=== PATIENT | female | born 1950 | race Caucasian/White ===

== ENCOUNTER → 2017-08-26 10:47 | Outpatient (CLI) | payer MEDICARE, OTHER, SELFPAY ==
[2017-08-26 13:18] LABS: Add Manual Diff / Slide Review NO; Basophils Percent Auto 0.7 % (0-2); Eosinophils Percent Auto 2.3 % (2-4); Hematocrit 39.2 % (36-46); Hemoglobin 13.5 g/dL (12.0-16.0); Lymphocytes Percent Auto 34.8 % (25-40); Mean Corpuscular HGB Conc 34.3 % (30-36); Mean Corpuscular Hemoglobin 33.1 PG (26-34); Mean Corpuscular Volume 96.3 fL (80-100); Monocytes Percent Auto 4.9 % (3-14); Neutrophils Absolute Auto 4400 /uL (3000-5900); Neutrophils Percent Auto 57.3 % (50-75); Platelet Count 221 X10^3/uL (150-400); Red Blood Cell Count 4.07 X10^6/uL (4.0-5.2); Red Cell Distribution Width 12.8 % (11.6-14.8); White Blood Cell Count 7.7 X10^3/uL (4.5-11.0)
[2017-08-26 13:27] LABS: Hemoglobin A1C% w Est Avg Glu 5.3 % (4.0-6.0)
[2017-08-26 13:36] LABS: Alanine Aminotransferase 29 IU/L (9-52); Albumin 4.7 g/dL (3.5-5.0); Albumin Globulin Ratio 1.3 (1.0-2.8); Alkaline Phosphatase 115 U/L (38-126); Aspartate Aminotransferase 31 IU/L (14-36); Bilirubin Total 0.7 mg/dL (0.2-1.3); Blood Urea Nitrogen 21 mg/dL (7-17); Calcium 9.8 mg/dL (8.4-10.2); Carbon Dioxide 28 mmol/L (22-32); Chloride 98 mmol/L (98-107); Cholesterol 214 mg/dL (140-199); Estimated Glomerular Filt Rate > 60.0 mL/min (>60); Globulin 3.5 g/dL (1.7-4.1); Glucose 93 mg/dL (80-110); HDL Cholesterol 54 mg/dL (40-60); HEMOLYSIS < 15 (0-50); LDL Cholesterol Calculated 137 mg/dL (<100); Magnesium 1.9 mg/dL (1.6-2.3); Potassium 3.7 mmol/L (3.4-5.1); Sodium 138 mmol/L (137-145); Total Protein 8.2 g/dL (6.3-8.2); Triglycerides 115 mg/dL (35-150)
[2017-08-26 13:46] LABS: HEMOLYSIS < 15 (0-50); Iron 131 ug/dL (37-170)
[2017-08-26 14:01] LABS: Percent Iron Saturation 33 % (15-50); Total Iron Binding Capacity 395 ug/mL (265-497); Transferrin 317 mg/dL (206-381)
[2017-08-26 14:10] LABS: Thyroid Stimulating Hormone 0.52 uIU/mL (0.47-4.68)
[2017-08-26 14:12] LABS: Ferritin 46.8 ng/mL (11.1-264)
[2017-08-26 14:26] LABS: Vitamin B12 980 pg/mL (239-931)
[2017-08-26 15:21] LABS: Vitamin D 25 Hydroxy (D3) 40.1 ng/mL (30.0-100.0)
[2017-08-28 14:18] LABS: Parathyroid Hormone Int 37 pg/mL (14-64)
[2017-08-30 05:46] LABS: Vitamin B1 123 nmol/L (78-185)
== END ==
PROVIDERS: Family Provider Physical Medicine & Rehabilitation Pain Medicine; PCP Internal Medicine
DX: Z98.84 Bariatric surgery status (principal); R73.01 Impaired fasting glucose; K91.2 Postsurgical malabsorption, not elsewhere classified; Z68.30 Body mass index [BMI] 30.0-30.9, adult
CPT/HCPCS: 36415; 80053; 80061; 82306; 82330; 82607; 82728; 83036; 83540; 83550; 83735; 83970; 84425; 84443; 85025

== ENCOUNTER → 2017-12-29 07:21 | Outpatient (CLI) | payer MEDICARE, OTHER, SELFPAY ==
[2017-12-29 09:18] LABS: Alanine Aminotransferase 23 IU/L (9-52); Albumin 4.7 g/dL (3.5-5.0); Albumin Globulin Ratio 1.6 (1.0-2.8); Alkaline Phosphatase 95 U/L (38-126); Aspartate Aminotransferase 33 IU/L (14-36); BUN Creatinine Ratio 28.6 (6-22); Bilirubin Total 0.4 mg/dL (0.2-1.3); Blood Urea Nitrogen 20 mg/dL (7-17); Calcium 9.6 mg/dL (8.4-10.2); Carbon Dioxide 26 mmol/L (22-32); Chloride 102 mmol/L (98-107); Estimated Glomerular Filt Rate > 60.0 mL/min (>60); Glucose 81 mg/dL (80-110); HEMOLYSIS < 15 (0-50); Sodium 143 mmol/L (137-145); Total Protein 7.7 g/dL (6.3-8.2)
[2017-12-29 09:53] LABS: Free T3, Triiodothyronine Free 2.85 pg/mL (2.77-5.27)
[2017-12-29 09:55] LABS: Vitamin D 25 Hydroxy (D3) 49.9 ng/mL (30.0-100.0)
[2017-12-29 10:07] LABS: Vitamin B12 960 pg/mL (239-931)
[2017-12-29 10:44] LABS: Thyroid Stimulating Hormone 1.22 uIU/mL (0.47-4.68)
[2017-12-31 14:23] LABS: Anti Thyroglobulin Antibody < 1 IU/mL (< 2); Thyroid Peroxidase Antibodies 4 IU/mL (< 9)
[2018-01-06 16:14] LABS: Triiodothyronine T3 Reverse 16 ng/dL (8-25)
== END ==
PROVIDERS: Family Provider Physical Medicine & Rehabilitation Pain Medicine; PCP Internal Medicine; Visit Provider Physical Medicine & Rehabilitation Pain Medicine
DX: K21.0 Gastro-esophageal reflux disease with esophagitis (principal); E03.9 Hypothyroidism, unspecified; E55.9 Vitamin D deficiency, unspecified; R53.83 Other fatigue
CPT/HCPCS: 36415; 80053; 82306; 82607; 84439; 84443; 84481; 84482; 86376; 86800

== ENCOUNTER → 2018-01-04 07:35 | Outpatient (CLI) | payer MEDICARE, OTHER, SELFPAY ==
[2018-01-04 08:23] LABS: Add Manual Diff / Slide Review NO; Basophils Percent Auto 1.2 % (0-2); Eosinophils Percent Auto 3.3 % (2-4); Hematocrit 38.7 % (36-46); Hemoglobin 13.3 g/dL (12.0-16.0); Lymphocytes Percent Auto 32.3 % (25-40); Mean Corpuscular HGB Conc 34.3 % (30-36); Mean Corpuscular Hemoglobin 32.9 PG (26-34); Mean Corpuscular Volume 95.7 fL (80-100); Monocytes Percent Auto 5.7 % (3-14); Neutrophils Absolute Auto 3800 /uL (3000-5900); Neutrophils Percent Auto 57.5 % (50-75); Platelet Count 194 X10^3/uL (150-400); Red Blood Cell Count 4.05 X10^6/uL (4.0-5.2); White Blood Cell Count 6.6 X10^3/uL (4.5-11.0)
[2018-01-04 08:45] LABS: Alanine Aminotransferase 28 IU/L (9-52); Albumin 4.8 g/dL (3.5-5.0); Albumin Globulin Ratio 1.5 (1.0-2.8); Alkaline Phosphatase 96 U/L (38-126); Aspartate Aminotransferase 33 IU/L (14-36); BUN Creatinine Ratio 38.6 (6-22); Bilirubin Total 0.6 mg/dL (0.2-1.3); Blood Urea Nitrogen 27 mg/dL (7-17); Calcium 9.7 mg/dL (8.4-10.2); Carbon Dioxide 29 mmol/L (22-32); Chloride 101 mmol/L (98-107); Cholesterol 210 mg/dL (140-199); Estimated Glomerular Filt Rate > 60.0 mL/min (>60); Globulin 3.2 g/dL (1.7-4.1); Glucose 103 mg/dL (80-110); HDL Cholesterol 61 mg/dL (40-60); HEMOLYSIS < 15 (0-50); LDL Cholesterol Calculated 125 mg/dL (<100); Magnesium 1.9 mg/dL (1.6-2.3); Potassium 3.9 mmol/L (3.4-5.1); Sodium 141 mmol/L (137-145); Triglycerides 119 mg/dL (35-150)
[2018-01-04 09:06] LABS: Hemoglobin A1C% w Est Avg Glu 5.3 % (4.0-6.0)
[2018-01-04 09:32] LABS: Vitamin B12 971 pg/mL (239-931)
[2018-01-04 09:42] LABS: HEMOLYSIS < 15 (0-50); Iron 134 ug/dL (37-170)
[2018-01-04 09:55] LABS: Percent Iron Saturation 36 % (15-50); Total Iron Binding Capacity 376 ug/dL (265-497); Transferrin 339 mg/dL (206-381)
[2018-01-04 10:08] LABS: Vitamin D 25 Hydroxy (D3) 48.7 ng/mL (30.0-100.0)
[2018-01-04 10:12] LABS: Thyroid Stimulating Hormone 1.19 uIU/mL (0.47-4.68)
[2018-01-06 14:59] LABS: Ionized Calcium 5.1 mg/dL (4.8-5.6)
[2018-01-06 15:27] LABS: Folate, RBC >1000 ng/mL RBC (> 280)
[2018-01-07 14:36] LABS: Parathyroid Hormone Int 40 pg/mL (14-64)
== END ==
PROVIDERS: Family Provider Physical Medicine & Rehabilitation Pain Medicine; PCP Internal Medicine; Referring Provider Orthopaedic Surgery Orthopaedic Surgery of the Spine; Visit Provider Nurse Practitioner Family
DX: Z09 Encounter for follow-up examination after completed treatment for conditions other than malignant neoplasm (principal); Z98.84 Bariatric surgery status; E03.9 Hypothyroidism, unspecified; K91.2 Postsurgical malabsorption, not elsewhere classified; Z68.30 Body mass index [BMI] 30.0-30.9, adult; R73.01 Impaired fasting glucose; E78.2 Mixed hyperlipidemia; E55.9 Vitamin D deficiency, unspecified; D50.8 Other iron deficiency anemias
CPT/HCPCS: 36415; 80053; 80061; 82306; 82330; 82607; 82728; 82747; 83036; 83540; 83550; 83735; 83970; 84425; 84443; 85025

== ENCOUNTER 2018-06-14 06:31 | Day surgery (SDC) | payer MEDICARE, OTHER, SELFPAY ==
[2018-06-06 07:25] VITALS: BMI 25.4
--- NOTE | 2018-06-14 | PATH_ITS ---
[facility] [place] Accession Number: [id number] . 01 Material submitted: . LEFT FLANK MASS . 01 Diagnosis: Left Flank, Excision: Nodular area present deep in the subcutis showing fibrosis and calcification, most likely reactive, secondary to prior local trauma. . Note: Focal metaplastic bone formation is also noted. Clinical pathological correlation is advised. MRV/06/22/2018 . 01 Electronically signed: . Jamee Cross MD, Dermatopathologist NPI- [id number] . 01 Gross description: . Received in formalin, labeled left flank mass, is an unoriented ellipse of eastman-white smooth shiny skin with underlying tissue (7.5 x 3.3 x 1.3 cm). The skin surface is unremarkable. The underlying tissue is fatty and contains a eastman-yellow hard mass (3.0 x 1.4 x 0.7 cm) located 2.0 cm from the skin surface. The mass cannot be sliced with a scalpel. The mass has a pale yellow cut surface. The resection margin is inked black. Package Maker serial sections are submitted in cassettes A1 and A2. Note: The sections have been decalcified. ([id number]) All remaining tissue submitted in cassettes A3 to A10. /MRV . 01 Pathologist provided ICD-10: L98.9 . 01 CPT . 430005 Performed at: [address] [facility] [address], [place], [place] [id number] MD Haseeb Goncalves MD Phone: [phone]
[2018-06-14 07:18] VITALS: BMI 25.4
[2018-06-14 07:20] VITALS: BP 134/72; PULSE 74; RESP 18; TEMP 36.6; O2SAT 98
--- NOTE | 2018-06-14 07:40 | PM.HP.1 ---
History of Present Illness Date Patient Seen: 06/14/18 Time Patient Seen: 07:40 Chief complaint: EXCISION LEFT GLUTEAL MASS Narrative: 68-year-old female who presented with painful enlarging subcutaneous masses in the left gluteal region just posterior to the anterior superior iliac spine. She finds it difficult to lay on this area due to pain and discomfort. No skin changes. No rashes. No lesions elsewhere. Patient History Medical History Bilateral lower extremity edema (Acute) Colon polyps (Acute) Degenerative disc disease, cervical (Acute) Difficult intravenous access (Acute) GERD (gastroesophageal reflux disease) (Acute) Glaucoma (Acute) H/O: hysterectomy (Acute ~08/1978) Hyperlipidemia (Acute) Lesion of lung (Acute) Meningioma (Acute ~10/2015) Superficial thrombophlebitis of left leg (Acute ~1985) Vitamin D deficiency (Acute) Hypothyroidism (Acute) Asthma (Chronic) Eczema (Chronic) HTN (hypertension) (Chronic) SLE (systemic lupus erythematosus related syndrome) (Chronic) Seasonal allergies (Chronic) Surgical History H/O foot surgery (Acute) History of lumbar spinal fusion (Acute ~2002) History of lumbar spinal fusion (Acute) Hx of abdominal surgery (Acute) Hx of cholecystectomy (Acute) Hx of eye surgery (Acute ~12/2015) S/P foot surgery, right (Acute 01/08/17) History of appendectomy (Acute) History of section (Acute) History of cosmetic surgery (Acute) History of gastric bypass (Acute ~01/2017) Family History Father Hypertension Heart disease Diabetes mellitus Mother Heart disease Gallstones Stroke Cancer Adenocarcinoma in situ Sister Breast cancer Family/Other Breast cancer Grandfather No problems noted. Social History household members: spouse Smoking Status: Never smoker Family & Social History Social History: household members spouse Tobacco & Substance use: Smoking Status Never smoker Meds Home Medications Medication Instructions Recorded Confirmed Type Restasis 2 drp OPHTH BID #0 11/21/12 06/14/18 History albuterol sulfate [Ventolin HFA] 2 puff INH Q4HP PRN #0 puff 11/21/12 06/06/18 History spironolactone 25 mg PO QDAY #0 tab 11/21/12 06/14/18 History clobetasol 1 karel TOPICAL BIDP PRN #0 08/27/16 06/06/18 History [PROBIOTIC] PO QDAY #0 02/22/17 History fluticasone propionate [Flonase 1 spray INTRANASAL QDAY #0 02/22/17 06/14/18 History Allergy Relief] losartan-hydrochlorothiazide 1 tab PO QDAY #0 02/22/17 06/14/18 History multivitamin [Multiple Vitamins] 1 tab PO QDAY #0 02/22/17 06/06/18 History omeprazole 40 mg PO QDAY #0 02/22/17 06/14/18 History cetirizine 10 mg tablet 10 mg PO DAILY PRN tab 05/12/18 06/14/18 History levothyroxine 112 mcg PO DAILY 05/12/18 06/14/18 History liothyronine 5 mcg PO QAM 05/12/18 06/14/18 History Allergies Allergy/AdvReac Type Severity Reaction Status Date / Time adhesive [ADHESIVE] Allergy Severe HIVES Verified 06/14/18 07:27 amlodipine [AMLODIPINE] Allergy Severe ANGIOEDEMA Verified 06/14/18 07:27 amoxicillin [AMOXICILLIN] Allergy Severe ANAPHYLAXIS Verified 06/14/18 07:27 cephalexin [CEPHALEXIN] Allergy Severe ANAPHYLAXIS Verified 06/14/18 07:27 Cephalosporins Allergy Severe ANAPHYLAXIS Verified 06/14/18 07:27 [CEPHALOSPORINS] erythromycin base Allergy Severe Vomiting Verified 06/14/18 07:27 [ERYTHROMYCIN BASE] gabapentin [GABAPENTIN] Allergy Severe nausea, Verified 06/14/18 07:27 headache hydrocodone [HYDROCODONE] Allergy Severe HIVES/ITCHI Verified 06/14/18 07:27 NG iodine [IODINE] Allergy Severe ANAPHYLAXIS Verified 06/14/18 07:27 lisinopril [LISINOPRIL] Allergy Severe ANGIOEDEMA Verified 06/14/18 07:27 Penicillins [PENICILLINS] Allergy Severe ANAPHYLAXIS Verified 06/14/18 07:27 sumatriptan [SUMATRIPTAN] Allergy Unknown nightmares Verified 06/14/18 07:27 codeine Allergy nausea,itch Verified 06/14/18 07:27 ing oxycodone [From Percocet] Allergy nausea, Verified 06/14/18 07:27 itching Iodinated Contrast- Oral and AdvReac Anaphylaxis Verified 06/14/18 07:27 IV Dye Review of Systems Review of Systems All systems reviewed & are unremarkable except as noted in HPI and below Exam Vital Signs (past 8 hours): - 06/14/18 07:20 Temperature 97.8 F Pulse Rate 74 Respiratory Rate 18 Blood Pressure 134/72 Pulse Oximetry 98 Oxygen Delivery Method Room Air Narrative Exam Narrative: Well-nourished well-developed female in no acute distress. Alert oriented x3 Neck supple Sclera nonicteric Chest clear to auscultation Abdomen soft, nondistended, nontender, no masses. Well-healed abdominoplasty scars Extremities show no clubbing, cyanosis, or edema She has redundant soft tissue and skin from recent weight loss Three small subcutaneous for mobile mildly tender nodules are noted just posterior to the anterior superior iliac spine along the lateral left flank. Objective Labs Labs: No recent laboratory or radiographic studies for review Assessment & Plan Assessment & Plan narrative: 60-year-old female with enlarging painful subcutaneous nodules of the left flank region. Given her symptoms I recommended excision. Technical details were discussed. Risks, benefits, alternatives reviewed. Please see my previous note from April 2018 for details. Her history physical examination is otherwise not changed. This serves as an update to the previous note. All questions were answered to her satisfaction when I saw her in the preoperative area today. Consent is on the chart. Proceed as above.
--- NOTE | 2018-06-14 07:43 | PM.PREOP ---
Pre-operative Note Interval Note History & Physical reviewed/Exam performed by Physician: Yes Changes to H&P: No
[2018-06-14] MEDS: LACTATED RINGERS 1,000 ML 42 ML IV (07:46)
[2018-06-14] MEDS: CLINDAMYCIN 900 MG/50 ML PIGGYBACK 50 MG IV (07:55)
--- NOTE | 2018-06-14 08:15 | SUR.OPER ---
Lateral on padded red bag on OR bed, head on pillow, gel axillary roll in place, bottom leg bent with gel pad under knee to foot, upper leg straight and supported with pillows. Upper arm supported by pillows and secured over bottom arm to padded arm board. Safety belt at hip, tape over blanket lower legs.
[2018-06-14] MEDS: BUPIVACAINE 0.5% (PF) VIAL 30 ML INJ (08:20)
[2018-06-14] MEDS: LIDOCAINE 1% W/EPI INJ 20 ML INJ (08:20)
[2018-06-14 08:44] VITALS: BP 117/38; PULSE 83; RESP 16; TEMP 36.3; O2SAT 99
--- NOTE | 2018-06-14 08:44 | PM.OP.1 ---
Operative Date/Time/Diagnoses Date of procedure: 06/14/18 Time of procedure: 08:44 Pre-op diagnosis: Painful subcutaneous nodules left flank region near gluteus Post-op diagnosis: same Procedure & Clinicians Procedure: Wide local excision of skin, subcutaneous tissue, and multinodular mass in left flank measuring 6 x 2 by 3 cm in greatest dimensions Same procedure as scheduled: Yes Indications: 68-year-old female who presented with painful nodules of the left flank region extending toward the left gluteal area. Given her symptoms excision was recommended. Surgeon: Dannie Colby Click Yes if Unassisted: Yes Anesthesia Type: General Operative Notes Findings: Multinodular firm irregular mass in the subcutaneous tissue of the left flank region possibly consistent with suture material or other foreign body Closure Type: primary Specimen(s): other (Left flank mass) Prosthetic devices, grafts, tissues, transplants, or devices: None Estimated Blood Loss (mL): 5 Blood products transfused: none Procedure in detail: After obtaining informed consent the patient was brought to the operating room placed supine on the table. After satisfactory induction anesthesia she was placed in right lateral decubitus position and all pressure points were padded appropriately. SCOAP time out was performed per standard protocol. Previously marked area was again identified and an elliptical skin incision was designed with the above dimensions. Area was infiltrated with a 1 :1 mixture 1% lidocaine with 1 :100,000 epinephrine and 0.5% plain Marcaine for postoperative analgesia. Skin incision was created with 10 scalpel blade. Bovie was used to achieve hemostasis and carried the dissection down through the subcutaneous tissue completely encompassing the palpable lesion. Lesion was excised with the Bovie and sent for permanent section. Wound was irrigated with copious amounts of sterile saline solution and noted to be hemostatic. Further palpation of the cavity revealed no other masses or abnormalities. Subcutaneous tissue was reapproximated with interrupted 3 0 Vicryl suture. Skin was closed in running subcuticular fashion with 4 0 Monocryl suture. Dermal adhesive was applied to the skin. Anesthesia was reversed and patient extubated in the operating room. She was taken recovery stable condition. Complications: none Condition: stable Disposition: PACU Plan for aftercare: 1. Discharge home 2. Follow up in surgery Clinic in 2 weeks 3. Await pathology
[2018-06-14 08:49] VITALS: BP 111/46; PULSE 81; RESP 15; O2SAT 99
[2018-06-14 08:53] VITALS: BP 127/57; PULSE 76; RESP 13; O2SAT 100
[2018-06-14] MEDS: fentaNYL 100 MCG/2 ML INJ 50 MCG IV ×2 (08:53→09:04)
[2018-06-14 08:59] VITALS: BP 127/54; PULSE 70; RESP 11; O2SAT 99
[2018-06-14 09:11] VITALS: BP 150/63; PULSE 71; RESP 15; TEMP 36.3; O2SAT 100
[2018-06-14] MEDS: HYDROMORPHONE 2 MG TABLET PO (09:36)
== END 2018-06-14 09:45 | disposition home or self-care (01) ==
LOC: OR 06:33
PROVIDERS: Family Provider Physical Medicine & Rehabilitation Pain Medicine; PCP Internal Medicine; Visit Provider Surgery
PROC: (CPT 21931; principal; 2018-06-14 07:45)
DX: L98.9 Disorder of the skin and subcutaneous tissue, unspecified (principal); E03.9 Hypothyroidism, unspecified; J45.909 Unspecified asthma, uncomplicated; I10 Essential (primary) hypertension; L93.0 Discoid lupus erythematosus; Z98.890 Other specified postprocedural states
CPT/HCPCS: 21931; 88305; J1100; J1885; J2250; J2405; J2704; J3010

== ENCOUNTER → 2018-06-20 08:48 | Outpatient (CLI) | payer MEDICARE, OTHER, SELFPAY ==
[2018-06-20 11:47] LABS: Thyroid Stimulating Hormone 1.03 uIU/mL (0.47-4.68)
[2018-06-20 12:12] LABS: Vitamin D 25 Hydroxy (D3) 33.7 ng/mL (30.0-100.0)
[2018-06-22 14:05] LABS: Anti Thyroglobulin Antibody < 1 IU/mL (< 2); Thyroid Peroxidase Antibodies 4 IU/mL (< 9)
[2018-06-22 15:22] LABS: Magnesium, RBC 4.7 mg/dL (4.0-6.4)
[2018-06-23 16:12] LABS: T4,Free, Direct Dialysis 1.7 ng/dL (0.9-2.2)
[2018-06-24 12:31] LABS: Triiodothyronine T3 Reverse 15 ng/dL (8-25)
== END ==
PROVIDERS: Family Provider Physical Medicine & Rehabilitation Pain Medicine; PCP Internal Medicine; Visit Provider Physical Medicine & Rehabilitation Pain Medicine
DX: E03.9 Hypothyroidism, unspecified (principal); R53.83 Other fatigue; E55.9 Vitamin D deficiency, unspecified
CPT/HCPCS: 36415; 82306; 83735; 84439; 84443; 84482; 86376; 86800

== ENCOUNTER → 2018-07-05 06:15 | Outpatient (CLI) | payer MEDICARE, OTHER, SELFPAY ==
--- NOTE | 2018-07-05 | DI.MRI.S_ITS ---
PROCEDURE: MR LUMBAR SPINE WO/W CON INDICATIONS: RIGHT LE PAIN/NUMBNESS TECHNIQUE: Noncontrast sagittal T1 spin echo and T2 fast spin echo, sagittal STIR, axial T1 and T2 fast spin echo through the lumbar spine. In cases with scoliosis, additional coronal T2 fast spin echo may be performed. After the administration of contrast, sagittal and axial T1 spin echo with fat saturation through the lumbar spine. COMPARISON: [facility], , L-SPINE 2-3 VIEWS, 01/01/2012, 5:11. FINDINGS: Image quality: Excellent. Alignment and curvature: There is right hemifusion at L1 and L2. There is trace retrolithesis of L1 on L2, L2 on L3, trace anterolithesis of L4 on L5, L5 on S1. Marrow: Marrow is of normal overall signal. No acute vertebral body compression fractures. No suspicious marrow enhancement. Spinal cord: Conus medullaris terminates at the L2 level. Visualized spinal cord demonstrates normal signal, without suspicious enhancement. Paraspinous soft tissues: No paravertebral masses or abnormal enhancement. Discs: Moderate to severe desiccation is present throughout the lumbar spine. L1-L2: Mild disc bulge without spinal stenosis. Mild right foraminal narrowing with facet and ligamentum flavum hypertrophy. L2-L3: Postsurgical changes are present without spinal stenosis. Moderate bilateral foraminal narrowing with facet and ligamentum flavum hypertrophy. L3-L4: No disc bulge or spinal stenosis. Moderate to severe left foraminal narrowing is present with facet and ligamentum flavum hypertrophy. L4-L5: Mild disc bulge without spinal stenosis. Mild bilateral foraminal narrowing, left greater than right. Facet and ligamentum flavum hypertrophy. L5-S1: Mild disc bulge including right foraminal component. Moderate to severe right foraminal narrowing with facet hypertrophy.. IMPRESSION: 1. Multilevel posterior fusion. 2. Multilevel degenerative changes without spinal stenosis. 3. Foraminal narrowing most prominent at L2-3, L3-4, secondary to facet arthropathy. Dictated by: Melinda Palacios M.D. on 07/05/2018 at 13:36 Approved by: Melinda Palacios M.D. on 07/05/2018 at 14:16
--- NOTE | 2018-07-05 | DI.MRI.S_ITS ---
PROCEDURE: MR THORACIC SPINE WO/W CON INDICATIONS: RIGHT LE PAIN/NUMBNESS TECHNIQUE: Noncontrast sagittal T1 spin echo and T2 fast spin echo, sagittal STIR, axial T1 and T2 fast spin echo through the thoracic spine. After the administration of contrast, axial and sagittal T1 spin echo with fat saturation through the thoracic spine. COMPARISON: [facility], MR, MR LUMBAR SPINE WO/W CON, 07/05/2018, 7:25. FINDINGS: Image quality: Excellent. Alignment and curvature: There is trace retrolisthesis of T11 on T12, T12 on L1, L1 on L2. Partially visualized posterior fusion is present at L1 and L2. There is incidental note of trace retrolisthesis of C6 on C7, trace anterolisthesis of T2 on T3, T3 on T4. Marrow: Marrow is of normal overall signal. No acute vertebral body compression fractures. Spinal cord: Visualized spinal cord is of normal signal and size, without abnormal enhancement. Paraspinous soft tissues: No paravertebral masses or abnormal enhancement. Miscellaneous: Central canal and foramina appear widely patent at all scanned levels. Multilevel disc desiccation is present throughout the thoracic spine. Mild disc bulges are present at T2-3, T4-5, T7-8, T8-9, T9-10 and, T12-L1. There is a disc bulge with posterior central protrusion with mild spinal stenosis at T11-12. Annular fissures also noted. IMPRESSION: 1. Multiple disc bulges including a posterior central protrusion at T11-12 with spinal stenosis as above. Dictated by: Melinda Palacios M.D. on 07/05/2018 at 12:45 Approved by: Melinda Palacios M.D. on 07/05/2018 at 13:36
[2018-07-05 09:59] LABS: Add Manual Diff / Slide Review NO; Basophils Absolute Auto 0 /uL (0-100); Basophils Percent Auto 0.6 % (0-2); Eosinophils Absolute Auto 100 /uL (0-450); Eosinophils Percent Auto 2.2 % (2-4); Hematocrit 40.1 % (36-46); Hemoglobin 13.7 g/dL (12.0-16.0); Lymphocytes Absolute Auto 1800 /uL (1100-4500); Lymphocytes Percent Auto 31.3 % (25-40); Mean Corpuscular HGB Conc 34.1 % (30-36); Mean Corpuscular Hemoglobin 33.6 PG (26-34); Mean Corpuscular Volume 98.5 fL (80-100); Monocytes Absolute Auto 400 /uL (0-900); Monocytes Percent Auto 6.2 % (3-14); Neutrophils Absolute Auto 3500 /uL (1500-7000); Neutrophils Percent Auto 59.7 % (50-75); Platelet Count 191 X10^3/uL (150-400); Red Blood Cell Count 4.07 X10^6/uL (4.0-5.2); Red Cell Distribution Width 13.1 % (11.6-14.8); White Blood Cell Count 5.8 X10^3/uL (4.5-11.0)
[2018-07-05 10:50] LABS: Alanine Aminotransferase 33 IU/L (9-52); Albumin 4.8 g/dL (3.5-5.0); Albumin Globulin Ratio 1.7 (1.0-2.8); Alkaline Phosphatase 100 U/L (38-126); Aspartate Aminotransferase 35 IU/L (14-36); BUN Creatinine Ratio 27.1 (6-22); Bilirubin Total 0.5 mg/dL (0.2-1.3); Blood Urea Nitrogen 19 mg/dL (7-17); Calcium 9.9 mg/dL (8.4-10.2); Carbon Dioxide 28 mmol/L (22-32); Chloride 99 mmol/L (98-107); Estimated Glomerular Filt Rate > 60.0 mL/min (>60); Globulin 2.8 g/dL (1.7-4.1); Glucose 90 mg/dL (80-110); HEMOLYSIS < 15 (0-50); Potassium 4.9 mmol/L (3.4-5.1); Sodium 137 mmol/L (137-145); Total Protein 7.6 g/dL (6.3-8.2)
== END ==
PROVIDERS: Family Provider Physical Medicine & Rehabilitation Pain Medicine; PCP Internal Medicine; Visit Provider Physical Medicine & Rehabilitation Pain Medicine
DX: G83.4 Cauda equina syndrome (principal); M46.46 Discitis, unspecified, lumbar region; R53.83 Other fatigue; R20.2 Paresthesia of skin; M48.00 Spinal stenosis, site unspecified
CPT/HCPCS: 36415; 72157; 72158; 80053; 85025

== ENCOUNTER 2018-08-28 17:17 | Emergency (ER) | payer MEDICARE, OTHER, SELFPAY ==
[2018-08-28 17:29] VITALS: BP 166/82; PULSE 77; RESP 18; TEMP 36.7; O2SAT 100
[2018-08-28 17:30] VITALS: PULSE 77; RESP 18; TEMP 36.7; O2SAT 100; BMI 26.5
[2018-08-28] MEDS: PROPARACAINE 0.5% OPHTH SOL 1 DROPS EYE-LEFT (17:40)
--- NOTE | 2018-08-28 18:01 | ED_ITS ---
HPI - Eye Problem General Chief complaint: Eye Problems Stated complaint: something in left eye Time Seen by Provider: 08/28/18 17:29 Source: patient Mode of arrival: ambulatory Limitations: no limitations History of Present Illness HPI Narrative: 68-year-old female sent over from the walk-in clinic for evaluation of a red left eye. Patient states that she does wear glasses. She has had a lens replaced in her left eye not secondary to glaucoma but secondary to a ?closed angle ?this is done many years ago. States that she woke up this morning with irritation in her left eye. She thought that there was potentially an infection. She has been using ice without any improvement. She has also been using refresh tears without any improvement. No headache. No ringing in her ears. No facial tenderness. Has had some blurry vision in that eye but she thinks it is because of watering and rubbing her eye. Related Data Home Medications Medication Instructions Recorded Confirmed Restasis 2 drp OPHTH BID #0 11/21/12 08/18/18 albuterol sulfate [Ventolin HFA] 2 puff INH Q4HP PRN #0 puff 11/21/12 08/18/18 spironolactone 25 mg PO QDAY #0 tab 11/21/12 08/18/18 clobetasol 1 karel TOPICAL BIDP PRN #0 08/27/16 08/18/18 [PROBIOTIC] PO QDAY #0 02/22/17 08/18/18 fluticasone propionate [Flonase 1 spray INTRANASAL QDAY #0 02/22/17 08/18/18 Allergy Relief] losartan-hydrochlorothiazide 1 tab PO QDAY #0 02/22/17 08/18/18 multivitamin [Multiple Vitamins] 1 tab PO QDAY #0 02/22/17 08/18/18 omeprazole 40 mg PO QDAY #0 02/22/17 08/18/18 cetirizine 10 mg tablet 10 mg PO DAILY PRN tab 05/12/18 08/18/18 levothyroxine 112 mcg PO DAILY 05/12/18 08/18/18 liothyronine 5 mcg PO QAM 05/12/18 08/18/18 estradiol 1 mg tablet 1 mg PO DAILY 07/25/18 08/18/18 estradiol 1 mg tablet 1 mg PO DAILY 08/28/18 08/28/18 Previous Rx's Medication Instructions Recorded docusate sodium [Colace] 100 mg PO BID #14 cap 06/14/18 hydromorphone [Dilaudid] 2 mg PO Q6H PRN #10 tab 06/14/18 sennosides [Senokot] 8.6 mg PO BEDTIME #10 tab 06/14/18 erythromycin 0.5 inch EYE-LEFT TID #1 gram 08/28/18 Allergies Allergy/AdvReac Type Severity Reaction Status Date / Time adhesive [ADHESIVE] Allergy Severe HIVES Verified 08/28/18 17:30 amlodipine [AMLODIPINE] Allergy Severe ANGIOEDEMA Verified 08/28/18 17:30 amoxicillin [AMOXICILLIN] Allergy Severe ANAPHYLAXIS Verified 08/28/18 17:30 cephalexin [CEPHALEXIN] Allergy Severe ANAPHYLAXIS Verified 08/28/18 17:30 Cephalosporins Allergy Severe ANAPHYLAXIS Verified 08/28/18 17:30 [CEPHALOSPORINS] erythromycin base Allergy Severe Vomiting Verified 08/28/18 17:30 [ERYTHROMYCIN BASE] gabapentin [GABAPENTIN] Allergy Severe nausea, Verified 08/28/18 17:30 headache hydrocodone [HYDROCODONE] Allergy Severe HIVES/ITCHI Verified 08/28/18 17:30 NG iodine [IODINE] Allergy Severe ANAPHYLAXIS Verified 08/28/18 17:30 lisinopril [LISINOPRIL] Allergy Severe ANGIOEDEMA Verified 08/28/18 17:30 Penicillins [PENICILLINS] Allergy Severe ANAPHYLAXIS Verified 08/28/18 17:30 sumatriptan [SUMATRIPTAN] Allergy Unknown nightmares Verified 08/28/18 17:30 codeine Allergy nausea,itch Verified 08/28/18 17:30 ing oxycodone [From Percocet] Allergy nausea, Verified 08/28/18 17:30 itching Iodinated Contrast- Oral and AdvReac Anaphylaxis Verified 08/28/18 17:30 IV Dye Review of Systems Constitutional Denies fever(s) and Denies headache(s) Eyes Reports change in vision, Denies floaters, Reports irritation, Reports itchy eyes, Denies loss of peripheral vision, Denies loss of vision, Reports eye pain, Denies seeing flashes and Denies photophobia Comments: Here today did left eye ENT Ears, Nose, Mouth, and Throat: Denies vertigo, Denies dizziness, Denies ear discharge, Denies otalgia, Denies headache(s), Denies hearing loss, Reports nasal discharge (Left nose), Denies neck pain, Denies tinnitus and Denies sore throat Cardiovascular Denies chest pain and Denies dyspnea Respiratory Denies cough and Denies dyspnea Gastrointestinal Gastrointestinal: Denies abdominal pain, Denies nausea and Denies vomiting Genitourinary Denies dysuria Musculoskeletal Denies myalgias, Denies arthralgias and Denies neck pain Integumentary/Breasts Denies lesions and Denies rash Neurologic Denies behavioral changes, Denies vertigo, Denies dizziness, Denies headache(s) and Denies loss of vision Psychiatric Denies behavioral changes Hematologic/Lymphatic Denies easy bleeding and Denies easy bruising Allergic/Immunologic Denies urticaria and Reports itchy eyes [facility] Medical History Bilateral lower extremity edema (Acute) Colon polyps (Acute) Degenerative disc disease, cervical (Acute) Difficult intravenous access (Acute) GERD (gastroesophageal reflux disease) (Acute) Glaucoma (Acute) H/O: hysterectomy (Acute ~08/1978) Hyperlipidemia (Acute) Hypothyroidism (Acute) Lesion of lung (Acute) Meningioma (Acute ~10/2015) Superficial thrombophlebitis of left leg (Acute ~1985) Vitamin D deficiency (Acute) Asthma (Chronic) Eczema (Chronic) HTN (hypertension) (Chronic) SLE (systemic lupus erythematosus related syndrome) (Chronic) Seasonal allergies (Chronic) Social History household members: spouse Smoking Status: Never smoker Exam Initial Vital Signs Initial Vital Signs: Vital Signs Temperature 98.1 F 08/28/18 17:29 Pulse Rate 77 08/28/18 17:29 Respiratory Rate 18 08/28/18 17:29 Blood Pressure 166/82 H 08/28/18 17:29 Pulse Oximetry 100 08/28/18 17:29 Const General: cooperative, healthy appearing, comfortable, well developed, well groomed and No acute distress Orientation: alert, awake and oriented x3 HENMT Head: normal to inspection and normocephalic Ears: TM's normal bilaterally Nose: external nose normal Face and sinus: normal facial exam Mouth: oral mucosae normal Throat: posterior oropharynx normal Eyes General: appearance normal, both eyes and all related structures Alignment and Position: alignment normal Periorbital: periorbital findings normal Eyelids: eyelids normal Conjunctivae: other (Left-sided injection of the conjunctiva) Sclera: sclerae normal Cornea: corneas normal and fluorescein used Pupils: PERRL and pupil size bilaterally 5 EOM: EOM intact bilaterally Direct ophthalmoscopy: normal light reflex and photophobia present Resp Effort & Inspection: normal respiratory effort Auscultation: clear to auscultation bilaterally Cardio Rate: regular rate Rhythm: regular rhythm Skin Lesions: no lesions Rashes: no rashes Neuro General: alert and awake Cognition: normal cognition Speech: speech normal Extrem General: normal to inspection and capillary refill normal Psych Appearance: grossly normal and well kempt Course Orders Ordered: Discontinued Medications Erythromycin (Erythromycin Ophth Oint) 1 applic EYE-LEFT NOW ONE Stop: 08/28/18 18:50 Last Admin: 08/28/18 18:56 Dose: 1 applic Proparacaine HCl (Parcaine 0.5% Ophth Marilia) 1 drops EYE-LEFT NOW ONE Stop: 08/28/18 17:32 Last Admin: 08/28/18 17:40 Dose: 2 drop Vital Signs - 8 hr 08/28/18 17:29 08/28/18 17:30 08/28/18 18:56 Temperature 98.1 F 98.1 F 97.3 F L Pulse Rate 77 77 72 Respiratory Rate 18 18 18 Blood Pressure 144/82 H Blood Pressure [Right Arm] 166/82 H Pulse Oximetry 100 100 100 MDM - Eye Problem MDM Narrative Medical decision making narrative: Patient with some conjunctival injection of the left eye however no surrounding erythema concerning for cellulitis. Visual acuity unremarkable. No uptake with fluorescein staining. No foreign body seen with inversion of upper and lower eyelids. Patient did report improvement after the proparacaine drops. Pressure 0S 15 and OD 15. I did use the slit lamp did not see any cells or flare. No consensual photophobia. No trauma. Will place the patient on erythromycin ointment to cover any potential conjunctivitis. Will have her contact her eye provider tomorrow for follow-up. She was given return precautions and follow-up instructions. She expressed understanding and agreement with plan. Discharge Plan Departure Patient Disposition: Home Clinical Impression: Red eye Discharge Date/Time: 08/28/18 19:03 Interventions: ED Discharge Assessment Last Done: 08/28/18 18:56 Instructions: DI for Red Eye Activity Restrictions/Additional Instructions: Take the antibiotics as directed. Call your eye provider tomorrow for a follow up. Return to the ER for any new or worsening symptoms. Prescriptions: New erythromycin 5 mg/gram (0.5 %) ointment 0.5 inch EYE-LEFT TID Qty: 1 RF: 0 No Action estradiol 1 mg tablet 1 mg PO DAILY RF: 0 spironolactone 25 MG tablet 25 mg PO QDAY Qty: 0 RF: 0 albuterol sulfate [Ventolin HFA] 90 MCG/PUFF HFA aerosol inhaler 2 puff INH Q4HP PRN (Reason: Asthma) Qty: 0 RF: 0 Restasis 1 EACH dropperette 2 drp OPHTH BID Qty: 0 RF: 0 clobetasol 0.05 % ointment 1 karel Topical BIDP PRN (Reason: As directed) Qty: 0 RF: 0 fluticasone propionate [Flonase Allergy Relief] 9.9 ML spray,suspension 1 spray Intranasal QDAY Qty: 0 RF: 0 losartan-hydrochlorothiazide 50 MG/12.5 MG tablet 1 tab PO QDAY Qty: 0 RF: 0 omeprazole 20 MG tablet,delayed release (DR/EC) 40 mg PO QDAY Qty: 0 RF: 0 multivitamin [Multiple Vitamins] 1 EACH tablet 1 tab PO QDAY Qty: 0 RF: 0 [PROBIOTIC] PO QDAY Qty: 0 RF: 0 cetirizine [Zyrtec] 10 mg tablet 10 mg PO DAILY PRN (Reason: Seasonal allergies) RF: 0 levothyroxine 112 mcg PO DAILY RF: 0 liothyronine 5 mcg PO QAM RF: 0 estradiol 1 mg tablet 1 mg PO DAILY RF: 0 sennosides [Senokot] 8.6 mg tablet 8.6 mg PO BEDTIME Qty: 10 RF: 1 docusate sodium [Colace] 100 mg capsule 100 mg PO BID Qty: 14 RF: 1 hydromorphone [Dilaudid] 2 mg tablet 2 mg PO Q6H PRN (Reason: pain) Qty: 10 RF: 0 Referrals: Eugenio Coello MD [Primary Care Provider] -
[2018-08-28 18:56] VITALS: BP 144/82; PULSE 72; RESP 18; TEMP 36.3; O2SAT 100
[2018-08-28] MEDS: ERYTHROMYCIN OPHTH 1 GM OINT 1 APPLIC EYE-LEFT (18:56)
== END 2018-08-28 19:03 | disposition home or self-care (01) ==
PROVIDERS: Emergency Provider Emergency Medicine; Family Provider Physical Medicine & Rehabilitation Pain Medicine; PCP Internal Medicine
DX: H57.89 Other specified disorders of eye and adnexa (principal)
CPT/HCPCS: 99283

== ENCOUNTER 2019-02-10 18:30 | Emergency (ER) | payer MEDICARE, OTHER, SELFPAY ==
[2019-02-10 18:53] VITALS: BP 158/88; PULSE 82; RESP 18; TEMP 36.8; O2SAT 100
--- NOTE | 2019-02-10 20:10 | ED.GENADULT ---
HPI - General Adult General Chief complaint: Abdominal Pain Stated complaint: thinks abdominal infection, abdominal pain Time Seen by Provider: 02/10/19 19:58 Source: patient Mode of arrival: Family Vehicle Limitations: no limitations History of Present Illness HPI narrative: 68-year-old female with multiple medical problems to include chronic pain and multiple back surgeries here for evaluation of abdominal pain, diarrhea, nausea vomiting, worsening pain, was sent to the emergency department by her primary provider. She states that she has not taken any of her thyroid medicines for the past several days/weeks. She reports that the pain that she is having is not necessarily new for her but has been worsening over the past several days. The nausea and diarrhea just started over the past couple days as well. She did tell me that 2 or 3 days ago she stopped all of her pain medication. This was after she decreased her pain 2 weeks ago. She states that she wanted to come off of the medication. She states she has talk with her painting worker and her primary provider about her pain medication regiment in she states that they ?disagree ?about what she should be on. She is describing pelvic pain which is not new. Pain in her legs which is not new. Her abdominal pain is new. Related Data Home Medications Medication Instructions Recorded Confirmed Restasis 2 drp OPHTH BID #0 11/21/12 08/18/18 albuterol sulfate [Ventolin HFA] 2 puff INH Q4HP PRN #0 puff 11/21/12 08/18/18 spironolactone 25 mg PO QDAY #0 tab 11/21/12 08/18/18 clobetasol 1 karel TOPICAL BIDP PRN #0 08/27/16 08/18/18 [PROBIOTIC] PO QDAY #0 02/22/17 08/18/18 fluticasone propionate [Flonase 1 spray INTRANASAL QDAY #0 02/22/17 08/18/18 Allergy Relief] losartan-hydrochlorothiazide 1 tab PO QDAY #0 02/22/17 08/18/18 multivitamin [Multiple Vitamins] 1 tab PO QDAY #0 02/22/17 08/18/18 omeprazole 40 mg PO QDAY #0 02/22/17 08/18/18 cetirizine 10 mg tablet 10 mg PO DAILY PRN tab 05/12/18 08/18/18 levothyroxine 112 mcg PO DAILY 05/12/18 08/18/18 liothyronine 5 mcg PO QAM 05/12/18 08/18/18 estradiol 1 mg tablet 1 mg PO DAILY 07/25/18 08/18/18 estradiol 1 mg tablet 1 mg PO DAILY 08/28/18 08/28/18 Previous Rx's Medication Instructions Recorded docusate sodium [Colace] 100 mg PO BID #14 cap 06/14/18 hydromorphone [Dilaudid] 2 mg PO Q6H PRN #10 tab 06/14/18 sennosides [Senokot] 8.6 mg PO BEDTIME #10 tab 06/14/18 erythromycin 0.5 inch EYE-LEFT TID #1 gram 08/28/18 Allergies Allergy/AdvReac Type Severity Reaction Status Date / Time adhesive [ADHESIVE] Allergy Severe HIVES Verified 02/10/19 19:00 amlodipine [AMLODIPINE] Allergy Severe ANGIOEDEMA Verified 02/10/19 19:00 amoxicillin [AMOXICILLIN] Allergy Severe ANAPHYLAXIS Verified 02/10/19 19:00 cephalexin [CEPHALEXIN] Allergy Severe ANAPHYLAXIS Verified 02/10/19 19:00 Cephalosporins Allergy Severe ANAPHYLAXIS Verified 02/10/19 19:00 [CEPHALOSPORINS] erythromycin base Allergy Severe Vomiting Verified 02/10/19 19:00 [ERYTHROMYCIN BASE] gabapentin [GABAPENTIN] Allergy Severe nausea, Verified 02/10/19 19:00 headache hydrocodone [HYDROCODONE] Allergy Severe HIVES/ITCHI Verified 02/10/19 19:00 NG iodine [IODINE] Allergy Severe ANAPHYLAXIS Verified 02/10/19 19:00 lisinopril [LISINOPRIL] Allergy Severe ANGIOEDEMA Verified 02/10/19 19:00 Penicillins [PENICILLINS] Allergy Severe ANAPHYLAXIS Verified 02/10/19 19:00 sumatriptan [SUMATRIPTAN] Allergy Unknown nightmares Verified 02/10/19 19:00 codeine Allergy nausea,itch Verified 02/10/19 19:00 ing oxycodone [From Percocet] Allergy nausea, Verified 02/10/19 19:00 itching Iodinated Contrast Media AdvReac Anaphylaxis Verified 02/10/19 19:00 [Iodinated Contrast- Oral and IV Dye] Review of Systems Constitutional Constitutional: Reports fatigue and Denies fever(s) Cardiovascular Cardiovascular: Denies chest pain and Denies dyspnea Respiratory Respiratory: Denies dyspnea Gastrointestinal Gastrointestinal: Reports abdominal pain, Reports diarrhea, Reports nausea and Reports vomiting Comments: Pelvic pain Musculoskeletal Comments: Bilateral leg pain with left being greater than right Integumentary/Breasts Skin/Breast: Denies lesions and Denies rash Neurologic Neurologic: Denies behavioral changes Psychiatric Psychiatric: Denies behavioral changes Endocrine Endocrine: Reports fatigue Hematologic/Lymphatic Hematologic/Lymphatic: Denies easy bleeding and Denies easy bruising Patient History Medical History Asthma (Chronic) Bilateral lower extremity edema (Acute) Colon polyps (Acute) Degenerative disc disease, cervical (Acute) Difficult intravenous access (Acute) Eczema (Chronic) GERD (gastroesophageal reflux disease) (Acute) Glaucoma (Acute) HTN (hypertension) (Chronic) Hyperlipidemia (Acute) Hypothyroidism (Acute) Lesion of lung (Acute) Meningioma (Acute ~10/2015) Seasonal allergies (Chronic) SLE (systemic lupus erythematosus related syndrome) (Chronic) Superficial thrombophlebitis of left leg (Acute ~1985) Vitamin D deficiency (Acute) Surgical History H/O foot surgery (Acute) H/O: hysterectomy (Acute ~08/1978) History of appendectomy (Acute) History of section (Acute) History of cosmetic surgery (Acute) History of gastric bypass (Acute ~01/2017) History of lumbar spinal fusion (Acute ~2002) History of lumbar spinal fusion (Acute) Hx of abdominal surgery (Acute) Hx of cholecystectomy (Acute) Hx of eye surgery (Acute ~12/2015) S/P foot surgery, right (Acute 01/08/17) Family History Father Hypertension Heart disease Diabetes mellitus Mother Heart disease Gallstones Stroke Cancer Adenocarcinoma in situ Sister Breast cancer Family/Other Breast cancer Grandfather No problems noted. Social History household members: spouse Smoking Status: Never smoker alcohol intake frequency: 0-2 drinks per day Alcohol type: wine Substance Use Type: does not use Exam Initial Vital Signs Initial Vital Signs: Vital Signs Temperature 98.2 F 02/10/19 18:53 Pulse Rate 82 02/10/19 18:53 Respiratory Rate 18 11/22/19 18:53 Blood Pressure 158/88 H 02/10/19 18:53 Pulse Oximetry 100 02/10/19 18:53 Const General: cooperative, well developed and well groomed Orientation: alert, awake and oriented x3 HENMT Head: normal to inspection and normocephalic Resp Effort & Inspection: normal respiratory effort Auscultation: clear to auscultation bilaterally Cardio Rate: regular rate Rhythm: regular rhythm GI Inspection: non-distended Palpation: soft and tender (Diffusely tender) Skin Lesions: no lesions Rashes: no rashes Neuro General: alert, awake and oriented x3 Speech: speech normal Extrem General: normal to inspection and capillary refill normal Psych Appearance: well kempt Speech and Movement: restless Mood: anxious mood Attitude: cooperative Thought Content: normal Course Orders Ordered: ED Orders 02/10/19 19:31 Blood Culture Stat 02/10/19 20:25 CT abdomen pelvis wo con Stat 02/10/19 21:25 C-Reactive Protein Quant Stat Complete Blood Count AUTO DIFF Stat Comprehensive Metabolic Panel Stat Creatine Kinase Stat Erythrocyte Sedimentation Rate Stat Folate Stat Free T3, Triiodothyronine Free Stat Free T4, Direct Thyroxine Stat Lactate (Lactic Acid) Stat Lipase Stat Magnesium Stat Procalcitonin Stat Thyroid Antibody Panel Stat Thyroid Stimulating Hormone Stat Triiodothyronine T3 Reverse Stat Vitamin B12 Stat Vitamin D 25 Hydroxy (D3) Stat Discontinued Medications Diazepam (Valium) 5 mg PO NOW ONE Stop: 02/10/19 20:07 Last Admin: 02/10/19 20:15 Dose: 5 mg Documented by: SIA Hydromorphone HCl (Dilaudid) 1 mg IV NOW ONE Stop: 02/10/19 20:07 Last Admin: 02/10/19 20:14 Dose: 1 mg Documented by: SIA Hydromorphone HCl (Dilaudid) 1 mg IV NOW ONE Stop: 02/10/19 21:22 Last Admin: 02/10/19 21:30 Dose: 1 mg Documented by: SIA Sodium Chloride (Normal Saline 0.9%) 1,000 mls @ 1,000 mls/hr IV BOLUS ONE Stop: 02/10/19 21:05 Last Infusion: 02/10/19 23:05 Dose: 0 mls/hr Documented by: Admin: 02/10/19 20:14 Dose: 1,000 mls/hr Documented by: LREED Lidocaine/Sodium Bicarbonate (Buffered Lidocaine 5ml Syringe) 5 ml INJ NOW ONE Stop: 02/10/19 20:06 Last Admin: 02/10/19 21:24 Dose: Not Given Documented by: LREED Lidocaine/Sodium Bicarbonate (Buffered Lidocaine 10 Ml Syr) 10 ml INJ NOW ONE Stop: 02/10/19 20:10 Last Admin: 02/10/19 20:14 Dose: 10 ml Documented by: LREED Lidocaine/Sodium Bicarbonate (Buffered Lidocaine 10 Ml Syr) 10 ml INJ NOW ONE Stop: 02/10/19 21:40 Last Admin: 02/10/19 23:05 Dose: 10 ml Documented by: LREED Vital Signs Vital signs: Vital Signs - 8 hr 02/10/19 18:53 02/10/19 21:30 02/10/19 22:30 Temperature 98.2 F Pulse Rate 82 78 79 Respiratory Rate 18 16 18 Blood Pressure 158/88 H Blood Pressure [Left Arm] 135/78 140/82 Pulse Oximetry 100 99 99 02/10/19 23:30 02/11/19 00:17 Temperature 98.4 F 98.4 F Pulse Rate 80 74 Respiratory Rate 16 18 Blood Pressure 139/69 Blood Pressure [Left Arm] 145/76 H Pulse Oximetry 100 99 Medical Decision Making Medical Records Medical records reviewed: Yes I reviewed the patient's medical records. Lab Data Lab results reviewed: Yes I reviewed the patient's lab results. Result diagrams: 02/10/19 21:25 02/10/19 21:25 Labs: Lab Results 02/10/19 02/10/19 02/10/19 Range/Units 21:25 21:25 21:25 WBC 5.4 (4.5-11.0) X10^3/uL RBC 3.94 L (4.0-5.2) X10^6/uL Hgb 12.4 (12.0-16.0) g/dL Hct 36.8 (36-46) % MCV 93.4 (80-100) fL MCH 31.6 (26-34) PG MCHC 33.8 (30-36) % RDW 16.9 H (11.6-14.8) % Plt Count 211 (150-400) X10^3/uL Neut % (Auto) 62.2 (50-75) % Lymph % (Auto) 28.2 (25-40) % Churchill % (Auto) 8.3 (3-14) % Eos % (Auto) 0.7 L (2-4) % Baso % (Auto) 0.6 (0-2) % Neut # (Auto) 3400 (7886-8563) /uL Lymph # (Auto) 1500 (8353-1119) /uL Churchill # (Auto) 500 (0-900) /uL Eos # (Auto) 0 (0-450) /uL Baso # (Auto) 0 (0-100) /uL ESR 29 H (0-20) MM/HR Sodium 137 (137-145) mmol/L Potassium 3.9 (3.4-5.1) mmol/L Chloride 103 (98-107) mmol/L Carbon Dioxide 26 (22-32) mmol/L BUN 16 (7-17) mg/dL Creatinine 0.50 L (0.52-1.04) mg/dL Estimated GFR > 60.0 (>60) mL/min BUN/Creatinine Ratio 32.0 H (6-22) Glucose 102 (80-110) mg/dL Lactate 0.7 (0.7-2.1) mmol/L Calcium 9.0 (8.4-10.2) mg/dL Magnesium (1.6-2.3) mg/dL Total Bilirubin 0.5 (0.2-1.3) mg/dL AST 30 (14-36) IU/L ALT 12 (<35) IU/L Alkaline Phosphatase 217 H (38-126) U/L Total Creatine Kinase (30-135) U/L C-Reactive Protein 0.7 (<1.0) mg/dL Total Protein 6.7 (6.3-8.2) g/dL Albumin 3.6 (3.5-5.0) g/dL Globulin 3.1 (1.7-4.1) g/dL Albumin/Globulin Ratio 1.2 (1.0-2.8) Lipase 26 (23-300) U/L Vitamin B12 (239-931) pg/mL 25-OH Vitamin D Total (30.0-100.0) ng/mL Folate (2.76-20.0) ng/mL Procalcitonin (<0.5) ng/mL TSH (0.47-4.68) uIU/mL Free T4 (0.78-2.19) ng/dL Free T3 (2.77-5.27) pg/mL 02/10/19 02/10/19 02/10/19 Range/Units 21:25 21:25 21:25 WBC (4.5-11.0) X10^3/uL RBC (4.0-5.2) X10^6/uL Hgb (12.0-16.0) g/dL Hct (36-46) % MCV (80-100) fL MCH (26-34) PG MCHC (30-36) % RDW (11.6-14.8) % Plt Count (150-400) X10^3/uL Neut % (Auto) (50-75) % Lymph % (Auto) (25-40) % Churchill % (Auto) (3-14) % Eos % (Auto) (2-4) % Baso % (Auto) (0-2) % Neut # (Auto) (4059-6585) /uL Lymph # (Auto) (6685-8666) /uL Churchill # (Auto) (0-900) /uL Eos # (Auto) (0-450) /uL Baso # (Auto) (0-100) /uL ESR (0-20) MM/HR Sodium (137-145) mmol/L Potassium (3.4-5.1) mmol/L Chloride (98-107) mmol/L Carbon Dioxide (22-32) mmol/L BUN (7-17) mg/dL Creatinine (0.52-1.04) mg/dL Estimated GFR (>60) mL/min BUN/Creatinine Ratio (6-22) Glucose (80-110) mg/dL Lactate (0.7-2.1) mmol/L Calcium (8.4-10.2) mg/dL Magnesium (1.6-2.3) mg/dL Total Bilirubin (0.2-1.3) mg/dL AST (14-36) IU/L ALT (<35) IU/L Alkaline Phosphatase (38-126) U/L Total Creatine Kinase 36 (30-135) U/L C-Reactive Protein (<1.0) mg/dL Total Protein (6.3-8.2) g/dL Albumin (3.5-5.0) g/dL Globulin (1.7-4.1) g/dL Albumin/Globulin Ratio (1.0-2.8) Lipase (23-300) U/L Vitamin B12 689 (239-931) pg/mL 25-OH Vitamin D Total (30.0-100.0) ng/mL Folate 6.8 (2.76-20.0) ng/mL Procalcitonin 1.98 H (<0.5) ng/mL TSH 5.36 H (0.47-4.68) uIU/mL Free T4 1.07 (0.78-2.19) ng/dL Free T3 (2.77-5.27) pg/mL 02/10/19 02/10/19 02/10/19 Range/Units 21:25 21:25 21:25 WBC (4.5-11.0) X10^3/uL RBC (4.0-5.2) X10^6/uL Hgb (12.0-16.0) g/dL Hct (36-46) % MCV (80-100) fL MCH (26-34) PG MCHC (30-36) % RDW (11.6-14.8) % Plt Count (150-400) X10^3/uL Neut % (Auto) (50-75) % Lymph % (Auto) (25-40) % Churchill % (Auto) (3-14) % Eos % (Auto) (2-4) % Baso % (Auto) (0-2) % Neut # (Auto) (6837-3222) /uL Lymph # (Auto) (1590-7697) /uL Churchill # (Auto) (0-900) /uL Eos # (Auto) (0-450) /uL Baso # (Auto) (0-100) /uL ESR (0-20) MM/HR Sodium (137-145) mmol/L Potassium (3.4-5.1) mmol/L Chloride (98-107) mmol/L Carbon Dioxide (22-32) mmol/L BUN (7-17) mg/dL Creatinine (0.52-1.04) mg/dL Estimated GFR (>60) mL/min BUN/Creatinine Ratio (6-22) Glucose (80-110) mg/dL Lactate (0.7-2.1) mmol/L Calcium (8.4-10.2) mg/dL Magnesium 2.0 (1.6-2.3) mg/dL Total Bilirubin (0.2-1.3) mg/dL AST (14-36) IU/L ALT (<35) IU/L Alkaline Phosphatase (38-126) U/L Total Creatine Kinase (30-135) U/L C-Reactive Protein (<1.0) mg/dL Total Protein (6.3-8.2) g/dL Albumin (3.5-5.0) g/dL Globulin (1.7-4.1) g/dL Albumin/Globulin Ratio (1.0-2.8) Lipase (23-300) U/L Vitamin B12 (239-931) pg/mL 25-OH Vitamin D Total 30.8 (30.0-100.0) ng/mL Folate (2.76-20.0) ng/mL Procalcitonin (<0.5) ng/mL TSH (0.47-4.68) uIU/mL Free T4 (0.78-2.19) ng/dL Free T3 2.85 (2.77-5.27) pg/mL Imaging Data CT scan - abdomen: Radiologist's impression: [place] [address] CT Scan Report Signed Patient: Kristin Frias [facility]#: [id number] : 1950Acct:[id number] Age/Sex: 68 / FDate of Service: 02/10/19 Loc: ED Accession Number: [id number] Procedure: CT abdomen pelvis wo con Ordering Provider: Cornell Sorto D.O. PROCEDURE: CT ABDOMEN PELVIS WO CON INDICATIONS: Abdominal pain history gastric bypass TECHNIQUE: Noncontrast 5 mm thick sections acquired from the diaphragms to the symphysis. 5 mm coronal and sagittal reformats were then performed. For radiation dose reduction, the following was used: automated exposure control, adjustment of mA and/or kV according to patient size. COMPARISON: [facility], CT, ABDOMEN/PELVIS WITHOUT CONTRAS, 08/06/2014, 15:05. FINDINGS: Image quality: Limited, absence of oral and intravenous contrast significantly degrades quality of visualization. Metal artifact related to extensive prior spine fusion surgeries also degrades quality of visualization. ABDOMEN: Lung bases: Lung bases are clear. Heart size is normal. Solid organs: Liver is normal in size. Gallbladder appears to have been previously resected. Pancreas is normal in contours. Spleen is normal in size. No adrenal nodules. Kidneys are normal in size, without hydronephrosis or nephrolithiasis. Peritoneum and bowel: Unenhanced bowel loops demonstrate normal wall thickness and caliber. No free fluid or air. Nodes and vessels: No retroperitoneal or mesenteric adenopathy by size criteria. Aorta and inferior vena cava are normal in caliber. Miscellaneous: No ventral hernias. PELVIS: Genitourinary: Bladder wall thickness is normal. Miscellaneous: No inguinal hernias or adenopathy. Bones: No suspicious bony lesions. No vertebral body compression fractures. IMPRESSION: Very limited quality of visualization due to absence of both oral and intravenous contrast and extensive metal artifact from prior spine fusion surgeries from the low thoracic through the upper pelvis regions. No free air found, no definite acute disease. Dictated by: Murphy Isbell M.D. on 02/10/2019 at 21:34 Approved by: Murphy Isbell M.D. on 02/10/2019 at 21:36 MDM Narrative Medical decision making narrative: Patient is a very hard individual to obtain blood from and obtaining IVs. Most to the labs that were drawn during this ED visit were requested by 1 of her outside providers. They were drawn during this visit so that the patient did not have to return to have another blood draw given the difficulty in obtaining blood. Her TSH is elevated. She states she has not been taking her Synthroid because how she is feeling. The rest of her labs do not point towards a specific infection. CT scan of her abdomen is unremarkable. I do have a strong suspicion that much of the symptoms that she has today are either worsening of her chronic symptoms most likely because she stopped her pain medication 2 days ago and also opioid withdrawal. She has been on high doses of opioids for a very long time. Two weeks ago she stopped the 4 mg of Dilaudid and decreased her morphine to 10 mg several times a day. She stopped all that 2 days ago. When she was given pain medication here in the emergency department all of her symptoms except for occasional sharp pains in her left foot which are not new or much improved. Her back issues are not new. I have no indication to start her on antibiotics. She was given a copy of her labs. She was instructed that she needed to talk with her primary doctor and also her painting worker about tapering off of her opioids rather than stopping them. She has an appointment on Wednesday with her primary doctor. She has pain medication at home which she can take. She was given return precautions and follow-up instructions. She expressed understanding and agreement with plan. Discharge Plan Departure Patient Disposition: Home Clinical Impression: Opioid withdrawal Chronic pain Qualifiers: Chronic pain type: other chronic pain Qualified Code(s): G89.29 - Other chronic pain Hypothyroid Qualifiers: Hypothyroidism type: unspecified Qualified Code(s): E03.9 - Hypothyroidism, unspecified Discharge Date/Time: 02/11/19 00:18 Instructions: DI for Chronic Pain -- Adult Activity Restrictions/Additional Instructions: I recommend that on Wednesday you keep your follow-up appointment with your primary provider. You need to discuss with them a proper tapering regiment of your pain medication. Return to the emergency department for any new or worsening symptoms Prescriptions: No Action estradiol 1 mg tablet 1 mg PO DAILY RF: 0 spironolactone 25 MG tablet 25 mg PO QDAY Qty: 0 RF: 0 albuterol sulfate [Ventolin HFA] 90 MCG/PUFF HFA aerosol inhaler 2 puff INH Q4HP PRN (Reason: Asthma) Qty: 0 RF: 0 Restasis 1 EACH dropperette 2 drp OPHTH BID Qty: 0 RF: 0 clobetasol 0.05 % ointment 1 karel Topical BIDP PRN (Reason: As directed) Qty: 0 RF: 0 fluticasone propionate [Flonase Allergy Relief] 9.9 ML spray,suspension 1 spray Intranasal QDAY Qty: 0 RF: 0 losartan-hydrochlorothiazide 50 MG/12.5 MG tablet 1 tab PO QDAY Qty: 0 RF: 0 omeprazole 20 MG tablet,delayed release (DR/EC) 40 mg PO QDAY Qty: 0 RF: 0 multivitamin [Multiple Vitamins] 1 EACH tablet 1 tab PO QDAY Qty: 0 RF: 0 [PROBIOTIC] PO QDAY Qty: 0 RF: 0 cetirizine [Zyrtec] 10 mg tablet 10 mg PO DAILY PRN (Reason: Seasonal allergies) RF: 0 levothyroxine 112 mcg PO DAILY RF: 0 liothyronine 5 mcg PO QAM RF: 0 estradiol 1 mg tablet 1 mg PO DAILY RF: 0 sennosides [Senokot] 8.6 mg tablet 8.6 mg PO BEDTIME Qty: 10 RF: 1 docusate sodium [Colace] 100 mg capsule 100 mg PO BID Qty: 14 RF: 1 hydromorphone [Dilaudid] 2 mg tablet 2 mg PO Q6H PRN (Reason: pain) Qty: 10 RF: 0 erythromycin 5 mg/gram (0.5 %) ointment 0.5 inch EYE-LEFT TID Qty: 1 RF: 0 Referrals: Eugenio Coello MD [Primary Care Provider] -
[2019-02-10] MEDS: LIDO 1%/SOD BICARB 8.4% (10ML) 10 ML SYRINGE INJ ×2 (20:14→23:05)
[2019-02-10] MEDS: HYDROMORPHONE 1 MG INJ IV ×2 (20:14→21:30)
[2019-02-10] MEDS: SODIUM CHLORIDE 0.9% 1,000 ML 1000 ML IV (20:14)
[2019-02-10] MEDS: diazePAM 5 MG TABLET PO (20:15)
--- NOTE | 2019-02-10 20:25 | DI.CT.S_ITS ---
PROCEDURE: CT ABDOMEN PELVIS WO CON INDICATIONS: Abdominal pain history gastric bypass TECHNIQUE: Noncontrast 5 mm thick sections acquired from the diaphragms to the symphysis. 5 mm coronal and sagittal reformats were then performed. For radiation dose reduction, the following was used: automated exposure control, adjustment of mA and/or kV according to patient size. COMPARISON: [facility], CT, ABDOMEN/PELVIS WITHOUT CONTRAS, 08/06/2014, 15:05. FINDINGS: Image quality: Limited, absence of oral and intravenous contrast significantly degrades quality of visualization. Metal artifact related to extensive prior spine fusion surgeries also degrades quality of visualization. ABDOMEN: Lung bases: Lung bases are clear. Heart size is normal. Solid organs: Liver is normal in size. Gallbladder appears to have been previously resected. Pancreas is normal in contours. Spleen is normal in size. No adrenal nodules. Kidneys are normal in size, without hydronephrosis or nephrolithiasis. Peritoneum and bowel: Unenhanced bowel loops demonstrate normal wall thickness and caliber. No free fluid or air. Nodes and vessels: No retroperitoneal or mesenteric adenopathy by size criteria. Aorta and inferior vena cava are normal in caliber. Miscellaneous: No ventral hernias. PELVIS: Genitourinary: Bladder wall thickness is normal. Miscellaneous: No inguinal hernias or adenopathy. Bones: No suspicious bony lesions. No vertebral body compression fractures. IMPRESSION: Very limited quality of visualization due to absence of both oral and intravenous contrast and extensive metal artifact from prior spine fusion surgeries from the low thoracic through the upper pelvis regions. No free air found, no definite acute disease. Dictated by: Murphy Isbell M.D. on 02/10/2019 at 21:34 Approved by: Murphy Isbell M.D. on 02/10/2019 at 21:36
[2019-02-10 21:30] VITALS: BP 135/78; PULSE 78; RESP 16; O2SAT 99
[2019-02-10 21:45] LABS: Add Manual Diff / Slide Review NO; Basophils Absolute Auto 0 /uL (0-100); Basophils Percent Auto 0.6 % (0-2); Eosinophils Absolute Auto 0 /uL (0-450); Eosinophils Percent Auto 0.7 % (2-4); Hematocrit 36.8 % (36-46); Hemoglobin 12.4 g/dL (12.0-16.0); Lymphocytes Absolute Auto 1500 /uL (1100-4500); Lymphocytes Percent Auto 28.2 % (25-40); Mean Corpuscular HGB Conc 33.8 % (30-36); Mean Corpuscular Hemoglobin 31.6 PG (26-34); Mean Corpuscular Volume 93.4 fL (80-100); Monocytes Absolute Auto 500 /uL (0-900); Monocytes Percent Auto 8.3 % (3-14); Neutrophils Absolute Auto 3400 /uL (1500-7000); Neutrophils Percent Auto 62.2 % (50-75); Platelet Count 211 X10^3/uL (150-400); Red Blood Cell Count 3.94 X10^6/uL (4.0-5.2); Red Cell Distribution Width 16.9 % (11.6-14.8); White Blood Cell Count 5.4 X10^3/uL (4.5-11.0)
[2019-02-10 21:53] LABS: Lactate (Lactic Acid) 0.7 mmol/L (0.7-2.1)
[2019-02-10 21:56] LABS: Alanine Aminotransferase 12 IU/L (<35); Albumin 3.6 g/dL (3.5-5.0); Albumin Globulin Ratio 1.2 (1.0-2.8); Alkaline Phosphatase 217 U/L (38-126); Aspartate Aminotransferase 30 IU/L (14-36); Bilirubin Total 0.5 mg/dL (0.2-1.3); Blood Urea Nitrogen 16 mg/dL (7-17); C-Reactive Protein Quant 0.7 mg/dL (<1.0); Carbon Dioxide 26 mmol/L (22-32); Chloride 103 mmol/L (98-107); Estimated Glomerular Filt Rate > 60.0 mL/min (>60); Globulin 3.1 g/dL (1.7-4.1); Glucose 102 mg/dL (80-110); HEMOLYSIS < 15 (0-50); Lipase 26 U/L (23-300); Potassium 3.9 mmol/L (3.4-5.1); Sodium 137 mmol/L (137-145); Total Protein 6.7 g/dL (6.3-8.2)
[2019-02-10 21:58] LABS: Creatine Kinase 36 U/L (30-135); Erythrocyte Sedimentation Rate 29 MM/HR (0-20)
[2019-02-10 22:12] LABS: Free T3, Triiodothyronine Free 2.85 pg/mL (2.77-5.27)
[2019-02-10 22:13] LABS: Procalcitonin 1.98 ng/mL (<0.5)
[2019-02-10 22:23] LABS: Free T4, Direct Thyroxine 1.07 ng/dL (0.78-2.19)
[2019-02-10 22:24] LABS: Vitamin D 25 Hydroxy (D3) 30.8 ng/mL (30.0-100.0)
[2019-02-10 22:30] VITALS: BP 140/82; PULSE 79; RESP 18; O2SAT 99
[2019-02-10 22:37] LABS: Thyroid Stimulating Hormone 5.36 uIU/mL (0.47-4.68)
[2019-02-10 23:05] LABS: Folate 6.8 ng/mL (2.76-20.0); Vitamin B12 689 pg/mL (239-931)
[2019-02-10 23:30] VITALS: BP 145/76; PULSE 80; RESP 16; TEMP 36.9; O2SAT 100
[2019-02-11 00:17] VITALS: BP 139/69; PULSE 74; RESP 18; TEMP 36.9; O2SAT 99
[2019-02-14 15:15] LABS: Anti Thyroglobulin Antibody < 1 IU/mL (< 2); Thyroid Peroxidase Antibodies 4 IU/mL (< 9)
[2019-02-15 12:09] LABS: Triiodothyronine T3 Reverse 16 ng/dL (8-25)
== END 2019-02-11 00:18 | disposition home or self-care (01) ==
PROVIDERS: Emergency Provider Emergency Medicine; Family Provider Physical Medicine & Rehabilitation Pain Medicine; PCP Internal Medicine
DX: F11.23 Opioid dependence with withdrawal (principal); G89.29 Other chronic pain; E03.9 Hypothyroidism, unspecified
CPT/HCPCS: 36415; 74176; 80053; 82306; 82550; 82607; 82746; 83605; 83690; 83735; 84145; 84439; 84443; 84481; 84482; 85025; 85651; 86140; 86376; 86800; 87040; 96361; 96374; 96376; 99283; 99284; J1170

== ENCOUNTER → 2019-03-02 09:05 | Outpatient (CLI) | payer MEDICARE, OTHER, SELFPAY ==
--- NOTE | 2019-03-02 | DI.RAD.S_ITS ---
PROCEDURE: FL GUIDED PICC PLACEMENT INDICATIONS: Other iron deficiency anemias COMPARISON: [facility], CT, CT ABDOMEN PELVIS WO CON, 02/10/2019, 21:03. FINDINGS: PICC was placed by the intravenous therapy team from the left side. Fluoroscopic spot film demonstrates the tip of PICC projecting to the area of superior vena cava. IMPRESSION: Tip of PICC projects to the area of superior vena cava. Dictated by: Marcella Rivers M.D. on 03/02/2019 at 11:15 Approved by: Marcella Rivers M.D. on 03/02/2019 at 11:16
[2019-03-02 16:50] LABS: Add Manual Diff / Slide Review NO; Basophils Absolute Auto 0 /uL (0-100); Basophils Percent Auto 0.7 % (0-2); Eosinophils Absolute Auto 100 /uL (0-450); Eosinophils Percent Auto 1.9 % (2-4); Hematocrit 37.6 % (36-46); Hemoglobin 12.8 g/dL (12.0-16.0); Lymphocytes Absolute Auto 1700 /uL (1100-4500); Lymphocytes Percent Auto 30.3 % (25-40); Mean Corpuscular HGB Conc 34.1 % (30-36); Mean Corpuscular Hemoglobin 32.8 PG (26-34); Mean Corpuscular Volume 96.2 fL (80-100); Monocytes Absolute Auto 500 /uL (0-900); Monocytes Percent Auto 8.5 % (3-14); Neutrophils Absolute Auto 3300 /uL (1500-7000); Neutrophils Percent Auto 58.6 % (50-75); Platelet Count 194 X10^3/uL (150-400); Red Blood Cell Count 3.91 X10^6/uL (4.0-5.2); Red Cell Distribution Width 16.9 % (11.6-14.8); White Blood Cell Count 5.6 X10^3/uL (4.5-11.0)
[2019-03-02 17:01] LABS: Alanine Aminotransferase 31 IU/L (<35); Albumin 4.1 g/dL (3.5-5.0); Albumin Globulin Ratio 1.3 (1.0-2.8); Alkaline Phosphatase 343 U/L (38-126); Aspartate Aminotransferase 62 IU/L (14-36); Bilirubin Total 0.7 mg/dL (0.2-1.3); Blood Urea Nitrogen 15 mg/dL (7-17); C-Reactive Protein Quant 1.9 mg/dL (<1.0); Calcium 9.8 mg/dL (8.4-10.2); Carbon Dioxide 28 mmol/L (22-32); Chloride 93 mmol/L (98-107); Estimated Glomerular Filt Rate > 60.0 mL/min (>60); Globulin 3.1 g/dL (1.7-4.1); Glucose 77 mg/dL (80-110); HEMOLYSIS < 15 (0-50); Magnesium 1.8 mg/dL (1.6-2.3); Phosphorous 3.5 mg/dL (2.8-4.1); Potassium 3.8 mmol/L (3.4-5.1); Sodium 133 mmol/L (137-145); Total Protein 7.2 g/dL (6.3-8.2); Triglycerides 126 mg/dL (35-150)
[2019-03-02 17:07] LABS: Prealbumin 12.2 mg/dL (17.6-36.0)
== END ==
PROVIDERS: Family Provider Physical Medicine & Rehabilitation Pain Medicine; PCP Internal Medicine
DX: D50.8 Other iron deficiency anemias (principal); K44.9 Diaphragmatic hernia without obstruction or gangrene; Z98.84 Bariatric surgery status
CPT/HCPCS: 36573; 80053; 83735; 84100; 84134; 84478; 85025; 86140

== ENCOUNTER 2019-04-03 05:21 | Emergency (ER) | payer MEDICARE, OTHER, SELFPAY ==
[2019-04-03 05:34] VITALS: BP 83/68; PULSE 81; RESP 14; TEMP 36.8; O2SAT 99; BMI 20.6
--- NOTE | 2019-04-03 05:36 | ED_ITS ---
HPI - General Adult <Cornell Sorto DO - Last Filed: 04/03/19 07:06> General Chief complaint: Skin/Abscess/Foreign Body Stated complaint: FEEDING LINE IS UNDONE Time Seen by Provider: 04/03/19 05:22 Source: patient Mode of arrival: Ambulatory Limitations: no limitations History of Present Illness HPI narrative: Patient is a 69-year-old female receiving tPA for failure to thrive here because her PICC line fell out. She states she does noticed it this morning when she went to go woke herself up to the TPN. Has no other complaints. Related Data Home Medications Medication Instructions Recorded Confirmed Restasis 2 drp OPHTH BID #0 11/21/12 08/18/18 albuterol sulfate [Ventolin HFA] 2 puff INH Q4HP PRN #0 puff 11/21/12 08/18/18 spironolactone 25 mg PO QDAY #0 tab 11/21/12 08/18/18 clobetasol 1 karel TOPICAL BIDP PRN #0 08/27/16 08/18/18 [PROBIOTIC] PO QDAY #0 02/22/17 08/18/18 fluticasone propionate [Flonase 1 spray INTRANASAL QDAY #0 02/22/17 08/18/18 Allergy Relief] losartan-hydrochlorothiazide 1 tab PO QDAY #0 02/22/17 08/18/18 multivitamin [Multiple Vitamins] 1 tab PO QDAY #0 02/22/17 08/18/18 omeprazole 40 mg PO QDAY #0 02/22/17 08/18/18 cetirizine 10 mg tablet 10 mg PO DAILY PRN tab 05/12/18 08/18/18 levothyroxine 112 mcg PO DAILY 05/12/18 08/18/18 liothyronine 5 mcg PO QAM 05/12/18 08/18/18 estradiol 1 mg tablet 1 mg PO DAILY 07/25/18 08/18/18 estradiol 1 mg tablet 1 mg PO DAILY 08/28/18 08/28/18 Previous Rx's Medication Instructions Recorded docusate sodium [Colace] 100 mg PO BID #14 cap 06/14/18 hydromorphone [Dilaudid] 2 mg PO Q6H PRN #10 tab 06/14/18 sennosides [Senokot] 8.6 mg PO BEDTIME #10 tab 06/14/18 erythromycin 0.5 inch EYE-LEFT TID #1 gram 08/28/18 Allergies Allergy/AdvReac Type Severity Reaction Status Date / Time adhesive [ADHESIVE] Allergy Severe HIVES Verified 04/03/19 06:21 amlodipine [AMLODIPINE] Allergy Severe ANGIOEDEMA Verified 04/03/19 06:21 amoxicillin [AMOXICILLIN] Allergy Severe ANAPHYLAXIS Verified 04/03/19 06:21 cephalexin [CEPHALEXIN] Allergy Severe ANAPHYLAXIS Verified 04/03/19 06:21 Cephalosporins Allergy Severe ANAPHYLAXIS Verified 04/03/19 06:21 [CEPHALOSPORINS] erythromycin base Allergy Severe Vomiting Verified 04/03/19 06:21 [ERYTHROMYCIN BASE] gabapentin [GABAPENTIN] Allergy Severe nausea, Verified 04/03/19 06:21 headache hydrocodone [HYDROCODONE] Allergy Severe HIVES/ITCHI Verified 04/03/19 06:21 NG iodine [IODINE] Allergy Severe ANAPHYLAXIS Verified 04/03/19 06:21 lisinopril [LISINOPRIL] Allergy Severe ANGIOEDEMA Verified 04/03/19 06:21 Penicillins [PENICILLINS] Allergy Severe ANAPHYLAXIS Verified 04/03/19 06:21 sumatriptan [SUMATRIPTAN] Allergy Unknown nightmares Verified 04/03/19 06:21 codeine Allergy nausea,itch Verified 04/03/19 06:21 ing oxycodone [From Percocet] Allergy nausea, Verified 04/03/19 06:21 itching Iodinated Contrast Media AdvReac Anaphylaxis Verified 04/03/19 06:21 [Iodinated Contrast- Oral and IV Dye] Review of Systems <Cornell Sorto DO - Last Filed: 04/03/19 07:06> Constitutional Constitutional: Denies fever(s) Integumentary/Breasts Comments: Some irritation left arm with a PICC line was in place Hematologic/Lymphatic Hematologic/Lymphatic: Denies easy bleeding and Denies easy bruising Patient History <Cornell Sorto DO - Last Filed: 04/03/19 07:06> Medical History Asthma (Chronic) Bilateral lower extremity edema (Acute) Colon polyps (Acute) Degenerative disc disease, cervical (Acute) Difficult intravenous access (Acute) Eczema (Chronic) GERD (gastroesophageal reflux disease) (Acute) Glaucoma (Acute) HTN (hypertension) (Chronic) Hyperlipidemia (Acute) Hypothyroidism (Acute) Lesion of lung (Acute) Meningioma (Acute ~10/2015) Seasonal allergies (Chronic) SLE (systemic lupus erythematosus related syndrome) (Chronic) Superficial thrombophlebitis of left leg (Acute ~1985) Vitamin D deficiency (Acute) Surgical History H/O foot surgery (Acute) H/O: hysterectomy (Acute ~08/1978) History of appendectomy (Acute) History of section (Acute) History of cosmetic surgery (Acute) History of gastric bypass (Acute ~01/2017) History of lumbar spinal fusion (Acute ~2002) History of lumbar spinal fusion (Acute) Hx of abdominal surgery (Acute) Hx of cholecystectomy (Acute) Hx of eye surgery (Acute ~12/2015) S/P foot surgery, right (Acute 01/08/17) Family History Father Hypertension Heart disease Diabetes mellitus Mother Heart disease Gallstones Stroke Cancer Adenocarcinoma in situ Sister Breast cancer Family/Other Breast cancer Grandfather No problems noted. Social History household members: spouse Smoking Status: Never smoker Smoking Status: Never smoker alcohol intake frequency: 0-2 drinks per day Alcohol type: wine Substance Use Type: does not use Exam <Cornell Sorto DO - Last Filed: 04/03/19 07:06> Initial Vital Signs Initial Vital Signs: Vital Signs Temperature 98.2 F 04/03/19 05:34 Pulse Rate 81 04/03/19 05:34 Respiratory Rate 14 04/03/19 05:34 Blood Pressure 83/68 L 04/03/19 05:34 Pulse Oximetry 99 04/03/19 05:34 Const General: cooperative and healthy appearing HENTN Head: normal to inspection and normocephalic Resp Effort & Inspection: normal respiratory effort Cardio Rate: regular rate Skin Other: Insertion site to the left upper arm appears well. Some redness around the arm but no signs of infection Extrem Other: Left shoulder left elbow unremarkable Psych Appearance: grossly normal and well kempt <Cyndie Brannon DO - Last Filed: 04/03/19 13:05> Initial Vital Signs Initial Vital Signs: Vital Signs Temperature 98.2 F 04/03/19 05:34 Pulse Rate 81 04/03/19 05:34 Respiratory Rate 14 04/03/19 05:34 Blood Pressure 83/68 L 04/03/19 05:34 Pulse Oximetry 99 04/03/19 05:34 Course <Cornell Sorto DO - Last Filed: 04/03/19 07:06> Orders Ordered: ED Orders 04/03/19 05:36 Consult After Hours PICC Line RN Stat 04/03/19 08:52 XR chest 1V Stat Discontinued Medications Diphenhydramine HCl (Benadryl) 25 mg PO NOW ONE Stop: 04/03/19 09:25 Last Admin: 04/03/19 09:27 Dose: 25 mg Documented by: JACOB Vital Signs Vital signs: Vital Signs - 8 hr 04/03/19 05:34 04/03/19 09:24 Temperature 98.2 F Pulse Rate 81 70 Respiratory Rate 14 15 Blood Pressure 83/68 L Blood Pressure [Right Arm] 142/62 H Pulse Oximetry 99 <DO Christie Stephenson Last Filed: 04/03/19 13:05> Orders Ordered: ED Orders 04/03/19 05:36 Consult After Hours PICC Line RN Stat 04/03/19 08:52 XR chest 1V Stat Discontinued Medications Diphenhydramine HCl (Benadryl) 25 mg PO NOW ONE Stop: 04/03/19 09:25 Last Admin: 04/03/19 09:27 Dose: 25 mg Documented by: JACOB Vital Signs Vital signs: Vital Signs - 8 hr 04/03/19 05:34 04/03/19 09:24 Temperature 98.2 F Pulse Rate 81 70 Respiratory Rate 14 15 Blood Pressure 83/68 L Blood Pressure [Right Arm] 142/62 H Pulse Oximetry 99 Medical Decision Making <DO Christie Lr Last Filed: 04/03/19 07:06> MDM Narrative Medical decision making narrative: Patient did bring the old PICC line in with her in appears to be intact. The insertion site of the left upper arm appears well. The after hours PICC nurse consult it. Care turned over to day provider change of shift for disposition. <DO Christie Stephenson Last Filed: 04/03/19 13:05> Imaging Data Chest x-ray: Radiologist's Impression: PROCEDURE: XR CHEST 1V INDICATIONS: PICC line placement TECHNIQUE: One view of the chest was acquired. COMPARISON: [facility], CT, CT ABDOMEN PELVIS WO CON, 02/10/2019, 21:03. [facility], CR, CHEST 2 VIEW, 02/22/2017, 12:13. [facility], CR, CHEST 1 VIEW, 08/26/2016, 19:09. FINDINGS: Surgical changes and devices: Left-sided PICC with the catheter tip at the lower third of the SVC. Suture material the upper abdomen in the region of the stomach. Lungs and pleura: Lungs are clear. No pleural effusions or pneumothorax. Mediastinum: Mediastinal contours appear normal. Heart size is normal. Bones and chest wall: No suspicious bony lesions. The thoracolumbar spine that has fixation hardware and [place] rods. Overlying soft tissues appear unremarkable. IMPRESSION: Left-sided PICC with the catheter tip at the inferior third of the SVC in the expected position. No pneumothorax. Dictated by: David Howard M.D. on 04/03/2019 at 9:14 MDM Narrative Medical decision making narrative: The patient signed out to me by Dr. Sorto. PICC line placed without difficulty. She did have reaction to the adhesive tape which is not abnormal for her. She is awake alert sitting no symptoms after Benadryl. No difficulty breathing. She overall is feeling ready and able to go home. She will have blood work done as outpatient today and can start tpn later Discharge Plan Departure Patient Disposition: Home Clinical Impression: Displacement of peripherally inserted central catheter (PICC) Discharge Date/Time: 04/03/19 09:45 Instructions: Peripherally Inserted Central Catheter Activity Restrictions/Additional Instructions: Continue with all of your medications and also with the instructions that you have been provided for the TPN. Contact your primary provider for follow-up. Prescriptions: No Action estradiol 1 mg tablet 1 mg PO DAILY RF: 0 spironolactone 25 MG tablet 25 mg PO QDAY Qty: 0 RF: 0 albuterol sulfate [Ventolin HFA] 90 MCG/PUFF HFA aerosol inhaler 2 puff INH Q4HP PRN (Reason: Asthma) Qty: 0 RF: 0 Restasis 1 EACH dropperette 2 drp OPHTH BID Qty: 0 RF: 0 clobetasol 0.05 % ointment 1 karel Topical BIDP PRN (Reason: As directed) Qty: 0 RF: 0 fluticasone propionate [Flonase Allergy Relief] 9.9 ML spray,suspension 1 spray Intranasal QDAY Qty: 0 RF: 0 losartan-hydrochlorothiazide 50 MG/12.5 MG tablet 1 tab PO QDAY Qty: 0 RF: 0 omeprazole 20 MG tablet,delayed release (DR/EC) 40 mg PO QDAY Qty: 0 RF: 0 multivitamin [Multiple Vitamins] 1 EACH tablet 1 tab PO QDAY Qty: 0 RF: 0 [PROBIOTIC] PO QDAY Qty: 0 RF: 0 cetirizine [Zyrtec] 10 mg tablet 10 mg PO DAILY PRN (Reason: Seasonal allergies) RF: 0 levothyroxine 112 mcg PO DAILY RF: 0 liothyronine 5 mcg PO QAM RF: 0 estradiol 1 mg tablet 1 mg PO DAILY RF: 0 sennosides [Senokot] 8.6 mg tablet 8.6 mg PO BEDTIME Qty: 10 RF: 1 docusate sodium [Colace] 100 mg capsule 100 mg PO BID Qty: 14 RF: 1 hydromorphone [Dilaudid] 2 mg tablet 2 mg PO Q6H PRN (Reason: pain) Qty: 10 RF: 0 erythromycin 5 mg/gram (0.5 %) ointment 0.5 inch EYE-LEFT TID Qty: 1 RF: 0 Referrals: Eugenio Coello MD [Primary Care Provider] -
--- NOTE | 2019-04-03 05:40 | PC.NURSE ---
PICC line fell out while sleeping overnight. patient reports no blood found on clothing or bedding. No bleeding at insertion site noted in ED. clean and open to air.
--- NOTE | 2019-04-03 05:42 | PC.NURSE ---
[facility] PICC paged.
--- NOTE | 2019-04-03 05:47 | PC.NURSE ---
recieved call from PICC, 2 hour arrival time. approximatley [phone]
--- NOTE | 2019-04-03 08:52 | DI.RAD.S_ITS ---
PROCEDURE: XR CHEST 1V INDICATIONS: PICC line placement TECHNIQUE: One view of the chest was acquired. COMPARISON: [facility], CT, CT ABDOMEN PELVIS WO CON, 02/10/2019, 21:03. [facility], CR, CHEST 2 VIEW, 02/22/2017, 12:13. [facility], CR, CHEST 1 VIEW, 08/26/2016, 19:09. FINDINGS: Surgical changes and devices: Left-sided PICC with the catheter tip at the lower third of the SVC. Suture material the upper abdomen in the region of the stomach. Lungs and pleura: Lungs are clear. No pleural effusions or pneumothorax. Mediastinum: Mediastinal contours appear normal. Heart size is normal. Bones and chest wall: No suspicious bony lesions. The thoracolumbar spine that has fixation hardware and [place] rods. Overlying soft tissues appear unremarkable. IMPRESSION: Left-sided PICC with the catheter tip at the inferior third of the SVC in the expected position. No pneumothorax. Dictated by: David Howard M.D. on 04/03/2019 at 9:14 Approved by: David Howard M.D. on 04/03/2019 at 9:17
[2019-04-03 09:24] VITALS: BP 142/62; PULSE 70; RESP 15
[2019-04-03] MEDS: diphenhydrAMINE 25 MG TABLET PO (09:27)
--- NOTE | 2019-04-03 09:40 | PC.NURSE ---
See paper charging from [facility]. STEVE PICC placed w/ confirmation by chest x ray.
== END 2019-04-03 09:45 | disposition home or self-care (01) ==
PROVIDERS: Emergency Provider Emergency Medicine; Family Provider Physical Medicine & Rehabilitation Pain Medicine; PCP Internal Medicine
DX: T82.528A Displacement of other cardiac and vascular devices and implants, initial encounter (principal)
CPT/HCPCS: 71045; 99283

== ENCOUNTER → 2019-04-07 16:33 | Outpatient (CLI) | payer MEDICARE, OTHER, SELFPAY ==
--- NOTE | 2019-04-07 16:40 | DI.RAD.S_ITS ---
PROCEDURE: XR CHEST 2V INDICATIONS: PICC line confirmation of placement. TECHNIQUE: 2 views of the chest were acquired. COMPARISON: [facility], YANDEL, XR CHEST 1V, 04/03/2019, 8:58. [facility], YANDEL, CHEST 2 VIEW, 02/22/2017, 12:13. FINDINGS: Surgical changes and devices: Extensive prior spine fusion surgery has been performed, stable from comparison study 04/03/19, partially visualized. A PICC line from a left-sided approach extends to the area just above the aortic arch, and does not cross the midline. The PICC line appears somewhat coiled overlying the soft tissues of the proximal arm, approximately at the junction of the middle and upper thirds of the diaphysis, medially. Lungs and pleura: Lungs are clear. No pleural effusions or pneumothorax. Mediastinum: Mediastinal contours are normal. Heart size is normal. Bones and chest wall: No suspicious bony abnormalities. Soft tissues appear unremarkable. IMPRESSION: PICC line placed without crossing the midline from left to right, with tip terminating almost exactly above the aortic arch to the left of midline. It is unclear whether the PICC line coils beneath the skin surface at the proximal left arm, or that the area of apparent coiling is above the skin surface. Please correlate clinically. Dictated by: Murphy Isbell M.D. on 04/07/2019 at 17:18 Approved by: Murphy Isbell M.D. on 04/07/2019 at 17:20
== END ==
PROVIDERS: Family Provider Physical Medicine & Rehabilitation Pain Medicine; PCP Internal Medicine; Visit Provider Surgery
DX: Z45.2 Encounter for adjustment and management of vascular access device (principal); Z78.9 Other specified health status
CPT/HCPCS: 71046

== ENCOUNTER 2019-04-07 17:14 | Emergency (ER) | payer MEDICARE, OTHER, SELFPAY ==
[2019-04-07 17:28] VITALS: BP 159/69; PULSE 74; RESP 18; TEMP 36.6; O2SAT 100; BMI 21.3
[2019-04-07] MEDS: diphenhydrAMINE 25 MG TABLET PO (18:48)
[2019-04-07 18:51] VITALS: BP 157/72; PULSE 80; RESP 18; O2SAT 98
--- NOTE | 2019-04-07 18:52 | PC.NURSE ---
c/o itching, reports benadryl helps. pt is scratching her abdomen and arm with the picc line
--- NOTE | 2019-04-07 20:24 | DI.RAD.S_ITS ---
PROCEDURE: XR CHEST FOR PICC 1V INDICATIONS: picc placement. TECHNIQUE: One view of the chest was acquired. COMPARISON: [facility], , XR CHEST 2V, 04/07/2019, 16:44. FINDINGS: Surgical changes and devices: There is a left upper extremity PICC line with the tip at the cavoatrial junction. Postsurgical changes are partially visualized within the thoracolumbar spine. Lungs and pleura: Lungs are clear. No pleural effusions or pneumothorax. Mediastinum: Mediastinal contours appear normal. Heart size is normal. Bones and chest wall: No suspicious bony lesions. Overlying soft tissues appear unremarkable. IMPRESSION: 1. New PICC line extends to the cavoatrial junction. Dictated by: Haseeb Calderon M.D. on 04/07/2019 at 20:49 Approved by: Haseeb Calderon M.D. on 04/07/2019 at 20:50
[2019-04-07 21:23] VITALS: BP 159/62; PULSE 73; O2SAT 96
--- NOTE | 2019-04-07 23:50 | ED.RECABL ---
HPI - Recheck/Abnormal Lab/Rx <CARO Burrows - Last Filed: 04/08/19 00:53> General Chief Complaint: Recheck/Abnormal Lab/Rx Stated Complaint: Sent by doctor due to PICC Line placement issues Time Seen by Provider: 04/07/19 17:29 Source: patient Mode of arrival: Ambulatory Limitations: no limitations History of Present Illness HPI narrative: This is a 69 year female, nonsmoker, who presents to ED with chief complain of PICC line migration and requesting for replacement. Patient reports due to failure to thrive and severe esophageal herniation, had in placed PICC line on02/25/2019 and [facility] per Dr. Yogi Fernandez GI specialist. After that, patient developed severe itching, swelling, redness, warmth to L upper arm with the adhesive dressing use. Patient had the 1st PICC line fell out inadvertently and had a second PICC line inplaced on the same L arm on 04/03/2018 and has been using just a gazue over the PICC line insertion site w/o adhesive dressing every other day managed by home health care. This morning patient noticed a PICC line stitch had popped and removed with another migration of 1 cm. Xray test was done this morning and was told that PICC line has migrated 9 cm and to be removed per Dr. Fernandez. Patient has allergies to multiple medications and contrasts. Patient has difficult and very small vein in right arm. Patient thinks she had developed also to heparin flush since she noticed itching skin in her abdomen since PICC line management with Heparine flush. She he denies unusual rashes or easy bleeding. Patient reports now she is able to take few sips of yogurt and soups. Patient also reports left nasal bleeding, some yellowish nasal discharge and intermittent chills and feeling hot. Related Data Home Medications Medication Instructions Recorded Confirmed Restasis 2 drp OPHTH BID #0 11/21/12 08/18/18 albuterol sulfate [Ventolin HFA] 2 puff INH Q4HP PRN #0 puff 11/21/12 08/18/18 spironolactone 25 mg PO QDAY #0 tab 11/21/12 08/18/18 clobetasol 1 karel TOPICAL BIDP PRN #0 06/08/17 05/30/19 [PROBIOTIC] PO QDAY #0 02/22/17 08/18/18 fluticasone propionate [Flonase 1 spray INTRANASAL QDAY #0 02/22/17 08/18/18 Allergy Relief] losartan-hydrochlorothiazide 1 tab PO QDAY #0 02/22/17 08/18/18 multivitamin [Multiple Vitamins] 1 tab PO QDAY #0 02/22/17 08/18/18 omeprazole 40 mg PO QDAY #0 02/22/17 08/18/18 cetirizine 10 mg tablet 10 mg PO DAILY PRN tab 05/12/18 08/18/18 levothyroxine 112 mcg PO DAILY 05/12/18 08/18/18 liothyronine 5 mcg PO QAM 05/12/18 08/18/18 estradiol 1 mg tablet 1 mg PO DAILY 07/25/18 08/18/18 estradiol 1 mg tablet 1 mg PO DAILY 08/28/18 08/28/18 Previous Rx's Medication Instructions Recorded docusate sodium [Colace] 100 mg PO BID #14 cap 06/14/18 hydromorphone [Dilaudid] 2 mg PO Q6H PRN #10 tab 06/14/18 sennosides [Senokot] 8.6 mg PO BEDTIME #10 tab 06/14/18 erythromycin 0.5 inch EYE-LEFT TID #1 gram 08/28/18 Allergies Allergy/AdvReac Type Severity Reaction Status Date / Time adhesive [ADHESIVE] Allergy Severe HIVES Verified 04/07/19 17:28 amlodipine [AMLODIPINE] Allergy Severe ANGIOEDEMA Verified 04/07/19 17:28 amoxicillin [AMOXICILLIN] Allergy Severe ANAPHYLAXIS Verified 04/07/19 17:28 cephalexin [CEPHALEXIN] Allergy Severe ANAPHYLAXIS Verified 04/07/19 17:28 Cephalosporins Allergy Severe ANAPHYLAXIS Verified 04/07/19 17:28 [CEPHALOSPORINS] erythromycin base Allergy Severe Vomiting Verified 04/07/19 17:28 [ERYTHROMYCIN BASE] gabapentin [GABAPENTIN] Allergy Severe nausea, Verified 04/07/19 17:28 headache hydrocodone [HYDROCODONE] Allergy Severe HIVES/ITCHI Verified 04/07/19 17:28 NG iodine [IODINE] Allergy Severe ANAPHYLAXIS Verified 04/07/19 17:28 lisinopril [LISINOPRIL] Allergy Severe ANGIOEDEMA Verified 04/07/19 17:28 Penicillins [PENICILLINS] Allergy Severe ANAPHYLAXIS Verified 04/07/19 17:28 sumatriptan [SUMATRIPTAN] Allergy Unknown nightmares Verified 04/07/19 17:28 codeine Allergy nausea,itch Verified 04/07/19 17:28 ing oxycodone [From Percocet] Allergy nausea, Verified 04/07/19 17:28 itching Iodinated Contrast Media AdvReac Anaphylaxis Verified 04/07/19 17:28 [Iodinated Contrast- Oral and IV Dye] Review of Systems <CARO Burrows - Last Filed: 04/08/19 00:53> Review of Systems Narrative: General: Denies fever, intermittent (+) chills and feeling hot, fatigue, malaise, sweats. HEENT: Reports left-sided nasal purulent discharge in the morning and bleeding. Denies sinus pain, ear pain, sore throat, difficulty swallowing, dizziness. Respiratory: Denies dyspnea, cough, wheezing, hemoptysis, sputum. Cardiovascular: Denies chest pain, palpitations, orthopnea, edema. Gastrointestinal: Denies nausea, vomiting, abdominal pain, diarrhea, constipation, melena. : Denies dysuria, frequency, incontinence, hematuria, urinary retention. Musculoskeletal: Denies weakness, joint pain or bony pain. Skin: See HPI Neurologic: Denies weakness, headache, numbness, change in speech, confusion, seizures, incoordination. Psychiatric: No concerning psychosocial issues. 12-point review of systems is negative except for those stated above. Patient History <CARO Burrows - Last Filed: 04/08/19 00:53> Medical History Asthma (Chronic) Bilateral lower extremity edema (Acute) Colon polyps (Acute) Degenerative disc disease, cervical (Acute) Difficult intravenous access (Acute) Eczema (Chronic) GERD (gastroesophageal reflux disease) (Acute) Glaucoma (Acute) HTN (hypertension) (Chronic) Hyperlipidemia (Acute) Hypothyroidism (Acute) Lesion of lung (Acute) Meningioma (Acute ~10/2015) Seasonal allergies (Chronic) SLE (systemic lupus erythematosus related syndrome) (Chronic) Superficial thrombophlebitis of left leg (Acute ~1985) Vitamin D deficiency (Acute) Surgical History H/O foot surgery (Acute) H/O: hysterectomy (Acute ~08/1978) History of appendectomy (Acute) History of section (Acute) History of cosmetic surgery (Acute) History of gastric bypass (Acute ~01/2017) History of lumbar spinal fusion (Acute ~2002) History of lumbar spinal fusion (Acute) Hx of abdominal surgery (Acute) Hx of cholecystectomy (Acute) Hx of eye surgery (Acute ~12/2015) S/P foot surgery, right (Acute 01/08/17) Family History Father Hypertension Heart disease Diabetes mellitus Mother Heart disease Gallstones Stroke Cancer Adenocarcinoma in situ Sister Breast cancer Family/Other Breast cancer Grandfather No problems noted. Social History household members: spouse Smoking Status: Never smoker Smoking Status: Never smoker alcohol intake frequency: 0-2 drinks per day Alcohol type: wine Substance Use Type: does not use Exam <CARO Burrows - Last Filed: 04/08/19 00:53> Narrative Exam Narrative: General appearance: well developed, mildly under nourished, in no acute distress. Head: normocephalic, atraumatic, no scalp lesions, non-tender. ENT: Bilateral auditory canals and tympanic membranes clear. Hearing grossly intact. Nose without bleeding, septal hematoma or deviation. Scant amount of yellow discharge in L nose with mild Turbinate erythema and swelling. Facial sinuses nontender to palpate. Mucous membrane moist, no mucosal lesion. Throat without erythema, tonsillar hypertrophy or exudate. Uvula in midline, airway patent. Neck/Thyroid: neck supple, full range of motion, no visible masses or meningeal signs. No JVD, non-tender without lymphadenopathy. Skin: L upper arm with mild redness and swelling w/o obvious signs of infection. No significant warmth noticed. No suspicious rashes, lesions over other visible areas. Warm and dry and appropriate color for ethnicity. Heart: no clubbing, no cyanosis, no edema. S1 and S2 normal. RRR w/o murmurs, clicks, or bruits. Lungs: Breathing even and unlabored. No stridor. No accessory muscles used. Able to speak in full sentences. Chest: normal shape and expansion. Abdomen: non-obese, non-distended. Neurologic: alert and oriented. Cognitive exam, [employer] and PNS grossly intact on informal exam. Psych: good eye contact, normal affect. Initial Vital Signs Initial Vital Signs: Vital Signs Temperature 97.9 F 04/07/19 17:28 Pulse Rate 74 04/07/19 17:28 Respiratory Rate 18 04/07/19 17:28 Blood Pressure 159/69 H 04/07/19 17:28 Pulse Oximetry 100 04/07/19 17:28 <Yannick Rodriguez DO - Last Filed: 04/08/19 01:15> Initial Vital Signs Initial Vital Signs: Vital Signs Temperature 97.9 F 04/07/19 17:28 Pulse Rate 74 04/07/19 17:28 Respiratory Rate 18 04/07/19 17:28 Blood Pressure 159/69 H 04/07/19 17:28 Pulse Oximetry 100 04/07/19 17:28 Scores <CARO Burrows - Last Filed: 04/08/19 00:53> GCS Alvaro coma scale eye opening: Spontaneous Alvaro coma scale verbal response: Orientated Alvaro coma scale motor response: Obey commands Beverly coma scale total score: 15 Course <CARO Burrows - Last Filed: 04/08/19 00:53> Orders Ordered: ED Orders 04/07/19 20:24 XR chest for PICC 1V Stat Discontinued Medications Diphenhydramine HCl (Benadryl) 25 mg PO NOW ONE Stop: 04/07/19 18:27 Last Admin: 04/07/19 18:48 Dose: 25 mg Documented by: SWAPNA Vital Signs Vital signs: Vital Signs - 8 hr 04/07/19 17:28 04/07/19 18:51 04/07/19 21:23 Temperature 97.9 F Pulse Rate 74 80 73 Respiratory Rate 18 18 Blood Pressure 159/69 H Blood Pressure [Right Arm] 157/72 H 159/62 H Pulse Oximetry 100 98 96 <Yannick Rodriguez DO - Last Filed: 04/08/19 01:15> Orders Ordered: ED Orders 04/07/19 20:24 XR chest for PICC 1V Stat Discontinued Medications Diphenhydramine HCl (Benadryl) 25 mg PO NOW ONE Stop: 04/07/19 18:27 Last Admin: 04/07/19 18:48 Dose: 25 mg Documented by: SWAPNA Vital Signs Vital signs: Vital Signs - 8 hr 04/07/19 17:28 04/07/19 18:51 04/07/19 21:23 Temperature 97.9 F Pulse Rate 74 80 73 Respiratory Rate 18 18 Blood Pressure 159/69 H Blood Pressure [Right Arm] 157/72 H 159/62 H Pulse Oximetry 100 98 96 MDM - Recheck/Abnormal Lab/Rx <CARO Burrows - Last Filed: 04/08/19 00:53> Differential Diagnosis Differential diagnosis: Likely other (PICC line removal and re-insertion) Medical Records Attestation: I reviewed the patient's medical records. Imaging Data Chest x-ray: Radiologist's Impression: [address] [address] XRay Report Signed Patient: Kristin Frias [facility]#: [id number] : 1950Acct:[id number] Age/Sex: 69 / FDate of Service: 04/07/19 Loc: ED Accession Number: [id number] Procedure: XR chest for PICC 1V Ordering Provider: Eloy Vick PROCEDURE: XR CHEST FOR PICC 1V INDICATIONS: picc placement. TECHNIQUE: One view of the chest was acquired. COMPARISON: [facility], , XR CHEST 2V, 04/07/2019, 16:44. FINDINGS: Surgical changes and devices: There is a left upper extremity PICC line with the tip at the cavoatrial junction. Postsurgical changes are partially visualized within the thoracolumbar spine. Lungs and pleura: Lungs are clear. No pleural effusions or pneumothorax. Mediastinum: Mediastinal contours appear normal. Heart size is normal. Bones and chest wall: No suspicious bony lesions. Overlying soft tissues appear unremarkable. IMPRESSION: 1. New PICC line extends to the cavoatrial junction. Dictated by: Haseeb Calderon M.D. on 04/07/2019 at 20:49 Approved by: Haseeb Calderon M.D. on 04/07/2019 at 20:50 [facility] Narrative Medical decision making narrative: The patient arrived to ED with migrated out PICC line in L upper arm which she noticed this morning when she woke up and removed sutures. The patient has been using just a gauze to cover the PICC line since she has been having sensitivity to adhesive dressing with itching last several days. Patient reports she receives TPN for failure to thrive and severe esophageal hernia which has been ordered by Dr. Yogi walters GI specialist. [facility] line care was contacted. The old PICC line was removed and new one was in placed and dressed by the after hour PICC line nurse at the ER bedside. PICC line correct placement has been verified with chest x-ray. Patient was medicated with Benadryl for itching in left arm and upper body. Patient's physical exam is not consistent with acute sinusitis at this time. Patient is afebrile without facial sinus tenderness to palpate. Patient advised to follow-up with PCP if symptoms worsen. Patient advised to monitor for possible infection on left arm since PICC line is not dressed with occlusive dressing to prevent infection and migration. Also, the patient advised to discuss PICC line management difficulty with Dr. Fernandez for other alternative options be sized TPN. Return precautions including but not limited to DVT, phlebitis were discussed with the patient and advised to take Benadryl as needed for itching and patient verbalized understanding and agrees with the treatment plan. Discharge Plan Departure Patient Disposition: Home Clinical Impression: Displacement of peripherally inserted central catheter (PICC), Peripherally inserted central catheter (PICC) in place Discharge Date/Time: 04/07/19 22:01 Instructions: Peripherally Inserted Central Catheter Activity Restrictions/Additional Instructions: You have been diagnosed with [removed previous partially displaced PICC line and inserted new PICC line and verification done]. What to do: *Take your medications as directed. You can take Benadryl as needed for itching. Please follow-up with home health care for PICC line care daily. *Follow up with your primary care provider in 2-3 days, call for an appointment. Please follow-up with the GI specialist as scheduled next week of your current condition and problem with PICC line status. Let them know you were seen in the ED and that we asked you to be seen in follow up. *Return to ED if you have any new, worsening, or concerning symptoms, such as [chest pain, breathing difficulty, swelling to her throat/tongue/lips, worsening sinus pain, fever, increasing purulent discharge from her sinus, unable to tolerate fluids or any acute concerns]. Prescriptions: No Action estradiol 1 mg tablet 1 mg PO DAILY RF: 0 spironolactone 25 MG tablet 25 mg PO QDAY Qty: 0 RF: 0 albuterol sulfate [Ventolin HFA] 90 MCG/PUFF HFA aerosol inhaler 2 puff INH Q4HP PRN (Reason: Asthma) Qty: 0 RF: 0 Restasis 1 EACH dropperette 2 drp OPHTH BID Qty: 0 RF: 0 clobetasol 0.05 % ointment 1 karel Topical BIDP PRN (Reason: As directed) Qty: 0 RF: 0 fluticasone propionate [Flonase Allergy Relief] 9.9 ML spray,suspension 1 spray Intranasal QDAY Qty: 0 RF: 0 losartan-hydrochlorothiazide 50 MG/12.5 MG tablet 1 tab PO QDAY Qty: 0 RF: 0 omeprazole 20 MG tablet,delayed release (DR/EC) 40 mg PO QDAY Qty: 0 RF: 0 multivitamin [Multiple Vitamins] 1 EACH tablet 1 tab PO QDAY Qty: 0 RF: 0 [PROBIOTIC] PO QDAY Qty: 0 RF: 0 cetirizine [Zyrtec] 10 mg tablet 10 mg PO DAILY PRN (Reason: Seasonal allergies) RF: 0 levothyroxine 112 mcg PO DAILY RF: 0 liothyronine 5 mcg PO QAM RF: 0 estradiol 1 mg tablet 1 mg PO DAILY RF: 0 sennosides [Senokot] 8.6 mg tablet 8.6 mg PO BEDTIME Qty: 10 RF: 1 docusate sodium [Colace] 100 mg capsule 100 mg PO BID Qty: 14 RF: 1 hydromorphone [Dilaudid] 2 mg tablet 2 mg PO Q6H PRN (Reason: pain) Qty: 10 RF: 0 erythromycin 5 mg/gram (0.5 %) ointment 0.5 inch EYE-LEFT TID Qty: 1 RF: 0 Referrals: Yogi Fernandez [Other] Eugenio Coello MD [Primary Care Provider] -
== END 2019-04-07 22:01 | disposition home or self-care (01) ==
PROVIDERS: Emergency Provider Nurse Practitioner Family; Family Provider Physical Medicine & Rehabilitation Pain Medicine; PCP Internal Medicine
DX: T82.528A Displacement of other cardiac and vascular devices and implants, initial encounter (principal); Z45.2 Encounter for adjustment and management of vascular access device; Z78.9 Other specified health status
CPT/HCPCS: 71046; 99283

== ENCOUNTER → 2019-10-28 10:54 | Outpatient (CLI) | payer MEDICARE, OTHER, SELFPAY ==
--- NOTE | 2019-10-28 | DI.RAD.S_ITS ---
PROCEDURE: XR ABDOMEN MIN 2V INDICATIONS: IRREGULAR BOWEL MOVEMENTS TECHNIQUE: 2 views of the abdomen were acquired. COMPARISON: [facility], , ABDOMEN 2 VIEW, 08/06/2014, 1:51. FINDINGS: Surgical changes and devices: This extensive spinal fusion and large sacroiliac joint screws bilaterally. Surgical clips in the gallbladder fossa. Surgical staple line at the GE junction. Bowel: No pneumoperitoneum on the supine views. The bowel gas pattern demonstrates diffusely increased quantity of stool in the colon. Normal gas over the rectum. No visible dilated small bowel loops. Soft tissues: No masses; visualized solid organ contours appear normal in size. No suspicious abdominal calcifications. Injection granulomas overlying the superior gluteal regions. Bones: No suspicious bony abnormalities. IMPRESSION: Colonic obstipation. No definite bowel obstruction. Dictated by: Gillian Carrasquillo M.D. on 10/28/2019 at 13:43 Approved by: Gillian Carrasquillo M.D. on 10/28/2019 at 13:45
== END ==
PROVIDERS: Family Provider Physical Medicine & Rehabilitation Pain Medicine; PCP Internal Medicine
DX: R10.9 Unspecified abdominal pain (principal); K59.00 Constipation, unspecified; R19.8 Other specified symptoms and signs involving the digestive system and abdomen
CPT/HCPCS: 74019

== ENCOUNTER → 2019-12-15 07:05 | Outpatient (CLI) | payer MEDICARE, OTHER, SELFPAY ==
--- NOTE | 2019-12-15 | DI.US.S_ITS ---
PROCEDURE: US ABDOMEN LIMITED INDICATIONS: PALPABLE LUMP LLQ TECHNIQUE: Real-time focused scanning was performed of the abdomen, with image documentation. COMPARISON: [facility], CT, CT ABDOMEN PELVIS WO CON, 02/10/2019, 21:03. FINDINGS: Scanning is performed at the area of clinical concern involving the palpable focus involving the abdominal wall within the left abdomen. At this site, there is an ovoid largely hyperechoic lump within the subcutaneous fat that measures 6 x 1 x 4 mm. This is seen within a larger hypoechoic lesion that measures 1.6 x 0.3 x 5 cm. This larger hypoechoic focus is horizontally oriented. No abnormal vascularity can be seen. This No other similar findings can be seen within the abdominal wall. IMPRESSION: Nonspecific focus seen at the area of clinical concern, which may be related to scar tissue. If clinically appropriate, please consider a follow-up CT with IV contrast with the area of clinical concern marked for further evaluation. Dictated by: Duane Dominguez M.D. on 12/15/2019 at 8:43 Approved by: Duane Dominguez M.D. on 12/15/2019 at 8:48
== END ==
PROVIDERS: Family Provider Physical Medicine & Rehabilitation Pain Medicine; PCP Internal Medicine; Referring Provider Internal Medicine Gastroenterology; Visit Provider Internal Medicine Gastroenterology
DX: R19.04 Left lower quadrant abdominal swelling, mass and lump (principal); R10.9 Unspecified abdominal pain
CPT/HCPCS: 76705

== ENCOUNTER 2020-01-02 12:05 | Emergency (ER) | payer MEDICARE, OTHER, SELFPAY ==
[2020-01-02] VITALS (10 sets, daily range): BP systolic 129–171; BP diastolic 59–95; PULSE 72–101; RESP 16; TEMP 37.2; O2SAT 96–100; BMI 19.3
[2020-01-02] MEDS: ONDANSETRON 4 MG ODT SL (15:13)
[2020-01-02] MEDS: HYDROMORPHONE 0.5 MG INJ IV (15:47)
[2020-01-02] MEDS: ONDANSETRON 4 MG/2 ML INJ IV (15:48)
[2020-01-02] MEDS: SODIUM CHLORIDE 0.9% 1,000 ML 1000 ML IV (15:48)
[2020-01-02] MEDS: ACETAMINOPHEN 325 MG TABLET 650 MG PO (15:48)
[2020-01-02 16:01] LABS: Add Manual Diff / Slide Review NO; Basophils Absolute Auto 0 /uL (0-100); Basophils Percent Auto 0.8 % (0-2); Eosinophils Absolute Auto 0 /uL (0-450); Eosinophils Percent Auto 0.9 % (2-4); Hematocrit 35.3 % (36-46); Hemoglobin 12.1 g/dL (12.0-16.0); Lymphocytes Absolute Auto 1500 /uL (1100-4500); Lymphocytes Percent Auto 31.1 % (25-40); Mean Corpuscular HGB Conc 34.2 % (30-36); Mean Corpuscular Hemoglobin 35.5 PG (26-34); Mean Corpuscular Volume 103.7 fL (80-100); Monocytes Absolute Auto 500 /uL (0-900); Monocytes Percent Auto 9.5 % (3-14); Neutrophils Absolute Auto 2800 /uL (1500-7000); Neutrophils Percent Auto 57.7 % (50-75); Platelet Count 121 X10^3/uL (150-400); Red Cell Distribution Width 12.7 % (11.6-14.8); White Blood Cell Count 4.9 X10^3/uL (4.5-11.0)
[2020-01-02 16:08] LABS: Prothrombin Time 11.1 SECONDS (10.1-12.7)
[2020-01-02 16:10] LABS: PTT Partial Thromboplastin Tim 31 SECONDS (26.4-36.2)
[2020-01-02 16:12] LABS: Magnesium 1.9 mg/dL (1.6-2.3)
[2020-01-02 16:13] LABS: Alanine Aminotransferase 53 IU/L (<35); Albumin 3.7 g/dL (3.5-5.0); Albumin Globulin Ratio 1.3 (1.0-2.8); Alkaline Phosphatase 156 U/L (38-126); Aspartate Aminotransferase 81 IU/L (14-36); BUN Creatinine Ratio 22.4 (6-22); Bilirubin Total 0.6 mg/dL (0.2-1.3); Blood Urea Nitrogen 15 mg/dL (7-17); Carbon Dioxide 32 mmol/L (22-32); Chloride 98 mmol/L (98-107); Estimated Glomerular Filt Rate > 60.0 mL/min (>60); Globulin 2.8 g/dL (1.7-4.1); Glucose 94 mg/dL (80-110); HEMOLYSIS < 15 (0-50); Lipase 17 U/L (23-300); Potassium 3.8 mmol/L (3.4-5.1); Sodium 132 mmol/L (137-145); Total Protein 6.5 g/dL (6.3-8.2)
--- NOTE | 2020-01-02 16:24 | DI.US.S_ITS ---
PROCEDURE: US ABDOMEN LIMITED INDICATIONS: upper abdomen L>R pain, n/v, hx of cholecystectomy, LFT elev TECHNIQUE: Real-time focused scanning was performed of the abdomen, with image documentation. COMPARISON: [facility], CT, CT ABDOMEN PELVIS WO CON, 02/10/2019, 21:03. [facility], US, US ABDOMEN LIMITED, 12/15/2019, 7:22. FINDINGS: The liver demonstrates normal size. The liver demonstrates generalized increased echogenicity. This decreases ultrasound sensitivity for detection of hepatic masses. Removed. There is no biliary dilatation, the common bile duct measures 6 mm. The visualized pancreas is unremarkable. IMPRESSION: Status post cholecystectomy. No biliary dilatation is seen. The liver demonstrates increased echogenicity. This finding is nonspecific, yet it is most commonly attributed to fatty infiltration. Dictated by: Duane Dominguez M.D. on 01/02/2020 at 16:02 Approved by: Duane Dominguez M.D. on 01/02/2020 at 16:04
[2020-01-02 16:54] LABS: Procalcitonin < 0.05 ng/mL (<0.5)
--- NOTE | 2020-01-02 17:56 | ED_ITS ---
HPI - Abdominal Pain <CARO Burrows - Last Filed: 01/03/20 01:13> General Chief Complaint: Abdominal Pain Stated Complaint: VOMITING DIARRHEA GETS HEADACHE Time Seen by Provider: 01/02/20 13:55 Source: patient Mode of arrival: Wheelchair Limitations: no limitations History of Present Illness HPI narrative: This is a 69-year-old female, nonsmoker, who has complicated medical history presents to ED this severe nausea and decreased p.o. intake and hydration which started yesterday morning. 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 Patient reports difficulty keeping weight and she had to be on TNP treatment last year and at that time her weight had decreased to 92Lbs. She reports currently weighs 97 Lbs. Patient reports she had 5 episodes of severe nausea and small amount of foamy clear liquid emesis with feeling sweaty and cold, shaky and has headache. Patient reports recently she has been having left upper quadrant pain and bloatedness. Has been passing foul smelling gas. Patient reports takes MiraLax daily and her stool has been softer side than normal. Denies diarrhea. Denies blood in her emesis or stools. She takes daily Zofran 4 mg as needed and Dilaudid 2 mg at a time and total 8 mg a day for chronic pain. Patient sees bariatric surgeon and GI specialist for ongoing stomach issues. She med with bariatric surgeon yesterday and had CT of abdomen pelvis test done at [facility] but denies recent lab tests. Bariatric surgeon suggested increasing Zofran dosed from 4 mg to 8 mg at a time and consider starting promethazine if Zofran is not effective and to talk to her primary care physician. She denies chest pain, dyspnea, or dizziness. She denies known exposure to Covid. She reports had two negative Covid tests and has been keeping social distancing. She has multiple allergies to medications and medical devices. Related Data Home Medications Medication Instructions Recorded Confirmed Restasis 2 drp OPHTH BID #0 11/21/12 08/18/18 albuterol sulfate [Ventolin HFA] 2 puff INH Q4HP PRN #0 puff 11/21/12 08/18/18 spironolactone 25 mg PO QDAY #0 tab 11/21/12 08/18/18 clobetasol 1 karel TOPICAL BIDP PRN #0 08/27/16 08/18/18 [PROBIOTIC] PO QDAY #0 02/22/17 08/18/18 fluticasone propionate [Flonase 1 spray INTRANASAL QDAY #0 02/22/17 08/18/18 Allergy Relief] losartan-hydrochlorothiazide 1 tab PO QDAY #0 02/22/17 08/18/18 multivitamin [Multiple Vitamins] 1 tab PO QDAY #0 02/22/17 08/18/18 omeprazole 40 mg PO QDAY #0 02/22/17 08/18/18 cetirizine 10 mg tablet 10 mg PO DAILY PRN tab 05/12/18 08/18/18 levothyroxine 112 mcg PO DAILY 05/12/18 08/18/18 liothyronine 5 mcg PO QAM 05/12/18 08/18/18 estradiol 1 mg tablet 1 mg PO DAILY 07/25/18 08/18/18 estradiol 1 mg tablet 1 mg PO DAILY 08/28/18 08/28/18 Previous Rx's Medication Instructions Recorded docusate sodium [Colace] 100 mg PO BID #14 cap 06/14/18 hydromorphone [Dilaudid] 2 mg PO Q6H PRN #10 tab 06/14/18 sennosides [Senokot] 8.6 mg PO BEDTIME #10 tab 06/14/18 erythromycin 0.5 inch EYE-LEFT TID #1 gram 08/28/18 promethazine 12.5 mg PO TID PRN #10 tab 01/02/20 promethazine 12.5 mg [place] TID PRN #1 each 01/02/20 Allergies Allergy/AdvReac Type Severity Reaction Status Date / Time adhesive [ADHESIVE] Allergy Severe HIVES Verified 01/02/20 12:24 amlodipine [AMLODIPINE] Allergy Severe ANGIOEDEMA Verified 01/02/20 12:24 amoxicillin [AMOXICILLIN] Allergy Severe ANAPHYLAXIS Verified 01/02/20 12:24 cephalexin [CEPHALEXIN] Allergy Severe ANAPHYLAXIS Verified 01/02/20 12:24 Cephalosporins Allergy Severe ANAPHYLAXIS Verified 01/02/20 12:24 [CEPHALOSPORINS] erythromycin base Allergy Severe Vomiting Verified 01/02/20 12:24 [ERYTHROMYCIN BASE] gabapentin [GABAPENTIN] Allergy Severe nausea, Verified 01/02/20 12:24 headache hydrocodone [HYDROCODONE] Allergy Severe HIVES/ITCHI Verified 01/02/20 12:24 NG iodine [IODINE] Allergy Severe ANAPHYLAXIS Verified 01/02/20 12:24 lisinopril [LISINOPRIL] Allergy Severe ANGIOEDEMA Verified 01/02/20 12:24 Penicillins [PENICILLINS] Allergy Severe ANAPHYLAXIS Verified 01/02/20 12:24 sumatriptan [SUMATRIPTAN] Allergy Unknown nightmares Verified 01/02/20 12:24 codeine Allergy nausea,itch Verified 01/02/20 12:24 ing oxycodone [From Percocet] Allergy nausea, Verified 01/02/20 12:24 itching Iodinated Contrast Media AdvReac Anaphylaxis Verified 01/02/20 12:24 [Iodinated Contrast- Oral and IV Dye] Review of Systems <CARO Burrows - Last Filed: 01/03/20 01:13> Review of Systems Narrative: General: Reports subjective fever, chills, fatigue, malaise, sweats. HEENT: Denies sinus pain, ear pain, sore throat, difficulty swallowing, dizziness. Respiratory: Denies dyspnea, cough, wheezing, hemoptysis, sputum. Cardiovascular: Denies chest pain, palpitations, orthopnea, edema. Gastrointestinal: See HPI : Denies dysuria, frequency, incontinence, hematuria, urinary retention. Musculoskeletal: Denies weakness, joint pain or bony pain. Skin: Denies rash, skin lesions, or other. Neurologic: Denies weakness, headache, numbness, change in speech, confusion, seizures, incoordination. Psychiatric: No concerning psychosocial issues. 12-point review of systems is negative except for those stated above. Patient History <CARO Burrows - Last Filed: 01/03/20 01:13> Medical History Asthma (Chronic) Bilateral lower extremity edema (Acute) Colon polyps (Acute) Degenerative disc disease, cervical (Acute) Difficult intravenous access (Acute) Eczema (Chronic) GERD (gastroesophageal reflux disease) (Acute) Glaucoma (Acute) HTN (hypertension) (Chronic) Hyperlipidemia (Acute) Hypothyroidism (Acute) Lesion of lung (Acute) Meningioma (Acute ~10/2015) Seasonal allergies (Chronic) SLE (systemic lupus erythematosus related syndrome) (Chronic) Superficial thrombophlebitis of left leg (Acute ~1985) Vitamin D deficiency (Acute) Surgical History H/O foot surgery (Acute) H/O: hysterectomy (Acute ~08/1978) History of appendectomy (Acute) History of section (Acute) History of cosmetic surgery (Acute) History of gastric bypass (Acute ~01/2017) History of lumbar spinal fusion (Acute ~2002) History of lumbar spinal fusion (Acute) Hx of abdominal surgery (Acute) Hx of cholecystectomy (Acute) Hx of eye surgery (Acute ~12/2015) S/P foot surgery, right (Acute 01/08/17) Family History Father Hypertension Heart disease Diabetes mellitus Mother Heart disease Gallstones Stroke Cancer Adenocarcinoma in situ Sister Breast cancer Family/Other Breast cancer Grandfather No problems noted. Social History household members: spouse Smoking Status: Never smoker Smoking Status: Never smoker alcohol intake frequency: 0-2 drinks per day Alcohol type: wine Substance Use Type: does not use Exam <CARO Burrows - Last Filed: 01/03/20 01:13> Narrative Exam Narrative: GEN: Alert, oriented x 3, thin appearing and in no acute distress. Head: Normal cephalic, atraumatic. No scalp or temporal tenderness, palpable ma ss or rash. EYES: Pupils are equal, round, and reactive to light and accommodation. Extraocular muscles are intact bilaterally. There is no subconjunctival hemorrhage, exudate and sclera non-icteric. ENT: Hearing grossly intact. Nose without bleeding, purulent discharge or deviation. Mucous membrane dry, no mucosal lesion. Throat without erythema, tonsillar hypertrophy or exudate. Uvula in midline, airway patent. Neck: Trachea in midline. No JVD, non-tender without lymphadenopathy. No masses or thyroid megaly. Supple, non-tender and no meningeal signs. CARDIAC: Normal regular rate and rhythm without murmurs, gallops, or rubs. No chest wall tenderness. No peripheral edema, cyanosis or pallor. Capillary refill is less than 2 seconds. RESPIRATORY: Lungs are clear to auscultate bilaterally. No cough, wheezes, rales, or rhonchi. No stridor, respiratory distress, increase work of breathing, or accessary muscle used. ABD: Abdomen flat, right upper quadrant mildly tender to palpate. No guarding or rebound tenderness to palpate. Bowel sounds are normal in all 4 quadrants. There were couple of small palpable masses in left mid to lower abdomen. No organomegaly. EXT: Full painless ROM of all extremities with no loss of sensation, strength, effusion or edema. SKIN: Warm, dry, normal color for patient. No erythema, lesions or rash over visible areas. BACK: Nontender without deformity or crepitance. No flank tenderness. NEUROLOGICAL: Alert and oriented to place, time and person. Sensation and motor function intact bilaterally. No facial droops, dysphasia. PSYCHIATRIC: Good judgement and reason, without hallucinations, abnormal affect or abnormal behaviors during the examination. Patient is not suicidal. Initial Vital Signs Initial Vital Signs: Vital Signs Temperature 98.9 F 01/02/20 12:20 Pulse Rate 101 H 01/02/20 12:20 Respiratory Rate 16 01/02/20 12:20 Blood Pressure 153/88 H 01/02/20 12:20 Pulse Oximetry 96 01/02/20 12:20 <Naif Meadows MD - Last Filed: 01/05/20 13:01> Initial Vital Signs Initial Vital Signs: Vital Signs Temperature 98.9 F 01/02/20 12:20 Pulse Rate 101 H 01/02/20 12:20 Respiratory Rate 16 01/02/20 12:20 Blood Pressure 153/88 H 01/02/20 12:20 Pulse Oximetry 96 01/02/20 12:20 Scores <[facility] CARO Vick - Last Filed: 01/03/20 01:13> GCS Stanton coma scale eye opening: Spontaneous Alvaro coma scale verbal response: Orientated Alvaro coma scale motor response: Obey commands Alvaro coma scale total score: 15 qSOFA Altered Mental Status (GCS <15): No Respiratory rate greater than/equal to 22: No Systolic blood pressure less than or equal to 100: No qSOFA Total: 0 0-1 Not High Risk 1-3 High risk Course <[facility] Last Filed: 01/03/20 01:13> Orders Ordered: Discontinued Medications Acetaminophen (Tylenol) 650 mg PO NOW ONE Stop: 01/02/20 14:19 Last Admin: 01/02/20 15:48 Dose: 650 mg Documented by: HAKAN Hydromorphone HCl (Dilaudid) 0.5 mg IV NOW ONE Stop: 01/02/20 14:19 Last Admin: 01/02/20 15:47 Dose: 0.5 mg Documented by: HAKAN Sodium Chloride (Normal Saline 0.9%) 1,000 mls @ 1,000 mls/hr IV BOLUS ONE Stop: 01/02/20 15:17 Last Infusion: 01/02/20 17:45 Dose: 0 mls/hr Documented by: MARIA ELENA Admin: 01/02/20 15:48 Dose: 1,000 mls/hr Documented by: HAKAN Lidocaine/Sodium Bicarbonate (Buffered Lidocaine 10 Ml Syr) 10 ml INJ NOW ONE Stop: 01/02/20 14:19 Ondansetron HCl (Zofran) 4 mg IV NOW ONE Stop: 01/02/20 14:19 Last Admin: 01/02/20 15:48 Dose: 4 mg Documented by: HAKAN Ondansetron HCl (Zofran Odt) 4 mg SL NOW ONE Stop: 01/02/20 15:10 Last Admin: 01/02/20 15:13 Dose: 4 mg Documented by: HAKAN Reevaluation(s) Reevaluation #1: Patient reports feeling so much better at this time with nausea, abdominal pain, chills. We discussed lab, imaging findings with patient and advised to follow up with GI specialist as planned. Time: 17:57 Consultations Consultation #1: Given patient has difficult IV start and lab draws, KIRILL Law, IV therapist at IR contacted for midline insertion and lab draw. Patient provided with oral Zofran while waiting for IV procedure. Time: 15:00 Vital Signs Vital signs: Vital Signs - 8 hr 01/02/20 17:00 01/02/20 17:30 01/02/20 18:00 Pulse Rate 85 76 76 Respiratory Rate 16 Blood Pressure 138/95 H 129/59 L 136/63 Pulse Oximetry 100 100 100 <Naif Meadows MD - Last Filed: 01/05/20 13:01> Orders Ordered: Discontinued Medications Acetaminophen (Tylenol) 650 mg PO NOW ONE Stop: 01/02/20 14:19 Last Admin: 01/02/20 15:48 Dose: 650 mg Documented by: HAKAN Hydromorphone HCl (Dilaudid) 0.5 mg IV NOW ONE Stop: 01/02/20 14:19 Last Admin: 01/02/20 15:47 Dose: 0.5 mg Documented by: HAKAN Sodium Chloride (Normal Saline 0.9%) 1,000 mls @ 1,000 mls/hr IV BOLUS ONE Stop: 01/02/20 15:17 Last Infusion: 01/02/20 17:45 Dose: 0 mls/hr Documented by: MARIA ELENA Admin: 01/02/20 15:48 Dose: 1,000 mls/hr Documented by: HAKAN Lidocaine/Sodium Bicarbonate (Buffered Lidocaine 10 Ml Syr) 10 ml INJ NOW ONE Stop: 01/02/20 14:19 Ondansetron HCl (Zofran) 4 mg IV NOW ONE Stop: 01/02/20 14:19 Last Admin: 01/02/20 15:48 Dose: 4 mg Documented by: HAKAN Ondansetron HCl (Zofran Odt) 4 mg SL NOW ONE Stop: 01/02/20 15:10 Last Admin: 01/02/20 15:13 Dose: 4 mg Documented by: HAKAN Vital Signs Vital signs: Vital Signs - 8 hr 01/02/20 17:00 01/02/20 17:30 01/02/20 18:00 Pulse Rate 85 76 76 Respiratory Rate 16 Blood Pressure 138/95 H 129/59 L 136/63 Pulse Oximetry 100 100 100 MDM - Abdominal Pain <Eloy CARO Vick - Last Filed: 01/03/20 01:13> Differential Diagnosis Differential diagnosis: Likely calculus of kidney, diverticulitis, gastroenteritis, pancreatitis, small bowel obstruction and other (biliary duct disease, abnormal electrolytes, dehydration, UTI) Medical Records Attestation: I reviewed the patient's medical records. Lab Data Attestation: I reviewed the patient's lab results. Result diagrams: 01/02/20 15:55 01/02/20 15:55 Labs: Lab Results 10/01/02/20 01/02/20 Range/Units 15:55 15:55 15:55 WBC 4.9 (4.5-11.0) X10^3/uL RBC 3.40 L (4.0-5.2) X10^6/uL Hgb 12.1 (12.0-16.0) g/dL Hct 35.3 L (36-46) % MCV 103.7 H (80-100) fL MCH 35.5 H (26-34) PG MCHC 34.2 (30-36) % RDW 12.7 (11.6-14.8) % Plt Count 121 L (150-400) X10^3/uL Neut % (Auto) 57.7 (50-75) % Lymph % (Auto) 31.1 (25-40) % [place] % (Auto) 9.5 (3-14) % Eos % (Auto) 0.9 L (2-4) % Baso % (Auto) 0.8 (0-2) % Neut # (Auto) 2800 (7809-4345) /uL Lymph # (Auto) 1500 (3611-8252) /uL [place] # (Auto) 500 (0-900) /uL Eos # (Auto) 0 (0-450) /uL Baso # (Auto) 0 (0-100) /uL PT 11.1 (10.1-12.7) SECONDS INR 1.0 (0.9-1.3) APTT 31 (26.4-36.2) SECONDS Sodium 132 L (137-145) mmol/L Potassium 3.8 (3.4-5.1) mmol/L Chloride 98 (98-107) mmol/L Carbon Dioxide 32 (22-32) mmol/L BUN 15 (7-17) mg/dL Creatinine 0.67 (0.52-1.04) mg/dL Estimated GFR > 60.0 (>60) mL/min BUN/Creatinine Ratio 22.4 H (6-22) Glucose 94 (80-110) mg/dL Lactate (0.7-2.1) mmol/L Calcium 9.0 (8.4-10.2) mg/dL Magnesium (1.6-2.3) mg/dL Total Bilirubin 0.6 (0.2-1.3) mg/dL AST 81 H (14-36) IU/L ALT 53 H (<35) IU/L Alkaline Phosphatase 156 H (38-126) U/L Total Protein 6.5 (6.3-8.2) g/dL Albumin 3.7 (3.5-5.0) g/dL Globulin 2.8 (1.7-4.1) g/dL Albumin/Globulin Ratio 1.3 (1.0-2.8) Lipase 17 L (23-300) U/L Procalcitonin (<0.5) ng/mL 01/02/20 01/02/20 01/02/20 Range/Units 15:55 15:55 15:55 WBC (4.5-11.0) X10^3/uL RBC (4.0-5.2) X10^6/uL Hgb (12.0-16.0) g/dL Hct (36-46) % MCV (80-100) fL MCH (26-34) PG MCHC (30-36) % RDW (11.6-14.8) % Plt Count (150-400) X10^3/uL Neut % (Auto) (50-75) % Lymph % (Auto) (25-40) % [place] % (Auto) (3-14) % Eos % (Auto) (2-4) % Baso % (Auto) (0-2) % Neut # (Auto) (6269-5319) /uL Lymph # (Auto) (6560-1297) /uL [place] # (Auto) (0-900) /uL Eos # (Auto) (0-450) /uL Baso # (Auto) (0-100) /uL PT (10.1-12.7) SECONDS INR (0.9-1.3) APTT (26.4-36.2) SECONDS Sodium (137-145) mmol/L Potassium (3.4-5.1) mmol/L Chloride (98-107) mmol/L Carbon Dioxide (22-32) mmol/L BUN (7-17) mg/dL Creatinine (0.52-1.04) mg/dL Estimated GFR (>60) mL/min BUN/Creatinine Ratio (6-22) Glucose (80-110) mg/dL Lactate 1.0 (0.7-2.1) mmol/L Calcium (8.4-10.2) mg/dL Magnesium 1.9 (1.6-2.3) mg/dL Total Bilirubin (0.2-1.3) mg/dL AST (14-36) IU/L ALT (<35) IU/L Alkaline Phosphatase (38-126) U/L Total Protein (6.3-8.2) g/dL Albumin (3.5-5.0) g/dL Globulin (1.7-4.1) g/dL Albumin/Globulin Ratio (1.0-2.8) Lipase (23-300) U/L Procalcitonin < 0.05 (<0.5) ng/mL Point of care testing: Urine Dip Bedside Urine Glucose Negative Bedside Urine Bilirubin - Negative Bedside Urine Ketone - Negative Urine Specific [place] 1.015 Bedside Urine Occult Blood - Negative Bedside Urine pH 7.0 Bedside Urine Protein - Negative Bedside Urine Urobilinogen - Negative Bedside Urine Nitrite - Negative Bedside Urine Leukocytes - Negative Esterase Imaging Data US - abdomen: Radiologist's Impression: [place] [address] Ultrasound Report Signed Patient: Kristin Frias [facility]#: [id number] : 1950Acct:[id number] Age/Sex: 69 / FDate of Service: 01/02/20 Loc: ED Accession Number: [id number] Procedure: US abdomen limited Ordering Provider: Eloy Vick PROCEDURE: US ABDOMEN LIMITED INDICATIONS: upper abdomen L>R pain, n/v, hx of cholecystectomy, LFT elev TECHNIQUE: Real-time focused scanning was performed of the abdomen, with image documentation. COMPARISON: [facility], CT, CT ABDOMEN PELVIS WO CON, 02/10/2019, 21:03. [facility], US, US ABDOMEN LIMITED, 12/15/2019, 7:22. FINDINGS: The liver demonstrates normal size. The liver demonstrates generalized increased echogenicity. This decreases ultrasound sensitivity for detection of hepatic masses. Removed. There is no biliary dilatation, the common bile duct measures 6 mm. The visualized pancreas is unremarkable. IMPRESSION: Status post cholecystectomy. No biliary dilatation is seen. The liver demonstrates increased echogenicity. This finding is nonspecific, yet it is most commonly attributed to fatty infiltration. Dictated by: Prakash MeeksD. on 01/02/2020 at 16:02 Approved by: Duane Dominguez M.D. on 01/02/2020 at 16:04 ECG Data Attestation: I personally reviewed and interpreted this ECG as follows: Prior ECG tracings: available for review Interpretation: Sinus rhythm rate at 72. Normal [place]. [place] interval 132, QRS duration 80, QT/QTC 392/429. No acute ST changes. MDM Narrative Medical decision making narrative: [facility] 01/01/20 ABD/Pelvis CT Result requested and shows as following: Liver: severe fatty infiltration without focal lesions. Gallbladder and biliary tree: No biliary ductal dilation present. Pancreas: diffuse parenchymal atrophy. Kidneys: Nonobstructing 3 mm intrarenal stone, possible tiny lower sports stone without hydronephrosis. This is a 69-year-old female who presents to ED with severe nausea and small amount of clear, foamy emesis and loose stools since yesterday morning. Patient has multiple abdominal surgeries including gastric bypass, hysterectomy, cholecystectomy and significant weight loss. She sees bariatric surgeon Dr. Yogi Fernandez at [facility], GI specialist Dr. Geovanny Lisa at [facility]. Patient is afebrile and hemodynamically stable. Abdominal exam appreciated flat abdomen and some tenderness to palpate in left upper quadrant pain. Given patient's abdominal CT was done yesterday with similar symptoms, additional CT test was held. CBC test shows no leukocytosis. Unremarkable H&H. Slightly decreased platelet counts of 121. Unremarkable coags test. Mild hyponatremia of 132 with normal potassium and kidney function test and unremarkable BUN or BUN/creatinine ratio. Glucose 94. Normal lactate and negative procalcitonin. Total protein, albumin and globulin within normal limits. Slightly elevated liver function test of AST 81, ALT 53, alk phosphatase of 156. Abdominal ultrasound was obtained given patient's presentation of left upper quadrant pain and normal liver function test. Ultrasound test result shows no biliary dilation with liver shows increased echogenicity which is nonspecific and likely attributed to fatty infiltration. Findings were shared with patient and spouse. Patient feels much better after IV hydration and small dose of Dilaudid 0.5 mg and additional IV Zofran 4 mg administration. Patient was able to void and provide urine sample. No signs of UTI at this time. Patient advise up to her Zofran dose to 8 mg as needed if this is ineffective a then use promethazine p.o. or p.r. 1 or the other. Initially, hesitant to provide Promethazine given patient has multiple medication allergies and sensitivities including Reglan. However, patient reports she had used Phenergan without side effects in the past. Medication side-effects were discussed. Return precautions were discussed with patient and patient advised to follow-up with Dr. Coello on elevated LFT and Dr. Lisa and Dr. Fernandez. Return precautions were discussed and she verbalized understanding and agreement with the treatment plan. <Naif Meadows MD - Last Filed: 01/05/20 13:01> Lab Data Labs: Lab Results 01/02/20 01/02/20 01/02/20 Range/Units 15:55 15:55 15:55 WBC 4.9 (4.5-11.0) X10^3/uL RBC 3.40 L (4.0-5.2) X10^6/uL Hgb 12.1 (12.0-16.0) g/dL Hct 35.3 L (36-46) % MCV 103.7 H (80-100) fL MCH 35.5 H (26-34) PG MCHC 34.2 (30-36) % RDW 12.7 (11.6-14.8) % Plt Count 121 L (150-400) X10^3/uL Neut % (Auto) 57.7 (50-75) % Lymph % (Auto) 31.1 (25-40) % [place] % (Auto) 9.5 (3-14) % Eos % (Auto) 0.9 L (2-4) % Baso % (Auto) 0.8 (0-2) % Neut # (Auto) 2800 (2239-7725) /uL Lymph # (Auto) 1500 (7171-1360) /uL [place] # (Auto) 500 (0-900) /uL Eos # (Auto) 0 (0-450) /uL Baso # (Auto) 0 (0-100) /uL PT 11.1 (10.1-12.7) SECONDS INR 1.0 (0.9-1.3) APTT 31 (26.4-36.2) SECONDS Sodium 132 L (137-145) mmol/L Potassium 3.8 (3.4-5.1) mmol/L Chloride 98 (98-107) mmol/L Carbon Dioxide 32 (22-32) mmol/L BUN 15 (7-17) mg/dL Creatinine 0.67 (0.52-1.04) mg/dL Estimated GFR > 60.0 (>60) mL/min BUN/Creatinine Ratio 22.4 H (6-22) Glucose 94 (80-110) mg/dL Lactate (0.7-2.1) mmol/L Calcium 9.0 (8.4-10.2) mg/dL Magnesium (1.6-2.3) mg/dL Total Bilirubin 0.6 (0.2-1.3) mg/dL AST 81 H (14-36) IU/L ALT 53 H (<35) IU/L Alkaline Phosphatase 156 H (38-126) U/L Total Protein 6.5 (6.3-8.2) g/dL Albumin 3.7 (3.5-5.0) g/dL Globulin 2.8 (1.7-4.1) g/dL Albumin/Globulin Ratio 1.3 (1.0-2.8) Lipase 17 L (23-300) U/L Procalcitonin (<0.5) ng/mL 01/02/20 01/02/20 01/02/20 Range/Units 15:55 15:55 15:55 WBC (4.5-11.0) X10^3/uL RBC (4.0-5.2) X10^6/uL Hgb (12.0-16.0) g/dL Hct (36-46) % MCV (80-100) fL MCH (26-34) PG MCHC (30-36) % RDW (11.6-14.8) % Plt Count (150-400) X10^3/uL Neut % (Auto) (50-75) % Lymph % (Auto) (25-40) % [place] % (Auto) (3-14) % Eos % (Auto) (2-4) % Baso % (Auto) (0-2) % Neut # (Auto) (7849-4865) /uL Lymph # (Auto) (3240-3337) /uL [place] # (Auto) (0-900) /uL Eos # (Auto) (0-450) /uL Baso # (Auto) (0-100) /uL PT (10.1-12.7) SECONDS INR (0.9-1.3) APTT (26.4-36.2) SECONDS Sodium (137-145) mmol/L Potassium (3.4-5.1) mmol/L Chloride (98-107) mmol/L Carbon Dioxide (22-32) mmol/L BUN (7-17) mg/dL Creatinine (0.52-1.04) mg/dL Estimated GFR (>60) mL/min BUN/Creatinine Ratio (6-22) Glucose (80-110) mg/dL Lactate 1.0 (0.7-2.1) mmol/L Calcium (8.4-10.2) mg/dL Magnesium 1.9 (1.6-2.3) mg/dL Total Bilirubin (0.2-1.3) mg/dL AST (14-36) IU/L ALT (<35) IU/L Alkaline Phosphatase (38-126) U/L Total Protein (6.3-8.2) g/dL Albumin (3.5-5.0) g/dL Globulin (1.7-4.1) g/dL Albumin/Globulin Ratio (1.0-2.8) Lipase (23-300) U/L Procalcitonin < 0.05 (<0.5) ng/mL Point of care testing: Urine Dip Bedside Urine Glucose Negative Bedside Urine Bilirubin - Negative Bedside Urine Ketone - Negative Urine Specific [place] 1.015 Bedside Urine Occult Blood - Negative Bedside Urine pH 7.0 Bedside Urine Protein - Negative Bedside Urine Urobilinogen - Negative Bedside Urine Nitrite - Negative Bedside Urine Leukocytes - Negative Esterase Discharge Plan Departure Patient Disposition: Home Clinical Impression: Nausea & vomiting Qualifiers: Vomiting type: unspecified Vomiting Intractability: non-intractable Qualified Code(s): R11.2 - Nausea with vomiting, unspecified Abdominal pain Qualifiers: Abdominal location: left upper quadrant Qualified Code(s): R10.12 - Left upper quadrant pain Discharge Date/Time: 01/02/20 18:36 Instructions: DI for Abdominal Pain-Adult, Nausea and Vomiting-Adult Activity Restrictions/Additional Instructions: You have been diagnosed with [nausea, vomiting and left upper quadrant pain. Ultrasound on upper abdomen does not show acute findings but fatty liver. Blood count is unremarkable. Slightly decreased platelet count of 121. Sodium was mildly decreased to 132 and signs of mild dehydration which has been corrected with IV fluid normal saline. Mildly elevated liver function test today. Albumin and protein levels are within normal limits. Normal lipase. No indications for elevated procalcitonin or lactate.]. What to do: *Take your medications as directed. Phenergan correct and oral tab have been transmitted to [facility]. Please take it as needed for nausea and vomiting 1 or the other. *Follow up with your primary care provider/GI specialist/gastric surgeon in 2-3 days, call for an appointment. Let them know you were seen in the ED and that we asked you to be seen in follow up. *Return to ED if you have any new, worsening, or concerning symptoms, such as [chest pain, breathing difficulty, fever, unable to tolerate fluids, increasing abdominal pain, feeling like faint or any acute concerns]. Prescriptions: New promethazine 12.5 mg tablet 12.5 mg PO TID PRN (Reason: nausea and vomiting) Qty: 10 RF: 0 promethazine 12.5 mg suppository 12.5 mg WA TID PRN (Reason: nausea and vomiting) Qty: 1 RF: 0 No Action estradiol 1 mg tablet 1 mg PO DAILY RF: 0 spironolactone 25 MG tablet 25 mg PO QDAY Qty: 0 RF: 0 albuterol sulfate [Ventolin HFA] 90 MCG/PUFF HFA aerosol inhaler 2 puff INH Q4HP PRN (Reason: Asthma) Qty: 0 RF: 0 Restasis 1 EACH dropperette 2 drp OPHTH BID Qty: 0 RF: 0 clobetasol 0.05 % ointment 1 karel Topical BIDP PRN (Reason: As directed) Qty: 0 RF: 0 fluticasone propionate [Flonase Allergy Relief] 9.9 ML spray,suspension 1 spray Intranasal QDAY Qty: 0 RF: 0 losartan-hydrochlorothiazide 50 MG/12.5 MG tablet 1 tab PO QDAY Qty: 0 RF: 0 omeprazole 20 MG tablet,delayed release (DR/EC) 40 mg PO QDAY Qty: 0 RF: 0 multivitamin [Multiple Vitamins] 1 EACH tablet 1 tab PO QDAY Qty: 0 RF: 0 [PROBIOTIC] PO QDAY Qty: 0 RF: 0 cetirizine [Zyrtec] 10 mg tablet 10 mg PO DAILY PRN (Reason: Seasonal allergies) RF: 0 levothyroxine 112 mcg PO DAILY RF: 0 liothyronine 5 mcg PO QAM RF: 0 estradiol 1 mg tablet 1 mg PO DAILY RF: 0 sennosides [Senokot] 8.6 mg tablet 8.6 mg PO BEDTIME Qty: 10 RF: 1 docusate sodium [Colace] 100 mg capsule 100 mg PO BID Qty: 14 RF: 1 hydromorphone [Dilaudid] 2 mg tablet 2 mg PO Q6H PRN (Reason: pain) Qty: 10 RF: 0 erythromycin 5 mg/gram (0.5 %) ointment 0.5 inch EYE-LEFT TID Qty: 1 RF: 0 Referrals: Eugenio Coello MD [Primary Care Provider] - <Naif Meadows MD - Last Filed: 01/05/20 13:01> Cosign ED Attending Cosignature Attestation: I was immediately available in the department for consultation. This documentation has been reviewed and I agree with assessment and plan. Supervised by Naif Meadows MD
== END 2020-01-02 18:36 | disposition home or self-care (01) ==
PROVIDERS: Emergency Medicine; Emergency Provider Nurse Practitioner Family; Family Provider Physical Medicine & Rehabilitation Pain Medicine; PCP Internal Medicine
DX: R10.12 Left upper quadrant pain (principal); E87.1 Hypo-osmolality and hyponatremia; R11.2 Nausea with vomiting, unspecified; R19.7 Diarrhea, unspecified; R79.89 Other specified abnormal findings of blood chemistry
CPT/HCPCS: 36415; 76705; 80053; 81003; 83605; 83690; 83735; 84145; 85025; 85610; 85730; 93005; 96361; 96374; 96375; 99284; J1170; J2405

== ENCOUNTER → 2020-01-08 10:32 | Outpatient (CLI) | payer MEDICARE, OTHER, SELFPAY ==
--- NOTE | 2020-01-08 | DI.RAD.S_ITS ---
PROCEDURE: XR FOOT LT MIN 3V INDICATIONS: LEFT FOOT PAIN TECHNIQUE: 3 views of the foot were acquired. COMPARISON: None. FINDINGS: Bones: No fractures or dislocations. No suspicious bony lesions. Soft tissues: No tibiotalar joint effusion. Achilles tendon appears normal. IMPRESSION: Mild degenerative osteoarthritic change, no trauma found. No osteomyelitis identified. Dictated by: Murphy Isbell M.D. on 01/08/2020 at 11:42 Approved by: Murphy Isbell M.D. on 01/08/2020 at 11:44
== END ==
PROVIDERS: Family Provider Physical Medicine & Rehabilitation Pain Medicine; PCP Internal Medicine; Referring Provider Internal Medicine; Visit Provider Internal Medicine
DX: M79.672 Pain in left foot (principal)
CPT/HCPCS: 73630

== ENCOUNTER → 2020-01-17 17:39 | Outpatient (CLI) | payer MEDICARE, OTHER, SELFPAY ==
--- NOTE | 2020-01-17 17:43 | DI.RAD.S_ITS ---
PROCEDURE: XR FOOT LT MIN 3V INDICATIONS: LEFT FOOT PAIN TECHNIQUE: Four views of the foot were acquired. COMPARISON: [facility], , XR FOOT LT MIN 3V, 01/08/2020, 10:34. FINDINGS: Bones: No fractures or dislocations. No suspicious bony lesions. There is patchy demineralization. The interphalangeal joints have mild degenerative changes. Soft tissues: No tibiotalar joint effusion. Achilles tendon appears normal. IMPRESSION: 1. No acute abnormality of the left foot. 2. Mild degenerative changes of the interphalangeal joints. 3. Patchy demineralization of the left foot. Dictated by: Mann Canela M.D. on 01/18/2020 at 11:33 Approved by: Mann Canela M.D. on 01/18/2020 at 11:37
[2020-01-17 18:14] LABS: Add Manual Diff / Slide Review NO; Basophils Absolute Auto 0 /uL (0-100); Basophils Percent Auto 0.7 % (0-2); Eosinophils Absolute Auto 100 /uL (0-450); Eosinophils Percent Auto 1.4 % (2-4); Hematocrit 35.8 % (36-46); Hemoglobin 12.2 g/dL (12.0-16.0); Lymphocytes Absolute Auto 1500 /uL (1100-4500); Lymphocytes Percent Auto 34.7 % (25-40); Mean Corpuscular HGB Conc 34.1 % (30-36); Mean Corpuscular Hemoglobin 35.9 PG (26-34); Monocytes Absolute Auto 400 /uL (0-900); Monocytes Percent Auto 10.1 % (3-14); Neutrophils Absolute Auto 2300 /uL (1500-7000); Neutrophils Percent Auto 53.1 % (50-75); Platelet Count 142 X10^3/uL (150-400); Red Blood Cell Count 3.41 X10^6/uL (4.0-5.2); Red Cell Distribution Width 12.5 % (11.6-14.8); White Blood Cell Count 4.3 X10^3/uL (4.5-11.0)
[2020-01-17 18:28] LABS: Alanine Aminotransferase 56 IU/L (<35); Albumin 3.9 g/dL (3.5-5.0); Albumin Globulin Ratio 1.3 (1.0-2.8); Alkaline Phosphatase 153 U/L (38-126); Aspartate Aminotransferase 69 IU/L (14-36); BUN Creatinine Ratio 31.7 (6-22); Bilirubin Total 0.6 mg/dL (0.2-1.3); Blood Urea Nitrogen 19 mg/dL (7-17); Calcium 9.3 mg/dL (8.4-10.2); Carbon Dioxide 31 mmol/L (22-32); Chloride 100 mmol/L (98-107); Estimated Glomerular Filt Rate > 60.0 mL/min (>60); Globulin 2.9 g/dL (1.7-4.1); Glucose 97 mg/dL (80-110); HEMOLYSIS < 15 (0-50); Potassium 4.4 mmol/L (3.4-5.1); Sodium 135 mmol/L (137-145); Total Protein 6.8 g/dL (6.3-8.2)
== END ==
PROVIDERS: Family Provider Physical Medicine & Rehabilitation Pain Medicine; PCP Internal Medicine; Referring Provider Internal Medicine; Visit Provider Internal Medicine
DX: M79.672 Pain in left foot (principal); R11.2 Nausea with vomiting, unspecified
CPT/HCPCS: 36415; 73630; 80053; 85025

== ENCOUNTER 2020-04-18 16:00 | Outpatient (RCR) | payer MEDICARE, OTHER, SELFPAY ==
--- NOTE | 2019-11-14 18:50 | PT.OIE ---
Current Diagnoses Disease of spinal cord, unspecified (11/14/19) Pain in unspecified shoulder (11/14/19) Pain in thoracic spine (11/14/19) Difficulty in walking, not elsewhere classified (11/14/19) Abnormal posture (11/14/19) Weakness (11/14/19) Arthrodesis status (11/14/19) Past Medical History (Last Reviewed 04/08/19 @ 00:35 by CARO Burrows) Asthma (Chronic) Bilateral lower extremity edema (Acute) Colon polyps (Acute) Degenerative disc disease, cervical (Acute) Difficult intravenous access (Acute) Eczema (Chronic) GERD (gastroesophageal reflux disease) (Acute) Glaucoma (Acute) HTN (hypertension) (Chronic) Hyperlipidemia (Acute) Hypothyroidism (Acute) Lesion of lung (Acute) Meningioma (Acute ~10/2015) Seasonal allergies (Chronic) SLE (systemic lupus erythematosus related syndrome) (Chronic) Superficial thrombophlebitis of left leg (Acute ~1985) Vitamin D deficiency (Acute) Past Surgical History (Last Reviewed 04/08/19 @ 00:35 by CARO Burrows) H/O foot surgery (Acute) H/O: hysterectomy (Acute ~08/1978) History of appendectomy (Acute) History of section (Acute) History of cosmetic surgery (Acute) History of gastric bypass (Acute ~01/2017) History of lumbar spinal fusion (Acute ~2002) History of lumbar spinal fusion (Acute) Hx of abdominal surgery (Acute) Hx of cholecystectomy (Acute) Hx of eye surgery (Acute ~12/2015) S/P foot surgery, right (Acute 01/08/17) Visit Care Team Role Provider Type Naif Ramirez MD Family Provider Non-Staff Specialty: Medical Address: [address] [place] [address], [id number] Email: Eugenio Coello MD Attending Provider Physician Primary Care Provider Referring Provider Specialty: Internal Medicine Address: [address] [place] [address], [facility] Email: [email or web address] Physical Therapy Initial Evaluation PT-OP-A Visit Information Start: 11/09/19 18:14 Freq: Status: Active Protocol: Document 11/14/19 16:51 [facility] (Rec: 11/14/19 18:36 [facility] [id number]) Out-Patient Physical Therapy Visit Information Visit Information Visit Type Initial Evaluation Visit Start Time 16:53 Visit Stop Time 17:55 Total Visit Minutes 62 Visit Number 1 Number of PEOPLES[employer] FUNCTIONAL ANALYST Visits 0 PT-OP-B Current Condition Start: 11/09/19 18:14 Freq: Status: Active Protocol: Document 11/14/19 16:51 [facility] (Rec: 11/14/19 18:36 [facility] [id number]) Current Condition History of Current Condition Onset Date October 06, 2018 Current Complaints lumbar to LE pain, fall risk History of Current Condition October 06, 2018 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 Pt had 4-5 back surgeries. first one was in 2002 and pt reports surgeon did a terrible job. She had another 10 years. Pt had failure of mult ones and last one causes inc issues. SCI is from last surgery. This has destroyed her life where she can no longer complete her doctoral program. Prior to surgery, katie would get shooting pains down leg and had severe back pain. She had mult surgeries in a row. 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 She has neurogenic bowel and bladder. She tries to do exercises at home but is getting worse and fell 7 x since Dec. Sometimes R leg won 't move when tries to walk. Pt reports she has also had a gastric bypass. During spinal surgery, they damanged nerves to gut and has a lot of abdomenal pain. It has been a constant struggle to keep wt up. Pt reports she can do her upper body dressing at home. helps with lower body. Pt has handle bars on sides of toilet, but cannot always make it there in time. Pt does not have help besides her . She typically loves to cook but cannot stand long. If she stands too long, she has too much pain. Pt reprots so much intense pain in ligament into groin. She gets burning pain by scar for anterior compartment syndrome relief. She also has shooting pains on feet. She cannot feel her feet when she wants and also gets pins and neeldes feelings in foot. It feels like she has a TENS unit on her legs. Pt had HH when she first came home in Dec. She feels like seh got the most benefit out of the machines. Pt gets awful shooting pains in leg that are very intense that come on for no reason.S ome days are harder than others. sometimes pain prevents her from doing even knitting sometimes. Hurts to get up from chair after sititing a long itme. Every time goes to the bathroom or when eat or drink, her nose runs. Pt reprots about every other week she feels too weak to get up from toilet or back from shower. She goes back and forth w/temperature w/hot/ cold feeling. Pt reports 5 lumbar surgeries. She believes the first one was L2-5 fusion then L1-2 discectomy, and last 2 were for fusion of T9- L5. Pt reports mult abdomenal sx including: gastric bypass, cesarian, hysterectomy, appy, cholecystecomymult adhesion removals. Mult podiatry surgeries. Prior Treatments and Tests hospital PT & HH PT, mult spinal surgeries, spinal stimulator-did not help Treatment Goals Patient/Caregiver Goals be safer at home, not fall, be able to walk better, look into braces possibly for legs PT-OP-C Subjective Start: 11/09/19 18:14 Freq: Status: Active Protocol: Document 11/14/19 16:51 [facility] (Rec: 11/14/19 18:36 [facility] [id number]) Patient Questionnaires Oswestry Low Back Index Oswestry Score 86% Oswestry Impairment 80 to 99% Impaired (Score 80- 99) OP-PT Pain Assessment Location back pain Pain Location Details LB to L>R pain & to feet Intensity 6 Scale Used Numeric (0 - 10) Description- Other worst to a 9/10; varies( burning, stabbing, thunderbolt , sharp) Frequency Constant Variations/Patterns lat knee throbs sometimes & feels clunk & grind Pain Aggravating Factors Standing,Walking,Bending Other Pain Aggravating Factors using arms (cutting, using FWW ), random pain, hard chair, wrinkle in shirt Pain Alleviating Factors Cold Other Pain Alleviating Factors hydromorphone, cold only helps knee PT-OP-F Manual Assessment Start: 11/09/19 18:14 Freq: Status: Active Protocol: Document 11/14/19 16:51 [facility] (Rec: 11/14/19 18:36 [facility] [id number]) Manual Assessments Soft Tissue Assessment Soft Tissue Mobility Assessment severe restriction of ant abdomenal scars and post lumbar fusion scars, QL & ES tight & B iliacus PT-OP-G Mobility & Gait Start: 11/09/19 18:14 Freq: Status: Active Protocol: Document 11/14/19 16:51 [facility] (Rec: 11/14/19 18:36 [facility] [id number]) OP Mobility Evaluation Bed Mobility Supine to and from Sit supine to sit required mod A; sit to supine indep Transfers Sit to Stand use of UE to FWW Bed to Chair Transfers use of FWW and UE to push off SBA OP Gait Assessment Gait Gait Assistance Required: Standby Assistance Distance (Feet) 440 Assistive Devices Assistive Device Gait Belt,Front Wheeled Walker Gait Deviations General Gait Pattern Antalgic,Decreased Stride Length,Decreased Feet Clearance,Flexed Trunk,Lateral Trunk Lean Factors Limiting Gait Function Factors Limiting Gait Function Decreased Activity Tolerance, Decreased Sensation,Decreased Strength,Incoordination, Limited Range of Motion,Pain, Poor Balance Comments Gait Comments Pt had IR of RLE with gait and had dec knee ext control. Pt reaches with steps and has no push off. PT-OP-J Posture/Palpation/Skin Start: 11/09/19 18:14 Freq: Status: Active Protocol: Document 11/14/19 16:51 [facility] (Rec: 11/14/19 18:36 [facility] [id number]) Posture Evaluation Comments Posture Comments inc kyphosis & fwd head. Fwd flexed trunk in standing at FWW PT-OP-K Range of Motion Start: 11/09/19 18:14 Freq: Status: Active Protocol: Document 11/14/19 16:51 [facility] (Rec: 11/14/19 18:36 [facility] [id number]) Hip Goniometric Range of Motion Hip ROM Limitations Comments B hip flex limited to around 85 deg passively, abd about 10 deg B, ER about 15 deg and IR about 5-10 deg-no specific measurements taken but pain with all movements passively and actively PT-OP-L Special Tests Start: 11/09/19 18:14 Freq: Status: Active Protocol: Document 11/14/19 16:51 [facility] (Rec: 11/14/19 18:36 [facility] [id number]) Special Tests Lumbar Spine Special Tests Straight Leg Raise Test Results passive to about 45 deg B HS tightness PT-OP-M Strength Start: 11/09/19 18:14 Freq: Status: Active Protocol: Document 11/14/19 16:51 [facility] (Rec: 11/14/19 18:36 [facility] [id number]) Hip Strength Hip Manual Muscle Testing Right Flexion (L2) 3+ Fair+ Abduction 2- Poor- External Rotation 3 Fair Internal Rotation 3 Fair Left Flexion (L2) 3+ Fair+ Abduction 2- Poor- External Rotation 3 Fair Internal Rotation 3 Fair Knee Strength Knee Manual Muscle Testing Right Flexion (S2) 3+ Fair+ Extension (L3) 3 Fair Left Flexion (S2) 3+ Fair+ Extension (L3) 3- Fair- Ankle/Foot Strength Ankle and Foot Manual Muscle Testing Right Dorsiflexion (L4) 3 Fair Plantarflexion (S1) 3+ Fair+ Left Dorsiflexion (L4) 3 Fair Plantarflexion (S1) 3+ Fair+ Comments PF tested in seated B PT-OP-Q Treatments Start: 11/09/19 18:14 Freq: Status: Active Protocol: Document 11/14/19 16:51 [facility] (Rec: 11/14/19 18:36 [facility] [id number]) Self-Care/Home Management Treatment Education Other Education Discussed other helpful considerations: counseling, pain science study, nutrition, and discussed prognosis PT-OP-T Assessment and Plan Start: 11/09/19 18:14 Freq: Status: Active Protocol: Document 11/14/19 16:51 [facility] (Rec: 11/14/19 18:36 [facility] [id number]) Physical Therapy Assessment Rehab Potential Rehabilitation Potential Good Evaluation Complexity Number of Personal Factors/Comorbidities 3 or More Number of Body Systems Impaired 4 or More Clinical Presentation at Evaluation Unstable Impairments Impairments Activity Tolerance,Balance, Functional Activities, Functional Mobility,Gait,Pain, Posture,ROM,Sensation,Soft Tissue Mobility,Strength, Transfers Goals activity tolerance Speeder Hand Goal (LTG) Pt will be able to tolerate a combo of sitting and standing required to make 1 meal without inc pain past 710 LTG Duration 02/14/20 balance Speeder Hand Goal (LTG) Pt will be able to score at least 35 points on SYKES balance scale to show improved balacne and safety with amb with AD. LTG Duration 02/14/20 strength Short Term Goal (STG) Pt will be indep with HEP STG Duration 12/20/19 Longterm Goal (LTG) Pt will inc strength to at least 4/5 in all LE motions in order to allow for her to inc ease to participate in ADLs. LTG Duration 02/14/20 gait Longterm Goal (LTG) Pt will be able to ambulate 700ft with FWW safely. LTG Duration 02/14/20 Assessment Summary Assessment Pt presents with LBP and SCI after mult surgeries to thoracic and lumbar spine. Most recent surgery in 2018, causing SCI with RLE significant dec strength/ function and inc LLE pain, neurogenic bladder and bowel, and some other autonomic nervous system issues. Pt feels like she has declined since leaving hospital in Dec d/t dec PT. She did PT, which helped but d/t JOSE LUIS has not has any recent PT. She has had 7 falls since Dec and feels unsteady on her feet. She feels limited in her activity ability d/t her pain which can get so bad that she gets nauseas. She can no longer do her doctoral program , cook, travel, or do her typical active sporting activities since the surgery last year. She is very motivated to improve her mobility and would benefit from skilled PT to work on her activity tolerance, balance, LE and core strength, posture and gait, assess need for braces and improve her ability to do ADLs with dec pain. Physical Therapy Plan Frequency and Duration Frequency of Treatment 2x/Week Duration of Treatment 3 months Plan of Care Start Date 11/14/19 Plan of Care End Date 02/14/20 Therapeutic Interventions Therapeutic Interventions Aquatic Therapy,Balance Training,Gait Training,Home Exercise Program,Joint Mobilizations,Manual Therapy, Neuromuscular Re-education, Orthotic/Prosthetic Management ,Patient/Caregiver Education, Soft Tissue Mobilization, Taping,Therapeutic Activities, Therapeutic Exercises, Wheelchair Management Modalities Cold Pack/Ice Massage,Electric Stimulation,Hot Packs, Ultrasound Next Visit Focus/Plan Next Note Type Treatment Note Next Visit Plan Try recumbent bike and stepper , leg press, supine and seated LE stretches, test sensation, sykes balance
--- NOTE | 2019-11-14 18:50 | PT.OPPOC ---
Physical, Occupational & Speech Therapy At [facility] Current Diagnoses Disease of spinal cord, unspecified (11/14/19) Pain in unspecified shoulder (11/14/19) Pain in thoracic spine (11/14/19) Difficulty in walking, not elsewhere classified (11/14/19) Abnormal posture (11/14/19) Weakness (11/14/19) Arthrodesis status (11/14/19) Visit Care Team Role Provider Type Naif Ramirez MD Family Provider Non-Staff Specialty: Medical Address: [address] [place] [address], [id number] Email: Eugenio Coello MD Attending Provider Physician Primary Care Provider Referring Provider Specialty: Internal Medicine Address: [address] [place] [address], [facility] Email: [email or web address] Plan Of Care PT-OP-T Assessment and Plan Start: 11/09/19 18:14 Freq: Status: Active Protocol: Document 11/14/19 16:51 [facility] (Rec: 11/14/19 18:36 [facility] [id number]) Physical Therapy Assessment Rehab Potential Rehabilitation Potential Good Evaluation Complexity Number of Personal Factors/Comorbidities 3 or More Number of Body Systems Impaired 4 or More Clinical Presentation at Evaluation Unstable Impairments Impairments Activity Tolerance,Balance, Functional Activities, Functional Mobility,Gait,Pain, Posture,ROM,Sensation,Soft Tissue Mobility,Strength, Transfers Goals activity tolerance Career Development Associate Goal (LTG) Pt will be able to tolerate a combo of sitting and standing required to make 1 meal without inc pain past 7/10 LTG Duration 02/14/20 balance Career Development Associate Goal (LTG) Pt will be able to score at least 35 points on SYKES balance scale to show improved balacne and safety with amb with AD. LTG Duration 02/14/20 strength Short Term Goal (STG) Pt will be indep with HEP STG Duration 12/20/19 Residential Goal (LTG) Pt will inc strength to at least 4/5 in all LE motions in order to allow for her to inc ease to participate in ADLs. LTG Duration 02/14/20 gait Career Development Associate Goal (LTG) Pt will be able to ambulate 700ft with FWW safely. LTG Duration 02/14/20 Assessment Summary Assessment Pt presents with LBP and SCI after mult surgeries to thoracic and lumbar spine. Most recent surgery in 2019, causing SCI with RLE significant dec strength/ function and inc LLE pain, neurogenic bladder and bowel, and some other autonomic nervous system issues. Pt feels like she has declined since leaving hospital in Dec d/t dec PT. She did PT, which helped but d/t JOSE LUIS has not has any recent PT. She has had 7 falls since Dec and feels unsteady on her feet. She feels limited in her activity ability d/t her pain which can get so bad that she gets nauseas. She can no longer do her doctoral program , cook, travel, or do her typical active sporting activities since the surgery last year. She is very motivated to improve her mobility and would benefit from skilled PT to work on her activity tolerance, balance, LE and core strength, posture and gait, assess need for braces and improve her ability to do ADLs with dec pain. Physical Therapy Plan Frequency and Duration Frequency of Treatment 2x/Week Duration of Treatment 3 months Plan of Care Start Date 11/14/19 Plan of Care End Date 02/14/20 Therapeutic Interventions Therapeutic Interventions Aquatic Therapy,Balance Training,Gait Training,Home Exercise Program,Joint Mobilizations,Manual Therapy, Neuromuscular Re-education, Orthotic/Prosthetic Management ,Patient/Caregiver Education, Soft Tissue Mobilization, Taping,Therapeutic Activities, Therapeutic Exercises, Wheelchair Management Modalities Cold Pack/Ice Massage,Electric Stimulation,Hot Packs, Ultrasound Next Visit Focus/Plan Next Note Type Treatment Note Next Visit Plan Try recumbent bike and stepper , leg press, supine and seated LE stretches, test sensation Plan of Care Dates Plan of Care Start Date 11/14/19 Plan of Care End Date 02/14/20 Electronically Signed by: Lindsey Van, PT 11/14/19 [id number] Please Sign and Return: I have reviewed this Plan of Care and certify that the skilled therapy services above are required to meet the patient?s needs. Physician Signature Date Printed Name and Credentials Clinical Instructor Signature Printed Name and Credentials
--- NOTE | 2019-11-16 17:51 | PT.OTN ---
Current Diagnoses Disease of spinal cord, unspecified (11/16/19) Pain in unspecified shoulder (11/16/19) Pain in thoracic spine (11/16/19) Difficulty in walking, not elsewhere classified (11/16/19) Abnormal posture (11/16/19) Weakness (11/16/19) Arthrodesis status (11/16/19) Physical Therapy Treatment Note PT-OP-A Visit Information Start: 11/09/19 18:14 Freq: Status: Active Protocol: Document 11/16/19 16:43 [facility] (Rec: 11/16/19 17:51 [facility] [id number]) Out-Patient Physical Therapy Visit Information Visit Information Visit Type Treatment Note Visit Start Time 16:45 Visit Stop Time 17:40 Total Visit Minutes 55 Visit Number 2 Number of DYE JIG OPERATOR Visits 0 PT-OP-B Current Condition Start: 11/09/19 18:14 Freq: Status: Active Protocol: Document 11/14/19 16:51 [facility] (Rec: 11/14/19 18:36 [facility] [id number]) Current Condition History of Current Condition Onset Date October 06, 2018 Current Complaints lumbar to LE pain, fall risk History of Current Condition October 06, 2018 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 Pt had 4-5 back surgeries. first one was in 2002 and pt reports surgeon did a terrible job. She had another 10 years. Pt had failure of mult ones and last one causes inc issues. SCI is from last surgery. This has destroyed her life where she can no longer complete her doctoral program. Prior to surgery, katie would get shooting pains down leg and had severe back pain. She had mult surgeries in a row. 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 She has neurogenic bowel and bladder. She tries to do exercises at home but is getting worse and fell 7 x since Dec. Sometimes R leg won 't move when tries to walk. Pt reports she has also had a gastric bypass. During spinal surgery, they damanged nerves to gut and has a lot of abdomenal pain. It has been a constant struggle to keep wt up. Pt reports she can do her upper body dressing at home. helps with lower body. Pt has handle bars on sides of toilet, but cannot always make it there in time. Pt does not have help besides her . She typically loves to cook but cannot stand long. If she stands too long, she has too much pain. Pt reprots so much intense pain in ligament into groin. She gets burning pain by scar for anterior compartment syndrome relief. She also has shooting pains on feet. She cannot feel her feet when she wants and also gets pins and neeldes feelings in foot. It feels like she has a TENS unit on her legs. Pt had HH when she first came home in Dec. She feels like seh got the most benefit out of the machines. Pt gets awful shooting pains in leg that are very intense that come on for no reason.S ome days are harder than others. sometimes pain prevents her from doing even knitting sometimes. Hurts to get up from chair after sititing a long itme. Every time goes to the bathroom or when eat or drink, her nose runs. Pt reprots about every other week she feels too weak to get up from toilet or back from shower. She goes back and forth w/temperature w/hot/ cold feeling. Pt reports 5 lumbar surgeries. She believes the first one was L2-5 fusion then L1-2 discectomy, and last 2 were for fusion of T9- L5. Pt reports mult abdomenal sx including: gastric bypass, cesarian, hysterectomy, appy, cholecystecomymult adhesion removals. Mult podiatry surgeries. Prior Treatments and Tests hospital PT & HH PT, mult spinal surgeries, spinal stimulator-did not help Treatment Goals Patient/Caregiver Goals be safer at home, not fall, be able to walk better, look into braces possibly for legs PT-OP-C Subjective Start: 11/09/19 18:14 Freq: Status: Active Protocol: Document 11/16/19 16:43 [facility] (Rec: 11/16/19 17:51 [facility] [id number]) OP-PT Subjective Patient Comments Patient Comments Pt reports feeling only a little sore after last session . She feels like the walking helped to loosen up her groin. 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 PT-OP-F Manual Assessment Start: 11/09/19 18:14 Freq: Status: Active Protocol: Document 11/14/19 16:51 [facility] (Rec: 11/14/19 18:36 [facility] [id number]) Manual Assessments Soft Tissue Assessment Soft Tissue Mobility Assessment severe restriction of ant abdomenal scars and post lumbar fusion scars, QL & ES tight & B iliacus PT-OP-G Mobility & Gait Start: 11/09/19 18:14 Freq: Status: Active Protocol: Document 11/14/19 16:51 [facility] (Rec: 11/14/19 18:36 [facility] [id number]) OP Mobility Evaluation Bed Mobility Supine to and from Sit supine to sit required mod A; sit to supine indep Transfers Sit to Stand use of UE to FWW Bed to Chair Transfers use of FWW and UE to push off SBA OP Gait Assessment Gait Gait Assistance Required: Standby Assistance Distance (Feet) 440 Assistive Devices Assistive Device Gait Belt,Front Wheeled Walker Gait Deviations General Gait Pattern Antalgic,Decreased Stride Length,Decreased Feet Clearance,Flexed Trunk,Lateral Trunk Lean Factors Limiting Gait Function Factors Limiting Gait Function Decreased Activity Tolerance, Decreased Sensation,Decreased Strength,Incoordination, Limited Range of Motion,Pain, Poor Balance Comments Gait Comments Pt had IR of RLE with gait and had dec knee ext control. Pt reaches with steps and has no push off. PT-OP-J Posture/Palpation/Skin Start: 11/09/19 18:14 Freq: Status: Active Protocol: Document 11/14/19 16:51 [facility] (Rec: 11/14/19 18:36 [facility] [id number]) Posture Evaluation Comments Posture Comments inc kyphosis & fwd head. Fwd flexed trunk in standing at FWW PT-OP-K Range of Motion Start: 11/09/19 18:14 Freq: Status: Active Protocol: Document 11/14/19 16:51 [facility] (Rec: 11/14/19 18:36 [facility] [id number]) Hip Goniometric Range of Motion Hip ROM Limitations Comments B hip flex limited to around 85 deg passively, abd about 10 deg B, ER about 15 deg and IR about 5-10 deg-no specific measurements taken but pain with all movements passively and actively PT-OP-L Special Tests Start: 11/09/19 18:14 Freq: Status: Active Protocol: Document 11/14/19 16:51 [facility] (Rec: 11/14/19 18:36 [facility] [id number]) Special Tests Lumbar Spine Special Tests Straight Leg Raise Test Results passive to about 45 deg B HS tightness PT-OP-M Strength Start: 11/09/19 18:14 Freq: Status: Active Protocol: Document 11/14/19 16:51 [facility] (Rec: 11/14/19 18:36 [facility] [id number]) Hip Strength Hip Manual Muscle Testing Right Flexion (L2) 3+ Fair+ Abduction 2- Poor- External Rotation 3 Fair Internal Rotation 3 Fair Left Flexion (L2) 3+ Fair+ Abduction 2- Poor- External Rotation 3 Fair Internal Rotation 3 Fair Knee Strength Knee Manual Muscle Testing Right Flexion (S2) 3+ Fair+ Extension (L3) 3 Fair Left Flexion (S2) 3+ Fair+ Extension (L3) 3- Fair- Ankle/Foot Strength Ankle and Foot Manual Muscle Testing Right Dorsiflexion (L4) 3 Fair Plantarflexion (S1) 3+ Fair+ Left Dorsiflexion (L4) 3 Fair Plantarflexion (S1) 3+ Fair+ Comments PF tested in seated B PT-OP-Q Treatments Start: 11/09/19 18:14 Freq: Status: Active Protocol: Document 11/16/19 16:43 [facility] (Rec: 11/16/19 17:51 [facility] [id number]) Cardio Equipment Recumbent Elliptical (Biodex) Duration (Minutes) 7 Resistance 4 Other w/back rest Gym Equipment Shuttle Recovery Bilateral Squats Details focus on knee positioning & conrol of R knee ext-manual facilaition of quad Resistance 50# Shuttle Recovery Platform Stable Reps/Time 2 sets to fatigue Therapeutic Exercises Supine Exercises bridge Side bilateral Reps/Minutes 15 Comments traction facitilaiton & focus on core and glutes diaphramatic breathing Reps/Minutes 10 Comments focus on dec scalene use figure 4 Supine Exercise Name stretch w/alt knee straight Side bilateral Reps/Minutes 1 min Comments pillows for props HS Supine Exercise Name stretch Side bilateral Reps/Minutes 1 min ea Standing Exercises hip flexor stretch Standing Exercise Name at walker w/CGA Side bilateral Reps/Minutes 30 sec ea Gait Training Gait Activity gait Description focus on heel strike Self-Care/Home Management Treatment Education Other Education discussed importance of deep breathing, edu to deep breath & relax shoulders when in pain . Edu to pay attention to sleeping, if she feels like seh is not rested consider sleep study PT-OP-T Assessment and Plan Start: 11/09/19 18:14 Freq: Status: Active Protocol: Document 11/16/19 16:43 [facility] (Rec: 11/16/19 17:51 [facility] [id number]) Physical Therapy Assessment Goals activity tolerance Intermediate Goal (LTG) Pt will be able to tolerate a combo of sitting and standing required to make 1 meal without inc pain past 7/10 LTG Duration 02/14/20 balance Patient Access Goal (LTG) Pt will be able to score at least 35 points on SYKES balance scale to show improved balacne and safety with amb with AD. LTG Duration 02/14/20 strength Short Term Goal (STG) Pt will be indep with HEP STG Duration 12/20/19 Intermediate Goal (LTG) Pt will inc strength to at least 4/5 in all LE motions in order to allow for her to inc ease to participate in ADLs. LTG Duration 02/14/20 gait Intermediate Goal (LTG) Pt will be able to ambulate 700ft with FWW safely. LTG Duration 02/14/20 Assessment Summary Assessment Signfiicant ceuing throughout exercises was neccesary for form d/t pt dec proprioception of LEs. Education time spent to work on pt breathing during painful bouts and not overdoing activity. ENcouraged pt to walk with at home. Physical Therapy Plan Frequency and Duration Frequency of Treatment 2x/Week Duration of Treatment 3 months Plan of Care Start Date 11/14/19 Plan of Care End Date 02/14/20 Next Visit Focus/Plan Next Note Type Treatment Note Next Visit Plan assess tolerance to last treatment, review HEP
--- NOTE | 2019-11-23 18:12 | PT.OTN ---
Current Diagnoses Disease of spinal cord, unspecified (11/23/19) Pain in unspecified shoulder (11/23/19) Pain in thoracic spine (11/23/19) Difficulty in walking, not elsewhere classified (11/23/19) Abnormal posture (11/23/19) Weakness (11/23/19) Arthrodesis status (11/23/19) Physical Therapy Treatment Note PT-OP-A Visit Information Start: 11/09/19 18:14 Freq: Status: Active Protocol: Document 11/23/19 18:07 [facility] (Rec: 11/23/19 18:12 [facility] [id number]) Out-Patient Physical Therapy Visit Information Visit Information Visit Type Treatment Note Visit Start Time 16:45 Visit Stop Time 17:35 Total Visit Minutes 50 Visit Number 3 Number of TRIMMER AND BORER MACHINE OPERATOR Visits 0 PT-OP-B Current Condition Start: 11/09/19 18:14 Freq: Status: Active Protocol: Document 11/14/19 16:51 [facility] (Rec: 11/14/19 18:36 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 Pt had 4-5 back surgeries. first one was in 2002 and pt reports surgeon did a terrible job. She had another 10 years. Pt had failure of mult ones and last one causes inc issues. SCI is from last surgery. This has destroyed her life where she can no longer complete her doctoral program. Prior to surgery, katie would get shooting pains down leg and had severe back pain. She had mult surgeries in a row. 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 She has neurogenic bowel and bladder. She tries to do exercises at home but is getting worse and fell 7 x since Dec. Sometimes R leg won 't move when tries to walk. Pt reports she has also had a gastric bypass. During spinal surgery, they damanged nerves to gut and has a lot of abdomenal pain. It has been a constant struggle to keep wt up. Pt reports she can do her upper body dressing at home. helps with lower body. Pt has handle bars on sides of toilet, but cannot always make it there in time. Pt does not have help besides her . She typically loves to cook but cannot stand long. If she stands too long, she has too much pain. Pt reprots so much intense pain in ligament into groin. She gets burning pain by scar for anterior compartment syndrome relief. She also has shooting pains on feet. She cannot feel her feet when she wants and also gets pins and neeldes feelings in foot. It feels like she has a TENS unit on her legs. Pt had HH when she first came home in Dec. She feels like seh got the most benefit out of the machines. Pt gets awful shooting pains in leg that are very intense that come on for no reason.S ome days are harder than others. sometimes pain prevents her from doing even knitting sometimes. Hurts to get up from chair after sititing a long itme. Every time goes to the bathroom or when eat or drink, her nose runs. Pt reprots about every other week she feels too weak to get up from toilet or back from shower. She goes back and forth w/temperature w/hot/ cold feeling. Pt reports 5 lumbar surgeries. She believes the first one was L2-5 fusion then L1-2 discectomy, and last 2 were for fusion of T9- L5. Pt reports mult abdomenal sx including: gastric bypass, cesarian, hysterectomy, appy, cholecystecomymult adhesion removals. Mult podiatry surgeries. Prior Treatments and Tests hospital PT & HH PT, mult spinal surgeries, spinal stimulator-did not help Treatment Goals Patient/Caregiver Goals be safer at home, not fall, be able to walk better, look into braces possibly for legs PT-OP-C Subjective Start: 11/09/19 18:14 Freq: Status: Active Protocol: Document 11/23/19 18:07 [facility] (Rec: 11/23/19 18:12 [facility] [id number]) OP-PT Subjective Patient Comments Patient Comments Pt reprots having a little of transient nasea this PM. reports this happens from time to time. Has been stretching PT-OP-F Manual Assessment Start: 11/09/19 18:14 Freq: Status: Active Protocol: Document 11/14/19 16:51 [facility] (Rec: 11/14/19 18:36 [facility] [id number]) Manual Assessments Soft Tissue Assessment Soft Tissue Mobility Assessment severe restriction of ant abdomenal scars and post lumbar fusion scars, QL & ES tight & B iliacus PT-OP-G Mobility & Gait Start: 11/09/19 18:14 Freq: Status: Active Protocol: Document 11/14/19 16:51 [facility] (Rec: 11/14/19 18:36 [facility] [id number]) OP Mobility Evaluation Bed Mobility Supine to and from Sit supine to sit required mod A; sit to supine indep Transfers Sit to Stand use of UE to FWW Bed to Chair Transfers use of FWW and UE to push off SBA OP Gait Assessment Gait Gait Assistance Required: Standby Assistance Distance (Feet) 440 Assistive Devices Assistive Device Gait Belt,Front Wheeled Walker Gait Deviations General Gait Pattern Antalgic,Decreased Stride Length,Decreased Feet Clearance,Flexed Trunk,Lateral Trunk Lean Factors Limiting Gait Function Factors Limiting Gait Function Decreased Activity Tolerance, Decreased Sensation,Decreased Strength,Incoordination, Limited Range of Motion,Pain, Poor Balance Comments Gait Comments Pt had IR of RLE with gait and had dec knee ext control. Pt reaches with steps and has no push off. PT-OP-J Posture/Palpation/Skin Start: 11/09/19 18:14 Freq: Status: Active Protocol: Document 11/14/19 16:51 [facility] (Rec: 11/14/19 18:36 [facility] [id number]) Posture Evaluation Comments Posture Comments inc kyphosis & fwd head. Fwd flexed trunk in standing at FWW PT-OP-K Range of Motion Start: 11/09/19 18:14 Freq: Status: Active Protocol: Document 11/14/19 16:51 [facility] (Rec: 11/14/19 18:36 [facility] [id number]) Hip Goniometric Range of Motion Hip ROM Limitations Comments B hip flex limited to around 85 deg passively, abd about 10 deg B, ER about 15 deg and IR about 5-10 deg-no specific measurements taken but pain with all movements passively and actively PT-OP-L Special Tests Start: 11/09/19 18:14 Freq: Status: Active Protocol: Document 11/14/19 16:51 [facility] (Rec: 11/14/19 18:36 [facility] [id number]) Special Tests Lumbar Spine Special Tests Straight Leg Raise Test Results passive to about 45 deg B HS tightness PT-OP-M Strength Start: 11/09/19 18:14 Freq: Status: Active Protocol: Document 11/14/19 16:51 [facility] (Rec: 11/14/19 18:36 [facility] [id number]) Hip Strength Hip Manual Muscle Testing Right Flexion (L2) 3+ Fair+ Abduction 2- Poor- External Rotation 3 Fair Internal Rotation 3 Fair Left Flexion (L2) 3+ Fair+ Abduction 2- Poor- External Rotation 3 Fair Internal Rotation 3 Fair Knee Strength Knee Manual Muscle Testing Right Flexion (S2) 3+ Fair+ Extension (L3) 3 Fair Left Flexion (S2) 3+ Fair+ Extension (L3) 3- Fair- Ankle/Foot Strength Ankle and Foot Manual Muscle Testing Right Dorsiflexion (L4) 3 Fair Plantarflexion (S1) 3+ Fair+ Left Dorsiflexion (L4) 3 Fair Plantarflexion (S1) 3+ Fair+ Comments PF tested in seated B PT-OP-Q Treatments Start: 11/09/19 18:14 Freq: Status: Active Protocol: Document 11/23/19 18:07 [facility] (Rec: 11/23/19 18:12 [facility] [id number]) Cardio Equipment Recumbent Elliptical (Biodex) Duration (Minutes) 4 Resistance 4 Other w/back rest Therapeutic Exercises Standing Exercises ER Side bilateral Equipment Used L1 Reps/Minutes 2x10 Comments CGA row Side bilateral Equipment Used L1 Reps/Minutes 2x10 Comments CGA habd Side bilateral Equipment Used L1 Reps/Minutes 2x15 Comments transitioned to sitting d/t pt requiring rest Gait Training Gait Activity gait Description focus on heel strike & relaxed shoulders Comments used clinic smaller walker for amb which fit pt better-pt shown sizing and what to look for when buying Manual Therapy Treatment Soft Tissue Mobilization iliacus Body Location L Mobilization Type Strumming,Sustained Pressure Intensity/Depth Superficial Body Position Hooklying Joint Mobilizations hip Joint b Direction inf glide Grade II PT-OP-T Assessment and Plan Start: 11/09/19 18:14 Freq: Status: Active Protocol: Document 11/23/19 18:07 [facility] (Rec: 11/23/19 18:12 [facility] [id number]) Physical Therapy Assessment Goals activity tolerance Chcf Goal (LTG) Pt will be able to tolerate a combo of sitting and standing required to make 1 meal without inc pain past 7/10 LTG Duration 02/14/20 balance Chcf Goal (LTG) Pt will be able to score at least 35 points on SYKES balance scale to show improved balacne and safety with amb with AD. LTG Duration 02/14/20 strength Short Term Goal (STG) Pt will be indep with HEP STG Duration 12/20/19 Ict Trainer Goal (LTG) Pt will inc strength to at least 4/5 in all LE motions in order to allow for her to inc ease to participate in ADLs. LTG Duration 02/14/20 gait Chcf Goal (LTG) Pt will be able to ambulate 700ft with FWW safely. LTG Duration 02/14/20 Assessment Summary Assessment Pt required ceuing throughout gait and during exercises for shoulder blades down. She had improved gait with smaller walker size that was sized appropriately for her height. DID not tolerate stepper for long period today d/t nausea. Physical Therapy Plan Frequency and Duration Frequency of Treatment 2x/Week Duration of Treatment 3 months Plan of Care Start Date 11/14/19 Plan of Care End Date 02/14/20 Next Visit Focus/Plan Next Note Type Treatment Note Next Visit Plan assess tolerance to last treatment, review HEP
--- NOTE | 2019-12-18 17:39 | PT.OTN ---
Current Diagnoses Disease of spinal cord, unspecified (12/18/19) Pain in unspecified shoulder (12/18/19) Pain in thoracic spine (12/18/19) Difficulty in walking, not elsewhere classified (12/18/19) Abnormal posture (12/18/19) Weakness (12/18/19) Arthrodesis status (12/18/19) Physical Therapy Treatment Note PT-OP-A Visit Information Start: 11/09/19 18:14 Freq: Status: Active Protocol: Document 12/18/19 16:30 DCW (Rec: 12/18/19 17:39 DCW [id number]) Out-Patient Physical Therapy Visit Information Visit Information Visit Type Treatment Note Visit Start Time 16:30 Visit Stop Time 16:20 Total Visit Minutes 50 Visit Number 4 Number of CHEMISTRY PROFESSOR Visits 0 PT-OP-B Current Condition Start: 11/09/19 18:14 Freq: Status: Active Protocol: Document 11/14/19 16:51 [facility] (Rec: 11/14/19 18:36 [facility] [id number]) Current Condition History of Current Condition Onset Date October 06, 2018 Current Complaints lumbar to LE pain, fall risk History of Current Condition October 06, 2018 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 Pt had 4-5 back surgeries. first one was in 2002 and pt reports surgeon did a terrible job. She had another 10 years. Pt had failure of mult ones and last one causes inc issues. SCI is from last surgery. This has destroyed her life where she can no longer complete her doctoral program. Prior to surgery, katie would get shooting pains down leg and had severe back pain. She had mult surgeries in a row. 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 She has neurogenic bowel and bladder. She tries to do exercises at home but is getting worse and fell 7 x since Dec. Sometimes R leg won 't move when tries to walk. Pt reports she has also had a gastric bypass. During spinal surgery, they damanged nerves to gut and has a lot of abdomenal pain. It has been a constant struggle to keep wt up. Pt reports she can do her upper body dressing at home. helps with lower body. Pt has handle bars on sides of toilet, but cannot always make it there in time. Pt does not have help besides her . She typically loves to cook but cannot stand long. If she stands too long, she has too much pain. Pt reprots so much intense pain in ligament into groin. She gets burning pain by scar for anterior compartment syndrome relief. She also has shooting pains on feet. She cannot feel her feet when she wants and also gets pins and neeldes feelings in foot. It feels like she has a TENS unit on her legs. Pt had HH when she first came home in Dec. She feels like seh got the most benefit out of the machines. Pt gets awful shooting pains in leg that are very intense that come on for no reason.S ome days are harder than others. sometimes pain prevents her from doing even knitting sometimes. Hurts to get up from chair after sititing a long itme. Every time goes to the bathroom or when eat or drink, her nose runs. Pt reprots about every other week she feels too weak to get up from toilet or back from shower. She goes back and forth w/temperature w/hot/ cold feeling. Pt reports 5 lumbar surgeries. She believes the first one was L2-5 fusion then L1-2 discectomy, and last 2 were for fusion of T9- L5. Pt reports mult abdomenal sx including: gastric bypass, cesarian, hysterectomy, appy, cholecystecomymult adhesion removals. Mult podiatry surgeries. Prior Treatments and Tests hospital PT & HH PT, mult spinal surgeries, spinal stimulator-did not help Treatment Goals Patient/Caregiver Goals be safer at home, not fall, be able to walk better, look into braces possibly for legs PT-OP-C Subjective Start: 11/09/19 18:14 Freq: Status: Active Protocol: Document 12/18/19 16:30 [facility] (Rec: 12/18/19 17:39 DC[facility] [id number]) OP-PT Subjective Patient Comments Patient Comments Pt notes she is nauseated again, but less so than her last visit. Pt also notes that she had a fall a few weeks ago when her legs got tangled up. PT-OP-F Manual Assessment Start: 11/09/19 18:14 Freq: Status: Active Protocol: Document 11/14/19 16:51 [facility] (Rec: 11/14/19 18:36 [facility] [id number]) Manual Assessments Soft Tissue Assessment Soft Tissue Mobility Assessment severe restriction of ant abdomenal scars and post lumbar fusion scars, QL & ES tight & B iliacus PT-OP-G Mobility & Gait Start: 11/09/19 18:14 Freq: Status: Active Protocol: Document 11/14/19 16:51 [facility] (Rec: 11/14/19 18:36 [facility] [id number]) OP Mobility Evaluation Bed Mobility Supine to and from Sit supine to sit required mod A; sit to supine indep Transfers Sit to Stand use of UE to FWW Bed to Chair Transfers use of FWW and UE to push off SBA OP Gait Assessment Gait Gait Assistance Required: Standby Assistance Distance (Feet) 440 Assistive Devices Assistive Device Gait Belt,Front Wheeled Walker Gait Deviations General Gait Pattern Antalgic,Decreased Stride Length,Decreased Feet Clearance,Flexed Trunk,Lateral Trunk Lean Factors Limiting Gait Function Factors Limiting Gait Function Decreased Activity Tolerance, Decreased Sensation,Decreased Strength,Incoordination, Limited Range of Motion,Pain, Poor Balance Comments Gait Comments Pt had IR of RLE with gait and had dec knee ext control. Pt reaches with steps and has no push off. PT-OP-J Posture/Palpation/Skin Start: 11/09/19 18:14 Freq: Status: Active Protocol: Document 11/14/19 16:51 [facility] (Rec: 11/14/19 18:36 [facility] [id number]) Posture Evaluation Comments Posture Comments inc kyphosis & fwd head. Fwd flexed trunk in standing at FWW PT-OP-K Range of Motion Start: 11/09/19 18:14 Freq: Status: Active Protocol: Document 11/14/19 16:51 [facility] (Rec: 11/14/19 18:36 [facility] [id number]) Hip Goniometric Range of Motion Hip ROM Limitations Comments B hip flex limited to around 85 deg passively, abd about 10 deg B, ER about 15 deg and IR about 5-10 deg-no specific measurements taken but pain with all movements passively and actively PT-OP-L Special Tests Start: 11/09/19 18:14 Freq: Status: Active Protocol: Document 11/14/19 16:51 [facility] (Rec: 11/14/19 18:36 [facility] [id number]) Special Tests Lumbar Spine Special Tests Straight Leg Raise Test Results passive to about 45 deg B HS tightness PT-OP-M Strength Start: 11/09/19 18:14 Freq: Status: Active Protocol: Document 11/14/19 16:51 [facility] (Rec: 11/14/19 18:36 [facility] [id number]) Hip Strength Hip Manual Muscle Testing Right Flexion (L2) 3+ Fair+ Abduction 2- Poor- External Rotation 3 Fair Internal Rotation 3 Fair Left Flexion (L2) 3+ Fair+ Abduction 2- Poor- External Rotation 3 Fair Internal Rotation 3 Fair Knee Strength Knee Manual Muscle Testing Right Flexion (S2) 3+ Fair+ Extension (L3) 3 Fair Left Flexion (S2) 3+ Fair+ Extension (L3) 3- Fair- Ankle/Foot Strength Ankle and Foot Manual Muscle Testing Right Dorsiflexion (L4) 3 Fair Plantarflexion (S1) 3+ Fair+ Left Dorsiflexion (L4) 3 Fair Plantarflexion (S1) 3+ Fair+ Comments PF tested in seated B PT-OP-Q Treatments Start: 11/09/19 18:14 Freq: Status: Active Protocol: Document 12/18/19 16:30 [facility] (Rec: 12/18/19 17:39 [facility] [id number]) Cardio Equipment Recumbent Stepper (Sci-Fit) Duration (Minutes) 5 Resistance 1 Seat Position w/c /c blue foam to increase height Gym Equipment Cable Column (Body Solid) Leg Curl Resistance 20# Leg Extension Resistance 10# Hip Adduction Resistance 20# Hip Abduction Resistance 10# Shuttle Recovery Bilateral Squats Resistance 50# Shuttle Recovery Platform Stable Reps/Time 2 sets to fatigue Therapeutic Exercises Supine Exercises SLR Supine Exercise Name SLR Side bilateral Reps/Minutes x12 bridge Side bilateral Reps/Minutes 15 Comments traction facitilaiton & focus on core and glutes figure 4 Supine Exercise Name stretch w/alt knee straight Side bilateral Reps/Minutes 1 min Comments pillows for props Sitting Exercises extension Sitting Exercise Name shoulder extension Resistance Lv 2 Equipment Used T-band Standing Exercises row Side bilateral Equipment Used Lv 2 Reps/Minutes 2x10 Comments sitting habd Side bilateral Equipment Used Lv 2 Reps/Minutes 2x15 Comments sitting PT-OP-T Assessment and Plan Start: 11/09/19 18:14 Freq: Status: Active Protocol: Document 12/18/19 16:30 [facility] (Rec: 12/18/19 17:39 [facility] [id number]) Physical Therapy Assessment Goals activity tolerance [facility] Goal (LTG) Pt will be able to tolerate a combo of sitting and standing required to make 1 meal without inc pain past 7/10 LTG Duration 02/14/20 balance Family And Consumer Education Teacher Goal (LTG) Pt will be able to score at least 35 points on SYKES balance scale to show improved balance and safety with amb with AD. LTG Duration 02/14/20 strength Short Term Goal (STG) Pt will be indep with HEP STG Duration 12/20/19 [facility] Goal (LTG) Pt will inc strength to at least 4/5 in all LE motions in order to allow for her to inc ease to participate in ADLs. LTG Duration 02/14/20 gait Family And Consumer Education Teacher Goal (LTG) Pt will be able to ambulate 700ft with FWW safely. LTG Duration 02/14/20 Assessment Summary Assessment Pt required frequent rest breaks secondary to fatigue and nausea, however was willing to work as hard as she could on all activities. Pt required Min Ax1/TAPING FOREMAN for transfers from w/c to exercise equipment. Physical Therapy Plan Frequency and Duration Frequency of Treatment 2x/Week Duration of Treatment 3 months Plan of Care Start Date 11/14/19 Plan of Care End Date 02/14/20 Next Visit Focus/Plan Next Note Type Treatment Note Next Visit Plan assess tolerance to last treatment, review HEP
--- NOTE | 2019-12-22 16:42 | PT.OTN ---
Current Diagnoses Disease of spinal cord, unspecified (12/22/19) Pain in unspecified shoulder (12/22/19) Pain in thoracic spine (12/22/19) Difficulty in walking, not elsewhere classified (12/22/19) Abnormal posture (12/22/19) Weakness (12/22/19) Arthrodesis status (12/22/19) Physical Therapy Treatment Note PT-OP-A Visit Information Start: 11/09/19 18:14 Freq: Status: Active Protocol: Document 12/22/19 16:00 [facility] (Rec: 12/22/19 16:42 [facility] [id number]) Out-Patient Physical Therapy Visit Information Visit Information Visit Type Treatment Note Visit Start Time 16:00 Visit Stop Time 16:30 Total Visit Minutes 30 Visit Number 5 Number of INDUSTRIAL SAFETY ENGINEER Visits 0 PT-OP-B Current Condition Start: 11/09/19 18:14 Freq: Status: Active Protocol: Document 11/14/19 16:51 [facility] (Rec: 11/14/19 18:36 [facility] [id number]) Current Condition History of Current Condition Onset Date October 06, 2018 Current Complaints lumbar to LE pain, fall risk History of Current Condition October 06, 2018 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 Pt had 4-5 back surgeries. first one was in 2002 and pt reports surgeon did a terrible job. She had another 10 years. Pt had failure of mult ones and last one causes inc issues. SCI is from last surgery. This has destroyed her life where she can no longer complete her doctoral program. Prior to surgery, katie would get shooting pains down leg and had severe back pain. She had mult surgeries in a row. 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 She has neurogenic bowel and bladder. She tries to do exercises at home but is getting worse and fell 7 x since Dec. Sometimes R leg won 't move when tries to walk. Pt reports she has also had a gastric bypass. During spinal surgery, they damanged nerves to gut and has a lot of abdomenal pain. It has been a constant struggle to keep wt up. Pt reports she can do her upper body dressing at home. helps with lower body. Pt has handle bars on sides of toilet, but cannot always make it there in time. Pt does not have help besides her . She typically loves to cook but cannot stand long. If she stands too long, she has too much pain. Pt reprots so much intense pain in ligament into groin. She gets burning pain by scar for anterior compartment syndrome relief. She also has shooting pains on feet. She cannot feel her feet when she wants and also gets pins and neeldes feelings in foot. It feels like she has a TENS unit on her legs. Pt had HH when she first came home in Dec. She feels like seh got the most benefit out of the machines. Pt gets awful shooting pains in leg that are very intense that come on for no reason.S ome days are harder than others. sometimes pain prevents her from doing even knitting sometimes. Hurts to get up from chair after sititing a long itme. Every time goes to the bathroom or when eat or drink, her nose runs. Pt reprots about every other week she feels too weak to get up from toilet or back from shower. She goes back and forth w/temperature w/hot/ cold feeling. Pt reports 5 lumbar surgeries. She believes the first one was L2-5 fusion then L1-2 discectomy, and last 2 were for fusion of T9- L5. Pt reports mult abdomenal sx including: gastric bypass, cesarian, hysterectomy, appy, cholecystecomymult adhesion removals. Mult podiatry surgeries. Prior Treatments and Tests hospital PT & HH PT, mult spinal surgeries, spinal stimulator-did not help Treatment Goals Patient/Caregiver Goals be safer at home, not fall, be able to walk better, look into braces possibly for legs PT-OP-C Subjective Start: 11/09/19 18:14 Freq: Status: Active Protocol: Document 12/22/19 16:00 [facility] (Rec: 12/22/19 16:42 [facility] [id number]) OP-PT Subjective Patient Comments Patient Comments I was actually kind of sore3 after I was here last time, but in a good way. Pt also notes that she is less nauseated today. PT-OP-F Manual Assessment Start: 11/09/19 18:14 Freq: Status: Active Protocol: Document 11/14/19 16:51 [facility] (Rec: 11/14/19 18:36 [facility] [id number]) Manual Assessments Soft Tissue Assessment Soft Tissue Mobility Assessment severe restriction of ant abdomenal scars and post lumbar fusion scars, QL & ES tight & B iliacus PT-OP-G Mobility & Gait Start: 11/09/19 18:14 Freq: Status: Active Protocol: Document 11/14/19 16:51 [facility] (Rec: 11/14/19 18:36 [facility] [id number]) OP Mobility Evaluation Bed Mobility Supine to and from Sit supine to sit required mod A; sit to supine indep Transfers Sit to Stand use of UE to FWW Bed to Chair Transfers use of FWW and UE to push off SBA OP Gait Assessment Gait Gait Assistance Required: Standby Assistance Distance (Feet) 440 Assistive Devices Assistive Device Gait Belt,Front Wheeled Walker Gait Deviations General Gait Pattern Antalgic,Decreased Stride Length,Decreased Feet Clearance,Flexed Trunk,Lateral Trunk Lean Factors Limiting Gait Function Factors Limiting Gait Function Decreased Activity Tolerance, Decreased Sensation,Decreased Strength,Incoordination, Limited Range of Motion,Pain, Poor Balance Comments Gait Comments Pt had IR of RLE with gait and had dec knee ext control. Pt reaches with steps and has no push off. PT-OP-J Posture/Palpation/Skin Start: 11/09/19 18:14 Freq: Status: Active Protocol: Document 11/14/19 16:51 [facility] (Rec: 11/14/19 18:36 [facility] [id number]) Posture Evaluation Comments Posture Comments inc kyphosis & fwd head. Fwd flexed trunk in standing at FWW PT-OP-K Range of Motion Start: 11/09/19 18:14 Freq: Status: Active Protocol: Document 11/14/19 16:51 [facility] (Rec: 11/14/19 18:36 [facility] [id number]) Hip Goniometric Range of Motion Hip ROM Limitations Comments B hip flex limited to around 85 deg passively, abd about 10 deg B, ER about 15 deg and IR about 5-10 deg-no specific measurements taken but pain with all movements passively and actively PT-OP-L Special Tests Start: 11/09/19 18:14 Freq: Status: Active Protocol: Document 11/14/19 16:51 [facility] (Rec: 11/14/19 18:36 [facility] [id number]) Special Tests Lumbar Spine Special Tests Straight Leg Raise Test Results passive to about 45 deg B HS tightness PT-OP-M Strength Start: 11/09/19 18:14 Freq: Status: Active Protocol: Document 11/14/19 16:51 [facility] (Rec: 11/14/19 18:36 [facility] [id number]) Hip Strength Hip Manual Muscle Testing Right Flexion (L2) 3+ Fair+ Abduction 2- Poor- External Rotation 3 Fair Internal Rotation 3 Fair Left Flexion (L2) 3+ Fair+ Abduction 2- Poor- External Rotation 3 Fair Internal Rotation 3 Fair Knee Strength Knee Manual Muscle Testing Right Flexion (S2) 3+ Fair+ Extension (L3) 3 Fair Left Flexion (S2) 3+ Fair+ Extension (L3) 3- Fair- Ankle/Foot Strength Ankle and Foot Manual Muscle Testing Right Dorsiflexion (L4) 3 Fair Plantarflexion (S1) 3+ Fair+ Left Dorsiflexion (L4) 3 Fair Plantarflexion (S1) 3+ Fair+ Comments PF tested in seated B PT-OP-Q Treatments Start: 11/09/19 18:14 Freq: Status: Active Protocol: Document 12/22/19 16:00 [facility] (Rec: 12/22/19 16:42 [facility] [id number]) Cardio Equipment Recumbent Elliptical (Biodex) Duration (Minutes) 6 Resistance 3 Seat Position 5 Other /c back rest Gym Equipment Cable Column (Body Solid) Leg Curl Resistance 30# Leg Extension Resistance 10# Hip Adduction Resistance 20# Hip Abduction Resistance 10# Gait Training Gait Activity gait Description focus on heel strike & relaxed shoulders Device Used FWW Level of Assistance SBA Distance/Duration 190' Comments used clinic smaller walker for amb which fit pt better-pt shown sizing and what to look for when buying PT-OP-T Assessment and Plan Start: 11/09/19 18:14 Freq: Status: Active Protocol: Document 12/22/19 16:00 [facility] (Rec: 12/22/19 16:42 [facility] [id number]) Physical Therapy Assessment Goals activity tolerance Marketing Research Analyst Goal (LTG) Pt will be able to tolerate a combo of sitting and standing required to make 1 meal without inc pain past 710 LTG Duration 02/14/20 balance [facility] Goal (LTG) Pt will be able to score at least 35 points on SYKES balance scale to show improved balacne and safety with amb with AD. LTG Duration 02/14/20 strength Short Term Goal (STG) Pt will be indep with HEP STG Duration 12/20/19 [facility] Goal (LTG) Pt will inc strength to at least 4/5 in all LE motions in order to allow for her to inc ease to participate in ADLs. LTG Duration 02/14/20 gait [facility] Goal (LTG) Pt will be able to ambulate 700ft with FWW safely. LTG Duration 02/14/20 Assessment Summary Assessment Pt actually was doing very well today, requested increased resistance on a few exercises, and was ambulating with a much improved gait pattern using the FWW after VCs for heel-toe gait pattern. Unfortunately, after 30 minutes of work, pt suddenly became badly nauseated, and requested an end to treatment. Physical Therapy Plan Frequency and Duration Frequency of Treatment 2x/Week Duration of Treatment 3 months Plan of Care Start Date 11/14/19 Plan of Care End Date 02/14/20 Next Visit Focus/Plan Next Note Type Treatment Note Next Visit Plan assess tolerance to last treatment, review HEP
--- NOTE | 2020-01-25 17:57 | PT.OTN ---
Current Diagnoses Disease of spinal cord, unspecified (01/25/20) Pain in unspecified shoulder (01/25/20) Pain in thoracic spine (01/25/20) Difficulty in walking, not elsewhere classified (01/25/20) Abnormal posture (01/25/20) Weakness (01/25/20) Arthrodesis status (01/25/20) Physical Therapy Treatment Note PT-OP-A Visit Information Start: 11/09/19 18:14 Freq: Status: Active Protocol: Document 01/25/20 16:48 [facility] (Rec: 01/25/20 17:54 [facility] [id number]) Out-Patient Physical Therapy Visit Information Visit Information Visit Type Treatment Note Visit Start Time 16:48 Visit Stop Time 17:30 Total Visit Minutes 42 Visit Number 6 Number of RESEARCH METHODS INSTRUCTOR Visits 0 PT-OP-B Current Condition Start: 11/09/19 18:14 Freq: Status: Active Protocol: Document 11/14/19 16:51 [facility] (Rec: 11/14/19 18:36 [facility] [id number]) Current Condition History of Current Condition Onset Date October 06, 2018 Current Complaints lumbar to LE pain, fall risk History of Current Condition October 06, 2018 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 Pt had 4-5 back surgeries. first one was in 2002 and pt reports surgeon did a terrible job. She had another 10 years. Pt had failure of mult ones and last one causes inc issues. SCI is from last surgery. This has destroyed her life where she can no longer complete her doctoral program. Prior to surgery, katie would get shooting pains down leg and had severe back pain. She had mult surgeries in a row. 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 She has neurogenic bowel and bladder. She tries to do exercises at home but is getting worse and fell 7 x since Dec. Sometimes R leg won 't move when tries to walk. Pt reports she has also had a gastric bypass. During spinal surgery, they damanged nerves to gut and has a lot of abdomenal pain. It has been a constant struggle to keep wt up. Pt reports she can do her upper body dressing at home. helps with lower body. Pt has handle bars on sides of toilet, but cannot always make it there in time. Pt does not have help besides her . She typically loves to cook but cannot stand long. If she stands too long, she has too much pain. Pt reprots so much intense pain in ligament into groin. She gets burning pain by scar for anterior compartment syndrome relief. She also has shooting pains on feet. She cannot feel her feet when she wants and also gets pins and neeldes feelings in foot. It feels like she has a TENS unit on her legs. Pt had HH when she first came home in Dec. She feels like seh got the most benefit out of the machines. Pt gets awful shooting pains in leg that are very intense that come on for no reason.S ome days are harder than others. sometimes pain prevents her from doing even knitting sometimes. Hurts to get up from chair after sititing a long itme. Every time goes to the bathroom or when eat or drink, her nose runs. Pt reprots about every other week she feels too weak to get up from toilet or back from shower. She goes back and forth w/temperature w/hot/ cold feeling. Pt reports 5 lumbar surgeries. She believes the first one was L2-5 fusion then L1-2 discectomy, and last 2 were for fusion of T9- L5. Pt reports mult abdomenal sx including: gastric bypass, cesarian, hysterectomy, appy, cholecystecomymult adhesion removals. Mult podiatry surgeries. Prior Treatments and Tests hospital PT & HH PT, mult spinal surgeries, spinal stimulator-did not help Treatment Goals Patient/Caregiver Goals be safer at home, not fall, be able to walk better, look into braces possibly for legs PT-OP-C Subjective Start: 11/09/19 18:14 Freq: Status: Active Protocol: Document 01/25/20 16:48 [facility] (Rec: 01/25/20 17:54 [facility] [id number]) OP-PT Subjective Patient Comments Patient Comments Pt reports she is no longer on reglan d/t nausea which has helped. She did have a fall where seh forgot to lock her w /c brakes and fell to the grouond and hurt her L foot but mult xrays show no breaks. At first couldn't put weight on it though. PT-OP-F Manual Assessment Start: 11/09/19 18:14 Freq: Status: Active Protocol: Document 11/14/19 16:51 [facility] (Rec: 11/14/19 18:36 [facility] [id number]) Manual Assessments Soft Tissue Assessment Soft Tissue Mobility Assessment severe restriction of ant abdomenal scars and post lumbar fusion scars, QL & ES tight & B iliacus PT-OP-G Mobility & Gait Start: 11/09/19 18:14 Freq: Status: Active Protocol: Document 11/14/19 16:51 [facility] (Rec: 11/14/19 18:36 [facility] [id number]) OP Mobility Evaluation Bed Mobility Supine to and from Sit supine to sit required mod A; sit to supine indep Transfers Sit to Stand use of UE to FWW Bed to Chair Transfers use of FWW and UE to push off SBA OP Gait Assessment Gait Gait Assistance Required: Standby Assistance Distance (Feet) 440 Assistive Devices Assistive Device Gait Belt,Front Wheeled Walker Gait Deviations General Gait Pattern Antalgic,Decreased Stride Length,Decreased Feet Clearance,Flexed Trunk,Lateral Trunk Lean Factors Limiting Gait Function Factors Limiting Gait Function Decreased Activity Tolerance, Decreased Sensation,Decreased Strength,Incoordination, Limited Range of Motion,Pain, Poor Balance Comments Gait Comments Pt had IR of RLE with gait and had dec knee ext control. Pt reaches with steps and has no push off. PT-OP-J Posture/Palpation/Skin Start: 11/09/19 18:14 Freq: Status: Active Protocol: Document 11/14/19 16:51 [facility] (Rec: 11/14/19 18:36 [facility] [id number]) Posture Evaluation Comments Posture Comments inc kyphosis & fwd head. Fwd flexed trunk in standing at FWW PT-OP-K Range of Motion Start: 11/09/19 18:14 Freq: Status: Active Protocol: Document 11/14/19 16:51 [facility] (Rec: 11/14/19 18:36 [facility] [id number]) Hip Goniometric Range of Motion Hip ROM Limitations Comments B hip flex limited to around 85 deg passively, abd about 10 deg B, ER about 15 deg and IR about 5-10 deg-no specific measurements taken but pain with all movements passively and actively PT-OP-L Special Tests Start: 08/20/20 18:14 Freq: Status: Active Protocol: Document 11/14/19 16:51 [facility] (Rec: 11/14/19 18:36 [facility] [id number]) Special Tests Lumbar Spine Special Tests Straight Leg Raise Test Results passive to about 45 deg B HS tightness PT-OP-M Strength Start: 11/09/19 18:14 Freq: Status: Active Protocol: Document 11/14/19 16:51 [facility] (Rec: 11/14/19 18:36 [facility] [id number]) Hip Strength Hip Manual Muscle Testing Right Flexion (L2) 3+ Fair+ Abduction 2- Poor- External Rotation 3 Fair Internal Rotation 3 Fair Left Flexion (L2) 3+ Fair+ Abduction 2- Poor- External Rotation 3 Fair Internal Rotation 3 Fair Knee Strength Knee Manual Muscle Testing Right Flexion (S2) 3+ Fair+ Extension (L3) 3 Fair Left Flexion (S2) 3+ Fair+ Extension (L3) 3- Fair- Ankle/Foot Strength Ankle and Foot Manual Muscle Testing Right Dorsiflexion (L4) 3 Fair Plantarflexion (S1) 3+ Fair+ Left Dorsiflexion (L4) 3 Fair Plantarflexion (S1) 3+ Fair+ Comments PF tested in seated B PT-OP-Q Treatments Start: 11/09/19 18:14 Freq: Status: Active Protocol: Document 01/25/20 16:48 [facility] (Rec: 01/25/20 17:54 [facility] [id number]) Cardio Equipment Recumbent Elliptical (Biodex) Duration (Minutes) 7 Resistance 2 Seat Position 4 Other /c back rest & dycem at feet and under buttocks Therapeutic Exercises Standing Exercises TKE Side bilateral Equipment Used L2 Reps/Minutes 20 Comments towel btwn leg and band heel raises Side bilateral Reps/Minutes 8 Comments stopped d/t L ankle pain march Standing Exercise Name at walker Side bilateral Gait Training Gait Activity gait Description focus on heel strike & relaxed shoulders Device Used FWW Level of Assistance SBA Distance/Duration 190', 100', 50' Comments used clinic smaller walker for amb which fit pt better- working on less exaggerated heel strike on R & working on control Neuro Re-Education Treatment Balance Activities toe taps Details toe taps to 5 in step Reps/Duration w/1 hand hold x10 B tiltboard Details fwd/back tilts, side/side tilts foam Comments 1. WBOS- head turns, EC, 2. NBOS-head turns PT-OP-T Assessment and Plan Start: 11/09/19 18:14 Freq: Status: Active Protocol: Document 01/25/20 16:48 [facility] (Rec: 01/25/20 17:54 [facility] [id number]) Physical Therapy Assessment Goals activity tolerance Crystalizer Operator Goal (LTG) Pt will be able to tolerate a combo of sitting and standing required to make 1 meal without inc pain past 7/10 LTG Duration 02/14/20 balance Crystalizer Operator Goal (LTG) Pt will be able to score at least 35 points on SYKES balance scale to show improved balacne and safety with amb with AD. LTG Duration 02/14/20 strength Short Term Goal (STG) Pt will be indep with HEP STG Duration 12/20/19 Crystalizer Operator Goal (LTG) Pt will inc strength to at least 4/5 in all LE motions in order to allow for her to inc ease to participate in ADLs. LTG Duration 02/14/20 gait Crystalizer Operator Goal (LTG) Pt will be able to ambulate 700ft with FWW safely. LTG Duration 02/14/20 Assessment Summary Assessment Pt did better today with no c/ o of pain or nausea just LE fatigue. She was challenged by uneven surfaces significantly . Physical Therapy Plan Frequency and Duration Frequency of Treatment 2x/Week Duration of Treatment 3 months Plan of Care Start Date 11/14/19 Plan of Care End Date 02/14/20 Next Visit Focus/Plan Next Note Type Treatment Note Next Visit Plan advance exercise as tolerated
--- NOTE | 2020-01-30 17:47 | PT.OTN ---
Current Diagnoses Disease of spinal cord, unspecified (01/30/20) Pain in unspecified shoulder (01/30/20) Pain in thoracic spine (01/30/20) Difficulty in walking, not elsewhere classified (01/30/20) Abnormal posture (01/30/20) Weakness (01/30/20) Arthrodesis status (01/30/20) Physical Therapy Treatment Note PT-OP-A Visit Information Start: 11/09/19 18:14 Freq: Status: Active Protocol: Document 01/30/20 16:54 [facility] (Rec: 01/30/20 17:47 [facility] [id number]) Out-Patient Physical Therapy Visit Information Visit Information Visit Type Treatment Note Visit Start Time 16:47 Visit Stop Time 17:30 Total Visit Minutes 43 Visit Number 7 Number of DIGITAL IMAGER Visits 0 PT-OP-B Current Condition Start: 11/09/19 18:14 Freq: Status: Active Protocol: Document 11/14/19 16:51 [facility] (Rec: 11/14/19 18:36 [facility] [id number]) Current Condition History of Current Condition Onset Date October 06, 2018 Current Complaints lumbar to LE pain, fall risk History of Current Condition October 06, 2018 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 Pt had 4-5 back surgeries. first one was in 2002 and pt reports surgeon did a terrible job. She had another 10 years. Pt had failure of mult ones and last one causes inc issues. SCI is from last surgery. This has destroyed her life where she can no longer complete her doctoral program. Prior to surgery, katie would get shooting pains down leg and had severe back pain. She had mult surgeries in a row. 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 She has neurogenic bowel and bladder. She tries to do exercises at home but is getting worse and fell 7 x since Dec. Sometimes R leg won 't move when tries to walk. Pt reports she has also had a gastric bypass. During spinal surgery, they damanged nerves to gut and has a lot of abdomenal pain. It has been a constant struggle to keep wt up. Pt reports she can do her upper body dressing at home. helps with lower body. Pt has handle bars on sides of toilet, but cannot always make it there in time. Pt does not have help besides her . She typically loves to cook but cannot stand long. If she stands too long, she has too much pain. Pt reprots so much intense pain in ligament into groin. She gets burning pain by scar for anterior compartment syndrome relief. She also has shooting pains on feet. She cannot feel her feet when she wants and also gets pins and neeldes feelings in foot. It feels like she has a TENS unit on her legs. Pt had HH when she first came home in Dec. She feels like seh got the most benefit out of the machines. Pt gets awful shooting pains in leg that are very intense that come on for no reason.S ome days are harder than others. sometimes pain prevents her from doing even knitting sometimes. Hurts to get up from chair after sititing a long itme. Every time goes to the bathroom or when eat or drink, her nose runs. Pt reprots about every other week she feels too weak to get up from toilet or back from shower. She goes back and forth w/temperature w/hot/ cold feeling. Pt reports 5 lumbar surgeries. She believes the first one was L2-5 fusion then L1-2 discectomy, and last 2 were for fusion of T9- L5. Pt reports mult abdomenal sx including: gastric bypass, cesarian, hysterectomy, appy, cholecystecomymult adhesion removals. Mult podiatry surgeries. Prior Treatments and Tests hospital PT & HH PT, mult spinal surgeries, spinal stimulator-did not help Treatment Goals Patient/Caregiver Goals be safer at home, not fall, be able to walk better, look into braces possibly for legs PT-OP-C Subjective Start: 11/09/19 18:14 Freq: Status: Active Protocol: Document 01/30/20 16:54 [facility] (Rec: 01/30/20 17:47 [facility] [id number]) OP-PT Subjective Patient Comments Patient Comments Pt reprots [facility] saw pain MD and he had some good idea. told pt she may have to travel outside of [facility] for some care PT-OP-F Manual Assessment Start: 11/09/19 18:14 Freq: Status: Active Protocol: Document 11/14/19 16:51 [facility] (Rec: 11/14/19 18:36 [facility] [id number]) Manual Assessments Soft Tissue Assessment Soft Tissue Mobility Assessment severe restriction of ant abdomenal scars and post lumbar fusion scars, QL & ES tight & B iliacus PT-OP-G Mobility & Gait Start: 11/09/19 18:14 Freq: Status: Active Protocol: Document 11/14/19 16:51 [facility] (Rec: 11/14/19 18:36 [facility] [id number]) OP Mobility Evaluation Bed Mobility Supine to and from Sit supine to sit required mod A; sit to supine indep Transfers Sit to Stand use of UE to FWW Bed to Chair Transfers use of FWW and UE to push off SBA OP Gait Assessment Gait Gait Assistance Required: Standby Assistance Distance (Feet) 440 Assistive Devices Assistive Device Gait Belt,Front Wheeled Walker Gait Deviations General Gait Pattern Antalgic,Decreased Stride Length,Decreased Feet Clearance,Flexed Trunk,Lateral Trunk Lean Factors Limiting Gait Function Factors Limiting Gait Function Decreased Activity Tolerance, Decreased Sensation,Decreased Strength,Incoordination, Limited Range of Motion,Pain, Poor Balance Comments Gait Comments Pt had IR of RLE with gait and had dec knee ext control. Pt reaches with steps and has no push off. PT-OP-J Posture/Palpation/Skin Start: 11/09/19 18:14 Freq: Status: Active Protocol: Document 11/14/19 16:51 [facility] (Rec: 11/14/19 18:36 [facility] [id number]) Posture Evaluation Comments Posture Comments inc kyphosis & fwd head. Fwd flexed trunk in standing at FWW PT-OP-K Range of Motion Start: 11/09/19 18:14 Freq: Status: Active Protocol: Document 11/14/19 16:51 [facility] (Rec: 11/14/19 18:36 [facility] [id number]) Hip Goniometric Range of Motion Hip ROM Limitations Comments B hip flex limited to around 85 deg passively, abd about 10 deg B, ER about 15 deg and IR about 5-10 deg-no specific measurements taken but pain with all movements passively and actively PT-OP-L Special Tests Start: 11/09/19 18:14 Freq: Status: Active Protocol: Document 11/14/19 16:51 [facility] (Rec: 11/14/19 18:36 [facility] [id number]) Special Tests Lumbar Spine Special Tests Straight Leg Raise Test Results passive to about 45 deg B HS tightness PT-OP-M Strength Start: 11/09/19 18:14 Freq: Status: Active Protocol: Document 11/14/19 16:51 [facility] (Rec: 11/14/19 18:36 [facility] [id number]) Hip Strength Hip Manual Muscle Testing Right Flexion (L2) 3+ Fair+ Abduction 2- Poor- External Rotation 3 Fair Internal Rotation 3 Fair Left Flexion (L2) 3+ Fair+ Abduction 2- Poor- External Rotation 3 Fair Internal Rotation 3 Fair Knee Strength Knee Manual Muscle Testing Right Flexion (S2) 3+ Fair+ Extension (L3) 3 Fair Left Flexion (S2) 3+ Fair+ Extension (L3) 3- Fair- Ankle/Foot Strength Ankle and Foot Manual Muscle Testing Right Dorsiflexion (L4) 3 Fair Plantarflexion (S1) 3+ Fair+ Left Dorsiflexion (L4) 3 Fair Plantarflexion (S1) 3+ Fair+ Comments PF tested in seated B PT-OP-Q Treatments Start: 11/09/19 18:14 Freq: Status: Active Protocol: Document 01/30/20 16:54 [facility] (Rec: 01/30/20 17:47 [facility] [id number]) Cardio Equipment Recumbent Elliptical (Biodex) Duration (Minutes) 7 Resistance 3 Seat Position 4 Other /c back rest & dycem at feet and under buttocks Gym Equipment Shuttle Recovery Bilateral Squats Resistance 50# Shuttle Recovery Platform Stable Reps/Time 2 sets to fatigue Therapeutic Exercises Standing Exercises heel raises Side bilateral Reps/Minutes 2x10 may Standing Exercise Name w/1 bar Side bilateral Reps/Minutes 12 Gait Training Gait Activity stairs Description up/down six in steps step to Comments 2x up 4 steps w/1 rail- sideways down gait Description focus on heel strike & relaxed shoulders Device Used FWW Level of Assistance SBA Distance/Duration 100ft, mult bouts around gym btwn exercsies Neuro Re-Education Treatment Balance Activities tiltboard Details fwd back & side/side Comments 1. balance 2. wt shifts foam Comments 1. WBOS- head turns, EC, 2. NBOS-head turns, EC PT-OP-T Assessment and Plan Start: 11/09/19 18:14 Freq: Status: Active Protocol: Document 01/30/20 16:54 [facility] (Rec: 01/30/20 17:47 [facility] [id number]) Physical Therapy Assessment Goals activity tolerance Molding Cutter Goal (LTG) Pt will be able to tolerate a combo of sitting and standing required to make 1 meal without inc pain past 09/28 LTG Duration 02/14/20 balance Molding Cutter Goal (LTG) Pt will be able to score at least 35 points on SYKES balance scale to show improved balacne and safety with amb with AD. LTG Duration 02/14/20 strength Short Term Goal (STG) Pt will be indep with HEP STG Duration 12/20/19 Molding Cutter Goal (LTG) Pt will inc strength to at least 4/5 in all LE motions in order to allow for her to inc ease to participate in ADLs. LTG Duration 02/14/20 gait Mcfp Goal (LTG) Pt will be able to ambulate 700ft with FWW safely. LTG Duration 02/14/20 Assessment Summary Assessment Pt did wellw ith gait with more controlled R heel strike today. Improved ability to perform standing balance and strengthening today with inc reps and inc difficulty w/EC on NBOS trials on faom. Physical Therapy Plan Frequency and Duration Frequency of Treatment 2x/Week Duration of Treatment 3 months Plan of Care Start Date 11/14/19 Plan of Care End Date 02/14/20 Next Visit Focus/Plan Next Note Type Treatment Note Next Visit Plan advance exercise as tolerated
--- NOTE | 2020-02-01 17:54 | PT.OTN ---
Current Diagnoses Disease of spinal cord, unspecified (02/01/20) Pain in unspecified shoulder (02/01/20) Pain in thoracic spine (02/01/20) Difficulty in walking, not elsewhere classified (02/01/20) Abnormal posture (02/01/20) Weakness (02/01/20) Arthrodesis status (02/01/20) Physical Therapy Treatment Note PT-OP-A Visit Information Start: 11/09/19 18:14 Freq: Status: Active Protocol: Document 02/01/20 16:55 [facility] (Rec: 02/01/20 17:54 [facility] [id number]) Out-Patient Physical Therapy Visit Information Visit Information Visit Type Treatment Note Visit Start Time 16:50 Visit Stop Time 17:31 Total Visit Minutes 41 Visit Number 8 Number of LOW VOLTAGE ELECTRICIAN Visits 0 PT-OP-B Current Condition Start: 11/09/19 18:14 Freq: Status: Active Protocol: Document 11/14/19 16:51 [facility] (Rec: 11/14/19 18:36 [facility] [id number]) Current Condition History of Current Condition Onset Date October 06, 2018 Current Complaints lumbar to LE pain, fall risk History of Current Condition October 06, 2018 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 Pt had 4-5 back surgeries. first one was in 2002 and pt reports surgeon did a terrible job. She had another 10 years. Pt had failure of mult ones and last one causes inc issues. SCI is from last surgery. This has destroyed her life where she can no longer complete her doctoral program. Prior to surgery, katie would get shooting pains down leg and had severe back pain. She had mult surgeries in a row. 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 She has neurogenic bowel and bladder. She tries to do exercises at home but is getting worse and fell 7 x since Dec. Sometimes R leg won 't move when tries to walk. Pt reports she has also had a gastric bypass. During spinal surgery, they damanged nerves to gut and has a lot of abdomenal pain. It has been a constant struggle to keep wt up. Pt reports she can do her upper body dressing at home. helps with lower body. Pt has handle bars on sides of toilet, but cannot always make it there in time. Pt does not have help besides her . She typically loves to cook but cannot stand long. If she stands too long, she has too much pain. Pt reprots so much intense pain in ligament into groin. She gets burning pain by scar for anterior compartment syndrome relief. She also has shooting pains on feet. She cannot feel her feet when she wants and also gets pins and neeldes feelings in foot. It feels like she has a TENS unit on her legs. Pt had HH when she first came home in Dec. She feels like seh got the most benefit out of the machines. Pt gets awful shooting pains in leg that are very intense that come on for no reason.S ome days are harder than others. sometimes pain prevents her from doing even knitting sometimes. Hurts to get up from chair after sititing a long itme. Every time goes to the bathroom or when eat or drink, her nose runs. Pt reprots about every other week she feels too weak to get up from toilet or back from shower. She goes back and forth w/temperature w/hot/ cold feeling. Pt reports 5 lumbar surgeries. She believes the first one was L2-5 fusion then L1-2 discectomy, and last 2 were for fusion of T9- L5. Pt reports mult abdomenal sx including: gastric bypass, cesarian, hysterectomy, appy, cholecystecomymult adhesion removals. Mult podiatry surgeries. Prior Treatments and Tests hospital PT & HH PT, mult spinal surgeries, spinal stimulator-did not help Treatment Goals Patient/Caregiver Goals be safer at home, not fall, be able to walk better, look into braces possibly for legs PT-OP-C Subjective Start: 11/09/19 18:14 Freq: Status: Active Protocol: Document 02/01/20 16:55 [facility] (Rec: 02/01/20 17:54 [facility] [id number]) OP-PT Subjective Patient Comments Patient Comments Pt reports woke up with really bad L knee pain Wednesday night . Pt reports she has been sore and fatigued since last session and felt like did too much PT-OP-F Manual Assessment Start: 11/09/19 18:14 Freq: Status: Active Protocol: Document 11/14/19 16:51 [facility] (Rec: 11/14/19 18:36 [facility] [id number]) Manual Assessments Soft Tissue Assessment Soft Tissue Mobility Assessment severe restriction of ant abdomenal scars and post lumbar fusion scars, QL & ES tight & B iliacus PT-OP-G Mobility & Gait Start: 11/09/19 18:14 Freq: Status: Active Protocol: Document 11/14/19 16:51 [facility] (Rec: 11/14/19 18:36 [facility] [id number]) OP Mobility Evaluation Bed Mobility Supine to and from Sit supine to sit required mod A; sit to supine indep Transfers Sit to Stand use of UE to FWW Bed to Chair Transfers use of FWW and UE to push off SBA OP Gait Assessment Gait Gait Assistance Required: Standby Assistance Distance (Feet) 440 Assistive Devices Assistive Device Gait Belt,Front Wheeled Walker Gait Deviations General Gait Pattern Antalgic,Decreased Stride Length,Decreased Feet Clearance,Flexed Trunk,Lateral Trunk Lean Factors Limiting Gait Function Factors Limiting Gait Function Decreased Activity Tolerance, Decreased Sensation,Decreased Strength,Incoordination, Limited Range of Motion,Pain, Poor Balance Comments Gait Comments Pt had IR of RLE with gait and had dec knee ext control. Pt reaches with steps and has no push off. PT-OP-J Posture/Palpation/Skin Start: 11/09/19 18:14 Freq: Status: Active Protocol: Document 11/14/19 16:51 [facility] (Rec: 11/14/19 18:36 [facility] [id number]) Posture Evaluation Comments Posture Comments inc kyphosis & fwd head. Fwd flexed trunk in standing at FWW PT-OP-K Range of Motion Start: 11/09/19 18:14 Freq: Status: Active Protocol: Document 11/14/19 16:51 [facility] (Rec: 11/14/19 18:36 [facility] [id number]) Hip Goniometric Range of Motion Hip ROM Limitations Comments B hip flex limited to around 85 deg passively, abd about 10 deg B, ER about 15 deg and IR about 5-10 deg-no specific measurements taken but pain with all movements passively and actively PT-OP-L Special Tests Start: 11/09/19 18:14 Freq: Status: Active Protocol: Document 11/14/19 16:51 [facility] (Rec: 11/14/19 18:36 [facility] [id number]) Special Tests Lumbar Spine Special Tests Straight Leg Raise Test Results passive to about 45 deg B HS tightness PT-OP-M Strength Start: 11/09/19 18:14 Freq: Status: Active Protocol: Document 11/14/19 16:51 [facility] (Rec: 11/14/19 18:36 [facility] [id number]) Hip Strength Hip Manual Muscle Testing Right Flexion (L2) 3+ Fair+ Abduction 2- Poor- External Rotation 3 Fair Internal Rotation 3 Fair Left Flexion (L2) 3+ Fair+ Abduction 2- Poor- External Rotation 3 Fair Internal Rotation 3 Fair Knee Strength Knee Manual Muscle Testing Right Flexion (S2) 3+ Fair+ Extension (L3) 3 Fair Left Flexion (S2) 3+ Fair+ Extension (L3) 3- Fair- Ankle/Foot Strength Ankle and Foot Manual Muscle Testing Right Dorsiflexion (L4) 3 Fair Plantarflexion (S1) 3+ Fair+ Left Dorsiflexion (L4) 3 Fair Plantarflexion (S1) 3+ Fair+ Comments PF tested in seated B PT-OP-Q Treatments Start: 11/09/19 18:14 Freq: Status: Active Protocol: Document 02/01/20 16:55 [facility] (Rec: 02/01/20 17:54 [facility] [id number]) Cardio Equipment Recumbent Elliptical (Biodex) Duration (Minutes) 7 Resistance 2 Seat Position 4 Other /c back rest & dycem at feet and under buttocks Gym Equipment Shuttle Recovery Bilateral Squats Resistance 50# Shuttle Recovery Platform Stable Reps/Time 1x10, 1x5 Gait Training Gait Activity gait Description focus on heel strike & relaxed shoulders Device Used FWW Level of Assistance SBA Distance/Duration 100ft, mult bouts around gym btwn exercsies Comments adjusted home walker to be appropriate hieght Manual Therapy Treatment Soft Tissue Mobilization iliacus Body Location B Mobilization Type Strumming,Sustained Pressure Intensity/Depth Superficial Body Position Hooklying Joint Mobilizations hip Joint b Direction inf glide Grade II PT-OP-T Assessment and Plan Start: 11/09/19 18:14 Freq: Status: Active Protocol: Document 02/01/20 16:55 [facility] (Rec: 02/01/20 17:54 [facility] [id number]) Physical Therapy Assessment Goals activity tolerance Coating Machine Feeder Goal (LTG) Pt will be able to tolerate a combo of sitting and standing required to make 1 meal without inc pain past 09/28 LTG Duration 02/14/20 balance Coating Machine Feeder Goal (LTG) Pt will be able to score at least 35 points on SYKES balance scale to show improved balacne and safety with amb with AD. LTG Duration 02/14/20 strength Short Term Goal (STG) Pt will be indep with HEP STG Duration 12/20/19 Longterm Goal (LTG) Pt will inc strength to at least 4/5 in all LE motions in order to allow for her to inc ease to participate in ADLs. LTG Duration 02/14/20 gait Coating Machine Feeder Goal (LTG) Pt will be able to ambulate 700ft with FWW safely. LTG Duration 02/14/20 Assessment Summary Assessment Pt had pain with leg press on second set so stopped. Did less activity d.t L knee pain today and pt had tenderness along joint line which she was educated to inform physician about tomorrow during evisit. She had imrpoved hip ROM from 90 passive hip flex B to about 105 on L and 100 on R after manual Physical Therapy Plan Frequency and Duration Frequency of Treatment 2x/Week Duration of Treatment 3 months Plan of Care Start Date 11/14/19 Plan of Care End Date 02/14/20 Next Visit Focus/Plan Next Note Type Treatment Note Next Visit Plan advance exercise as tolerated
--- NOTE | 2020-02-08 18:04 | PT.OTN ---
Current Diagnoses Disease of spinal cord, unspecified (02/08/20) Pain in unspecified shoulder (02/08/20) Pain in thoracic spine (02/08/20) Difficulty in walking, not elsewhere classified (02/08/20) Abnormal posture (02/08/20) Weakness (02/08/20) Arthrodesis status (02/08/20) Physical Therapy Treatment Note PT-OP-A Visit Information Start: 11/09/19 18:14 Freq: Status: Active Protocol: Document 02/08/20 17:00 [facility] (Rec: 02/08/20 17:54 [facility] [id number]) Out-Patient Physical Therapy Visit Information Visit Information Visit Type Treatment Note Visit Start Time 16:55 Visit Stop Time 17:35 Total Visit Minutes 40 Visit Number 9 Number of FREIGHT TALLIER Visits 0 PT-OP-B Current Condition Start: 11/09/19 18:14 Freq: Status: Active Protocol: Document 11/14/19 16:51 [facility] (Rec: 11/14/19 18:36 [facility] [id number]) Current Condition History of Current Condition Onset Date October 06, 2018 Current Complaints lumbar to LE pain, fall risk History of Current Condition October 06, 2018 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 Pt had 4-5 back surgeries. first one was in 2002 and pt reports surgeon did a terrible job. She had another 10 years. Pt had failure of mult ones and last one causes inc issues. SCI is from last surgery. This has destroyed her life where she can no longer complete her doctoral program. Prior to surgery, katie would get shooting pains down leg and had severe back pain. She had mult surgeries in a row. 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 She has neurogenic bowel and bladder. She tries to do exercises at home but is getting worse and fell 7 x since Dec. Sometimes R leg won 't move when tries to walk. Pt reports she has also had a gastric bypass. During spinal surgery, they damanged nerves to gut and has a lot of abdomenal pain. It has been a constant struggle to keep wt up. Pt reports she can do her upper body dressing at home. helps with lower body. Pt has handle bars on sides of toilet, but cannot always make it there in time. Pt does not have help besides her . She typically loves to cook but cannot stand long. If she stands too long, she has too much pain. Pt reprots so much intense pain in ligament into groin. She gets burning pain by scar for anterior compartment syndrome relief. She also has shooting pains on feet. She cannot feel her feet when she wants and also gets pins and neeldes feelings in foot. It feels like she has a TENS unit on her legs. Pt had HH when she first came home in Dec. She feels like seh got the most benefit out of the machines. Pt gets awful shooting pains in leg that are very intense that come on for no reason.S ome days are harder than others. sometimes pain prevents her from doing even knitting sometimes. Hurts to get up from chair after sititing a long itme. Every time goes to the bathroom or when eat or drink, her nose runs. Pt reprots about every other week she feels too weak to get up from toilet or back from shower. She goes back and forth w/temperature w/hot/ cold feeling. Pt reports 5 lumbar surgeries. She believes the first one was L2-5 fusion then L1-2 discectomy, and last 2 were for fusion of T9- L5. Pt reports mult abdomenal sx including: gastric bypass, cesarian, hysterectomy, appy, cholecystecomymult adhesion removals. Mult podiatry surgeries. Prior Treatments and Tests hospital PT & HH PT, mult spinal surgeries, spinal stimulator-did not help Treatment Goals Patient/Caregiver Goals be safer at home, not fall, be able to walk better, look into braces possibly for legs PT-OP-C Subjective Start: 11/09/19 18:14 Freq: Status: Active Protocol: Document 02/08/20 17:00 [facility] (Rec: 02/08/20 17:54 [facility] [id number]) OP-PT Subjective Patient Comments Patient Comments Pt reports she feels tired this week. L knee is painful PT-OP-F Manual Assessment Start: 11/09/19 18:14 Freq: Status: Active Protocol: Document 11/14/19 16:51 [facility] (Rec: 11/14/19 18:36 [facility] [id number]) Manual Assessments Soft Tissue Assessment Soft Tissue Mobility Assessment severe restriction of ant abdomenal scars and post lumbar fusion scars, QL & ES tight & B iliacus PT-OP-G Mobility & Gait Start: 11/09/19 18:14 Freq: Status: Active Protocol: Document 11/14/19 16:51 [facility] (Rec: 11/14/19 18:36 [facility] [id number]) OP Mobility Evaluation Bed Mobility Supine to and from Sit supine to sit required mod A; sit to supine indep Transfers Sit to Stand use of UE to FWW Bed to Chair Transfers use of FWW and UE to push off SBA OP Gait Assessment Gait Gait Assistance Required: Standby Assistance Distance (Feet) 440 Assistive Devices Assistive Device Gait Belt,Front Wheeled Walker Gait Deviations General Gait Pattern Antalgic,Decreased Stride Length,Decreased Feet Clearance,Flexed Trunk,Lateral Trunk Lean Factors Limiting Gait Function Factors Limiting Gait Function Decreased Activity Tolerance, Decreased Sensation,Decreased Strength,Incoordination, Limited Range of Motion,Pain, Poor Balance Comments Gait Comments Pt had IR of RLE with gait and had dec knee ext control. Pt reaches with steps and has no push off. PT-OP-J Posture/Palpation/Skin Start: 11/09/19 18:14 Freq: Status: Active Protocol: Document 11/14/19 16:51 [facility] (Rec: 11/14/19 18:36 [facility] [id number]) Posture Evaluation Comments Posture Comments inc kyphosis & fwd head. Fwd flexed trunk in standing at FWW PT-OP-K Range of Motion Start: 11/09/19 18:14 Freq: Status: Active Protocol: Document 11/14/19 16:51 [facility] (Rec: 11/14/19 18:36 [facility] [id number]) Hip Goniometric Range of Motion Hip ROM Limitations Comments B hip flex limited to around 85 deg passively, abd about 10 deg B, ER about 15 deg and IR about 5-10 deg-no specific measurements taken but pain with all movements passively and actively PT-OP-L Special Tests Start: 11/09/19 18:14 Freq: Status: Active Protocol: Document 11/14/19 16:51 [facility] (Rec: 11/14/19 18:36 [facility] [id number]) Special Tests Lumbar Spine Special Tests Straight Leg Raise Test Results passive to about 45 deg B HS tightness PT-OP-M Strength Start: 11/09/19 18:14 Freq: Status: Active Protocol: Document 11/14/19 16:51 [facility] (Rec: 11/14/19 18:36 [facility] [id number]) Hip Strength Hip Manual Muscle Testing Right Flexion (L2) 3+ Fair+ Abduction 2- Poor- External Rotation 3 Fair Internal Rotation 3 Fair Left Flexion (L2) 3+ Fair+ Abduction 2- Poor- External Rotation 3 Fair Internal Rotation 3 Fair Knee Strength Knee Manual Muscle Testing Right Flexion (S2) 3+ Fair+ Extension (L3) 3 Fair Left Flexion (S2) 3+ Fair+ Extension (L3) 3- Fair- Ankle/Foot Strength Ankle and Foot Manual Muscle Testing Right Dorsiflexion (L4) 3 Fair Plantarflexion (S1) 3+ Fair+ Left Dorsiflexion (L4) 3 Fair Plantarflexion (S1) 3+ Fair+ Comments PF tested in seated B PT-OP-Q Treatments Start: 11/09/19 18:14 Freq: Status: Active Protocol: Document 02/08/20 17:00 [facility] (Rec: 02/08/20 17:54 [facility] [id number]) Cardio Equipment Recumbent Elliptical (Biodex) Duration (Minutes) 7 Resistance 4 Seat Position 4 Other /c back rest & dycem at feet and under buttocks Gym Equipment Cable Column (Body Solid) Rows Resistance 2 Reps/Time x8, x5 Lat Pull Down Resistance 2 Reps/Time x15, x8 Shuttle Recovery Bilateral Squats Resistance 50# Shuttle Recovery Platform Stable Reps/Time 15x2 Gait Training Gait Activity gait Description focus on heel strike & relaxed shoulders Device Used FWW Level of Assistance SBA Distance/Duration mult bouts around gym btwn exercsies Comments adjusted home walker to be appropriate hieght Manual Therapy Treatment Soft Tissue Mobilization iliacus Body Location L iliacus & lat quad Mobilization Type Strumming,Sustained Pressure Intensity/Depth Superficial Body Position Hooklying Joint Mobilizations hip Joint L Direction inf glide Grade II Neuro Re-Education Treatment Balance Activities foam Comments 1. WBOS- head turns, EC, 2. NBOS-head turns, EC PT-OP-T Assessment and Plan Start: 11/09/19 18:14 Freq: Status: Active Protocol: Document 02/08/20 17:00 [facility] (Rec: 02/08/20 17:54 [facility] [id number]) Physical Therapy Assessment Goals activity tolerance Fci Goal (LTG) Pt will be able to tolerate a combo of sitting and standing required to make 1 meal without inc pain past 7/10 LTG Duration 02/14/20 balance Certified Massage Therapist Goal (LTG) Pt will be able to score at least 35 points on SYKES balance scale to show improved balacne and safety with amb with AD. LTG Duration 02/14/20 strength Short Term Goal (STG) Pt will be indep with HEP STG Duration 12/20/19 Fci Goal (LTG) Pt will inc strength to at least 4/5 in all LE motions in order to allow for her to inc ease to participate in ADLs. LTG Duration 02/14/20 gait Fci Goal (LTG) Pt will be able to ambulate 700ft with FWW safely. LTG Duration 02/14/20 Assessment Summary Assessment CUeing with scap exercises for neutral back and no elevation of scapula. Pt had L knee pain that stopped her from extended standing activities today but noted imrpovement after manual treatment. Pt had about the same R hip range as gained from last session but L was back to 90 deg then improved to about 100 after inf glide Physical Therapy Plan Frequency and Duration Frequency of Treatment 2x/Week Duration of Treatment 3 months Plan of Care Start Date 11/14/19 Plan of Care End Date 02/14/20 Next Visit Focus/Plan Next Note Type Progress Note Next Visit Plan New POC
--- NOTE | 2020-02-13 18:03 | PT.OTN ---
Current Diagnoses Disease of spinal cord, unspecified (02/13/20) Pain in unspecified shoulder (02/13/20) Pain in thoracic spine (02/13/20) Difficulty in walking, not elsewhere classified (02/13/20) Abnormal posture (02/13/20) Weakness (02/13/20) Arthrodesis status (02/13/20) Physical Therapy Treatment Note PT-OP-A Visit Information Start: 11/09/19 18:14 Freq: Status: Active Protocol: Document 02/13/20 16:50 [facility] (Rec: 02/13/20 18:00 [facility] [id number]) Out-Patient Physical Therapy Visit Information Visit Information Visit Type Treatment Note Visit Note 03/31 Visit Start Time 16:50 Visit Stop Time 17:31 Total Visit Minutes 41 Visit Number 10 Number of FITNESS ATTENDANT Visits 0 PT-OP-B Current Condition Start: 11/09/19 18:14 Freq: Status: Active Protocol: Document 11/14/19 16:51 [facility] (Rec: 11/14/19 18:36 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 Pt had 4-5 back surgeries. first one was in 2002 and pt reports surgeon did a terrible job. She had another 10 years. Pt had failure of mult ones and last one causes inc issues. SCI is from last surgery. This has destroyed her life where she can no longer complete her doctoral program. Prior to surgery, katie would get shooting pains down leg and had severe back pain. She had mult surgeries in a row. 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 She has neurogenic bowel and bladder. She tries to do exercises at home but is getting worse and fell 7 x since Dec. Sometimes R leg won 't move when tries to walk. Pt reports she has also had a gastric bypass. During spinal surgery, they damanged nerves to gut and has a lot of abdomenal pain. It has been a constant struggle to keep wt up. Pt reports she can do her upper body dressing at home. helps with lower body. Pt has handle bars on sides of toilet, but cannot always make it there in time. Pt does not have help besides her . She typically loves to cook but cannot stand long. If she stands too long, she has too much pain. Pt reprots so much intense pain in ligament into groin. She gets burning pain by scar for anterior compartment syndrome relief. She also has shooting pains on feet. She cannot feel her feet when she wants and also gets pins and neeldes feelings in foot. It feels like she has a TENS unit on her legs. Pt had HH when she first came home in Dec. She feels like seh got the most benefit out of the machines. Pt gets awful shooting pains in leg that are very intense that come on for no reason.S ome days are harder than others. sometimes pain prevents her from doing even knitting sometimes. Hurts to get up from chair after sititing a long itme. Every time goes to the bathroom or when eat or drink, her nose runs. Pt reprots about every other week she feels too weak to get up from toilet or back from shower. She goes back and forth w/temperature w/hot/ cold feeling. Pt reports 5 lumbar surgeries. She believes the first one was L2-5 fusion then L1-2 discectomy, and last 2 were for fusion of T9- L5. Pt reports mult abdomenal sx including: gastric bypass, cesarian, hysterectomy, appy, cholecystecomymult adhesion removals. Mult podiatry surgeries. Prior Treatments and Tests hospital PT & HH PT, mult spinal surgeries, spinal stimulator-did not help Treatment Goals Patient/Caregiver Goals be safer at home, not fall, be able to walk better, look into braces possibly for legs PT-OP-C Subjective Start: 11/09/19 18:14 Freq: Status: Active Protocol: Document 02/13/20 16:50 [facility] (Rec: 02/13/20 18:00 [facility] [id number]) OP-PT Subjective Patient Comments Patient Comments Pt reports she is frustrated with all that she is unable to do PT-OP-D Balance Start: 02/13/20 16:49 Freq: Status: Active Protocol: Document 02/13/20 16:50 [facility] (Rec: 02/13/20 18:00 [facility] [id number]) Balance Tests Sykes Balance Test Sykes Balance Test Score 22 PT-OP-E Functional Tests Start: 02/13/20 16:49 Freq: Status: Active Protocol: Document 02/13/20 16:50 [facility] (Rec: 02/13/20 18:00 [facility] [id number]) Functional Tests 6 Minute Walk Test Distance 449Ft Device Used FWW Comments 2 catches of RLE PT-OP-F Manual Assessment Start: 11/09/19 18:14 Freq: Status: Active Protocol: Document 11/14/19 16:51 [facility] (Rec: 11/14/19 18:36 [facility] [id number]) Manual Assessments Soft Tissue Assessment Soft Tissue Mobility Assessment severe restriction of ant abdomenal scars and post lumbar fusion scars, QL & ES tight & B iliacus PT-OP-G Mobility & Gait Start: 11/09/19 18:14 Freq: Status: Active Protocol: Document 02/13/20 16:50 [facility] (Rec: 02/13/20 18:00 [facility] [id number]) OP Gait Assessment Gait Gait Assistance Required: Standby Assistance Distance (Feet) 1,001 Assistive Devices Assistive Device Gait Belt,Front Wheeled Walker PT-OP-J Posture/Palpation/Skin Start: 11/09/19 18:14 Freq: Status: Active Protocol: Document 11/14/19 16:51 [facility] (Rec: 11/14/19 18:36 [facility] [id number]) Posture Evaluation Comments Posture Comments inc kyphosis & fwd head. Fwd flexed trunk in standing at FWW PT-OP-K Range of Motion Start: 11/09/19 18:14 Freq: Status: Active Protocol: Document 11/14/19 16:51 [facility] (Rec: 11/14/19 18:36 [facility] [id number]) Hip Goniometric Range of Motion Hip ROM Limitations Comments B hip flex limited to around 85 deg passively, abd about 10 deg B, ER about 15 deg and IR about 5-10 deg-no specific measurements taken but pain with all movements passively and actively PT-OP-L Special Tests Start: 11/09/19 18:14 Freq: Status: Active Protocol: Document 11/14/19 16:51 [facility] (Rec: 11/14/19 18:36 [facility] [id number]) Special Tests Lumbar Spine Special Tests Straight Leg Raise Test Results passive to about 45 deg B HS tightness PT-OP-M Strength Start: 11/09/19 18:14 Freq: Status: Active Protocol: Document 02/13/20 16:50 [facility] (Rec: 02/13/20 18:00 [facility] [id number]) Hip Strength Hip Manual Muscle Testing Right Flexion (L2) 4- Good- Abduction 3- Fair- External Rotation 3+ Fair+ Internal Rotation 4- Good- Left Flexion (L2) 4- Good- Abduction 2+ Poor+ External Rotation 3+ Fair+ Internal Rotation 4- Good- Knee Strength Knee Manual Muscle Testing Right Flexion (S2) 4- Good- Extension (L3) 4- Good- Left Flexion (S2) 4- Good- Extension (L3) 4- Good- Ankle/Foot Strength Ankle and Foot Manual Muscle Testing Right Dorsiflexion (L4) 4- Good- Plantarflexion (S1) 3+ Fair+ Left Dorsiflexion (L4) 3 Fair Plantarflexion (S1) 3+ Fair+ Comments PF tested in seated B PT-OP-Q Treatments Start: 11/09/19 18:14 Freq: Status: Active Protocol: Document 02/13/20 16:50 [facility] (Rec: 02/13/20 18:00 [facility] [id number]) Manual Therapy Treatment Soft Tissue Mobilization QL/ ES Body Location L QL & R ES Mobilization Type Rolling Intensity/Depth Superficial Body Position Sidelying PT-OP-T Assessment and Plan Start: 11/09/19 18:14 Freq: Status: Active Protocol: Document 02/13/20 16:50 [facility] (Rec: 02/13/20 18:00 [facility] [id number]) Physical Therapy Assessment Goals mobility Propagation Manager Goal (LTG) Pt will be able to hold onto walker and bend over to pick objects off ground safely with improved LE flexibility and strength. LTG Duration 05/15/20 activity tolerance Propagation Manager Goal (LTG) Pt will be able to tolerate a combo of sitting and standing required to make 1 meal without inc pain past 09/28 02/12-achieved progress to pt will be able to stand for 15 min at a time in the kitchen in order to be able to assist more with meals LTG Duration 05/15/20 balance Propagation Manager Goal (LTG) Pt will be able to score at least 35 points on SYKES balance scale to show improved balacne and safety with amb with AD. LTG Duration 05/15/20 strength Short Term Goal (STG) Pt will be indep with HEP STG Duration achieved will progress as tolerated Propagation Manager Goal (LTG) Pt will inc strength to at least 4/5 in all LE motions in order to allow for her to inc ease to participate in ADLs. LTG Duration 02/14/20 gait Senior Living Goal (LTG) Pt will be able to ambulate 700ft with FWW safely. 02/12-achieved progress to improve 6 min walk test distance to 650ft to show improved activity tolerance & dec fall riskw ith mobility LTG Duration 05/15/20 Assessment Summary Assessment Cueing required during gait for relaxation of shoulders and heel strike for RLE during gait. She was able to ambulate further and improved with strength since IE. Pt would bneefit from PT to cont to progress functional ability in order to be able to do more daily activities with less pain and with dec risk for falls. Physical Therapy Plan Frequency and Duration Frequency of Treatment 2x/Week Duration of Treatment 3 months Plan of Care Start Date 02/13/20 Plan of Care End Date 05/15/20 Next Visit Focus/Plan Next Note Type Treatment Note Next Visit Plan advance exercise as tolerated
--- NOTE | 2020-02-13 18:04 | PT.OPPOC ---
Physical, Occupational & Speech Therapy At [facility] Current Diagnoses Disease of spinal cord, unspecified (02/13/20) Pain in unspecified shoulder (02/13/20) Pain in thoracic spine (02/13/20) Difficulty in walking, not elsewhere classified (02/13/20) Abnormal posture (02/13/20) Weakness (02/13/20) Arthrodesis status (02/13/20) Visit Care Team Role Provider Type Naif Ramirez MD Family Provider Non-Staff Specialty: Medical Address: [address] [place] [address], [id number] Email: Eugenio Coello MD Attending Provider Physician Primary Care Provider Referring Provider Specialty: Internal Medicine Address: [address] [place] [address], [facility] Email: [email or web address] Plan Of Care PT-OP-T Assessment and Plan Start: 11/09/19 18:14 Freq: Status: Active Protocol: Document 02/13/20 16:50 [facility] (Rec: 02/13/20 18:00 [facility] [id number]) Physical Therapy Assessment Goals mobility Refueling Ramp Supervisor Goal (LTG) Pt will be able to hold onto walker and bend over to pick objects off ground safely with improved LE flexibility and strength. LTG Duration 05/15/20 activity tolerance Fpc Goal (LTG) Pt will be able to tolerate a combo of sitting and standing required to make 1 meal without inc pain past 09/28 02/12-achieved progress to pt will be able to stand for 15 min at a time in the kitchen in order to be able to assist more with meals LTG Duration 05/15/20 balance Fpc Goal (LTG) Pt will be able to score at least 35 points on SYKES balance scale to show improved balacne and safety with amb with AD. LTG Duration 05/15/20 strength Short Term Goal (STG) Pt will be indep with HEP STG Duration achieved will progress as tolerated Refueling Ramp Supervisor Goal (LTG) Pt will inc strength to at least 4/5 in all LE motions in order to allow for her to inc ease to participate in ADLs. LTG Duration 02/14/20 gait Fpc Goal (LTG) Pt will be able to ambulate 700ft with FWW safely. 02/12-achieved progress to improve 6 min walk test distance to 650ft to show improved activity tolerance & dec fall riskw ith mobility LTG Duration 05/15/20 Assessment Summary Assessment Cueing required during gait for relaxation of shoulders and heel strike for RLE during gait. She was able to ambulate further and improved with strength since IE. Pt would bneefit from PT to cont to progress functional ability in order to be able to do more daily activities with less pain and with dec risk for falls. Physical Therapy Plan Frequency and Duration Frequency of Treatment 2x/Week Duration of Treatment 3 months Plan of Care Start Date 02/13/20 Plan of Care End Date 05/15/20 Next Visit Focus/Plan Next Note Type Treatment Note Next Visit Plan advance exercise as tolerated Plan of Care Dates Plan of Care Start Date 02/13/20 Plan of Care End Date 05/15/20 Electronically Signed by: Lindsey aVn, PT 02/13/20 [id number] Please Sign and Return: I have reviewed this Plan of Care and certify that the skilled therapy services above are required to meet the patient?s needs. Physician Signature Date Printed Name and Credentials Clinical Instructor Signature Printed Name and Credentials
--- NOTE | 2020-02-22 17:06 | PT.OTN ---
Current Diagnoses Disease of spinal cord, unspecified (02/22/20) Pain in unspecified shoulder (02/22/20) Pain in thoracic spine (02/22/20) Difficulty in walking, not elsewhere classified (02/22/20) Abnormal posture (02/22/20) Weakness (02/22/20) Arthrodesis status (02/22/20) Physical Therapy Treatment Note PT-OP-A Visit Information Start: 11/09/19 18:14 Freq: Status: Active Protocol: Document 02/22/20 16:07 [facility] (Rec: 02/22/20 17:06 [facility] [id number]) Out-Patient Physical Therapy Visit Information Visit Information Visit Type Treatment Note Visit Start Time 16:01 Visit Stop Time 16:46 Total Visit Minutes 45 Visit Number 11 Number of TANK OPERATOR Visits 0 PT-OP-B Current Condition Start: 11/09/19 18:14 Freq: Status: Active Protocol: Document 11/14/19 16:51 [facility] (Rec: 11/14/19 18:36 [facility] [id number]) Current Condition History of Current Condition Onset Date October 06, 2018 Current Complaints lumbar to LE pain, fall risk History of Current Condition October 06, 2018 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 Pt had 4-5 back surgeries. first one was in 2002 and pt reports surgeon did a terrible job. She had another 10 years. Pt had failure of mult ones and last one causes inc issues. SCI is from last surgery. This has destroyed her life where she can no longer complete her doctoral program. Prior to surgery, katie would get shooting pains down leg and had severe back pain. She had mult surgeries in a row. 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 She has neurogenic bowel and bladder. She tries to do exercises at home but is getting worse and fell 7 x since Dec. Sometimes R leg won 't move when tries to walk. Pt reports she has also had a gastric bypass. During spinal surgery, they damanged nerves to gut and has a lot of abdomenal pain. It has been a constant struggle to keep wt up. Pt reports she can do her upper body dressing at home. helps with lower body. Pt has handle bars on sides of toilet, but cannot always make it there in time. Pt does not have help besides her . She typically loves to cook but cannot stand long. If she stands too long, she has too much pain. Pt reprots so much intense pain in ligament into groin. She gets burning pain by scar for anterior compartment syndrome relief. She also has shooting pains on feet. She cannot feel her feet when she wants and also gets pins and neeldes feelings in foot. It feels like she has a TENS unit on her legs. Pt had HH when she first came home in Dec. She feels like seh got the most benefit out of the machines. Pt gets awful shooting pains in leg that are very intense that come on for no reason.S ome days are harder than others. sometimes pain prevents her from doing even knitting sometimes. Hurts to get up from chair after sititing a long itme. Every time goes to the bathroom or when eat or drink, her nose runs. Pt reprots about every other week she feels too weak to get up from toilet or back from shower. She goes back and forth w/temperature w/hot/ cold feeling. Pt reports 5 lumbar surgeries. She believes the first one was L2-5 fusion then L1-2 discectomy, and last 2 were for fusion of T9- L5. Pt reports mult abdomenal sx including: gastric bypass, cesarian, hysterectomy, appy, cholecystecomymult adhesion removals. Mult podiatry surgeries. Prior Treatments and Tests hospital PT & HH PT, mult spinal surgeries, spinal stimulator-did not help Treatment Goals Patient/Caregiver Goals be safer at home, not fall, be able to walk better, look into braces possibly for legs PT-OP-C Subjective Start: 11/09/19 18:14 Freq: Status: Active Protocol: Document 02/22/20 16:07 [facility] (Rec: 02/22/20 17:06 [facility] [id number]) OP-PT Subjective Patient Comments Patient Comments Pt reports she saw ortho who said knees are demineralizing and wants her on a stationary bike at home. PT-OP-D Balance Start: 02/13/20 16:49 Freq: Status: Active Protocol: Document 02/13/20 16:50 [facility] (Rec: 02/13/20 18:00 [facility] [id number]) Balance Tests Sykes Balance Test Sykes Balance Test Score 22 PT-OP-E Functional Tests Start: 02/13/20 16:49 Freq: Status: Active Protocol: Document 02/13/20 16:50 [facility] (Rec: 02/13/20 18:00 [facility] [id number]) Functional Tests 6 Minute Walk Test Distance 449Ft Device Used FWW Comments 2 catches of RLE PT-OP-F Manual Assessment Start: 11/09/19 18:14 Freq: Status: Active Protocol: Document 11/14/19 16:51 [facility] (Rec: 11/14/19 18:36 [facility] [id number]) Manual Assessments Soft Tissue Assessment Soft Tissue Mobility Assessment severe restriction of ant abdomenal scars and post lumbar fusion scars, QL & ES tight & B iliacus PT-OP-G Mobility & Gait Start: 11/09/19 18:14 Freq: Status: Active Protocol: Document 02/13/20 16:50 [facility] (Rec: 02/13/20 18:00 [facility] [id number]) OP Gait Assessment Gait Gait Assistance Required: Standby Assistance Distance (Feet) 1,001 Assistive Devices Assistive Device Gait Belt,Front Wheeled Walker PT-OP-J Posture/Palpation/Skin Start: 11/09/19 18:14 Freq: Status: Active Protocol: Document 11/14/19 16:51 [facility] (Rec: 11/14/19 18:36 [facility] [id number]) Posture Evaluation Comments Posture Comments inc kyphosis & fwd head. Fwd flexed trunk in standing at FWW PT-OP-K Range of Motion Start: 11/09/19 18:14 Freq: Status: Active Protocol: Document 11/14/19 16:51 [facility] (Rec: 11/14/19 18:36 [facility] [id number]) Hip Goniometric Range of Motion Hip ROM Limitations Comments B hip flex limited to around 85 deg passively, abd about 10 deg B, ER about 15 deg and IR about 5-10 deg-no specific measurements taken but pain with all movements passively and actively PT-OP-L Special Tests Start: 11/09/19 18:14 Freq: Status: Active Protocol: Document 11/14/19 16:51 [facility] (Rec: 11/14/19 18:36 [facility] [id number]) Special Tests Lumbar Spine Special Tests Straight Leg Raise Test Results passive to about 45 deg B HS tightness PT-OP-M Strength Start: 11/09/19 18:14 Freq: Status: Active Protocol: Document 02/13/20 16:50 [facility] (Rec: 02/13/20 18:00 [facility] [id number]) Hip Strength Hip Manual Muscle Testing Right Flexion (L2) 4- Good- Abduction 3- Fair- External Rotation 3+ Fair+ Internal Rotation 4- Good- Left Flexion (L2) 4- Good- Abduction 2+ Poor+ External Rotation 3+ Fair+ Internal Rotation 4- Good- Knee Strength Knee Manual Muscle Testing Right Flexion (S2) 4- Good- Extension (L3) 4- Good- Left Flexion (S2) 4- Good- Extension (L3) 4- Good- Ankle/Foot Strength Ankle and Foot Manual Muscle Testing Right Dorsiflexion (L4) 4- Good- Plantarflexion (S1) 3+ Fair+ Left Dorsiflexion (L4) 3 Fair Plantarflexion (S1) 3+ Fair+ Comments PF tested in seated B PT-OP-Q Treatments Start: 11/09/19 18:14 Freq: Status: Active Protocol: Document 02/22/20 16:07 [facility] (Rec: 02/22/20 17:06 [facility] [id number]) Cardio Equipment Recumbent Elliptical (Biodex) Duration (Minutes) 7 Resistance 4 Seat Position 4 Other /c back rest & dycem at feet and under buttocks Recumbent Bicycle Duration (Minutes) 2 Other attempted but pt unable to get set up well d/t dec hip motion Bicycle (Upright) Duration (Minutes) 3 Resistance 3 Seat Position min Other difficulty w/press down from most flexed position on L Manual Therapy Treatment Soft Tissue Mobilization iliacus Body Location L iliacus Mobilization Type Strumming,Sustained Pressure Intensity/Depth Superficial Body Position Hooklying Joint Mobilizations hip Joint L Direction inf glide Grade II Neuro Re-Education Treatment Balance Activities foam Comments 1. WBOS- head turns, EC, 2. NBOS-head turns, EC PT-OP-T Assessment and Plan Start: 11/09/19 18:14 Freq: Status: Active Protocol: Document 02/22/20 16:07 [facility] (Rec: 02/22/20 17:06 [facility] [id number]) Physical Therapy Assessment Goals mobility Senior Living Goal (LTG) Pt will be able to hold onto walker and bend over to pick objects off ground safely with improved LE flexibility and strength. LTG Duration 05/15/20 activity tolerance Senior Living Goal (LTG) Pt will be able to tolerate a combo of sitting and standing required to make 1 meal without inc pain past 09/28 02/12-achieved progress to pt will be able to stand for 15 min at a time in the kitchen in order to be able to assist more with meals LTG Duration 05/15/20 balance Assembly Person Goal (LTG) Pt will be able to score at least 35 points on SYKES balance scale to show improved balacne and safety with amb with AD. LTG Duration 05/15/20 strength Short Term Goal (STG) Pt will be indep with HEP STG Duration achieved will progress as tolerated Senior Living Goal (LTG) Pt will inc strength to at least 4/5 in all LE motions in order to allow for her to inc ease to participate in ADLs. LTG Duration 02/14/20 gait Senior Living Goal (LTG) Pt will be able to ambulate 700ft with FWW safely. 02/12-achieved progress to improve 6 min walk test distance to 650ft to show improved activity tolerance & dec fall riskw ith mobility LTG Duration 05/15/20 Assessment Summary Assessment Pt had difficulty w/recumbant bike d/t dec hip flex & painful hip flex especially on L. Pt did improve on hip flex after manual treatment. She was edcuated to do SKTC stretch & do marching in supine to maintain motion gained from manual treatment. Pt able to do upright bike but did note some pain in pubic region. Physical Therapy Plan Frequency and Duration Frequency of Treatment 2x/Week Duration of Treatment 3 months Plan of Care Start Date 02/13/20 Plan of Care End Date 05/15/20 Next Visit Focus/Plan Next Note Type Treatment Note Next Visit Plan advance exercise as tolerated
--- NOTE | 2020-02-27 17:50 | PT.OTN ---
Current Diagnoses Disease of spinal cord, unspecified (02/27/20) Pain in unspecified shoulder (02/27/20) Pain in thoracic spine (02/27/20) Difficulty in walking, not elsewhere classified (02/27/20) Abnormal posture (02/27/20) Weakness (02/27/20) Arthrodesis status (02/27/20) Physical Therapy Treatment Note PT-OP-A Visit Information Start: 11/09/19 18:14 Freq: Status: Active Protocol: Document 02/27/20 16:54 [facility] (Rec: 02/27/20 17:49 [facility] [id number]) Out-Patient Physical Therapy Visit Information Visit Information Visit Type Treatment Note Visit Note 05/01 Visit Start Time 16:47 Visit Stop Time 17:30 Total Visit Minutes 42 Visit Number 12 Number of BARGE PILOT Visits 0 PT-OP-B Current Condition Start: 11/09/19 18:14 Freq: Status: Active Protocol: Document 11/14/19 16:51 [facility] (Rec: 11/14/19 18:36 [facility] [id number]) Current Condition History of Current Condition Onset Date October 06, 2018 Current Complaints lumbar to LE pain, fall risk History of Current Condition October 06, 2018 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 Pt had 4-5 back surgeries. first one was in 2002 and pt reports surgeon did a terrible job. She had another 10 years. Pt had failure of mult ones and last one causes inc issues. SCI is from last surgery. This has destroyed her life where she can no longer complete her doctoral program. Prior to surgery, katie would get shooting pains down leg and had severe back pain. She had mult surgeries in a row. 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 She has neurogenic bowel and bladder. She tries to do exercises at home but is getting worse and fell 7 x since Dec. Sometimes R leg won 't move when tries to walk. Pt reports she has also had a gastric bypass. During spinal surgery, they damanged nerves to gut and has a lot of abdomenal pain. It has been a constant struggle to keep wt up. Pt reports she can do her upper body dressing at home. helps with lower body. Pt has handle bars on sides of toilet, but cannot always make it there in time. Pt does not have help besides her . She typically loves to cook but cannot stand long. If she stands too long, she has too much pain. Pt reprots so much intense pain in ligament into groin. She gets burning pain by scar for anterior compartment syndrome relief. She also has shooting pains on feet. She cannot feel her feet when she wants and also gets pins and neeldes feelings in foot. It feels like she has a TENS unit on her legs. Pt had HH when she first came home in Dec. She feels like seh got the most benefit out of the machines. Pt gets awful shooting pains in leg that are very intense that come on for no reason.S ome days are harder than others. sometimes pain prevents her from doing even knitting sometimes. Hurts to get up from chair after sititing a long itme. Every time goes to the bathroom or when eat or drink, her nose runs. Pt reprots about every other week she feels too weak to get up from toilet or back from shower. She goes back and forth w/temperature w/hot/ cold feeling. Pt reports 5 lumbar surgeries. She believes the first one was L2-5 fusion then L1-2 discectomy, and last 2 were for fusion of T9- L5. Pt reports mult abdomenal sx including: gastric bypass, cesarian, hysterectomy, appy, cholecystecomymult adhesion removals. Mult podiatry surgeries. Prior Treatments and Tests hospital PT & HH PT, mult spinal surgeries, spinal stimulator-did not help Treatment Goals Patient/Caregiver Goals be safer at home, not fall, be able to walk better, look into braces possibly for legs PT-OP-C Subjective Start: 11/09/19 18:14 Freq: Status: Active Protocol: Document 02/27/20 16:54 [facility] (Rec: 02/27/20 17:49 [facility] [id number]) OP-PT Subjective Patient Comments Patient Comments pt reports she was bent over the coffee table to wrap presents and woke up at 3 am d /t pain in coccyx so today has been a tough day. PT-OP-D Balance Start: 02/13/20 16:49 Freq: Status: Active Protocol: Document 02/13/20 16:50 [facility] (Rec: 02/13/20 18:00 [facility] [id number]) Balance Tests Sykes Balance Test Sykes Balance Test Score 22 PT-OP-E Functional Tests Start: 02/13/20 16:49 Freq: Status: Active Protocol: Document 02/13/20 16:50 [facility] (Rec: 02/13/20 18:00 [facility] [id number]) Functional Tests 6 Minute Walk Test Distance 449Ft Device Used FWW Comments 2 catches of RLE PT-OP-F Manual Assessment Start: 11/09/19 18:14 Freq: Status: Active Protocol: Document 11/14/19 16:51 [facility] (Rec: 11/14/19 18:36 [facility] [id number]) Manual Assessments Soft Tissue Assessment Soft Tissue Mobility Assessment severe restriction of ant abdomenal scars and post lumbar fusion scars, QL & ES tight & B iliacus PT-OP-G Mobility & Gait Start: 11/09/19 18:14 Freq: Status: Active Protocol: Document 02/13/20 16:50 [facility] (Rec: 02/13/20 18:00 [facility] [id number]) OP Gait Assessment Gait Gait Assistance Required: Standby Assistance Distance (Feet) 1,001 Assistive Devices Assistive Device Gait Belt,Front Wheeled Walker PT-OP-J Posture/Palpation/Skin Start: 11/09/19 18:14 Freq: Status: Active Protocol: Document 11/14/19 16:51 [facility] (Rec: 11/14/19 18:36 [facility] [id number]) Posture Evaluation Comments Posture Comments inc kyphosis & fwd head. Fwd flexed trunk in standing at FWW PT-OP-K Range of Motion Start: 11/09/19 18:14 Freq: Status: Active Protocol: Document 11/14/19 16:51 [facility] (Rec: 11/14/19 18:36 [facility] [id number]) Hip Goniometric Range of Motion Hip ROM Limitations Comments B hip flex limited to around 85 deg passively, abd about 10 deg B, ER about 15 deg and IR about 5-10 deg-no specific measurements taken but pain with all movements passively and actively PT-OP-L Special Tests Start: 11/09/19 18:14 Freq: Status: Active Protocol: Document 11/14/19 16:51 [facility] (Rec: 11/14/19 18:36 [facility] [id number]) Special Tests Lumbar Spine Special Tests Straight Leg Raise Test Results passive to about 45 deg B HS tightness PT-OP-M Strength Start: 11/09/19 18:14 Freq: Status: Active Protocol: Document 02/13/20 16:50 [facility] (Rec: 02/13/20 18:00 [facility] [id number]) Hip Strength Hip Manual Muscle Testing Right Flexion (L2) 4- Good- Abduction 3- Fair- External Rotation 3+ Fair+ Internal Rotation 4- Good- Left Flexion (L2) 4- Good- Abduction 2+ Poor+ External Rotation 3+ Fair+ Internal Rotation 4- Good- Knee Strength Knee Manual Muscle Testing Right Flexion (S2) 4- Good- Extension (L3) 4- Good- Left Flexion (S2) 4- Good- Extension (L3) 4- Good- Ankle/Foot Strength Ankle and Foot Manual Muscle Testing Right Dorsiflexion (L4) 4- Good- Plantarflexion (S1) 3+ Fair+ Left Dorsiflexion (L4) 3 Fair Plantarflexion (S1) 3+ Fair+ Comments PF tested in seated B PT-OP-Q Treatments Start: 11/09/19 18:14 Freq: Status: Active Protocol: Document 02/27/20 16:54 [facility] (Rec: 02/27/20 17:49 [facility] [id number]) Cardio Equipment Recumbent Elliptical (Biodex) Duration (Minutes) 7 Resistance 3-4 Seat Position 4 Other /c back rest & dycem at feet and under buttocks Gym Equipment Shuttle Recovery Bilateral Squats Resistance 50# Shuttle Recovery Platform Stable Reps/Time 15 Therapeutic Exercises Sitting Exercises stretch Sitting Exercise Name HS Side bilateral Reps/Minutes 30 sec Comments PT supporting pt from sliding out of chair Standing Exercises hip strength Standing Exercise Name 1. hip abd 2. hip ext 3. march Side bilateral Reps/Minutes 10 ea TKE Side bilateral Equipment Used L2 Reps/Minutes 20 Comments towel btwn leg and band Manual Therapy Treatment Soft Tissue Mobilization adductors Body Location r Mobilization Type Rolling HS Body Location L>R Mobilization Type Rolling Intensity/Depth Superficial Body Position Hooklying Joint Mobilizations hip Joint L Direction inf glide Grade II Neuro Re-Education Treatment Balance Activities foam Comments 1. WBOS- head turns, EC, 2. NBOS-head turns, EC PT-OP-T Assessment and Plan Start: 11/09/19 18:14 Freq: Status: Active Protocol: Document 02/27/20 16:54 [facility] (Rec: 02/27/20 17:49 [facility] [id number]) Physical Therapy Assessment Goals mobility Change Management Facilitator Goal (LTG) Pt will be able to hold onto walker and bend over to pick objects off ground safely with improved LE flexibility and strength. LTG Duration 05/15/20 activity tolerance Nursing Home Goal (LTG) Pt will be able to tolerate a combo of sitting and standing required to make 1 meal without inc pain past 09/28 02/12-achieved progress to pt will be able to stand for 15 min at a time in the kitchen in order to be able to assist more with meals LTG Duration 05/15/20 balance Change Management Facilitator Goal (LTG) Pt will be able to score at least 35 points on SYKES balance scale to show improved balacne and safety with amb with AD. 02/12- LTG Duration 05/15/20 strength Short Term Goal (STG) Pt will be indep with HEP STG Duration achieved will progress as tolerated Change Management Facilitator Goal (LTG) Pt will inc strength to at least 4/5 in all LE motions in order to allow for her to inc ease to participate in ADLs. LTG Duration 02/14/20 gait Nursing Home Goal (LTG) Pt will be able to ambulate 700ft with FWW safely. 02/12-achieved progress to improve 6 min walk test distance to 650ft to show improved activity tolerance & dec fall riskw ith mobility LTG Duration 05/15/20 Assessment Summary Assessment Pt did well with exercises today but required dec resistance on leg press d/t pain in coccyx region. Pt did tolerate inc time in standing today as compared with past sessions. Physical Therapy Plan Frequency and Duration Frequency of Treatment 2x/Week Duration of Treatment 3 months Plan of Care Start Date 02/13/20 Plan of Care End Date 05/15/20 Next Visit Focus/Plan Next Note Type Treatment Note Next Visit Plan advance exercise as tolerated and improve balance
--- NOTE | 2020-03-07 17:56 | PT.OTN ---
Current Diagnoses Disease of spinal cord, unspecified (03/07/20) Pain in unspecified shoulder (03/07/20) Pain in thoracic spine (03/07/20) Difficulty in walking, not elsewhere classified (03/07/20) Abnormal posture (03/07/20) Weakness (03/07/20) Arthrodesis status (03/07/20) Physical Therapy Treatment Note PT-OP-A Visit Information Start: 11/09/19 18:14 Freq: Status: Active Protocol: Document 03/07/20 16:54 [facility] (Rec: 03/07/20 17:56 [facility] [id number]) Out-Patient Physical Therapy Visit Information Visit Information Visit Type Treatment Note Visit Note 05/29 Visit Start Time 16:50 Visit Stop Time 17:30 Total Visit Minutes 40 Visit Number 13 Number of WATCHSTANDER Visits 0 PT-OP-B Current Condition Start: 11/09/19 18:14 Freq: Status: Active Protocol: Document 11/14/19 16:51 [facility] (Rec: 11/14/19 18:36 [facility] [id number]) Current Condition History of Current Condition Onset Date October 06, 2018 Current Complaints lumbar to LE pain, fall risk History of Current Condition October 06, 2018 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 Pt had 4-5 back surgeries. first one was in 2002 and pt reports surgeon did a terrible job. She had another 10 years. Pt had failure of mult ones and last one causes inc issues. SCI is from last surgery. This has destroyed her life where she can no longer complete her doctoral program. Prior to surgery, katie would get shooting pains down leg and had severe back pain. She had mult surgeries in a row. 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 She has neurogenic bowel and bladder. She tries to do exercises at home but is getting worse and fell 7 x since Dec. Sometimes R leg won 't move when tries to walk. Pt reports she has also had a gastric bypass. During spinal surgery, they damanged nerves to gut and has a lot of abdomenal pain. It has been a constant struggle to keep wt up. Pt reports she can do her upper body dressing at home. helps with lower body. Pt has handle bars on sides of toilet, but cannot always make it there in time. Pt does not have help besides her . She typically loves to cook but cannot stand long. If she stands too long, she has too much pain. Pt reprots so much intense pain in ligament into groin. She gets burning pain by scar for anterior compartment syndrome relief. She also has shooting pains on feet. She cannot feel her feet when she wants and also gets pins and neeldes feelings in foot. It feels like she has a TENS unit on her legs. Pt had HH when she first came home in Dec. She feels like seh got the most benefit out of the machines. Pt gets awful shooting pains in leg that are very intense that come on for no reason.S ome days are harder than others. sometimes pain prevents her from doing even knitting sometimes. Hurts to get up from chair after sititing a long itme. Every time goes to the bathroom or when eat or drink, her nose runs. Pt reprots about every other week she feels too weak to get up from toilet or back from shower. She goes back and forth w/temperature w/hot/ cold feeling. Pt reports 5 lumbar surgeries. She believes the first one was L2-5 fusion then L1-2 discectomy, and last 2 were for fusion of T9- L5. Pt reports mult abdomenal sx including: gastric bypass, cesarian, hysterectomy, appy, cholecystecomymult adhesion removals. Mult podiatry surgeries. Prior Treatments and Tests hospital PT & HH PT, mult spinal surgeries, spinal stimulator-did not help Treatment Goals Patient/Caregiver Goals be safer at home, not fall, be able to walk better, look into braces possibly for legs PT-OP-C Subjective Start: 11/09/19 18:14 Freq: Status: Active Protocol: Document 03/07/20 16:54 [facility] (Rec: 03/07/20 17:56 [facility] [id number]) OP-PT Subjective Patient Comments Patient Comments Pt reports she had to cancel d /t getting anuseus after a snack on wednesday PT-OP-D Balance Start: 02/13/20 16:49 Freq: Status: Active Protocol: Document 02/13/20 16:50 [facility] (Rec: 02/13/20 18:00 [facility] [id number]) Balance Tests Sykes Balance Test Sykes Balance Test Score 22 PT-OP-E Functional Tests Start: 02/13/20 16:49 Freq: Status: Active Protocol: Document 02/13/20 16:50 [facility] (Rec: 02/13/20 18:00 [facility] [id number]) Functional Tests 6 Minute Walk Test Distance 449Ft Device Used FWW Comments 2 catches of RLE PT-OP-F Manual Assessment Start: 11/09/19 18:14 Freq: Status: Active Protocol: Document 11/14/19 16:51 [facility] (Rec: 11/14/19 18:36 [facility] [id number]) Manual Assessments Soft Tissue Assessment Soft Tissue Mobility Assessment severe restriction of ant abdomenal scars and post lumbar fusion scars, QL & ES tight & B iliacus PT-OP-G Mobility & Gait Start: 11/09/19 18:14 Freq: Status: Active Protocol: Document 02/13/20 16:50 [facility] (Rec: 02/13/20 18:00 [facility] [id number]) OP Gait Assessment Gait Gait Assistance Required: Standby Assistance Distance (Feet) 1,001 Assistive Devices Assistive Device Gait Belt,Front Wheeled Walker PT-OP-J Posture/Palpation/Skin Start: 11/09/19 18:14 Freq: Status: Active Protocol: Document 11/14/19 16:51 [facility] (Rec: 11/14/19 18:36 [facility] [id number]) Posture Evaluation Comments Posture Comments inc kyphosis & fwd head. Fwd flexed trunk in standing at FWW PT-OP-K Range of Motion Start: 11/09/19 18:14 Freq: Status: Active Protocol: Document 11/14/19 16:51 [facility] (Rec: 11/14/19 18:36 [facility] [id number]) Hip Goniometric Range of Motion Hip ROM Limitations Comments B hip flex limited to around 85 deg passively, abd about 10 deg B, ER about 15 deg and IR about 5-10 deg-no specific measurements taken but pain with all movements passively and actively PT-OP-L Special Tests Start: 11/09/19 18:14 Freq: Status: Active Protocol: Document 11/14/19 16:51 [facility] (Rec: 11/14/19 18:36 [facility] [id number]) Special Tests Lumbar Spine Special Tests Straight Leg Raise Test Results passive to about 45 deg B HS tightness PT-OP-M Strength Start: 11/09/19 18:14 Freq: Status: Active Protocol: Document 02/13/20 16:50 [facility] (Rec: 02/13/20 18:00 [facility] [id number]) Hip Strength Hip Manual Muscle Testing Right Flexion (L2) 4- Good- Abduction 3- Fair- External Rotation 3+ Fair+ Internal Rotation 4- Good- Left Flexion (L2) 4- Good- Abduction 2+ Poor+ External Rotation 3+ Fair+ Internal Rotation 4- Good- Knee Strength Knee Manual Muscle Testing Right Flexion (S2) 4- Good- Extension (L3) 4- Good- Left Flexion (S2) 4- Good- Extension (L3) 4- Good- Ankle/Foot Strength Ankle and Foot Manual Muscle Testing Right Dorsiflexion (L4) 4- Good- Plantarflexion (S1) 3+ Fair+ Left Dorsiflexion (L4) 3 Fair Plantarflexion (S1) 3+ Fair+ Comments PF tested in seated B PT-OP-Q Treatments Start: 11/09/19 18:14 Freq: Status: Active Protocol: Document 03/07/20 16:54 [facility] (Rec: 03/07/20 17:56 [facility] [id number]) Cardio Equipment Recumbent Elliptical (Biodex) Duration (Minutes) 7 Resistance 4-5 Seat Position 4 Other /c back rest Recumbent Bicycle Duration (Minutes) 3 Other w/backrest & pillow Therapeutic Exercises Standing Exercises side step Side bilateral Equipment Used 1st set no resistance, 2nd lvl 1 Reps/Minutes 20ftx 2 hip strength Standing Exercise Name 1. hip abd 2. hip ext 3. march Side bilateral Equipment Used lvl 1 with hip abd & ext, none marching Reps/Minutes 10 ea Manual Therapy Treatment Soft Tissue Mobilization lower leg Body Location MFR of lower leg Mobilization Type Myofascial Release Intensity/Depth Superficial ITB Body Location L Mobilization Type Rolling Intensity/Depth Moderate Body Position Hooklying PT-OP-T Assessment and Plan Start: 11/09/19 18:14 Freq: Status: Active Protocol: Document 03/07/20 16:54 [facility] (Rec: 03/07/20 17:56 [facility] [id number]) Physical Therapy Assessment Goals mobility Usp Goal (LTG) Pt will be able to hold onto walker and bend over to pick objects off ground safely with improved LE flexibility and strength. LTG Duration 05/15/20 activity tolerance Intermediate Frame Tender Goal (LTG) Pt will be able to tolerate a combo of sitting and standing required to make 1 meal without inc pain past 09/28 02/12-achieved progress to pt will be able to stand for 15 min at a time in the kitchen in order to be able to assist more with meals LTG Duration 05/15/20 balance Usp Goal (LTG) Pt will be able to score at least 35 points on SYKES balance scale to show improved balacne and safety with amb with AD. LTG Duration 05/15/20 strength Short Term Goal (STG) Pt will be indep with HEP STG Duration achieved will progress as tolerated Intermediate Frame Tender Goal (LTG) Pt will inc strength to at least 4/5 in all LE motions in order to allow for her to inc ease to participate in ADLs. LTG Duration 02/14/20 gait Usp Goal (LTG) Pt will be able to ambulate 700ft with FWW safely. 02/12-achieved progress to improve 6 min walk test distance to 650ft to show improved activity tolerance & dec fall riskw ith mobility LTG Duration 05/15/20 Assessment Summary Assessment Pt did tolerate exercises well today and had imrpoved enough w/hip range in order to go around w/recumbant bike comfortably. Discussed with pt re: finding exercise bike that fits her more appropriately. Physical Therapy Plan Frequency and Duration Frequency of Treatment 2x/Week Duration of Treatment 3 months Plan of Care Start Date 02/13/20 Plan of Care End Date 05/15/20 Next Visit Focus/Plan Next Note Type Treatment Note Next Visit Plan advance exercise as tolerated and improve balance
--- NOTE | 2020-03-12 18:04 | PT.OTN ---
Current Diagnoses Disease of spinal cord, unspecified (03/12/20) Pain in unspecified shoulder (03/12/20) Pain in thoracic spine (03/12/20) Difficulty in walking, not elsewhere classified (03/12/20) Abnormal posture (03/12/20) Weakness (03/12/20) Arthrodesis status (03/12/20) Physical Therapy Treatment Note PT-OP-A Visit Information Start: 11/09/19 18:14 Freq: Status: Active Protocol: Document 03/12/20 16:58 [facility] (Rec: 03/12/20 18:03 [facility] [id number]) Out-Patient Physical Therapy Visit Information Visit Information Visit Type Treatment Note Visit Note 06/29 Visit Start Time 16:50 Visit Stop Time 17:33 Total Visit Minutes 43 Visit Number 14 Number of ALUMNI RELATIONS OFFICER Visits 0 PT-OP-B Current Condition Start: 11/09/19 18:14 Freq: Status: Active Protocol: Document 11/14/19 16:51 [facility] (Rec: 11/14/19 18:36 [facility] [id number]) Current Condition History of Current Condition Onset Date October 06, 2018 Current Complaints lumbar to LE pain, fall risk History of Current Condition October 06, 2018 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 Pt had 4-5 back surgeries. first one was in 2002 and pt reports surgeon did a terrible job. She had another 10 years. Pt had failure of mult ones and last one causes inc issues. SCI is from last surgery. This has destroyed her life where she can no longer complete her doctoral program. Prior to surgery, katie would get shooting pains down leg and had severe back pain. She had mult surgeries in a row. 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 She has neurogenic bowel and bladder. She tries to do exercises at home but is getting worse and fell 7 x since Dec. Sometimes R leg won 't move when tries to walk. Pt reports she has also had a gastric bypass. During spinal surgery, they damanged nerves to gut and has a lot of abdomenal pain. It has been a constant struggle to keep wt up. Pt reports she can do her upper body dressing at home. helps with lower body. Pt has handle bars on sides of toilet, but cannot always make it there in time. Pt does not have help besides her . She typically loves to cook but cannot stand long. If she stands too long, she has too much pain. Pt reprots so much intense pain in ligament into groin. She gets burning pain by scar for anterior compartment syndrome relief. She also has shooting pains on feet. She cannot feel her feet when she wants and also gets pins and neeldes feelings in foot. It feels like she has a TENS unit on her legs. Pt had HH when she first came home in Dec. She feels like seh got the most benefit out of the machines. Pt gets awful shooting pains in leg that are very intense that come on for no reason.S ome days are harder than others. sometimes pain prevents her from doing even knitting sometimes. Hurts to get up from chair after sititing a long itme. Every time goes to the bathroom or when eat or drink, her nose runs. Pt reprots about every other week she feels too weak to get up from toilet or back from shower. She goes back and forth w/temperature w/hot/ cold feeling. Pt reports 5 lumbar surgeries. She believes the first one was L2-5 fusion then L1-2 discectomy, and last 2 were for fusion of T9- L5. Pt reports mult abdomenal sx including: gastric bypass, cesarian, hysterectomy, appy, cholecystecomymult adhesion removals. Mult podiatry surgeries. Prior Treatments and Tests hospital PT & HH PT, mult spinal surgeries, spinal stimulator-did not help Treatment Goals Patient/Caregiver Goals be safer at home, not fall, be able to walk better, look into braces possibly for legs PT-OP-C Subjective Start: 11/09/19 18:14 Freq: Status: Active Protocol: Document 03/12/20 16:58 [facility] (Rec: 03/12/20 18:03 [facility] [id number]) OP-PT Subjective Patient Comments Patient Comments Pt reports falling wednesday night when getting up to go to the bathroom in the night. PT-OP-D Balance Start: 02/13/20 16:49 Freq: Status: Active Protocol: Document 02/13/20 16:50 [facility] (Rec: 02/13/20 18:00 [facility] [id number]) Balance Tests Sykes Balance Test Sykes Balance Test Score 22 PT-OP-E Functional Tests Start: 02/13/20 16:49 Freq: Status: Active Protocol: Document 02/13/20 16:50 [facility] (Rec: 02/13/20 18:00 [facility] [id number]) Functional Tests 6 Minute Walk Test Distance 449Ft Device Used FWW Comments 2 catches of RLE PT-OP-F Manual Assessment Start: 11/09/19 18:14 Freq: Status: Active Protocol: Document 11/14/19 16:51 [facility] (Rec: 11/14/19 18:36 [facility] [id number]) Manual Assessments Soft Tissue Assessment Soft Tissue Mobility Assessment severe restriction of ant abdomenal scars and post lumbar fusion scars, QL & ES tight & B iliacus PT-OP-G Mobility & Gait Start: 11/09/19 18:14 Freq: Status: Active Protocol: Document 02/13/20 16:50 [facility] (Rec: 02/13/20 18:00 [facility] [id number]) OP Gait Assessment Gait Gait Assistance Required: Standby Assistance Distance (Feet) 1,001 Assistive Devices Assistive Device Gait Belt,Front Wheeled Walker PT-OP-J Posture/Palpation/Skin Start: 11/09/19 18:14 Freq: Status: Active Protocol: Document 11/14/19 16:51 [facility] (Rec: 11/14/19 18:36 [facility] [id number]) Posture Evaluation Comments Posture Comments inc kyphosis & fwd head. Fwd flexed trunk in standing at FWW PT-OP-K Range of Motion Start: 11/09/19 18:14 Freq: Status: Active Protocol: Document 11/14/19 16:51 [facility] (Rec: 11/14/19 18:36 [facility] [id number]) Hip Goniometric Range of Motion Hip ROM Limitations Comments B hip flex limited to around 85 deg passively, abd about 10 deg B, ER about 15 deg and IR about 5-10 deg-no specific measurements taken but pain with all movements passively and actively PT-OP-L Special Tests Start: 11/09/19 18:14 Freq: Status: Active Protocol: Document 11/14/19 16:51 [facility] (Rec: 11/14/19 18:36 [facility] [id number]) Special Tests Lumbar Spine Special Tests Straight Leg Raise Test Results passive to about 45 deg B HS tightness PT-OP-M Strength Start: 11/09/19 18:14 Freq: Status: Active Protocol: Document 02/13/20 16:50 [facility] (Rec: 02/13/20 18:00 [facility] [id number]) Hip Strength Hip Manual Muscle Testing Right Flexion (L2) 4- Good- Abduction 3- Fair- External Rotation 3+ Fair+ Internal Rotation 4- Good- Left Flexion (L2) 4- Good- Abduction 2+ Poor+ External Rotation 3+ Fair+ Internal Rotation 4- Good- Knee Strength Knee Manual Muscle Testing Right Flexion (S2) 4- Good- Extension (L3) 4- Good- Left Flexion (S2) 4- Good- Extension (L3) 4- Good- Ankle/Foot Strength Ankle and Foot Manual Muscle Testing Right Dorsiflexion (L4) 4- Good- Plantarflexion (S1) 3+ Fair+ Left Dorsiflexion (L4) 3 Fair Plantarflexion (S1) 3+ Fair+ Comments PF tested in seated B PT-OP-Q Treatments Start: 11/09/19 18:14 Freq: Status: Active Protocol: Document 03/12/20 16:58 [facility] (Rec: 03/12/20 18:03 [facility] [id number]) Cardio Equipment Recumbent Bicycle Duration (Minutes) 7 Resistance 3 Seat Position most fwd Other w/backrest & pillow Therapeutic Exercises Standing Exercises hip strength Standing Exercise Name 1. hip abd 2. hip ext Side bilateral Equipment Used lvl 1 Reps/Minutes 12 ea may Standing Exercise Name w/1 bar Side bilateral Reps/Minutes 12 Comments w/DF Gait Training Gait Activity gait Description focus on heel strike & relaxed shoulders Device Used FWW Level of Assistance SBA Distance/Duration mult bouts around gym btwn exercsies & 100ft out Manual Therapy Treatment Soft Tissue Mobilization lower leg Body Location peroneals L Mobilization Type Myofascial Release,Rolling Intensity/Depth Superficial ITB Body Location L Mobilization Type Rolling Intensity/Depth Moderate Body Position Hooklying Neuro Re-Education Treatment Balance Activities firm Comments 1. WBOS & NBOS EO/EC trials & head turns trials 2. staggered stance head turns PT-OP-T Assessment and Plan Start: 11/09/19 18:14 Freq: Status: Active Protocol: Document 03/12/20 16:58 [facility] (Rec: 03/12/20 18:03 [facility] [id number]) Physical Therapy Assessment Goals mobility [employer] Goal (LTG) Pt will be able to hold onto walker and bend over to pick objects off ground safely with improved LE flexibility and strength. LTG Duration 05/15/20 activity tolerance [employer] Goal (LTG) Pt will be able to tolerate a combo of sitting and standing required to make 1 meal without inc pain past 09/28 02/12-achieved progress to pt will be able to stand for 15 min at a time in the kitchen in order to be able to assist more with meals LTG Duration 05/15/20 balance [employer] Goal (LTG) Pt will be able to score at least 35 points on SYKES balance scale to show improved balacne and safety with amb with AD. LTG Duration 05/15/20 strength Short Term Goal (STG) Pt will be indep with HEP STG Duration achieved will progress as tolerated Alf Goal (LTG) Pt will inc strength to at least 4/5 in all LE motions in order to allow for her to inc ease to participate in ADLs. LTG Duration 02/14/20 gait Alf Goal (LTG) Pt will be able to ambulate 700ft with FWW safely. 02/12-achieved progress to improve 6 min walk test distance to 650ft to show improved activity tolerance & dec fall riskw ith mobility LTG Duration 05/15/20 Assessment Summary Assessment Pt did excellent with bike today and was able to go around with good hip motion. She was able to tolerate all standing exercises with min pain only noted with marching and hip ext. Cueing for core & glutes throughout. Physical Therapy Plan Frequency and Duration Frequency of Treatment 2x/Week Duration of Treatment 3 months Plan of Care Start Date 02/13/20 Plan of Care End Date 05/15/20 Next Visit Focus/Plan Next Note Type Treatment Note Next Visit Plan advance exercise as tolerated and improve balance
--- NOTE | 2020-04-16 18:15 | PT.OTN ---
Current Diagnoses Disease of spinal cord, unspecified (04/16/20) Pain in unspecified shoulder (04/16/20) Pain in thoracic spine (04/16/20) Difficulty in walking, not elsewhere classified (04/16/20) Abnormal posture (04/16/20) Weakness (04/16/20) Arthrodesis status (04/16/20) Physical Therapy Treatment Note PT-OP-A Visit Information Start: 11/09/19 18:14 Freq: Status: Active Protocol: Document 04/16/20 17:01 [facility] (Rec: 04/16/20 18:15 [facility] [id number]) Out-Patient Physical Therapy Visit Information Visit Information Visit Type Treatment Note Visit Note 07/29 Visit Start Time 16:50 Visit Stop Time 17:34 Total Visit Minutes 44 Visit Number 15 Number of BUNG REMOVER Visits 0 PT-OP-B Current Condition Start: 11/09/19 18:14 Freq: Status: Active Protocol: Document 11/14/19 16:51 [facility] (Rec: 11/14/19 18:36 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 Pt had 4-5 back surgeries. first one was in 2002 and pt reports surgeon did a terrible job. She had another 10 years. Pt had failure of mult ones and last one causes inc issues. SCI is from last surgery. This has destroyed her life where she can no longer complete her doctoral program. Prior to surgery, katie would get shooting pains down leg and had severe back pain. She had mult surgeries in a row. 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 She has neurogenic bowel and bladder. She tries to do exercises at home but is getting worse and fell 7 x since Dec. Sometimes R leg won 't move when tries to walk. Pt reports she has also had a gastric bypass. During spinal surgery, they damanged nerves to gut and has a lot of abdomenal pain. It has been a constant struggle to keep wt up. Pt reports she can do her upper body dressing at home. helps with lower body. Pt has handle bars on sides of toilet, but cannot always make it there in time. Pt does not have help besides her . She typically loves to cook but cannot stand long. If she stands too long, she has too much pain. Pt reprots so much intense pain in ligament into groin. She gets burning pain by scar for anterior compartment syndrome relief. She also has shooting pains on feet. She cannot feel her feet when she wants and also gets pins and neeldes feelings in foot. It feels like she has a TENS unit on her legs. Pt had HH when she first came home in Dec. She feels like seh got the most benefit out of the machines. Pt gets awful shooting pains in leg that are very intense that come on for no reason.S ome days are harder than others. sometimes pain prevents her from doing even knitting sometimes. Hurts to get up from chair after sititing a long itme. Every time goes to the bathroom or when eat or drink, her nose runs. Pt reprots about every other week she feels too weak to get up from toilet or back from shower. She goes back and forth w/temperature w/hot/ cold feeling. Pt reports 5 lumbar surgeries. She believes the first one was L2-5 fusion then L1-2 discectomy, and last 2 were for fusion of T9- L5. Pt reports mult abdomenal sx including: gastric bypass, cesarian, hysterectomy, appy, cholecystecomymult adhesion removals. Mult podiatry surgeries. Prior Treatments and Tests hospital PT & HH PT, mult spinal surgeries, spinal stimulator-did not help Treatment Goals Patient/Caregiver Goals be safer at home, not fall, be able to walk better, look into braces possibly for legs PT-OP-C Subjective Start: 11/09/19 18:14 Freq: Status: Active Protocol: Document 04/16/20 17:01 [facility] (Rec: 04/16/20 18:15 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 She was sore for a while afte rthese falls but was able to walk the next day. PT-OP-D Balance Start: 02/13/20 16:49 Freq: Status: Active Protocol: Document 02/13/20 16:50 [facility] (Rec: 02/13/20 18:00 [facility] [id number]) Balance Tests Sykes Balance Test Sykes Balance Test Score 22 PT-OP-E Functional Tests Start: 02/13/20 16:49 Freq: Status: Active Protocol: Document 02/13/20 16:50 [facility] (Rec: 02/13/20 18:00 [facility] [id number]) Functional Tests 6 Minute Walk Test Distance 449Ft Device Used FWW Comments 2 catches of RLE PT-OP-F Manual Assessment Start: 11/09/19 18:14 Freq: Status: Active Protocol: Document 11/14/19 16:51 [facility] (Rec: 11/14/19 18:36 [facility] [id number]) Manual Assessments Soft Tissue Assessment Soft Tissue Mobility Assessment severe restriction of ant abdomenal scars and post lumbar fusion scars, QL & ES tight & B iliacus PT-OP-G Mobility & Gait Start: 11/09/19 18:14 Freq: Status: Active Protocol: Document 02/13/20 16:50 [facility] (Rec: 02/13/20 18:00 [facility] [id number]) OP Gait Assessment Gait Gait Assistance Required: Standby Assistance Distance (Feet) 1,001 Assistive Devices Assistive Device Gait Belt,Front Wheeled Walker PT-OP-J Posture/Palpation/Skin Start: 11/09/19 18:14 Freq: Status: Active Protocol: Document 11/14/19 16:51 [facility] (Rec: 11/14/19 18:36 [facility] [id number]) Posture Evaluation Comments Posture Comments inc kyphosis & fwd head. Fwd flexed trunk in standing at FWW PT-OP-K Range of Motion Start: 11/09/19 18:14 Freq: Status: Active Protocol: Document 11/14/19 16:51 [facility] (Rec: 11/14/19 18:36 [facility] [id number]) Hip Goniometric Range of Motion Hip ROM Limitations Comments B hip flex limited to around 85 deg passively, abd about 10 deg B, ER about 15 deg and IR about 5-10 deg-no specific measurements taken but pain with all movements passively and actively PT-OP-L Special Tests Start: 11/09/19 18:14 Freq: Status: Active Protocol: Document 11/14/19 16:51 [facility] (Rec: 11/14/19 18:36 [facility] [id number]) Special Tests Lumbar Spine Special Tests Straight Leg Raise Test Results passive to about 45 deg B HS tightness PT-OP-M Strength Start: 11/09/19 18:14 Freq: Status: Active Protocol: Document 04/16/20 17:01 [facility] (Rec: 04/16/20 18:15 [facility] [id number]) Hip Strength Hip Manual Muscle Testing Right Flexion (L2) 3+ Fair+ Abduction 3- Fair- External Rotation 3+ Fair+ Internal Rotation 4- Good- Left Flexion (L2) 3+ Fair+ Abduction 2+ Poor+ External Rotation 3+ Fair+ Internal Rotation 4- Good- Knee Strength Knee Manual Muscle Testing Right Flexion (S2) 4 Good Extension (L3) 4- Good- Left Flexion (S2) 4 Good Extension (L3) 4- Good- Ankle/Foot Strength Ankle and Foot Manual Muscle Testing Right Dorsiflexion (L4) 4 Good Plantarflexion (S1) 4- Good- Left Dorsiflexion (L4) 3 Fair Plantarflexion (S1) 3+ Fair+ Comments PF tested in seated B PT-OP-Q Treatments Start: 11/09/19 18:14 Freq: Status: Active Protocol: Document 04/16/20 17:01 [facility] (Rec: 04/16/20 18:15 [facility] [id number]) Cardio Equipment Recumbent Bicycle Duration (Minutes) 9 Resistance 3-5 Seat Position most fwd Other w/backrest & pillow Gym Equipment Shuttle Recovery Bilateral Squats Resistance 50# Shuttle Recovery Platform Stable Reps/Time 15x2 Therapeutic Exercises Standing Exercises hip hinge Side bilateral Reps/Minutes 15 Comments CGA squat Side bilateral Reps/Minutes 15 Comments over chair CGA by rail Manual Therapy Treatment Soft Tissue Mobilization ITB Body Location L & lat quad Mobilization Type Rolling Intensity/Depth Moderate Body Position Hooklying Neuro Re-Education Treatment Balance Activities firm Comments 1. WBOS & NBOS EO/EC trials 2. donning/doffing sweaters Self-Care/Home Management Treatment Education Other Education options like acupuncture and naturopathic medicine to discuss with MD. viewed video of pt trying bike and showed how the leg rotation may be imrpoved with that bike. PT-OP-T Assessment and Plan Start: 11/09/19 18:14 Freq: Status: Active Protocol: Document 04/16/20 17:01 [facility] (Rec: 04/16/20 18:15 [facility] [id number]) Physical Therapy Assessment Goals mobility [employer] Goal (LTG) Pt will be able to hold onto walker and bend over to pick objects off ground safely with improved LE flexibility and strength. LTG Duration 05/15/20 activity tolerance Halfway Goal (LTG) Pt will be able to tolerate a combo of sitting and standing required to make 1 meal without inc pain past 09/28 02/12-achieved progress to pt will be able to stand for 15 min at a time in the kitchen in order to be able to assist more with meals LTG Duration 05/15/20 balance Halfway Goal (LTG) Pt will be able to score at least 35 points on SYKES balance scale to show improved balacne and safety with amb with AD. 02/12- LTG Duration 05/15/20 strength Short Term Goal (STG) Pt will be indep with HEP STG Duration achieved will progress as tolerated Halfway Goal (LTG) Pt will inc strength to at least 4/5 in all LE motions in order to allow for her to inc ease to participate in ADLs. LTG Duration 02/14/20 gait [employer]ffin Maker Goal (LTG) Pt will be able to ambulate 700ft with FWW safely. 02/12-achieved progress to improve 6 min walk test distance to 650ft to show improved activity tolerance & dec fall riskw ith mobility LTG Duration 05/15/20 Assessment Summary Assessment Pt does not show many changes since last visit here about 1 month ago. Pt has had 2 falls so exercises today were to focus on balance required to avoid falling in the future. She was educated on options like acupuncture and naturopathic medicine to discuss with MD. viewed video of pt trying bike and showed how the leg rotation may be imrpoved with that bike. Physical Therapy Plan Frequency and Duration Frequency of Treatment 2x/Week Duration of Treatment 3 months Plan of Care Start Date 02/13/20 Plan of Care End Date 05/15/20 Next Visit Focus/Plan Next Note Type Treatment Note Next Visit Plan set up seated and supine elaborate HEP
--- NOTE | 2020-04-18 17:32 | PT.OTN ---
Current Diagnoses Disease of spinal cord, unspecified (04/18/20) Pain in unspecified shoulder (04/18/20) Pain in thoracic spine (04/18/20) Difficulty in walking, not elsewhere classified (04/18/20) Abnormal posture (04/18/20) Weakness (04/18/20) Arthrodesis status (04/18/20) Physical Therapy Treatment Note PT-OP-A Visit Information Start: 11/09/19 18:14 Freq: Status: Active Protocol: Document 04/18/20 15:25 [facility] (Rec: 04/18/20 17:32 [facility] [id number]) Out-Patient Physical Therapy Visit Information Visit Information Visit Type Treatment Note Visit Note 08/29 Visit Start Time 16:37 Visit Stop Time 17:22 Total Visit Minutes 45 Visit Number 16 Number of INDUSTRIAL EDITOR Visits 0 PT-OP-B Current Condition Start: 11/09/19 18:14 Freq: Status: Active Protocol: Document 11/14/19 16:51 [facility] (Rec: 11/14/19 18:36 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 Pt had 4-5 back surgeries. first one was in 2002 and pt reports surgeon did a terrible job. She had another 10 years. Pt had failure of mult ones and last one causes inc issues. SCI is from last surgery. This has destroyed her life where she can no longer complete her doctoral program. Prior to surgery, katie would get shooting pains down leg and had severe back pain. She had mult surgeries in a row. 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 She has neurogenic bowel and bladder. She tries to do exercises at home but is getting worse and fell 7 x since Dec. Sometimes R leg won 't move when tries to walk. Pt reports she has also had a gastric bypass. During spinal surgery, they damanged nerves to gut and has a lot of abdomenal pain. It has been a constant struggle to keep wt up. Pt reports she can do her upper body dressing at home. helps with lower body. Pt has handle bars on sides of toilet, but cannot always make it there in time. Pt does not have help besides her . She typically loves to cook but cannot stand long. If she stands too long, she has too much pain. Pt reprots so much intense pain in ligament into groin. She gets burning pain by scar for anterior compartment syndrome relief. She also has shooting pains on feet. She cannot feel her feet when she wants and also gets pins and neeldes feelings in foot. It feels like she has a TENS unit on her legs. Pt had HH when she first came home in Dec. She feels like seh got the most benefit out of the machines. Pt gets awful shooting pains in leg that are very intense that come on for no reason.S ome days are harder than others. sometimes pain prevents her from doing even knitting sometimes. Hurts to get up from chair after sititing a long itme. Every time goes to the bathroom or when eat or drink, her nose runs. Pt reprots about every other week she feels too weak to get up from toilet or back from shower. She goes back and forth w/temperature w/hot/ cold feeling. Pt reports 5 lumbar surgeries. She believes the first one was L2-5 fusion then L1-2 discectomy, and last 2 were for fusion of T9- L5. Pt reports mult abdomenal sx including: gastric bypass, cesarian, hysterectomy, appy, cholecystecomymult adhesion removals. Mult podiatry surgeries. Prior Treatments and Tests hospital PT & HH PT, mult spinal surgeries, spinal stimulator-did not help Treatment Goals Patient/Caregiver Goals be safer at home, not fall, be able to walk better, look into braces possibly for legs PT-OP-C Subjective Start: 11/09/19 18:14 Freq: Status: Active Protocol: Document 04/18/20 15:25 [facility] (Rec: 04/18/20 17:32 [facility] [id number]) OP-PT Subjective Patient Comments Patient Comments Pt reprots feeling fine after last session PT-OP-D Balance Start: 02/13/20 16:49 Freq: Status: Active Protocol: Document 02/13/20 16:50 [facility] (Rec: 02/13/20 18:00 [facility] [id number]) Balance Tests Sykes Balance Test Sykes Balance Test Score 22 PT-OP-E Functional Tests Start: 02/13/20 16:49 Freq: Status: Active Protocol: Document 02/13/20 16:50 [facility] (Rec: 02/13/20 18:00 [facility] [id number]) Functional Tests 6 Minute Walk Test Distance 449Ft Device Used FWW Comments 2 catches of RLE PT-OP-F Manual Assessment Start: 11/09/19 18:14 Freq: Status: Active Protocol: Document 11/14/19 16:51 [facility] (Rec: 11/14/19 18:36 [facility] [id number]) Manual Assessments Soft Tissue Assessment Soft Tissue Mobility Assessment severe restriction of ant abdomenal scars and post lumbar fusion scars, QL & ES tight & B iliacus PT-OP-G Mobility & Gait Start: 11/09/19 18:14 Freq: Status: Active Protocol: Document 02/13/20 16:50 [facility] (Rec: 02/13/20 18:00 [facility] [id number]) OP Gait Assessment Gait Gait Assistance Required: Standby Assistance Distance (Feet) 1,001 Assistive Devices Assistive Device Gait Belt,Front Wheeled Walker PT-OP-J Posture/Palpation/Skin Start: 11/09/19 18:14 Freq: Status: Active Protocol: Document 11/14/19 16:51 [facility] (Rec: 11/14/19 18:36 [facility] [id number]) Posture Evaluation Comments Posture Comments inc kyphosis & fwd head. Fwd flexed trunk in standing at FWW PT-OP-K Range of Motion Start: 11/09/19 18:14 Freq: Status: Active Protocol: Document 11/14/19 16:51 [facility] (Rec: 11/14/19 18:36 [facility] [id number]) Hip Goniometric Range of Motion Hip ROM Limitations Comments B hip flex limited to around 85 deg passively, abd about 10 deg B, ER about 15 deg and IR about 5-10 deg-no specific measurements taken but pain with all movements passively and actively PT-OP-L Special Tests Start: 11/09/19 18:14 Freq: Status: Active Protocol: Document 11/14/19 16:51 [facility] (Rec: 11/14/19 18:36 [facility] [id number]) Special Tests Lumbar Spine Special Tests Straight Leg Raise Test Results passive to about 45 deg B HS tightness PT-OP-M Strength Start: 11/09/19 18:14 Freq: Status: Active Protocol: Document 04/16/20 17:01 [facility] (Rec: 04/16/20 18:15 [facility] [id number]) Hip Strength Hip Manual Muscle Testing Right Flexion (L2) 3+ Fair+ Abduction 3- Fair- External Rotation 3+ Fair+ Internal Rotation 4- Good- Left Flexion (L2) 3+ Fair+ Abduction 2+ Poor+ External Rotation 3+ Fair+ Internal Rotation 4- Good- Knee Strength Knee Manual Muscle Testing Right Flexion (S2) 4 Good Extension (L3) 4- Good- Left Flexion (S2) 4 Good Extension (L3) 4- Good- Ankle/Foot Strength Ankle and Foot Manual Muscle Testing Right Dorsiflexion (L4) 4 Good Plantarflexion (S1) 4- Good- Left Dorsiflexion (L4) 3 Fair Plantarflexion (S1) 3+ Fair+ Comments PF tested in seated B PT-OP-Q Treatments Start: 11/09/19 18:14 Freq: Status: Active Protocol: Document 04/18/20 15:25 [facility] (Rec: 04/18/20 17:32 [facility] [id number]) Cardio Equipment Recumbent Bicycle Duration (Minutes) 7 Resistance 5 Seat Position most fwd Other w/backrest & pillow Gym Equipment Shuttle Recovery Bilateral Squats Resistance 50# Shuttle Recovery Platform Stable Reps/Time 15x2 Therapeutic Exercises Supine Exercises SLR Supine Exercise Name SLR Side bilateral Reps/Minutes x10 bridge Side bilateral Reps/Minutes 10 Sidelying Exercises abd Side bilateral Reps/Minutes 7 clamshells Side bilateral Reps/Minutes 10 Sitting Exercises Habd Sitting Exercise Name w/flex Side bilateral Equipment Used L1 Reps/Minutes 10 flex Sitting Exercise Name elbow Side bilateral Equipment Used 2# Reps/Minutes 10 chair press Side bilateral Reps/Minutes 10 Comments in WC DF Sitting Exercise Name DF/PF Side bilateral Reps/Minutes 10 hip ER Side bilateral Equipment Used L2 Reps/Minutes 10 march Side bilateral Equipment Used L1 Reps/Minutes 10 extension Sitting Exercise Name LAQ Side bilateral Equipment Used L1 Reps/Minutes 10 Standing Exercises hip hinge Side bilateral Reps/Minutes 15 Comments CGA squat Side bilateral Reps/Minutes 15 Comments CGA side step Side bilateral Reps/Minutes 20ft , 10ft Gait Training Gait Activity gait Description focus on heel strike & relaxed shoulders Device Used FWW Level of Assistance SBA Distance/Duration mult bouts around gym btwn exercsies & 100ft out PT-OP-T Assessment and Plan Start: 11/09/19 18:14 Freq: Status: Active Protocol: Document 04/18/20 15:25 [facility] (Rec: 04/18/20 17:32 [facility] [id number]) Physical Therapy Assessment Goals mobility Assisted Goal (LTG) Pt will be able to hold onto walker and bend over to pick objects off ground safely with improved LE flexibility and strength. LTG Duration 05/15/20 activity tolerance Clinical Pharmacy Specialist Goal (LTG) Pt will be able to tolerate a combo of sitting and standing required to make 1 meal without inc pain past 09/28 02/12-achieved progress to pt will be able to stand for 15 min at a time in the kitchen in order to be able to assist more with meals LTG Duration 05/15/20 balance Clinical Pharmacy Specialist Goal (LTG) Pt will be able to score at least 35 points on SYKES balance scale to show improved balacne and safety with amb with AD. 02/12- LTG Duration 05/15/20 strength Short Term Goal (STG) Pt will be indep with HEP STG Duration achieved will progress as tolerated Assisted Goal (LTG) Pt will inc strength to at least 4/5 in all LE motions in order to allow for her to inc ease to participate in ADLs. LTG Duration 02/14/20 gait Clinical Pharmacy Specialist Goal (LTG) Pt will be able to ambulate 700ft with FWW safely. 02/12-achieved progress to improve 6 min walk test distance to 650ft to show improved activity tolerance & dec fall riskw ith mobility LTG Duration 05/15/20 Assessment Summary Assessment Pt educated and worked on exercises she could do at home and did not need much cuieng with seated and supine & s/l exercises. Edu to work on exercises in this posiiton for safety. Physical Therapy Plan Frequency and Duration Frequency of Treatment 2x/Week Duration of Treatment 3 months Plan of Care Start Date 02/13/20 Plan of Care End Date 05/15/20 Next Visit Focus/Plan Next Note Type Treatment Note Next Visit Plan review HEP & progress balance exercises
--- NOTE | 2020-05-06 13:05 | PT.OPDS ---
Current Diagnoses Disease of spinal cord, unspecified (04/18/20) Pain in unspecified shoulder (04/18/20) Pain in thoracic spine (04/18/20) Difficulty in walking, not elsewhere classified (04/18/20) Abnormal posture (04/18/20) Weakness (04/18/20) Arthrodesis status (04/18/20) Visit Care Team Role Provider Type Naif Ramirez MD Family Provider Non-Staff Specialty: Medical Address: [address] [place] [address], [id number] Email: Eugenio Coello MD Attending Provider Physician Primary Care Provider Referring Provider Specialty: Internal Medicine Address: [address] [place] [address], [id number] Email: [email or web address] Visit Number Visit Number 16 Discharge Summary PT-OP-T Assessment and Plan Start: 11/09/19 18:14 Freq: Status: Active Protocol: Document 05/06/20 13:04 [facility] (Rec: 05/06/20 13:05 [facility] [id number]) Physical Therapy Assessment Assessment Summary Assessment This patient has cancelled all 10 or her remaining appointments. She said she thinks she did something more serious to her hip and wants to talk to her doctor before doing anymore therapy. DC at this time until pt gets new order and discusses with re : continueing PT. Physical Therapy Plan Discharge Physical Therapy Discharge Reasons Patient Request
== END 2020-05-09 09:56 ==
LOC: PHYS 16:00
PROVIDERS: Family Provider Physical Medicine & Rehabilitation Pain Medicine; PCP Internal Medicine; Referring Provider Internal Medicine; Visit Provider Internal Medicine
DX: Z98.1 Arthrodesis status (principal); G95.9 Disease of spinal cord, unspecified; M25.519 Pain in unspecified shoulder; R53.1 Weakness; R29.3 Abnormal posture; R26.2 Difficulty in walking, not elsewhere classified; M54.6 Pain in thoracic spine
CPT/HCPCS: 97110; 97112; 97116; 97140; 97163; 97535

== ENCOUNTER → 2020-06-17 18:21 | Outpatient (ROUT) | payer MEDICARE, OTHER, SELFPAY ==
[2020-06-17 19:07] LABS: Add Manual Diff / Slide Review NO; Basophils Absolute Auto 0 /uL (0-100); Basophils Percent Auto 0.3 % (0-2); Eosinophils Absolute Auto 100 /uL (0-450); Eosinophils Percent Auto 1.3 % (2-4); Hematocrit 37.7 % (36-46); Lymphocytes Absolute Auto 1700 /uL (1100-4500); Lymphocytes Percent Auto 33.9 % (25-40); Mean Corpuscular HGB Conc 34.4 % (30-36); Mean Corpuscular Hemoglobin 35.7 PG (26-34); Mean Corpuscular Volume 103.8 fL (80-100); Monocytes Absolute Auto 500 /uL (0-900); Monocytes Percent Auto 9.7 % (3-14); Neutrophils Absolute Auto 2700 /uL (1500-7000); Neutrophils Percent Auto 54.8 % (50-75); Platelet Count 136 X10^3/uL (150-400); Red Blood Cell Count 3.63 X10^6/uL (4.0-5.2); Red Cell Distribution Width 13.2 % (11.6-14.8)
[2020-06-17 19:21] LABS: Alanine Aminotransferase 52 IU/L (<35); Albumin 4.5 g/dL (3.5-5.0); Albumin Globulin Ratio 1.5 (1.0-2.8); Alkaline Phosphatase 230 U/L (38-126); Aspartate Aminotransferase 77 IU/L (14-36); BUN Creatinine Ratio 30.4 (6-22); Bilirubin Total 0.6 mg/dL (0.2-1.3); Blood Urea Nitrogen 17 mg/dL (7-17); Calcium 9.5 mg/dL (8.4-10.2); Carbon Dioxide 31 mmol/L (22-32); Chloride 93 mmol/L (98-107); Estimated Glomerular Filt Rate > 60.0 mL/min (>60); Glucose 94 mg/dL (80-110); HEMOLYSIS 33 (0-50); Potassium 4.5 mmol/L (3.4-5.1); Sodium 132 mmol/L (137-145); Total Protein 7.5 g/dL (6.3-8.2)
[2020-06-17 19:49] LABS: TSH w/ Reflex to FT4 0.35 uIU/mL (0.47-4.68)
[2020-06-17 20:36] LABS: Free T4, Direct Thyroxine 1.56 ng/dL (0.78-2.19)
== END ==
PROVIDERS: Family Provider Physical Medicine & Rehabilitation Pain Medicine; PCP Internal Medicine; Visit Provider Internal Medicine
DX: E03.9 Hypothyroidism, unspecified (principal)
CPT/HCPCS: 80053; 84439; 84443; 85025

== ENCOUNTER → 2020-10-08 11:48 | Outpatient (CLI) | payer MEDICARE, OTHER, SELFPAY ==
--- NOTE | 2020-10-08 11:52 | DI.RAD.S_ITS ---
PROCEDURE: XR HAND RT MIN 3V INDICATIONS: injury to fingers TECHNIQUE: 3 views of the hand(s) acquired. COMPARISON: None. FINDINGS: Bones: No fractures or dislocations. Carpal bones are normally aligned. No suspicious bony lesions. Soft tissues: No suspicious soft tissue calcifications. IMPRESSION: Mild degenerative interphalangeal osteoarthritic change and also mild such degeneration at the distal scaphoid. No trauma found. Dictated by: Murphy Isbell M.D. on 10/08/2020 at 12:43 Approved by: Murphy Isbell M.D. on 10/08/2020 at 12:43
== END ==
PROVIDERS: Family Provider Physical Medicine & Rehabilitation Pain Medicine; PCP Internal Medicine; Referring Provider Physician Assistant; Visit Provider Physician Assistant
DX: S69.91XA Unspecified injury of right wrist, hand and finger(s), initial encounter (principal); M79.89 Other specified soft tissue disorders; X58.XXXA Exposure to other specified factors, initial encounter
CPT/HCPCS: 73130

== ENCOUNTER → 2020-11-09 14:21 | Outpatient (CLI) | payer MEDICARE, OTHER, SELFPAY ==
[2020-11-09 15:13] LABS: Hematocrit 38.9 % (36-46); Hemoglobin 13.3 g/dL (12.0-16.0); Mean Corpuscular HGB Conc 34.3 % (30-36); Mean Corpuscular Hemoglobin 36.5 PG (26-34); Mean Corpuscular Volume 106.3 fL (80-100); Platelet Count 146 X10^3/uL (150-400); Red Blood Cell Count 3.65 X10^6/uL (4.0-5.2); Red Cell Distribution Width 13.4 % (11.6-14.8); White Blood Cell Count 6.2 X10^3/uL (4.5-11.0)
[2020-11-09 15:39] LABS: Alanine Aminotransferase 233 IU/L (<35); Albumin 4.1 g/dL (3.5-5.0); Albumin Globulin Ratio 1.2 (1.0-2.8); Alkaline Phosphatase 411 U/L (38-126); Aspartate Aminotransferase 451 IU/L (14-36); BUN Creatinine Ratio 28.6 (6-22); Bilirubin Total 1.2 mg/dL (0.2-1.3); Blood Urea Nitrogen 14 mg/dL (7-17); Calcium 9.2 mg/dL (8.4-10.2); Carbon Dioxide 30 mmol/L (22-32); Chloride 92 mmol/L (98-107); Cholesterol 225 mg/dL (140-199); Estimated Glomerular Filt Rate > 60.0 mL/min (>60); Globulin 3.3 g/dL (1.7-4.1); Glucose 109 mg/dL (80-110); Potassium 4.3 mmol/L (3.4-5.1); Sodium 132 mmol/L (137-145); Total Protein 7.4 g/dL (6.3-8.2); Triglycerides 127 mg/dL (35-150)
[2020-11-09 15:42] LABS: HEMOLYSIS 53 (0-50)
[2020-11-09 15:47] LABS: HDL Cholesterol 122 mg/dL (40-60); LDL Cholesterol Calculated 78 mg/dL (<100)
[2020-11-11 15:57] LABS: Hep C Virus Ab w/Reflex Quant NEGATIVE s/c (NEGATIVE)
== END ==
PROVIDERS: Family Provider Physical Medicine & Rehabilitation Pain Medicine; PCP Internal Medicine; Referring Provider Internal Medicine; Visit Provider Internal Medicine
DX: Z11.59 Encounter for screening for other viral diseases (principal); E78.2 Mixed hyperlipidemia; I10 Essential (primary) hypertension; E03.9 Hypothyroidism, unspecified
CPT/HCPCS: 36415; 80053; 80061; 84443; 85027; 86803

== ENCOUNTER → 2020-11-26 10:07 | Outpatient (CLI) | payer MEDICARE, OTHER, SELFPAY ==
--- NOTE | 2020-11-26 | DI.US.S_ITS ---
PROCEDURE: US ABDOMEN LIMITED INDICATIONS: ABNORMAL LFT'S TECHNIQUE: Real-time focused scanning was performed of the abdomen, with image documentation. COMPARISON: [facility], , US ABDOMEN LIMITED, 01/02/2020, 16:41. FINDINGS: Liver: The liver measures 15.9 centimeters. There is increased echogenicity consistent with hepatic steatosis. Gallbladder: The gallbladder is surgically absent. Biliary tree: No intrahepatic biliary ductal dilatation. The common bile duct measures 6.5 millimeters, within normal limits given prior cholecystectomy. Pancreas: The visualized pancreas is within normal limits. IMPRESSION: Hepatic steatosis. No acute abnormality. Dictated by: Mann Canela M.D. on 11/26/2020 at 16:39 Approved by: Mann Canela M.D. on 11/26/2020 at 16:40
== END ==
PROVIDERS: Family Provider Physical Medicine & Rehabilitation Pain Medicine; PCP Internal Medicine; Referring Provider Internal Medicine; Visit Provider Internal Medicine
DX: R94.5 Abnormal results of liver function studies (principal); K76.0 Fatty (change of) liver, not elsewhere classified
CPT/HCPCS: 76705

== ENCOUNTER 2021-01-27 23:09 | Emergency (ER) | payer MEDICARE, OTHER, SELFPAY ==
--- NOTE | 2021-01-27 23:14 | ED.NAVMDI ---
HPI - Nausea/Vomiting/Diarrhea General Chief complaint: Nausea/Vomiting/Diarrhea Stated complaint: vomiting x1 days Time Seen by Provider: 01/27/21 23:12 History of Present Illness HPI Narrative: 70-year-old female nonsmoker with history of ocular migraines, chronic abdominal pain and vomiting presents with her in the chief complaint of increased nausea and vomiting over the past 24 hours or so. She admits that she frequently has trouble with nausea and vomiting but that it has been worse over the past 24 hours. She has had trouble keeping much of anything down. She is a bit fatigued but is not particularly dizzy or weak. She denies any new medications or dietary change. She has had no abdominal pain but thinks maybe she has been a bit constipated, which is also not necessarily abnormal for her. She has had no fever or chills. She denies chest pain or shortness of breath. She has taken her own Zofran at home with little relief. Related Data Home Medications Medication Instructions Recorded Confirmed albuterol sulfate 90 mcg/actuation 2 puff INH Q4HP PRN #0 puff 11/21/12 10/08/20 aerosol inhaler (Ventolin HFA) cyclosporine 0.05 % eye drops in a 2 drp OPHTH BID #0 11/21/12 10/08/20 dropperette (Restasis) spironolactone 25 mg tablet 25 mg PO QDAY #0 tab 11/21/12 10/08/20 clobetasol 0.05 % topical ointment 1 karel TOPICAL BIDP PRN #0 08/27/16 10/08/20 [PROBIOTIC] PO QDAY #0 02/22/17 10/08/20 fluticasone propionate 50 1 spray INTRANASAL QDAY #0 02/22/17 10/08/20 mcg/actuation nasal spray,suspension (Flonase Allergy Relief) losartan 50 mg-hydrochlorothiazide 1 tab PO QDAY #0 02/22/17 10/08/20 12.5 mg tablet multivitamin (Multiple Vitamins) 1 tab PO QDAY #0 02/22/17 10/08/20 omeprazole 20 mg tablet,delayed 40 mg PO QDAY #0 02/22/17 10/08/20 release cetirizine 10 mg tablet (Zyrtec) 10 mg PO DAILY PRN tab 05/12/18 10/08/20 levothyroxine 112 mcg PO DAILY 05/12/18 10/08/20 liothyronine 5 mcg PO QAM 05/12/18 10/08/20 estradiol 1 mg tablet 1 mg PO DAILY 07/25/18 10/08/20 estradiol 1 mg tablet 1 mg PO DAILY 08/28/18 10/08/20 Previous Rx's Medication Instructions Recorded docusate sodium 100 mg capsule 100 mg PO BID #14 cap 06/14/18 (Colace) hydromorphone 2 mg tablet 2 mg PO Q6H PRN #10 tab 06/14/18 (Dilaudid) sennosides 8.6 mg tablet (Senokot) 8.6 mg PO BEDTIME #10 tab 06/14/18 erythromycin 5 mg/gram (0.5 %) eye 0.5 inch EYE-LEFT TID #1 gram 08/28/18 ointment promethazine 12.5 mg rectal 12.5 mg NE TID PRN #1 each 01/02/20 suppository promethazine 12.5 mg tablet 12.5 mg PO TID PRN #10 tab 01/02/20 promethazine 12.5 mg rectal 12.5 mg NE Q4-6H PRN #12 each 01/28/21 suppository Allergies Allergy/AdvReac Type Severity Reaction Status Date / Time adhesive [ADHESIVE] Allergy Severe HIVES Verified 10/08/20 14:07 amlodipine [AMLODIPINE] Allergy Severe ANGIOEDEMA Verified 10/08/20 14:07 amoxicillin [AMOXICILLIN] Allergy Severe ANAPHYLAXIS Verified 10/08/20 14:07 cephalexin [CEPHALEXIN] Allergy Severe ANAPHYLAXIS Verified 10/08/20 14:07 Cephalosporins Allergy Severe ANAPHYLAXIS Verified 10/08/20 14:07 [CEPHALOSPORINS] erythromycin base Allergy Severe Vomiting Verified 10/08/20 14:07 [ERYTHROMYCIN BASE] gabapentin [GABAPENTIN] Allergy Severe nausea, Verified 10/08/20 14:07 headache hydrocodone [HYDROCODONE] Allergy Severe HIVES/ITCHI Verified 10/08/20 14:07 NG iodine [IODINE] Allergy Severe ANAPHYLAXIS Verified 10/08/20 14:07 lisinopril [LISINOPRIL] Allergy Severe ANGIOEDEMA Verified 10/08/20 14:07 Penicillins [PENICILLINS] Allergy Severe ANAPHYLAXIS Verified 10/08/20 14:07 sumatriptan [SUMATRIPTAN] Allergy Unknown nightmares Verified 10/08/20 14:07 codeine Allergy nausea,itch Verified 10/08/20 14:07 ing oxycodone [From Percocet] Allergy nausea, Verified 10/08/20 14:07 itching Iodinated Contrast Media AdvReac Anaphylaxis Verified 10/08/20 14:07 [Iodinated Contrast- Oral and IV Dye] Review of Systems Review of Systems Narrative: GENERAL: Denies chills, fatigue, malaise, fever, sweats. HEENT: Denies sinus pain, ear pain, sore throat, difficulty swallowing, dizziness. RESPIRATORY: Denies dyspnea, cough, wheezing, hemoptysis, sputum. CARDIOVASCULAR: Denies chest pain, palpitations, orthopnea, edema, GASTROINTESTINAL: See HPI : Denies dysuria, frequency, incontinence, hematuria, urinary retention. MUSCULOSKELETAL: denies weakness, joint pain, or bony pain SKIN: Denies rash, skin lesions, or other NEUROLOGIC: Denies weakness, headache, numbness, change in speech, confusion, seizures, incoordination. PSYCHIATRIC: No concerning psychosocial issues. 12 point review of systems is negative except for those stated above Patient History Medical History Asthma Bilateral lower extremity edema Colon polyps Degenerative disc disease, cervical Difficult intravenous access Eczema GERD (gastroesophageal reflux disease) Glaucoma HTN (hypertension) Hyperlipidemia Hypothyroidism Lesion of lung Meningioma (~10/2015) Seasonal allergies SLE (systemic lupus erythematosus related syndrome) Superficial thrombophlebitis of left leg (~1985) Vitamin D deficiency Surgical History H/O foot surgery H/O: hysterectomy (~08/1978) History of appendectomy History of section History of cosmetic surgery History of gastric bypass (~01/2017) History of lumbar spinal fusion (~2002) History of lumbar spinal fusion Hx of abdominal surgery Hx of cholecystectomy Hx of eye surgery (~12/2015) S/P foot surgery, right (01/08/17) Family History Father Hypertension Heart disease Diabetes mellitus Mother Heart disease Gallstones Stroke Cancer Adenocarcinoma in situ Sister Breast cancer Family/Other Breast cancer Grandfather No problems noted. Social History household members: spouse Smoking Status: Never smoker Smoking Status: Never smoker alcohol intake frequency: 0-2 drinks per day Alcohol type: wine Substance Use Type: does not use Exam Narrative Exam Narrative: GENERAL: [70 year old patient appears stated age. Well-developed patient, in mild distress. HEAD: Atraumatic. Normocephalic. EYES: Pupils equal round and reactive. Extraocular motions intact. No scleral icterus. No injection or drainage. ENT: Moist mucous membranes Nose without bleeding, purulent drainage. Throat without erythema, tonsillar hypertrophy or exudate. Airway patent. NECK: Trachea midline. Non tender CARDIOVASCULAR: Regular rate and rhythm without murmurs, gallops, or rubs. RESPIRATORY: Clear to auscultation. Breath sounds equal bilaterally. No wheezes, rales, or rhonchi. GASTROINTESTINAL: Abdomen soft, non-tender, nondistended. EXTREMITIES: No edema or joint tenderness. BACK: Nontender without deformity or crepitance. No flank tenderness. NEURO: AOx3. SKIN: No rash or erythema of visible areas Initial Vital Signs Initial Vital Signs: Vital Signs Temperature 97.7 F 01/27/21 23:20 Pulse Rate 91 H 01/27/21 23:20 Respiratory Rate 18 01/27/21 23:20 Blood Pressure 221/98 H 01/27/21 23:20 Pulse Oximetry 99 01/27/21 23:20 Course Orders Ordered: ED Orders 01/27/21 23:31 Complete Blood Count AUTO DIFF Stat Comprehensive Metabolic Panel Stat Lipase Stat 01/27/21 23:40 COVID19 -Nasal swab/Pre-Proc Stat 01/28/21 00:13 CT abdomen pelvis w con Stat 01/28/21 01:07 Urinalysis and Microscopic Stat Discontinued Medications Diphenhydramine HCl (Diphenhydramine 50 Mg/Ml Vial) 25 mg IV NOW ONE Stop: 01/27/21 23:25 Last Admin: 01/27/21 23:36 Dose: 25 mg Documented by: SYLVIE Sodium Chloride (Normal Saline 0.9%) 1,000 mls @ 1,000 mls/hr IV BOLUS ONE Stop: 01/28/21 00:23 Last Admin: 01/27/21 23:36 Dose: 1,000 mls/hr Documented by: SYLVIE Methylprednisolone (Methylprednisolone 125 Mg/2 Ml Vial) 125 mg IV NOW ONE Stop: 01/27/21 23:25 Last Admin: 01/27/21 23:36 Dose: 125 mg Documented by: SYLVIE Metoclopramide HCl (Metoclopramide 10 Mg/2 Ml Inj) 10 mg IV NOW ONE Stop: 01/27/21 23:25 Last Admin: 01/27/21 23:36 Dose: 10 mg Documented by: SYLVIE Reevaluation(s) Reevaluation #1: Patient feeling much better after above-stated therapies Vital Signs Vital signs: Vital Signs - 8 hr 01/27/21 23:20 Temperature 97.7 F Pulse Rate 91 H Respiratory Rate 18 Blood Pressure 221/98 H Pulse Oximetry 99 MDM - Nausea/Vomiting/Diarrhea Lab Data Result diagrams: 01/27/21 23:31 01/27/21 23:31 Labs: Lab Results 01/27/21 01/27/21 01/27/21 Range/Units 23:31 23:31 23:40 WBC 4.6 (4.5-11.0) X10^3/uL RBC 3.58 L (4.0-5.2) X10^6/uL Hgb 13.0 (12.0-16.0) g/dL Hct 38.0 (36-46) % MCV 106.4 H (80-100) fL MCH 36.2 H (26-34) PG MCHC 34.0 (30-36) % RDW 13.8 (11.6-14.8) % Plt Count 172 (150-400) X10^3/uL Neut % (Auto) 64.1 (50-75) % Lymph % (Auto) 28.1 (25-40) % [place] % (Auto) 6.0 (3-14) % Eos % (Auto) 0.4 L (2-4) % Baso % (Auto) 1.4 (0-2) % Neut # (Auto) 2900 (6832-3951) /uL Lymph # (Auto) 1300 (9828-9148) /uL [place] # (Auto) 300 (0-900) /uL Eos # (Auto) 0 (0-450) /uL Baso # (Auto) 100 (0-100) /uL Sodium 132 L (137-145) mmol/L Potassium 3.5 (3.4-5.1) mmol/L Chloride 93 L (98-107) mmol/L Carbon Dioxide 28 (22-32) mmol/L BUN 11 (7-17) mg/dL Creatinine 0.78 (0.52-1.04) mg/dL Estimated GFR > 60.0 (>60) mL/min BUN/Creatinine Ratio 14.1 (6-22) Glucose 135 H (80-110) mg/dL Calcium 9.8 (8.4-10.2) mg/dL Total Bilirubin 2.5 H (0.2-1.3) mg/dL AST 267 H (14-36) IU/L ALT 97 H (<35) IU/L Alkaline Phosphatase 354 H (38-126) U/L Total Protein 8.1 (6.3-8.2) g/dL Albumin 4.5 (3.5-5.0) g/dL Globulin 3.6 (1.7-4.1) g/dL Albumin/Globulin Ratio 1.3 (1.0-2.8) Lipase 20 L (23-300) U/L Urine Color Urine Appearance Urine pH (4.5-8.0) Ur Specific [place] (1.000-1.035) Urine Protein (Negative) Urine Glucose (UA) (Negative) g/dL Urine Ketones (NEGATIVE) Urine Occult Blood (Negative) Urine Nitrate (Negative) Urine Bilirubin (NEGATIVE) Urine Urobilinogen (0.2) E.U./dL Ur Leukocyte Esterase (NEGATIVE) Urine RBC (0-5/HPF) Urine WBC (0-5/HPF) Ur Squamous Epith Cells (0-5/HPF) Urine Bacteria (None) Ur Culture Indicated? SARS-CoV-2 (PCR) Negative (Negative) 01/28/21 Range/Units 01:07 WBC (4.5-11.0) X10^3/uL RBC (4.0-5.2) X10^6/uL Hgb (12.0-16.0) g/dL Hct (36-46) % MCV (80-100) fL MCH (26-34) PG MCHC (30-36) % RDW (11.6-14.8) % Plt Count (150-400) X10^3/uL Neut % (Auto) (50-75) % Lymph % (Auto) (25-40) % [place] % (Auto) (3-14) % Eos % (Auto) (2-4) % Baso % (Auto) (0-2) % Neut # (Auto) (1341-3583) /uL Lymph # (Auto) (7720-9421) /uL Lincoln # (Auto) (0-900) /uL Eos # (Auto) (0-450) /uL Baso # (Auto) (0-100) /uL Sodium (137-145) mmol/L Potassium (3.4-5.1) mmol/L Chloride (98-107) mmol/L Carbon Dioxide (22-32) mmol/L BUN (7-17) mg/dL Creatinine (0.52-1.04) mg/dL Estimated GFR (>60) mL/min BUN/Creatinine Ratio (6-22) Glucose (80-110) mg/dL Calcium (8.4-10.2) mg/dL Total Bilirubin (0.2-1.3) mg/dL AST (14-36) IU/L ALT (<35) IU/L Alkaline Phosphatase (38-126) U/L Total Protein (6.3-8.2) g/dL Albumin (3.5-5.0) g/dL Globulin (1.7-4.1) g/dL Albumin/Globulin Ratio (1.0-2.8) Lipase (23-300) U/L Urine Color Yellow Urine Appearance Clear Urine pH 7.0 (4.5-8.0) Ur Specific [place] <=1.005 (1.000-1.035) Urine Protein Trace H (Negative) Urine Glucose (UA) Negative (Negative) g/dL Urine Ketones Negative (NEGATIVE) Urine Occult Blood Trace-intact (Negative) Urine Nitrate Negative (Negative) Urine Bilirubin Negative (NEGATIVE) Urine Urobilinogen 0.2 (0.2) E.U./dL Ur Leukocyte Esterase Trace H (NEGATIVE) Urine RBC 0-1/hpf (0-5/HPF) Urine WBC None seen (0-5/HPF) Ur Squamous Epith Cells 0-1 /hpf (0-5/HPF) Urine Bacteria Occasional (0-1) (None) Ur Culture Indicated? Cult not indicated SARS-CoV-2 (PCR) (Negative) Imaging Data CT scan - abdomen/pelvis: Radiologist's Impression: Chart Viewer Diagnostics Subcategory All Activity ??:?? All Time ??:?? All Subcategories Filter Laboratory Imaging Microbiology Pathology Blood Bank Tests Cardiovascular Other Specialty DATE TYPE STATUS REF RANGE/AUTHOR Hx Today 00:13 Abdomen/Pelvis CT Signed Mann Canela 11/26/20 00:00 Abdomen Ultrasound Signed Mann Canela 10/08/20 11:52 Hand X-Ray Signed Murphy Isbell 01/17/20 17:43 Foot X-Ray Signed Mann Canela 01/08/20 00:00 Foot X-Ray Signed Murphy Isbell 01/02/20 16:24 Abdomen Ultrasound Signed Duane Dominguez 01/01/20 08:[address] Abdomen 12/15/19 00:00 Abdomen Ultrasound Signed Duane Dominguez 10/28/19 00:00 Abdomen X-Ray Signed Gillian Carrasquillo 04/07/19 20:24 Chest X-Ray Signed Haseeb Calderon 04/07/19 16:40 Chest X-Ray Signed Murphy Isbell 04/03/19 08:52 Chest X-Ray Signed David Howard 03/02/19 00:00 PICC Line Insertion Signed aMryjo Rivers 02/10/19 20:25 Abdomen/Pelvis CT Signed Murphy Isbell 07/05/18 00:00 Thoracic Spine MRI Signed Melinda Palacios 07/05/18 00:00 Lumbar Spine MRI Signed Melinda Palacios 02/22/17 15:25 Radiology - Historical ? 02/22/17 00:00 Radiology - Historical ? 08/27/16 20:31 Radiology - Historical ? 08/26/16 21:05 Telemetry Strips ? 08/26/16 19:04 Radiology - Historical ? 10/22/15 00:02 Radiology - Historical ? Altagracia Kristin 70, F?1950 MRN#? [id number] REG ER,?Main ED??R08?? 149.86cm 41.73kg BMI: 18.6kg/m? Nausea/Vomiting/Diarrhea Acc#? [id number] Resus Status Not Ordered No Hx Avail Special Indicators No Data to Display Home Meds Not Confirmed Prescription Monitoring Program Total 32 MME/Day Pending Discharge MEDICATIONS (INSTRUCTIONS) LAST TAKEN Active ??[PROBIOTIC] ??POQDAY#0 ??albuterol sulfate [Ventolin HFA] ??2 [id number]#0 puff ??cetirizine 10 mg tablet ??10 mgPODAILYPRN?tab ??clobetasol ??1 appTOPICALBIDPPRN#0 ??docusate sodium [Colace] ??100 mgPOBID#14 cap ??erythromycin ??0.5 inchEYE-LEFTTID#1 gram ??estradiol 1 mg tablet ??1 mgPODAILY ??estradiol 1 mg tablet ??1 mgPODAILY ??fluticasone propionate [Flonase Allergy Relief] ??1 sprayINTRANASALQDAY#0 ??hydromorphone [Dilaudid] ??2 [id number]#10 tab 32 MME/Day ??levothyroxine ??112 mcgPODAILY ??liothyronine ??5 mcgPOQAM ??losartan-hydrochlorothiazide ??1 tabPOQDAY#0 ??multivitamin [Multiple Vitamins] ??1 tabPOQDAY#0 ??omeprazole ??40 mgPOQDAY#0 ??promethazine ??12.5 mgPOTIDPRN#10 tab ??promethazine ??12.5 mgPRTIDPRN#1 each promethazine 12.5 mgPRQ4-6HPRN#12 each ??Restasis ??2 drpOPHTHBID#0 ??sennosides [Senokot] ??8.6 mgPOBEDTIME#10 tab ??spironolactone ??25 mgPOQDAY#0 tab ?Not Included in Conflicts Allergies adhesive (ADHESIVE) HIVES amlodipine (AMLODIPINE) ANGIOEDEMA amoxicillin (AMOXICILLIN) ANAPHYLAXIS cephalexin (CEPHALEXIN) ANAPHYLAXIS Cephalosporins (CEPHALOSPORINS) ANAPHYLAXIS erythromycin base (ERYTHROMYCIN BASE) Vomiting gabapentin (GABAPENTIN) nausea, headache hydrocodone (HYDROCODONE) HIVES/ITCHING iodine (IODINE) ANAPHYLAXIS lisinopril (LISINOPRIL) ANGIOEDEMA Penicillins (PENICILLINS) ANAPHYLAXIS sumatriptan (SUMATRIPTAN) nightmares codeine nausea,itching oxycodone (From Percocet) nausea, itching Iodinated Contrast Media (Iodinated Contrast- Oral and IV Dye) Anaphylaxis Problems ? ONSET Vomiting Sprain of elbow, left Ocular migraine Chest pain Postoperative abdominal pain Vital Signs Today 02:00 Pulse 82? O2 Sat 100? Diagnostics Reports Kristin Frias??70??F??1950 ? Allergy/Adv: adhesive, amlodipine, amoxicillin, cephalexin, Cephalosporins, erythromycin base, gabapentin, hydrocodone, iodine, lisinopril, Penicillins, sumatriptan, codeine, oxycodone, Iodinated Contrast Media (More??) Close Abdomen/Pelvis CT (Signed) Mann Canela - 01/28/21 Abdomen Ultrasound (Signed) Mann Canela - 11/26/20 Hand X-Ray (Signed) Murphy Isbell - 10/08/20 Foot X-Ray (Signed) Mann Canela - 01/17/20 Foot X-Ray (Signed) Murphy Isbell - 01/08/20 Abdomen Ultrasound (Signed) Duane Dominguez - 01/02/20 Outside DI 01/01/20 Abdomen Ultrasound (Signed) Duane Dominguez - 12/15/19 Abdomen X-Ray (Signed) Gillian Carrasquillo - 10/28/19 Chest X-Ray (Signed) Haseeb Calderon - 04/07/19 Chest X-Ray (Signed) Murphy Isbell - 04/07/19 Chest X-Ray (Signed) Phoenix Howardwn - 04/03/19 PICC Line Insertion (Signed) Maryjo Rivers - 03/02/19 Abdomen/Pelvis CT (Signed) Murphy Isbell - 02/10/19 Thoracic Spine MRI (Signed) Melinda Palacios - 07/05/18 Lumbar Spine MRI (Signed) Melinda Palacios - 07/05/18 Radiology - Historical 02/22/17 Radiology - Historical 02/22/17 Radiology - Historical 08/27/16 Telemetry Strips 08/26/16 Radiology - Historical 08/26/16 Radiology - Historical 10/22/15 Launch?[address] [address] [address] Scan Report Signed Patient: Kristin Frias MR#: [id number] : 1950 Acct:[id number] Age/Sex: 70 / F Date of Service: 01/28/21 Loc: ED Accession Number: [id number] ?? Procedure: CT abdomen pelvis w con Ordering Provider: Yannick Rodriguez D.O. PROCEDURE:? CT ABDOMEN PELVIS W CON ? INDICATIONS:? abdomen pain, Nausea, vomiting , history of gastric bypass ? TECHNIQUE:? After the administration of intravenous contrast, axial sections acquired from the lung bases to the pubic symphysis.? Coronal and sagittal reformats were performed.? For radiation dose reduction, the following was used:? automated exposure control, adjustment of mA and/or kV according to patient size.? ? COMPARISON:? [facility], CT, ABDOMEN/PELVIS WITH CONTRAST, 02/22/2017, 16:39. ? FINDINGS:? Image quality:? Excellent.? ? Lung bases:? Unremarkable. Heart:? No significant findings. ? ABDOMEN: Liver:? The liver demonstrates severe hypodensity consistent with severe hepatic steatosis. Gallbladder:? Status post cholecystectomy. Biliary ducts:? Unremarkable.? ? Pancreas:? Unremarkable.? ? Spleen:? Unremarkable.? ? Adrenal Glands:? Unremarkable.? ? Kidneys and Ureters:? Unremarkable.? ? ? Stomach and Bowel:? Stomach, small bowel loops, and colon are unremarkable.? Peritoneum:? No abnormal intraperitoneal fluid.? No free air.? ? Ventral Wall: ? No hernias.? Abdominal Nodes:? No retroperitoneal or mesenteric adenopathy by size criteria.? Vessels:? The aorta has atherosclerotic calcifications with no aneurysmal dilatation. ? PELVIS: Pelvic Organs:? Unremarkable.? ? Bladder:? Unremarkable.? ? Pelvic Nodes: No enlarged lymph nodes.? Miscellaneous: No hernias are seen. ? ? ? Bones:? Multilevel pedicular screw and darcy fixation of the thoracolumbar spine. ? ? IMPRESSION: 1. No acute abdominal or pelvic abnormality. 2. Severe hepatic steatosis.? ? ? Dictated by: Mann Canela M.D. on 01/28/2021 at 1:42 ? ? Approved by: Mann Canela M.D. on 01/28/2021 at 1:48 ? MDM Narrative Medical decision making narrative: Patient with reassuring history and physical exam. Labs are largely unremarkable. CT has no significant findings which would require a specific or immediate intervention. She has improvement in symptoms after above-stated therapies. No evidence of bowel obstruction or infectious process. No evidence of any issues with her gastric surgery. Return precautions given and questions answered to her apparent satisfaction Discharge Plan Departure Patient Disposition: Home Clinical Impression: Vomiting Qualifiers: Vomiting type: unspecified Vomiting Intractability: non-intractable Nausea presence: with nausea Qualified Code(s): R11.2 - Nausea with vomiting, unspecified Instructions: DI for Vomiting -- Adult Activity Restrictions/Additional Instructions: *You have been diagnosed with [Vomiting with nausea. Your history, physical exam, labs and CT scan are very reassuring. Urine showed no sign of infection ] *What to do: *Please continue to take your regular medications as directed. [ x] New medication prescriptions sent to your pharmacy: [[facility] ] [ ] New medication written as a paper prescription [ ] No new medications given *Please follow up with your primary care provider in 2-3 days, call for an appointment. Let them know you were seen in the Emergency Department and that we ask that you be seen in follow up. We will electronically transmit a record of today's note if your PCP is in our system *As we discussed, please consider a clear liquid diet for the next 24-48 hours and then advance as tolerated. *Return to Emergency Department if you should have any new, worsening or concerning symptoms, such as [fever greater than 101 F, shaking chills, worsening pain, persistent vomiting or other bothersome symptoms] Prescriptions: New promethazine 12.5 mg suppository 12.5 mg NE Q4-6H PRN (Reason: nausea and vomiting) Qty: 12 RF: 0 No Action estradiol 1 mg tablet 1 mg PO DAILY RF: 0 spironolactone 25 MG tablet 25 mg PO QDAY Qty: 0 RF: 0 albuterol sulfate [Ventolin HFA] 90 MCG/PUFF HFA aerosol inhaler 2 puff INH Q4HP PRN (Reason: Asthma) Qty: 0 RF: 0 Restasis 1 EACH dropperette 2 drp OPHTH BID Qty: 0 RF: 0 clobetasol 0.05 % ointment 1 karel Topical BIDP PRN (Reason: As directed) Qty: 0 RF: 0 fluticasone propionate [Flonase Allergy Relief] 9.9 ML spray,suspension 1 spray Intranasal QDAY Qty: 0 RF: 0 losartan-hydrochlorothiazide 50 MG/12.5 MG tablet 1 tab PO QDAY Qty: 0 RF: 0 omeprazole 20 MG tablet,delayed release (DR/EC) 40 mg PO QDAY Qty: 0 RF: 0 multivitamin [Multiple Vitamins] 1 EACH tablet 1 tab PO QDAY Qty: 0 RF: 0 [PROBIOTIC] PO QDAY Qty: 0 RF: 0 cetirizine [Zyrtec] 10 mg tablet 10 mg PO DAILY PRN (Reason: Seasonal allergies) RF: 0 levothyroxine 112 mcg PO DAILY RF: 0 liothyronine 5 mcg PO QAM RF: 0 estradiol 1 mg tablet 1 mg PO DAILY RF: 0 promethazine 12.5 mg tablet 12.5 mg PO TID PRN (Reason: nausea and vomiting) Qty: 10 RF: 0 promethazine 12.5 mg suppository 12.5 mg NE TID PRN (Reason: nausea and vomiting) Qty: 1 RF: 0 sennosides [Senokot] 8.6 mg tablet 8.6 mg PO BEDTIME Qty: 10 RF: 1 docusate sodium [Colace] 100 mg capsule 100 mg PO BID Qty: 14 RF: 1 hydromorphone [Dilaudid] 2 mg tablet 2 mg PO Q6H PRN (Reason: pain) Qty: 10 RF: 0 erythromycin 5 mg/gram (0.5 %) ointment 0.5 inch EYE-LEFT TID Qty: 1 RF: 0 Referrals: Eugenio Coello MD [Primary Care Provider] -
[2021-01-27 23:20] VITALS: BP 221/98; PULSE 91; RESP 18; TEMP 36.5; O2SAT 99; BMI 18.6
[2021-01-27] MEDS: diphenhydrAMINE 50 MG/ML VIAL 25 MG IV (23:36)
[2021-01-27] MEDS: methylPREDNISolone 125 MG/2 ML VIAL IV (23:36)
[2021-01-27] MEDS: SODIUM CHLORIDE 0.9% 1,000 ML 1000 ML IV (23:36)
[2021-01-27] MEDS: METOCLOPRAMIDE 10 MG/2 ML INJ IV (23:36)
[2021-01-27 23:45] LABS: Add Manual Diff / Slide Review NO; Basophils Absolute Auto 100 /uL (0-100); Basophils Percent Auto 1.4 % (0-2); Eosinophils Absolute Auto 0 /uL (0-450); Eosinophils Percent Auto 0.4 % (2-4); Lymphocytes Absolute Auto 1300 /uL (1100-4500); Lymphocytes Percent Auto 28.1 % (25-40); Mean Corpuscular Hemoglobin 36.2 PG (26-34); Mean Corpuscular Volume 106.4 fL (80-100); Monocytes Absolute Auto 300 /uL (0-900); Neutrophils Absolute Auto 2900 /uL (1500-7000); Neutrophils Percent Auto 64.1 % (50-75); Platelet Count 172 X10^3/uL (150-400); Red Blood Cell Count 3.58 X10^6/uL (4.0-5.2); Red Cell Distribution Width 13.8 % (11.6-14.8); White Blood Cell Count 4.6 X10^3/uL (4.5-11.0)
[2021-01-27 23:46] VITALS: PULSE 82; O2SAT 100
[2021-01-27 23:50] LABS: Alanine Aminotransferase 97 IU/L (<35); Albumin 4.5 g/dL (3.5-5.0); Albumin Globulin Ratio 1.3 (1.0-2.8); Alkaline Phosphatase 354 U/L (38-126); Aspartate Aminotransferase 267 IU/L (14-36); BUN Creatinine Ratio 14.1 (6-22); Bilirubin Total 2.5 mg/dL (0.2-1.3); Blood Urea Nitrogen 11 mg/dL (7-17); Calcium 9.8 mg/dL (8.4-10.2); Carbon Dioxide 28 mmol/L (22-32); Chloride 93 mmol/L (98-107); Estimated Glomerular Filt Rate > 60.0 mL/min (>60); Globulin 3.6 g/dL (1.7-4.1); Glucose 135 mg/dL (80-110); HEMOLYSIS < 15 (0-50); Lipase 20 U/L (23-300); Potassium 3.5 mmol/L (3.4-5.1); Sodium 132 mmol/L (137-145); Total Protein 8.1 g/dL (6.3-8.2)
[2021-01-28] VITALS (7 sets, daily range): BP systolic 178–189; BP diastolic 79–105; PULSE 74–85; RESP 18; O2SAT 96–100
[2021-01-28 00:05] LABS: COVID19 -Nasal RAPID Negative (Negative)
--- NOTE | 2021-01-28 00:13 | DI.CT.S_ITS ---
PROCEDURE: CT ABDOMEN PELVIS W CON INDICATIONS: abdomen pain, Nausea, vomiting , history of gastric bypass TECHNIQUE: After the administration of intravenous contrast, axial sections acquired from the lung bases to the pubic symphysis. Coronal and sagittal reformats were performed. For radiation dose reduction, the following was used: automated exposure control, adjustment of mA and/or kV according to patient size. COMPARISON: [facility], CT, ABDOMEN/PELVIS WITH CONTRAST, 02/22/2017, 16:39. FINDINGS: Image quality: Excellent. Lung bases: Unremarkable. Heart: No significant findings. ABDOMEN: Liver: The liver demonstrates severe hypodensity consistent with severe hepatic steatosis. Gallbladder: Status post cholecystectomy. Biliary ducts: Unremarkable. Pancreas: Unremarkable. Spleen: Unremarkable. Adrenal Glands: Unremarkable. Kidneys and Ureters: Unremarkable. Stomach and Bowel: Stomach, small bowel loops, and colon are unremarkable. Peritoneum: No abnormal intraperitoneal fluid. No free air. Ventral Wall: No hernias. Abdominal Nodes: No retroperitoneal or mesenteric adenopathy by size criteria. Vessels: The aorta has atherosclerotic calcifications with no aneurysmal dilatation. PELVIS: Pelvic Organs: Unremarkable. Bladder: Unremarkable. Pelvic Nodes: No enlarged lymph nodes. Miscellaneous: No hernias are seen. Bones: Multilevel pedicular screw and darcy fixation of the thoracolumbar spine. IMPRESSION: 1. No acute abdominal or pelvic abnormality. 2. Severe hepatic steatosis. Dictated by: Mann Canela M.D. on 01/28/2021 at 1:42 Approved by: Mann Canela M.D. on 01/28/2021 at 1:48
[2021-01-28 01:27] LABS: Appearance Urine UA CLEAR; Bilirubin Urine UA NEGATIVE (NEGATIVE); Color Urine UA YELLOW; Glucose Urine UA NEGATIVE (Negative); Ketones Urine UA NEGATIVE (NEGATIVE); Leukocyte Esterase Urine UA TRACE (NEGATIVE); Nitrite Urine UA NEGATIVE (Negative); Occult Blood Urine UA TRACE-INTACT (Negative); Protein Urine UA TRACE (Negative); Specific Gravity Urine UA <=1.005 (1.000-1.035); Urobilinogen Urine UA 0.2 E.U./dL (0.2)
[2021-01-28 01:41] LABS: Bacteria Urine Occasional (0-1); Culture Indicated Urine Cult Not Indicated; RBC Urine 0-1/HPF (0-5/HPF); Squamous Epithelial Cell Urine 0-1 /HPF (0-5/HPF); WBC Urine None Seen (0-5/HPF)
== END 2021-01-28 02:14 | disposition home or self-care (01) ==
PROVIDERS: Emergency Provider Emergency Medicine; Family Provider Physical Medicine & Rehabilitation Pain Medicine; PCP Internal Medicine
DX: R11.2 Nausea with vomiting, unspecified (principal); R10.9 Unspecified abdominal pain; Z98.84 Bariatric surgery status; Z20.822 Contact with and (suspected) exposure to COVID-19
CPT/HCPCS: 36415; 74177; 80053; 81001; 83690; 85025; 87635; 96361; 96374; 96375; 99284; C9803; J1200; J2765; J2930; Q9967

== ENCOUNTER 2021-03-26 16:46 | Emergency (ER) | payer MEDICARE, OTHER, SELFPAY ==
[2021-03-26 17:01] VITALS: BP 133/63; PULSE 104; RESP 22; TEMP 36.7; O2SAT 100
--- NOTE | 2021-03-26 17:58 | ED_ITS ---
HPI - Skin/Abscess/Foreign Bdy General Chief complaint: Skin/Abscess/Foreign Body Stated complaint: possible allergic reaction on face Time Seen by Provider: 03/26/21 17:39 Source: patient Mode of arrival: Ambulatory History of Present Illness HPI narrative: Patient is a 71-year-old female with chronic ongoing back pain is wheelchair bound after surgery has lupus but not taking medications been well controlled for numerous years presenting today with facial rash ongoing for just over 2 weeks. She went to the surgical instrument mechanic March 05 she was told that her eyes are dry she was given call goes to wear at night she was giving lubricating drops and gel the group home she bought [id number]. Rash started about 1 week after that mostly this around ice it has progressively gotten worse over last week and a half and today seems to be very bright red. Her face is very dry rash comes but comes down and periorally as well. She says it hurts to eat because she is cracked skin. She does not have any fever. She she has not have any difficulty swallowing she is able to drink water and broth, but hurts to eat. Related Data Home Medications Medication Instructions Recorded Confirmed albuterol sulfate 90 mcg/actuation 2 puff INH Q4HP PRN #0 puff 11/21/12 10/08/20 aerosol inhaler (Ventolin HFA) cyclosporine 0.05 % eye drops in a 2 drp OPHTH BID #0 11/21/12 10/08/20 dropperette (Restasis) spironolactone 25 mg tablet 25 mg PO QDAY #0 tab 11/21/12 10/08/20 clobetasol 0.05 % topical ointment 1 karel TOPICAL BIDP PRN #0 08/27/16 10/08/20 [PROBIOTIC] PO QDAY #0 02/22/17 10/08/20 fluticasone propionate 50 1 spray INTRANASAL QDAY #0 02/22/17 10/08/20 mcg/actuation nasal spray,suspension (Flonase Allergy Relief) losartan 50 mg-hydrochlorothiazide 1 tab PO QDAY #0 02/22/17 10/08/20 12.5 mg tablet multivitamin (Multiple Vitamins) 1 tab PO QDAY #0 02/22/17 10/08/20 omeprazole 20 mg tablet,delayed 40 mg PO QDAY #0 02/22/17 10/08/20 release cetirizine 10 mg tablet (Zyrtec) 10 mg PO DAILY PRN tab 05/12/18 10/08/20 levothyroxine 112 mcg PO DAILY 05/12/18 10/08/20 liothyronine 5 mcg PO QAM 05/12/18 10/08/20 estradiol 1 mg tablet 1 mg PO DAILY 07/25/18 10/08/20 estradiol 1 mg tablet 1 mg PO DAILY 08/28/18 10/08/20 Previous Rx's Medication Instructions Recorded docusate sodium 100 mg capsule 100 mg PO BID #14 cap 06/14/18 (Colace) hydromorphone 2 mg tablet 2 mg PO Q6H PRN #10 tab 06/14/18 (Dilaudid) sennosides 8.6 mg tablet (Senokot) 8.6 mg PO BEDTIME #10 tab 06/14/18 erythromycin 5 mg/gram (0.5 %) eye 0.5 inch EYE-LEFT TID #1 gram 08/28/18 ointment promethazine 12.5 mg rectal 12.5 mg NE TID PRN #1 each 01/02/20 suppository promethazine 12.5 mg tablet 12.5 mg PO TID PRN #10 tab 01/02/20 promethazine 12.5 mg rectal 12.5 mg NE Q4-6H PRN #12 each 01/28/21 suppository Allergies Allergy/AdvReac Type Severity Reaction Status Date / Time adhesive [ADHESIVE] Allergy Severe HIVES Verified 10/08/20 14:07 amlodipine [AMLODIPINE] Allergy Severe ANGIOEDEMA Verified 10/08/20 14:07 amoxicillin [AMOXICILLIN] Allergy Severe ANAPHYLAXIS Verified 10/08/20 14:07 cephalexin [CEPHALEXIN] Allergy Severe ANAPHYLAXIS Verified 10/08/20 14:07 Cephalosporins Allergy Severe ANAPHYLAXIS Verified 10/08/20 14:07 [CEPHALOSPORINS] erythromycin base Allergy Severe Vomiting Verified 10/08/20 14:07 [ERYTHROMYCIN BASE] gabapentin [GABAPENTIN] Allergy Severe nausea, Verified 10/08/20 14:07 headache hydrocodone [HYDROCODONE] Allergy Severe HIVES/ITCHI Verified 10/08/20 14:07 NG iodine [IODINE] Allergy Severe ANAPHYLAXIS Verified 10/08/20 14:07 lisinopril [LISINOPRIL] Allergy Severe ANGIOEDEMA Verified 10/08/20 14:07 Penicillins [PENICILLINS] Allergy Severe ANAPHYLAXIS Verified 10/08/20 14:07 sumatriptan [SUMATRIPTAN] Allergy Unknown nightmares Verified 10/08/20 14:07 codeine Allergy nausea,itch Verified 10/08/20 14:07 ing oxycodone [From Percocet] Allergy nausea, Verified 10/08/20 14:07 itching Iodinated Contrast Media AdvReac Anaphylaxis Verified 10/08/20 14:07 [Iodinated Contrast- Oral and IV Dye] Review of Systems Review of Systems Narrative: GENERAL: Denies chills, fatigue, malaise, fever, sweats, travel HEENT: Denies sinus pain, ear pain, sore throat, difficulty swallowing, neck pain RESPIRATORY: Denies dyspnea, cough, wheezing, hemoptysis, sputum. CARDIOVASCULAR: Denies chest pain, palpitations, orthopnea, edema GASTROINTESTINAL: Denies nausea, vomiting, abdominal pain, diarrhea, constipation, melena. : Denies dysuria, frequency, incontinence, hematuria, urinary retention, flank pain. MUSCULOSKELETAL: Denies weakness, joint pain, or bony pain SKIN: See HPI NEUROLOGIC: Denies weakness, dizziness, headache, numbness, change in speech, confusion PSYCHIATRIC: No concerning psychosocial issues. 12 point review of systems is negative except for those stated above and HPI Patient History Medical History (Updated 03/26/21 @ 18:49 by Cyndie Brannon DO) Asthma Bilateral lower extremity edema Colon polyps Degenerative disc disease, cervical Difficult intravenous access Eczema GERD (gastroesophageal reflux disease) Glaucoma HTN (hypertension) Hyperlipidemia Hypothyroidism Lesion of lung Meningioma (~10/2015) Seasonal allergies SLE (systemic lupus erythematosus related syndrome) Superficial thrombophlebitis of left leg (~1985) Vitamin D deficiency Surgical History H/O foot surgery H/O: hysterectomy (~08/1978) History of appendectomy History of section History of cosmetic surgery History of gastric bypass (~01/2017) History of lumbar spinal fusion (~2002) History of lumbar spinal fusion Hx of abdominal surgery Hx of cholecystectomy Hx of eye surgery (~12/2015) S/P foot surgery, right (01/08/17) Family History Father Hypertension Heart disease Diabetes mellitus Mother Heart disease Gallstones Stroke Cancer Adenocarcinoma in situ Sister Breast cancer Family/Other Breast cancer Grandfather No problems noted. Social History household members: spouse Smoking Status: Never smoker Smoking Status: Never smoker alcohol intake frequency: 0-2 drinks per day Alcohol type: wine Substance Use Type: does not use Exam Initial Vital Signs Initial Vital Signs: Vital Signs Temperature 98.1 F 03/26/21 17:01 Pulse Rate 104 H 03/26/21 17:01 Respiratory Rate 22 03/26/21 17:01 Blood Pressure 133/63 03/26/21 17:01 Pulse Oximetry 100 03/26/21 17:01 GENERAL: Thin chronically ill 71-year-old female in no acute distress. HEENT: Head atraumatic,EOMI, pupils reactive, face symmetric, moist mucous membrane CARDIOVASCULAR: Regular rate and rhythm without murmurs, rubs or gallops. RESPIRATORY: Breath sounds equal bilaterally, no wheezes rales or rhonchi. ABDOMEN: Soft, nontender. Normoactive bowel sounds all 4 quadrants. No guardi ng or rebound. EXTREMITIES: Normal range of motion, no clubbing or edema. Neurovascularly intact NEUROLOGICAL: Alert and oriented x4.Normal gait and speech. SKIN: Erythematous rash around eyes goes along both sides of nose all the way around upper lip and chin. It does not a bridge over the nose, no cheek involvement, there is no butterfly distribution Course Orders Ordered: Discontinued Medications Dexamethasone (Dexamethasone 10 Mg/Ml Vial) 10 mg PO NOW ONE Stop: 03/26/21 18:24 Last Admin: 03/26/21 18:41 Dose: 10 mg Documented by: SWAPNA Diphenhydramine HCl (Diphenhydramine 25 Mg Tablet) 50 mg PO NOW ONE Stop: 03/26/21 18:24 Last Admin: 03/26/21 18:42 Dose: 50 mg Documented by: SWAPNA Famotidine (Famotidine 20 Mg Tablet) 20 mg PO NOW ONE Stop: 03/26/21 18:26 Last Admin: 03/26/21 18:42 Dose: 20 mg Documented by: SWAPNA Hydromorphone HCl (Hydromorphone 2 Mg Inj) 1 mg SUBCUT Q4H PRN PRN Reason: Pain, Severe (7-10) Last Admin: 03/26/21 18:41 Dose: 1 mg Documented by: SWAPNA Vital Signs Vital signs: Vital Signs - 8 hr 03/26/21 17:01 03/26/21 19:12 Temperature 98.1 F Pulse Rate 104 H 74 Respiratory Rate 22 17 Blood Pressure 133/63 121/71 Pulse Oximetry 100 100 MDM - Skin/Abscess/Foreign Bdy MDM Narrative Medical decision making narrative: Patient has worsening rash sequela periorbital rash does seem to be contact dermatitis however rash going down her face not quite sure. sHe probably would benefit from steroids however she is refusing prednisone saying that she is allergic it makes her very angry present to be around. She has never had dexamethasone, but is willing to try. She is not having anaphylaxis. She is given Benadryl dexamethasone and Pepcid in the ED. She has appointment with her PCP next week. May need to go to Dermatology. Also recommend stopping some of the eyedrops as well. It is very difficult to say what is causing all of this however I do feel that there is an obvious contact dermatitis with bilateral periorbital areas. This time it does not seem like a cellulitic rash. She is given strict return precautions. Discharge Plan Departure Patient Disposition: Home Clinical Impression: Contact dermatitis and eczema Instructions: DI for Atopic Dermatitis-Adult Activity Restrictions/Additional Instructions: *You have been diagnosed with probable allergic reaction *What to do: At this time I think you are possibly reacting to her goggles. I recommend an alternative to keeping her eyes closed such is a mask or something different had to see if this helps her rash. Your given 1 dose of dexamethasone in the emergency department it should last for a few days you may actually need more of it if it seems to be helping. I also with stop the drops or lubricant. Please use artificial tears or something different to keep your eyes moist. You may also try the ointment Aquaphor on your face to help with the dryness *Continue to take medications as directed Benadryl 25-50 mg every 6 hours Pepcid 20 mg twice a day day-this will help with allergic reaction *Follow up with your primary care provider in 2-3 days or call [phone] *Return to ER if you should have increased difficulty breathing, worsening rash, difficulty swallowing or any new, worsening or concerning symptoms Prescriptions: No Action estradiol 1 mg tablet 1 mg PO DAILY 0RF spironolactone 25 MG tablet 25 mg PO QDAY Qty: 0 0RF albuterol sulfate [Ventolin HFA] 90 MCG/PUFF HFA aerosol inhaler 2 puff INH Q4HP PRN (Reason: Asthma) Qty: 0 0RF Restasis 1 EACH dropperette 2 drp OPHTH BID Qty: 0 0RF clobetasol 0.05 % ointment 1 karel Topical BIDP PRN (Reason: As directed) Qty: 0 0RF fluticasone propionate [Flonase Allergy Relief] 9.9 ML spray,suspension 1 spray Intranasal QDAY Qty: 0 0RF losartan-hydrochlorothiazide 50 MG/12.5 MG tablet 1 tab PO QDAY Qty: 0 0RF omeprazole 20 MG tablet,delayed release (DR/EC) 40 mg PO QDAY Qty: 0 0RF multivitamin [Multiple Vitamins] 1 EACH tablet 1 tab PO QDAY Qty: 0 0RF [PROBIOTIC] PO QDAY Qty: 0 0RF cetirizine [Zyrtec] 10 mg tablet 10 mg PO DAILY PRN (Reason: Seasonal allergies) 0RF levothyroxine 112 mcg PO DAILY 0RF liothyronine 5 mcg PO QAM 0RF estradiol 1 mg tablet 1 mg PO DAILY 0RF promethazine 12.5 mg tablet 12.5 mg PO TID PRN (Reason: nausea and vomiting) Qty: 10 0RF Rx Instructions: 3 doses during day; last dose no later than 4 hr before bedtime promethazine 12.5 mg suppository 12.5 mg NE TID PRN (Reason: nausea and vomiting) Qty: 1 0RF Rx Instructions: do not give 3rd daily dose after evening meal or within 4hr before bed sennosides [Senokot] 8.6 mg tablet 8.6 mg PO BEDTIME Qty: 10 1RF docusate sodium [Colace] 100 mg capsule 100 mg PO BID Qty: 14 1RF hydromorphone [Dilaudid] 2 mg tablet 2 mg PO Q6H PRN (Reason: pain) Qty: 10 0RF erythromycin 5 mg/gram (0.5 %) ointment 0.5 inch EYE-LEFT TID Qty: 1 0RF promethazine 12.5 mg suppository 12.5 mg NE Q4-6H PRN (Reason: nausea and vomiting) Qty: 12 0RF Referrals: Eugenio Coello MD [Primary Care Provider] -
[2021-03-26] MEDS: DEXAMETHASONE 10 MG/ML VIAL PO (18:41)
[2021-03-26] MEDS: HYDROMORPHONE 2 MG INJ 1 MG SUBCUT (18:41)
[2021-03-26] MEDS: FAMOTIDINE 20 MG TABLET PO (18:42)
[2021-03-26] MEDS: diphenhydrAMINE 25 MG TABLET 50 MG PO (18:42)
[2021-03-26 19:12] VITALS: BP 121/71; PULSE 74; RESP 17; O2SAT 100
== END 2021-03-26 19:14 | disposition home or self-care (01) ==
PROVIDERS: Emergency Provider Emergency Medicine; Family Provider Physical Medicine & Rehabilitation Pain Medicine; PCP Internal Medicine
DX: L25.9 Unspecified contact dermatitis, unspecified cause (principal); Z88.8 Allergy status to other drugs, medicaments and biological substances
CPT/HCPCS: 96372; 99283; A9270; J1100; J1170

== ENCOUNTER → 2021-03-31 14:32 | Outpatient (CLI) | payer MEDICARE, OTHER, SELFPAY | PROVIDERS: Family Provider Physical Medicine & Rehabilitation Pain Medicine; PCP Internal Medicine; Referring Provider Internal Medicine; Visit Provider Family Medicine | DX: L89.153 Pressure ulcer of sacral region, stage 3 (principal); E46 Unspecified protein-calorie malnutrition; R64 Cachexia; M62.81 Muscle weakness (generalized); F11.20 Opioid dependence, uncomplicated; M54.50 Low back pain, unspecified | CPT/HCPCS: 11042; 99204; 99213 ==

== ENCOUNTER 2021-04-02 14:38 | Emergency (ER) | payer MEDICARE, OTHER, SELFPAY ==
[2021-04-02] VITALS (7 sets, daily range): BP systolic 126–149; BP diastolic 60–87; PULSE 80–105; RESP 18; TEMP 36.4; O2SAT 95–100
--- NOTE | 2021-04-02 15:45 | PC.NURSE ---
PIV unsuccessful x3. IV nurse called.
[2021-04-02 16:22] LABS: Add Manual Diff / Slide Review NO; Basophils Absolute Auto 100 /uL (0-100); Basophils Percent Auto 1.7 % (0-2); Eosinophils Absolute Auto 0 /uL (0-450); Eosinophils Percent Auto 0.3 % (2-4); Hematocrit 31.8 % (36-46); Hemoglobin 10.8 g/dL (12.0-16.0); Lymphocytes Absolute Auto 700 /uL (1100-4500); Lymphocytes Percent Auto 8.7 % (25-40); Mean Corpuscular HGB Conc 34.1 % (30-36); Mean Corpuscular Hemoglobin 37.9 PG (26-34); Mean Corpuscular Volume 111.3 fL (80-100); Monocytes Absolute Auto 500 /uL (0-900); Monocytes Percent Auto 6.4 % (3-14); Neutrophils Absolute Auto 6900 /uL (1500-7000); Neutrophils Percent Auto 82.9 % (50-75); Platelet Count 237 X10^3/uL (150-400); Red Blood Cell Count 2.85 X10^6/uL (4.0-5.2); Red Cell Distribution Width 14.1 % (11.6-14.8); White Blood Cell Count 8.3 X10^3/uL (4.5-11.0)
--- NOTE | 2021-04-02 16:37 | ED.BACK ---
HPI - Back Pain/Injury <Anh Gordon, [facility] - Last Filed: 04/02/21 21:12> General Chief Complaint: Toxicology Problem Stated Complaint: Possible OD Time Seen by Provider: 04/02/21 15:32 Source: patient, family and EMS History of Present Illness HPI Narrative: 71-year-old female brought into the emergency department by her after she endorses taking a total of 20 of her 4 mg Dilaudid pills, half of them last night, the other half this morning at 5:00 a.m. for her low back pain exacerbation which she describes as intolerable. Patient endorses that she had a botched back surgery requiring 3 additional surgeries and she lives in daily agony and is unable to care her for self the way that she used to. She tells me that at the time she wanted to quietly and her life without anybody knowing. Today she tells me she does not want to hurt herself, she does not want to she explains that is against her face and her core beliefs she also tells me this is against a promise she made to Dr. Coello. She reports that her back pain is the worst thing that she lives through every day and she has tried everything and nothing helps. She endorses feeling a little bit tired but otherwise denies any inability to stay awake, nausea vomiting, any amnesia, and she has had her with her since this happened. She did not tell him until later in the day. Related Data Home Medications Medication Instructions Recorded Confirmed albuterol sulfate 90 mcg/actuation 2 puff INH Q4HP PRN #0 puff 11/21/12 10/08/20 aerosol inhaler (Ventolin HFA) cyclosporine 0.05 % eye drops in a 2 drp OPHTH BID #0 11/21/12 10/08/20 dropperette (Restasis) spironolactone 25 mg tablet 25 mg PO QDAY #0 tab 11/21/12 10/08/20 clobetasol 0.05 % topical ointment 1 karel TOPICAL BIDP PRN #0 08/27/16 10/08/20 [PROBIOTIC] PO QDAY #0 02/22/17 10/08/20 fluticasone propionate 50 1 spray INTRANASAL QDAY #0 02/22/17 10/08/20 mcg/actuation nasal spray,suspension (Flonase Allergy Relief) losartan 50 mg-hydrochlorothiazide 1 tab PO QDAY #0 02/22/17 10/08/20 12.5 mg tablet multivitamin (Multiple Vitamins) 1 tab PO QDAY #0 02/22/17 10/08/20 omeprazole 20 mg tablet,delayed 40 mg PO QDAY #0 02/22/17 10/08/20 release cetirizine 10 mg tablet (Zyrtec) 10 mg PO DAILY PRN tab 05/12/18 10/08/20 levothyroxine 112 mcg PO DAILY 05/12/18 10/08/20 liothyronine 5 mcg PO QAM 05/12/18 10/08/20 estradiol 1 mg tablet 1 mg PO DAILY 07/25/18 10/08/20 estradiol 1 mg tablet 1 mg PO DAILY 08/28/18 10/08/20 Previous Rx's Medication Instructions Recorded docusate sodium 100 mg capsule 100 mg PO BID #14 cap 06/14/18 (Colace) hydromorphone 2 mg tablet 2 mg PO Q6H PRN #10 tab 06/14/18 (Dilaudid) sennosides 8.6 mg tablet (Senokot) 8.6 mg PO BEDTIME #10 tab 06/14/18 erythromycin 5 mg/gram (0.5 %) eye 0.5 inch EYE-LEFT TID #1 gram 08/28/18 ointment promethazine 12.5 mg rectal 12.5 mg OH TID PRN #1 each 01/02/20 suppository promethazine 12.5 mg tablet 12.5 mg PO TID PRN #10 tab 01/02/20 promethazine 12.5 mg rectal 12.5 mg OH Q4-6H PRN #12 each 01/28/21 suppository methocarbamol 500 mg tablet 500 mg PO Q8H PRN #20 tab 04/02/21 naloxone 4 mg/actuation nasal spray 4 mg INTRANASAL Q2M #2 ea 04/02/21 Allergies Allergy/AdvReac Type Severity Reaction Status Date / Time adhesive [ADHESIVE] Allergy Severe HIVES Verified 04/02/21 14:57 amlodipine [AMLODIPINE] Allergy Severe ANGIOEDEMA Verified 04/02/21 14:57 amoxicillin [AMOXICILLIN] Allergy Severe ANAPHYLAXIS Verified 04/02/21 14:57 cephalexin [CEPHALEXIN] Allergy Severe ANAPHYLAXIS Verified 04/02/21 14:57 Cephalosporins Allergy Severe ANAPHYLAXIS Verified 04/02/21 14:57 [CEPHALOSPORINS] hydrocodone [HYDROCODONE] Allergy Severe HIVES/ITCHI Verified 04/02/21 14:57 NG iodine [IODINE] Allergy Severe ANAPHYLAXIS Verified 04/02/21 14:57 lisinopril [LISINOPRIL] Allergy Severe ANGIOEDEMA Verified 04/02/21 14:57 Penicillins [PENICILLINS] Allergy Severe ANAPHYLAXIS Verified 04/02/21 14:57 Iodinated Contrast Media Allergy Anaphylaxis Verified 04/02/21 18:54 [Iodinated Contrast- Oral and IV Dye] erythromycin base AdvReac Severe Vomiting Verified 04/02/21 18:54 [ERYTHROMYCIN BASE] gabapentin [GABAPENTIN] AdvReac Severe nausea, Verified 04/02/21 18:54 headache sumatriptan [SUMATRIPTAN] AdvReac Unknown nightmares Verified 04/02/21 18:54 codeine AdvReac nausea,itch Verified 04/02/21 18:54 ing oxycodone [From Percocet] AdvReac nausea, Verified 04/02/21 18:54 itching Review of Systems <CARO Bell - Last Filed: 04/02/21 21:12> Review of Systems Narrative: General: denies fever, chills Head/Neck: denies headache, neck pain Eyes: denies visual changes, eye pain Cardio: denies chest pain, palpitations Respiratory: denies shortness of breath, cough GI: denies abdominal pain, nausea, vomiting, or diarrhea : denies dysuria, hematuria MSK: denies joint pain, endorses bilateral lower extremity weakness today, endorses low back pain which is as bad as it always is. Skin: denies rash, itching Neuro: denies numbness, tingling Patient History <CARO Bell - Last Filed: 04/02/21 21:12> Medical History (Updated 04/02/21 @ 18:51 by CARO Bell) Asthma Bilateral lower extremity edema Colon polyps Degenerative disc disease, cervical Difficult intravenous access Eczema GERD (gastroesophageal reflux disease) Glaucoma HTN (hypertension) Hyperlipidemia Hypothyroidism Lesion of lung Meningioma (~10/2015) Seasonal allergies SLE (systemic lupus erythematosus related syndrome) Superficial thrombophlebitis of left leg (~1985) Vitamin D deficiency Surgical History H/O foot surgery H/O: hysterectomy (~08/1978) History of appendectomy History of section History of cosmetic surgery History of gastric bypass (~01/2017) History of lumbar spinal fusion (~2002) History of lumbar spinal fusion Hx of abdominal surgery Hx of cholecystectomy Hx of eye surgery (~12/2015) S/P foot surgery, right (01/08/17) Family History Father Hypertension Heart disease Diabetes mellitus Mother Heart disease Gallstones Stroke Cancer Adenocarcinoma in situ Sister Breast cancer Family/Other Breast cancer Grandfather No problems noted. Social History household members: spouse Smoking Status: Never smoker Smoking Status: Never smoker alcohol intake frequency: 0-2 drinks per day Alcohol type: wine Substance Use Type: does not use Exam <CARO Bell - Last Filed: 04/02/21 21:12> Narrative Exam Narrative: Independently reviewed vitals signs and nursing notes. General: Awake, alert, nontoxic, no cardiorespiratory distress, frail, elderly woman Head/Neck: Atraumatic, neck full range of motion Eyes: EOMI, conjunctiva normal Nose: nares patent, no rhinorrhea Mouth/Throat: moist mucus membranes, posterior pharynx normal, no oral lesions Cardio: Regular rate and rhythm, no peripheral edema Respiratory: respirations unlabored without wheezing, stridor, or rales. No retractions. GI: Abdomen soft, nontender MSK: Moves all extremities, neurovascularly intact, significant lumbar spine tenderness with surrounding muscle tension, no point tenderness along vertebrae but on bilateral sides, musculature is tense and spasming Skin: Normal capillary refill, no rash Neuro: Normal speech and cognition, normal gait, GCS 15, no focal neurologic deficits, Psych: No active suicidal or homicidal ideation, patient endorses that she regrets which she did, she endorses that this is a pain crisis, she is overwhelmed with how much pain she has every day, she wishes that there was a treatment for her pain because she cannot live like this forever. Initial Vital Signs Initial Vital Signs: Vital Signs Temperature 97.5 F L 04/02/21 14:40 Pulse Rate 105 H 04/02/21 14:40 Respiratory Rate 18 04/02/21 14:40 Blood Pressure 149/65 H 04/02/21 14:40 Pulse Oximetry 95 04/02/21 14:40 <Naif Meadows MD - Last Filed: 04/07/21 12:25> Initial Vital Signs Initial Vital Signs: Vital Signs Temperature 97.5 F L 04/02/21 14:40 Pulse Rate 105 H 04/02/21 14:40 Respiratory Rate 18 04/02/21 14:40 Blood Pressure 149/65 H 04/02/21 14:40 Pulse Oximetry 95 04/02/21 14:40 Course <CARO Bell - Last Filed: 04/02/21 21:12> Orders Ordered: Discontinued Medications Hydromorphone HCl (Hydromorphone 2 Mg Tablet) 4 mg PO NOW ONE Stop: 04/02/21 19:01 Last Admin: 04/02/21 19:00 Dose: 4 mg Documented by: CARLOS ERNIQUE Methocarbamol (Methocarbamol 500 Mg Tablet) 500 mg PO NOW ONE Stop: 04/02/21 18:49 Last Admin: 04/02/21 18:56 Dose: 500 mg Documented by: DAVSON Vital Signs Vital signs: Vital Signs - 8 hr 04/02/21 14:40 04/02/21 15:30 04/02/21 15:45 Temperature 97.5 F L Pulse Rate 105 H 92 H 95 H Respiratory Rate 18 Blood Pressure 149/65 H 128/61 Pulse Oximetry 95 100 99 04/02/21 16:00 04/02/21 16:15 04/02/21 16:30 Temperature Pulse Rate 87 93 H 83 Respiratory Rate Blood Pressure 132/60 126/64 Pulse Oximetry 100 04/02/21 19:34 Temperature Pulse Rate 80 Respiratory Rate Blood Pressure 127/87 Pulse Oximetry 97 <Naif Meadows MD - Last Filed: 04/07/21 12:25> Orders Ordered: Discontinued Medications Hydromorphone HCl (Hydromorphone 2 Mg Tablet) 4 mg PO NOW ONE Stop: 04/02/21 19:01 Last Admin: 04/02/21 19:00 Dose: 4 mg Documented by: CARLOS ENRIQUE Methocarbamol (Methocarbamol 500 Mg Tablet) 500 mg PO NOW ONE Stop: 04/02/21 18:49 Last Admin: 04/02/21 18:56 Dose: 500 mg Documented by: SHEELA Vital Signs Vital signs: Vital Signs - 8 hr 04/02/21 14:40 04/02/21 15:30 04/02/21 15:45 Temperature 97.5 F L Pulse Rate 105 H 92 H 95 H Respiratory Rate 18 Blood Pressure 149/65 H 128/61 Pulse Oximetry 95 100 99 04/02/21 16:00 04/02/21 16:15 04/02/21 16:30 Temperature Pulse Rate 87 93 H 83 Respiratory Rate Blood Pressure 132/60 126/64 Pulse Oximetry 100 04/02/21 19:34 Temperature Pulse Rate 80 Respiratory Rate Blood Pressure 127/87 Pulse Oximetry 97 MDM - Back Pain/Injury <Anh Gordon [facility] - Last Filed: 04/02/21 21:12> Lab Data Result diagrams: 04/02/21 16:09 04/02/21 16:09 Labs: Lab Results 04/02/21 04/02/21 04/02/21 Range/Units 16:09 16:09 16:09 WBC 8.3 (4.5-11.0) X10^3/uL RBC 2.85 L (4.0-5.2) X10^6/uL Hgb 10.8 L (12.0-16.0) g/dL Hct 31.8 L (36-46) % MCV 111.3 H (80-100) fL MCH 37.9 H (26-34) PG MCHC 34.1 (30-36) % RDW 14.1 (11.6-14.8) % Plt Count 237 (150-400) X10^3/uL Neut % (Auto) 82.9 H (50-75) % Lymph % (Auto) 8.7 L (25-40) % [place] % (Auto) 6.4 (3-14) % Eos % (Auto) 0.3 L (2-4) % Baso % (Auto) 1.7 (0-2) % Neut # (Auto) 6900 (6988-3443) /uL Lymph # (Auto) 700 L (4807-8894) /uL [place] # (Auto) 500 (0-900) /uL Eos # (Auto) 0 (0-450) /uL Baso # (Auto) 100 (0-100) /uL RBC Morphology See below Anisocytosis 1+ H Macrocytosis 1+ H Sodium 129 L (137-145) mmol/L Potassium 4.5 (3.4-5.1) mmol/L Chloride 94 L (98-107) mmol/L Carbon Dioxide 24 (22-32) mmol/L BUN 17 (7-17) mg/dL Creatinine 1.67 H (0.52-1.04) mg/dL Estimated GFR 30.2 L (>60) mL/min BUN/Creatinine Ratio 10.2 (6-22) Glucose 117 H (80-110) mg/dL Calcium 8.4 (8.4-10.2) mg/dL Total Bilirubin 6.8 H (0.2-1.3) mg/dL AST 285 H (14-36) IU/L ALT 90 H (<35) IU/L Alkaline Phosphatase 475 H (38-126) U/L Total Protein 7.2 (6.3-8.2) g/dL Albumin 3.4 L (3.5-5.0) g/dL Globulin 3.8 (1.7-4.1) g/dL Albumin/Globulin Ratio 0.9 L (1.0-2.8) TSH 22.5 H (0.47-4.68) uIU/mL Free T4 1.58 (0.78-2.19) ng/dL Salicylates < 1.0 (<20) mg/dL Acetaminophen < 10 L (10-30) ug/mL Ethyl Alcohol < 10 ( - 10) mg/dL SARS-CoV-2 (PCR) (Negative) 04/02/21 04/02/21 Range/Units 16:27 16:27 WBC (4.5-11.0) X10^3/uL RBC (4.0-5.2) X10^6/uL Hgb (12.0-16.0) g/dL Hct (36-46) % MCV (80-100) fL MCH (26-34) PG MCHC (30-36) % RDW (11.6-14.8) % Plt Count (150-400) X10^3/uL Neut % (Auto) (50-75) % Lymph % (Auto) (25-40) % [place] % (Auto) (3-14) % Eos % (Auto) (2-4) % Baso % (Auto) (0-2) % Neut # (Auto) (3273-0186) /uL Lymph # (Auto) (1298-0841) /uL [place] # (Auto) (0-900) /uL Eos # (Auto) (0-450) /uL Baso # (Auto) (0-100) /uL RBC Morphology Anisocytosis Macrocytosis Sodium (137-145) mmol/L Potassium (3.4-5.1) mmol/L Chloride (98-107) mmol/L Carbon Dioxide (22-32) mmol/L BUN (7-17) mg/dL Creatinine (0.52-1.04) mg/dL Estimated GFR (>60) mL/min BUN/Creatinine Ratio (6-22) Glucose (80-110) mg/dL Calcium (8.4-10.2) mg/dL Total Bilirubin (0.2-1.3) mg/dL AST (14-36) IU/L ALT (<35) IU/L Alkaline Phosphatase (38-126) U/L Total Protein (6.3-8.2) g/dL Albumin (3.5-5.0) g/dL Globulin (1.7-4.1) g/dL Albumin/Globulin Ratio (1.0-2.8) TSH (0.47-4.68) uIU/mL Free T4 (0.78-2.19) ng/dL Salicylates (<20) mg/dL Acetaminophen (10-30) ug/mL Ethyl Alcohol ( - 10) mg/dL SARS-CoV-2 (PCR) Negative Negative (Negative) Imaging Data CT scan - abdomen/pelvis: Radiologist's Impression: PROCEDURE:? CT ABDOMEN PELVIS WO CON ? INDICATIONS:? concern for L spine narrowing ? TECHNIQUE:? Axial sections were acquired from the lung bases to the pubic symphysis.? Coronal and sagittal reformats were performed.? For radiation dose reduction, the following was used: ?automated exposure control, adjustment of mA and/or kV according to patient size.? ? COMPARISON:? [facility], CT, CT ABDOMEN PELVIS WO CON, 02/10/2019, 21:03. ? FINDINGS:? Image quality:? Significant beam hardening artifact from the patient's spinal hardware.? ? Lung bases:? Small, right greater than left, pleural effusions. Heart:? No significant findings. ? URINARY: Right Kidney:? Nephrolithiasis without hydronephrosis Right Ureter:? No hydroureter.? ? Left Kidney:? Nephrolithiasis without hydronephrosis Left Ureter:? No hydroureter.? ? Bladder:? Mild wall thickening of the urinary bladder without calculus. ? ? ? ABDOMEN: Liver:? Hepatic steatosis.? ? Gallbladder:? Cholecystectomy? ? Biliary ducts:? Unremarkable.? ? Pancreas:? Fatty atrophy. Spleen:? Unremarkable.? ? Adrenal Glands:? Unremarkable.? ? ? Stomach and Bowel:? Distention of the distal esophagus with air-fluid level.? Gastric bypass change with mild wall thickening of the excluded stomach (i.e.? 2-33). Peritoneum:? No abnormal intraperitoneal fluid.? No free air.? ? Ventral Wall: ? No hernia.? Abdominal Nodes:? No enlarged retroperitoneal or mesenteric lymph nodes.? Vessels:? Aorta and inferior vena cava are normal in size.? ? PELVIS: Pelvic Organs:? The uterus appears surgically absent.? ? Pelvic Nodes: Unremarkable. Miscellaneous: No inguinal hernias are seen.? ? Reticulated and confluent soft tissue density stranding in the subcutaneous fat, compatible with anasarca.? ? Bones:? Extensive postsurgical hardware with secondary degenerative changes.? ? IMPRESSION:? ? 1. Small bilateral pleural effusions.? 2. Bilateral nephrolithiasis. 3. Mild wall thickening of the excluded stomach, which is nonspecific but may represent an infectious or inflammatory process.? 4. Fluid distention of the esophagus, which may reflect reflux.? ? Dictated by: Gilberto Mirza M.D. on 04/02/2021 at 17:14 ? ? Approved by: Gilberto Mirza M.D. on 04/02/2021 at 17:24 ? MDM Narrative Medical decision making narrative: 71-year-old female presented to the emergency department with her who endorses taking 20 of her 4 mg hydromorphone tabs since last night. She reports that she took about half of them yesterday and the other half of them this morning at 5:00 a.m with intent to quietly in peace without any ongoing excruciating low back pain which makes her unable to do most activities of daily living. Patient tells me that she had a botched surgery of her spine in which she had 1 of her nerves cut and she has had daily severe pain ever since. She has tried all different kinds of pain therapy without improvement. Patient currently is tearful, she tells me that she does not have any suicidal ideation, she denies wanting to , she denies intending to harm others, she says her pain is so severe it is a pain crisis every day and she is afraid to live with it because the pain is out of her control. Patient currently does not have any suicidal ideations. She does endorse taking medication to hopefully and her life in her sleep. Patient tells me she broke her safety contract with Dr. Coello which also makes her tearful. Patient tells me it is against her face to do which she did and she will for ever feel bad for doing this to herself, her , and Dr. Coello. Social work was unavailable for her visit today but a consult was put in. I opted to do CT imaging of her spine because she reports it has been at least 3 years since any imaging has been done. This was not significant for any foraminal on narrowing or acute pathology which could be treated surgically. Patient reports that she needs a new pain management plan which will help because otherwise she is out of options. She was given muscle relaxers as she did find some relief while she was here in the emergency department. Poison Control was contacted, it was approximately 12 hours since she took her hydromorphone and patient was alert and oriented the whole time without any depressed respirations or mental status. Patient has an appointment tomorrow morning with Dr. Coello and she has a verbal safety contract between me her and her to have her dispense her medications and to discuss this whole plan with Dr. aPtel tell before making any changes. I think she could benefit from another pain management option like ketamine or nerve ablation if possible, or steroid injections but that is out of my specialty and I am not as familiar with this patient as Dr. Coello is so I will defer to his referrals. Patient and her made a promise that they will return to emergency department if she has any feelings of suicidality, suicidal intent, if her pain is out of control, or if her depression is as bad as it was today. Patient is alert and oriented, not intoxicated, in my opinion has the capacity make decisions, patient expressed understanding of risks and benefits and declines wanting admission to an inpatient psych hospital for observation. Patient is appropriate and amenable to discharge home. Vital signs are stable on repeat examination is unremarkable. Patient has been informed of results. Patient has been given strict return to ER precautions for any new or worsening symptoms. Patient understands to follow up closely with outpatient providers as instructed. Patient understands plan and agrees to discharge home. All questions and concerns answered at this time. <Naif Meadows MD - Last Filed: 04/07/21 12:25> Lab Data Labs: Lab Results 04/02/21 04/02/21 04/02/21 Range/Units 16:09 16:09 16:09 WBC 8.3 (4.5-11.0) X10^3/uL RBC 2.85 L (4.0-5.2) X10^6/uL Hgb 10.8 L (12.0-16.0) g/dL Hct 31.8 L (36-46) % MCV 111.3 H (80-100) fL MCH 37.9 H (26-34) PG MCHC 34.1 (30-36) % RDW 14.1 (11.6-14.8) % Plt Count 237 (150-400) X10^3/uL Neut % (Auto) 82.9 H (50-75) % Lymph % (Auto) 8.7 L (25-40) % [place] % (Auto) 6.4 (3-14) % Eos % (Auto) 0.3 L (2-4) % Baso % (Auto) 1.7 (0-2) % Neut # (Auto) 6900 (3111-4450) /uL Lymph # (Auto) 700 L (0026-7525) /uL [place] # (Auto) 500 (0-900) /uL Eos # (Auto) 0 (0-450) /uL Baso # (Auto) 100 (0-100) /uL RBC Morphology See below Anisocytosis 1+ H Macrocytosis 1+ H Sodium 129 L (137-145) mmol/L Potassium 4.5 (3.4-5.1) mmol/L Chloride 94 L (98-107) mmol/L Carbon Dioxide 24 (22-32) mmol/L BUN 17 (7-17) mg/dL Creatinine 1.67 H (0.52-1.04) mg/dL Estimated GFR 30.2 L (>60) mL/min BUN/Creatinine Ratio 10.2 (6-22) Glucose 117 H (80-110) mg/dL Calcium 8.4 (8.4-10.2) mg/dL Total Bilirubin 6.8 H (0.2-1.3) mg/dL AST 285 H (14-36) IU/L ALT 90 H (<35) IU/L Alkaline Phosphatase 475 H (38-126) U/L Total Protein 7.2 (6.3-8.2) g/dL Albumin 3.4 L (3.5-5.0) g/dL Globulin 3.8 (1.7-4.1) g/dL Albumin/Globulin Ratio 0.9 L (1.0-2.8) TSH 22.5 H (0.47-4.68) uIU/mL Free T4 1.58 (0.78-2.19) ng/dL Salicylates < 1.0 (<20) mg/dL Acetaminophen < 10 L (10-30) ug/mL Ethyl Alcohol < 10 ( - 10) mg/dL SARS-CoV-2 (PCR) (Negative) 04/02/21 04/02/21 Range/Units 16:27 16:27 WBC (4.5-11.0) X10^3/uL RBC (4.0-5.2) X10^6/uL Hgb (12.0-16.0) g/dL Hct (36-46) % MCV (80-100) fL MCH (26-34) PG MCHC (30-36) % RDW (11.6-14.8) % Plt Count (150-400) X10^3/uL Neut % (Auto) (50-75) % Lymph % (Auto) (25-40) % [place] % (Auto) (3-14) % Eos % (Auto) (2-4) % Baso % (Auto) (0-2) % Neut # (Auto) (4251-6124) /uL Lymph # (Auto) (8128-6244) /uL [place] # (Auto) (0-900) /uL Eos # (Auto) (0-450) /uL Baso # (Auto) (0-100) /uL RBC Morphology Anisocytosis Macrocytosis Sodium (137-145) mmol/L Potassium (3.4-5.1) mmol/L Chloride (98-107) mmol/L Carbon Dioxide (22-32) mmol/L BUN (7-17) mg/dL Creatinine (0.52-1.04) mg/dL Estimated GFR (>60) mL/min BUN/Creatinine Ratio (6-22) Glucose (80-110) mg/dL Calcium (8.4-10.2) mg/dL Total Bilirubin (0.2-1.3) mg/dL AST (14-36) IU/L ALT (<35) IU/L Alkaline Phosphatase (38-126) U/L Total Protein (6.3-8.2) g/dL Albumin (3.5-5.0) g/dL Globulin (1.7-4.1) g/dL Albumin/Globulin Ratio (1.0-2.8) TSH (0.47-4.68) uIU/mL Free T4 (0.78-2.19) ng/dL Salicylates (<20) mg/dL Acetaminophen (10-30) ug/mL Ethyl Alcohol ( - 10) mg/dL SARS-CoV-2 (PCR) Negative Negative (Negative) Discharge Plan Departure Patient Disposition: Home Clinical Impression: Back pain Qualifiers: Back pain location: low back pain Chronicity: acute Back pain laterality: unspecified Sciatica presence: with sciatica Sciatica laterality: bilateral sciatica Qualified Code(s): M54.42 - Lumbago with sciatica, left side Opioid overdose Qualifiers: Encounter type: initial encounter Injury intent: intentional self-harm Qualified Code(s): T40.2X2A - Poisoning by other opioids, intentional self-harm, initial encounter Instructions: Naloxone for Opiate Overdose - [facility] Activity Restrictions/Additional Instructions: *You have been diagnosed with an intentional overdose of your hydromorphone with intent to not wake up. Because you do not currently have any suicidal ideation, or intent to harm yourself, you have a safety contract with yourself, , and Dr. Burton. Please go to your appointment with Dr. Coello tell tomorrow morning, and let him know that your pain has been out of control for a long while. Please ask Could tell what he recommends regarding your pain management in the future. I have referred you to a pain clinic and to a spine doctor but I do not know if these referrals are of any use. Please ask Dr. Coello tell what he recommends, if spine injections would be helpful, physical therapy, or alternative pain management medications. I hope you feel better soon, I have referred you to social work, please be on the lookout further phone call. *What to do: *Please continue to take your regular medications as directed. [x ] New medication prescriptions sent to your pharmacy: [[facility] ] [ ] New medication written as a paper prescription [ ] No new medications given *Please follow up with your primary care provider in 2-3 days, call for an appointment. Let them know you were seen in the Emergency Department and that we ask that you be seen in follow up. We will electronically transmit a record of today's note if your PCP is in our system *If you do not have a primary care provider please contact the [facility] Resource line at [phone]. They will ask some questions about your medical history and help get you set up with a doctor in the community. *Return to Emergency Department if you should have any new, worsening or concerning symptoms, such as [fever greater than 101F, chills, worsening pain, persistent vomiting or other bothersome symptoms] Prescriptions: New naloxone 4 mg/actuation spray,non-aerosol 4 mg intranasal Q2M Qty: 2 0RF Rx Instructions: spray 1 dose into ONE nostril; alternate nostrils w each dose until help arrives methocarbamol 500 mg tablet 500 mg PO Q8H PRN (Reason: muscle spasm) Qty: 20 0RF No Action estradiol 1 mg tablet 1 mg PO DAILY 0RF spironolactone 25 MG tablet 25 mg PO QDAY Qty: 0 0RF albuterol sulfate [Ventolin HFA] 90 MCG/PUFF HFA aerosol inhaler 2 puff INH Q4HP PRN (Reason: Asthma) Qty: 0 0RF Restasis 1 EACH dropperette 2 drp OPHTH BID Qty: 0 0RF clobetasol 0.05 % ointment 1 karel Topical BIDP PRN (Reason: As directed) Qty: 0 0RF fluticasone propionate [Flonase Allergy Relief] 9.9 ML spray,suspension 1 spray Intranasal QDAY Qty: 0 0RF losartan-hydrochlorothiazide 50 MG/12.5 MG tablet 1 tab PO QDAY Qty: 0 0RF omeprazole 20 MG tablet,delayed release (DR/EC) 40 mg PO QDAY Qty: 0 0RF multivitamin [Multiple Vitamins] 1 EACH tablet 1 tab PO QDAY Qty: 0 0RF [PROBIOTIC] PO QDAY Qty: 0 0RF cetirizine [Zyrtec] 10 mg tablet 10 mg PO DAILY PRN (Reason: Seasonal allergies) 0RF levothyroxine 112 mcg PO DAILY 0RF liothyronine 5 mcg PO QAM 0RF estradiol 1 mg tablet 1 mg PO DAILY 0RF promethazine 12.5 mg tablet 12.5 mg PO TID PRN (Reason: nausea and vomiting) Qty: 10 0RF Rx Instructions: 3 doses during day; last dose no later than 4 hr before bedtime promethazine 12.5 mg suppository 12.5 mg [place] TID PRN (Reason: nausea and vomiting) Qty: 1 0RF Rx Instructions: do not give 3rd daily dose after evening meal or within 4hr before bed sennosides [Senokot] 8.6 mg tablet 8.6 mg PO BEDTIME Qty: 10 1RF docusate sodium [Colace] 100 mg capsule 100 mg PO BID Qty: 14 1RF hydromorphone [Dilaudid] 2 mg tablet 2 mg PO Q6H PRN (Reason: pain) Qty: 10 0RF erythromycin 5 mg/gram (0.5 %) ointment 0.5 inch EYE-LEFT TID Qty: 1 0RF promethazine 12.5 mg suppository 12.5 mg [place] Q4-6H PRN (Reason: nausea and vomiting) Qty: 12 0RF Referrals: Eugenio Coello MD [Primary Care Provider] - Stand Alone Forms: Naloxone Standing Order [facility] <Naif Meadows MD - Last Filed: 04/07/21 12:25> Cosign ED Attending Cosignature Attestation: I personally evaluated and examined the patient and agree with the assessment, treatment plan, and disposition of the patient as recorded by the APC. Pt denies any si or hi, does regret taking her meds in excess. Is currently hemodynamically stable. Awake alert oriented x4. Has been at bedside. Contract for safety. The desire for outpatient follow-up with social work. At this time has been will manage medications and be with patient entire time. Naif Meadows MD
--- NOTE | 2021-04-02 16:43 | DI.CT.S_ITS ---
PROCEDURE: CT ABDOMEN PELVIS WO CON INDICATIONS: concern for L spine narrowing TECHNIQUE: Axial sections were acquired from the lung bases to the pubic symphysis. Coronal and sagittal reformats were performed. For radiation dose reduction, the following was used: automated exposure control, adjustment of mA and/or kV according to patient size. COMPARISON: [facility], CT, CT ABDOMEN PELVIS WO CON, 02/10/2019, 21:03. FINDINGS: Image quality: Significant beam hardening artifact from the patient's spinal hardware. Lung bases: Small, right greater than left, pleural effusions. Heart: No significant findings. URINARY: Right Kidney: Nephrolithiasis without hydronephrosis Right Ureter: No hydroureter. Left Kidney: Nephrolithiasis without hydronephrosis Left Ureter: No hydroureter. Bladder: Mild wall thickening of the urinary bladder without calculus. ABDOMEN: Liver: Hepatic steatosis. Gallbladder: Cholecystectomy Biliary ducts: Unremarkable. Pancreas: Fatty atrophy. Spleen: Unremarkable. Adrenal Glands: Unremarkable. Stomach and Bowel: Distention of the distal esophagus with air-fluid level. Gastric bypass change with mild wall thickening of the excluded stomach (i.e. 2-33). Peritoneum: No abnormal intraperitoneal fluid. No free air. Ventral Wall: No hernia. Abdominal Nodes: No enlarged retroperitoneal or mesenteric lymph nodes. Vessels: Aorta and inferior vena cava are normal in size. PELVIS: Pelvic Organs: The uterus appears surgically absent. Pelvic Nodes: Unremarkable. Miscellaneous: No inguinal hernias are seen. Reticulated and confluent soft tissue density stranding in the subcutaneous fat, compatible with anasarca. Bones: Extensive postsurgical hardware with secondary degenerative changes. IMPRESSION: 1. Small bilateral pleural effusions. 2. Bilateral nephrolithiasis. 3. Mild wall thickening of the excluded stomach, which is nonspecific but may represent an infectious or inflammatory process. 4. Fluid distention of the esophagus, which may reflect reflux. Dictated by: Gilberto Mirza M.D. on 04/02/2021 at 17:14 Approved by: Gilberto Mirza M.D. on 04/02/2021 at 17:24
--- NOTE | 2021-04-02 16:54 | PC.NURSE ---
Per provider, pt is not SI at this time. Therefore, we are addressing her pain issues and diagnostic imaging needs.
[2021-04-02 16:58] LABS: Anisocytosis 1+; Macrocytosis 1+
[2021-04-02 17:00] LABS: Acetaminophen < 10 ug/mL (10-30); Alanine Aminotransferase 90 IU/L (<35); Albumin 3.4 g/dL (3.5-5.0); Albumin Globulin Ratio 0.9 (1.0-2.8); Alkaline Phosphatase 475 U/L (38-126); Aspartate Aminotransferase 285 IU/L (14-36); BUN Creatinine Ratio 10.2 (6-22); Bilirubin Total 6.8 mg/dL (0.2-1.3); Blood Urea Nitrogen 17 mg/dL (7-17); Calcium 8.4 mg/dL (8.4-10.2); Carbon Dioxide 24 mmol/L (22-32); Chloride 94 mmol/L (98-107); Estimated Glomerular Filt Rate 30.2 mL/min (>60); Ethanol (ETOH) < 10 mg/dL; Globulin 3.8 g/dL (1.7-4.1); Glucose 117 mg/dL (80-110); HEMOLYSIS < 15 (0-50); Potassium 4.5 mmol/L (3.4-5.1); Salicylate < 1.0 mg/dL (<20); Sodium 129 mmol/L (137-145); Total Protein 7.2 g/dL (6.3-8.2)
--- NOTE | 2021-04-02 17:04 | PC.NURSE ---
Pt reports that she has been dealing with chronic back pain for the past 3 years and states that she intentionally OD last night and this morning stating I wanted to fall asleep and not bother anyone anymore. Took 20 tabs of 4mg Hydromorphone. Pt is A&Ox3. Lethargic, pale. Family at the bedside. Provider states pt is not SI at this time.
[2021-04-02 17:11] LABS: COVID19 -Nasal RAPID Negative (Negative)
[2021-04-02 17:33] LABS: COVID19 - ADMIT (NP swab/PCR) Negative (Negative)
[2021-04-02 17:39] LABS: Free T4, Direct Thyroxine 1.58 ng/dL (0.78-2.19)
[2021-04-02 17:53] LABS: Thyroid Stimulating Hormone 22.5 uIU/mL (0.47-4.68)
[2021-04-02] MEDS: methocarbamoL 500 MG TABLET PO (18:56)
[2021-04-02] MEDS: HYDROMORPHONE 2 MG TABLET 4 MG PO (19:00)
== END 2021-04-02 19:35 | disposition home or self-care (01) ==
PROVIDERS: Emergency Medicine; Emergency Provider Nurse Practitioner Critical Care Medicine; Family Provider Physical Medicine & Rehabilitation Pain Medicine; PCP Internal Medicine
DX: T40.2X2A Poisoning by other opioids, intentional self-harm, initial encounter (principal); M54.42 Lumbago with sciatica, left side; Z20.822 Contact with and (suspected) exposure to COVID-19
CPT/HCPCS: 36415; 74176; 80053; 80320; 80329; 84439; 84443; 85025; 87635; 99284; C9803; G0480

== ENCOUNTER 2021-04-14 04:03 | Inpatient (IN) | payer MEDICARE, OTHER, SELFPAY ==
[2021-04-14] VITALS (29 sets, daily range): BP systolic 86–136; BP diastolic 42–67; PULSE 68–99; RESP 14–20; TEMP 36.4–37.2; O2SAT 87–100; BMI 20.9
--- NOTE | 2021-04-14 03:54 | ED_ITS ---
HPI - Sepsis <Yannick Rodriguez DO - Last Filed: 04/16/21 20:09> General Chief Complaint: Altered Mental Status Evaluation Narrative: 71-year-old female nonsmoker with chronic back pain, known decubitus ulcers, opioid use, hepatic disease presents with the few days of worsening altered mental status and failure to thrive. She lives at home with her and has not been eating or drinking for the past few days. He activated EMS this morning because she was not acting right, on their arrival EMS noted a blood pressure in the 80s, by the time they got here she was 105, alert and oriented. She denies any headache or blurred vision, she states she is a full code. She denies any chest pain or shortness of breath. She denies any abdominal pain, her chief complaint is of the chronic pain in her back from multiple prior surgeries as well as the decubitus ulcer on her sacrum. states that she has not had anything to eat or drink in the past few days. They are both relatively poor historians about her overall health. Review of Systems <Yannick Rodriguez DO - Last Filed: 04/16/21 20:09> Review of Systems Narrative: GENERAL: See HPI HEENT: Denies sinus pain, ear pain, sore throat, difficulty swallowing, dizziness. RESPIRATORY: Denies dyspnea, cough, wheezing, hemoptysis, sputum. CARDIOVASCULAR: Denies chest pain, palpitations, orthopnea, edema, GASTROINTESTINAL: See HPI : See HPI MUSCULOSKELETAL: denies weakness, joint pain, or bony pain SKIN: Denies rash, skin lesions, or other NEUROLOGIC: Denies weakness, headache, numbness, change in speech, confusion, seizures, incoordination. PSYCHIATRIC: No concerning psychosocial issues. 12 point review of systems is negative except for those stated above Patient History <DO Christie Pearson Last Filed: 04/16/21 20:09> Medical History Asthma Bilateral lower extremity edema Colon polyps Degenerative disc disease, cervical Difficult intravenous access Eczema GERD (gastroesophageal reflux disease) Glaucoma HTN (hypertension) Hyperlipidemia Hypothyroidism Lesion of lung Meningioma (~10/2015) Seasonal allergies SLE (systemic lupus erythematosus related syndrome) Superficial thrombophlebitis of left leg (~1985) Vitamin D deficiency Surgical History H/O foot surgery H/O: hysterectomy (~08/1978) History of appendectomy History of section History of cosmetic surgery History of gastric bypass (~01/2017) History of lumbar spinal fusion (~2002) History of lumbar spinal fusion Hx of abdominal surgery Hx of cholecystectomy Hx of eye surgery (~12/2015) S/P foot surgery, right (01/08/17) Family History Father Hypertension Heart disease Diabetes mellitus Mother Heart disease Gallstones Stroke Cancer Adenocarcinoma in situ Sister Breast cancer Family/Other Breast cancer Grandfather No problems noted. Social History household members: spouse Smoking Status: Never smoker Exam <Yannick Rodriguez DO - Last Filed: 04/16/21 20:09> Narrative Exam Narrative: GENERAL: [71 year old patient appears older than stated age. Very thin, malnourished, temporal wasting, A&O x3, GCS 15 HEAD: Atraumatic. Normocephalic. EYES: Pupils equal round and reactive. Extraocular motions intact. No injection or drainage. ENT: Dry mucous membranes Nose without bleeding, purulent drainage. Throat without erythema, tonsillar hypertrophy or exudate. Airway patent. NECK: Trachea midline. Non tender CARDIOVASCULAR: Regular rate and rhythm without murmurs, gallops, or rubs. RESPIRATORY: Clear to auscultation. Breath sounds equal bilaterally. No wheezes, rales, or rhonchi. GASTROINTESTINAL: Abdomen soft, non-tender, nondistended. EXTREMITIES: No edema or joint tenderness. BACK: Nontender without deformity or crepitance. No flank tenderness. NEURO: AOx3. SKIN: Poor skin turgor, jaundice No rash or erythema of visible areas Initial Vital Signs Initial Vital Signs: Vital Signs Temperature 97.6 F 04/14/21 04:07 Pulse Rate 96 H 04/14/21 04:07 Respiratory Rate 16 04/14/21 04:07 Blood Pressure 108/63 04/14/21 04:07 Pulse Oximetry 96 04/14/21 04:07 <Cyndie Brannon DO - Last Filed: 04/14/21 09:47> Initial Vital Signs Initial Vital Signs: Vital Signs Temperature 97.6 F 04/14/21 04:07 Pulse Rate 96 H 04/14/21 04:07 Respiratory Rate 16 04/14/21 04:07 Blood Pressure 108/63 04/14/21 04:07 Pulse Oximetry 96 04/14/21 04:07 Course <Yannick Rodriguez - Last Filed: 04/16/21 20:09> Course Course Narrative: Initially she refuses all intervention is states she does not want to be here and does not want anything done and she demonstrates capacity to make this decision. On arrival vitals were stable. About 30 minutes into her visit (0430) her arrives and after discussion she agrees to allow us to evaluate her as we have concerned that she is sick. She is very difficult IV stick and EMS and all nursing staff as well as phlebotomy are unable to get an IV or draw blood. US guided EJ placed with blood drawn leads to delay in fluids. 0625 - with fluids patient becoming more alert, she has made urine and BP up to 117/56. No current indication for pressors. Verbalized need for second culture prior to ABX Orders Ordered: Discontinued Medications Artificial Tears (Polyvinyl Alcohol Drops) 1 drops EYE-BOTH Q2HR PRN PRN Reason: Dry Eye(s) Last Admin: 04/16/21 14:10 Dose: 1 drop Documented by: MELI Artificial Tears (Mineral Oil/Petrol Ophth Oint 3.5 Gm) 1 applic EYE-BOTH BEDTIME PRN PRN Reason: Dry Eye(s) Last Admin: 04/16/21 04:58 Dose: 1 applic Documented by: NEERU Heparin Sodium (Porcine) (Heparin 5,000 Unit/Ml Vial) 5,000 unit SUBCUT BID [facility] Last Admin: 04/15/21 09:17 Dose: 5,000 unit Documented by: Admin: 04/14/21 21:20 Dose: 5,000 unit Documented by: DELANEY Heparin Sodium (Porcine) (Heparin Flush (Cl/Picc/Mid-Line) 50 Unit/5 Ml Syringe) 50 unit IV PRN PRN PRN Reason: Flush Heparin Sodium (Porcine) (Heparin Flush (Cl/Picc/Mid-Line) 50 Unit/5 Ml Syringe) 50 unit IV BID [facility] Last Admin: 04/16/21 08:02 Dose: 50 unit Documented by: Admin: 04/15/21 23:28 Dose: 50 unit Documented by: Admin: 04/15/21 09:15 Dose: 50 unit Documented by: Admin: 04/14/21 21:21 Dose: Not Given Documented by: DELANEY Hydromorphone HCl (Hydromorphone 1 Mg Inj) 1 mg IV NOW ONE Stop: 04/14/21 05:47 Last Admin: 04/14/21 06:10 Dose: 1 mg Documented by: SYLVIE Hydromorphone HCl (Hydromorphone 1 Mg Inj) 1 mg IV NOW ONE Stop: 04/14/21 07:18 Last Admin: 04/14/21 07:53 Dose: 1 mg Documented by: SATINDER Hydromorphone HCl (Hydromorphone 2 Mg Tablet) 2 mg PO Q6HR PRN PRN Reason: Pain, Severe (7-10) Last Admin: 04/14/21 13:16 Dose: 2 mg Documented by: ANDI Hydromorphone HCl (Hydromorphone 4 Mg Tablet) 4 mg PO Q6HR PRN PRN Reason: Pain, Severe (7-10) Last Admin: 04/15/21 05:23 Dose: 4 mg Documented by: Admin: 04/15/21 00:21 Dose: 4 mg Documented by: Admin: 04/14/21 18:50 Dose: 4 mg Documented by: INO Hydromorphone HCl (Hydromorphone 4 Mg Tablet) 4 mg PO Q4HR PRN PRN Reason: Pain, Severe (7-10) Last Admin: 04/16/21 12:36 Dose: 4 mg Documented by: Admin: 04/16/21 08:02 Dose: 4 mg Documented by: Admin: 04/16/21 04:02 Dose: 4 mg Documented by: Admin: 04/15/21 23:19 Dose: 4 mg Documented by: Admin: 04/15/21 14:25 Dose: 4 mg Documented by: Admin: 04/15/21 09:14 Dose: 4 mg Documented by: INO Hydromorphone HCl (Hydromorphone 0.5 Mg Inj) 0.5 mg IV Q4H PRN PRN Reason: Pain, Moderate (4-6) Hydromorphone HCl (Hydromorphone 2 Mg Inj) 2 mg IM Q4H PRN PRN Reason: Pain, Severe (7-10) Last Admin: 04/15/21 10:47 Dose: 2 mg Documented by: INO Hydromorphone HCl (Hydromorphone 0.5 Mg Inj) 1 mg IV Q4H PRN PRN Reason: Pain, Moderate (4-6) Hydromorphone HCl (Hydromorphone 2 Mg Inj) 2 mg IV Q4H PRN PRN Reason: Pain, Severe (7-10) Last Admin: 04/15/21 12:51 Dose: 2 mg Documented by: INO Hydromorphone HCl (Hydromorphone 2 Mg Inj) 2 mg IM Q4H PRN PRN Reason: Pain, Severe (7-10) Hydromorphone HCl (Hydromorphone 0.5 Mg Inj) 1 mg IM Q4H PRN PRN Reason: Pain, Moderate (4-6) Sodium Chloride (Normal Saline 0.9%) 1,000 mls @ 1,000 mls/hr IV BOLUS ONE Stop: 04/14/21 07:03 Last Infusion: 04/14/21 08:55 Dose: 0 mls/hr Documented by: Admin: 04/14/21 06:10 Dose: 1,000 mls/hr Documented by: SYLVIE Levofloxacin (Levaquin) 500 mg in 100 mls @ 100 mls/hr IV NOW ONE Stop: 04/14/21 07:18 Last Infusion: 04/14/21 08:00 Dose: 0 mls/hr Documented by: Admin: 04/14/21 06:38 Dose: 100 mls/hr Documented by: SYLVIE Sodium Chloride (Normal Saline 0.9%) 1,000 mls @ 125 mls/hr IV CONT JEREMY Last Admin: 04/14/21 13:59 Dose: 125 mls/hr Documented by: Infusion: 04/14/21 13:59 Dose: 125 mls/hr Documented by: Admin: 04/14/21 08:57 Dose: 125 mls/hr Documented by: SATINDER Aztreonam 1 gm/ Dextrose 50 mls @ 100 mls/hr IV Q8H [facility] Last Admin: 04/15/21 09:57 Dose: 100 mls/hr Documented by: Admin: 04/15/21 04:00 Dose: Not Given Documented by: Infusion: 04/14/21 20:10 Dose: 100 mls/hr Documented by: Admin: 04/14/21 19:40 Dose: 100 mls/hr Documented by: Infusion: 04/14/21 13:12 Dose: 0 mls/hr Documented by: Admin: 04/14/21 11:50 Dose: 100 mls/hr Documented by: LOIDA Metronidazole (Flagyl) 500 mg in 100 mls @ 100 mls/hr IV Q8H [facility] Last Admin: 04/15/21 10:35 Dose: Not Given Documented by: Admin: 04/15/21 03:59 Dose: Not Given Documented by: Admin: 04/14/21 17:59 Dose: 100 mls/hr Documented by: Infusion: 04/14/21 13:58 Dose: 0 mls/hr Documented by: Admin: 04/14/21 11:27 Dose: 100 mls/hr Documented by: ANDI Sodium Chloride (Normal Saline 0.9%) 1,000 mls @ 1,000 mls/hr IV BOLUS ONE Stop: 04/14/21 12:47 Last Infusion: 04/14/21 14:31 Dose: 0 mls/hr Documented by: Admin: 04/14/21 13:16 Dose: 1,000 mls/hr Documented by: ANDI Vancomycin HCl (Vancomycin) 750 mg in 150 mls @ 150 mls/hr IV Q24H [facility] Last Admin: 04/14/21 14:02 Dose: 150 mls/hr Documented by: LOIDA Lactulose (Lactulose 20 Gm/30 Ml Solution) 30 gm PO TID [facility] Last Admin: 04/15/21 15:00 Dose: Not Given Documented by: Admin: 04/15/21 09:16 Dose: 30 gm Documented by: Admin: 04/14/21 21:19 Dose: 30 gm Documented by: Admin: 04/14/21 15:21 Dose: 45 gm Documented by: Admin: 04/14/21 11:27 Dose: 30 gm Documented by: ANDI Levofloxacin (Levofloxacin 250 Mg Tablet) 250 mg PO 0700 [facility] Last Admin: 04/16/21 08:02 Dose: 250 mg Documented by: MELI Lorazepam (Lorazepam 1 Mg Tablet) 1 mg PO Q1HR PRN PRN Reason: Agitation/Anxiety Multivitamins (Multivitamin 1 Tablet) 1 tab PO DAILY [facility] Last Admin: 04/15/21 09:14 Dose: 1 tab Documented by: Admin: 04/14/21 15:21 Dose: 1 tab Documented by: INO Naloxone HCl (Naloxone 0.4 Mg/Ml Vial) 0.2 mg IV Q2MIN PRN PRN Reason: Opiate Reversal Ondansetron HCl (Ondansetron 4 Mg/2 Ml Inj) 4 mg IV Q8HR PRN PRN Reason: Nausea And Vomiting Oxycodone HCl (Oxycodone Ir 5 Mg Tablet) 5 mg PO Q6HR PRN PRN Reason: Pain, Moderate (4-6) Sodium Chloride (Sodium Chloride 0.9% Flush) 10 ml IV PRN PRN PRN Reason: Flush Sodium Chloride (Sodium Chloride 0.9% Flush) 10 ml IV BID [facility] Last Admin: 04/16/21 08:03 Dose: 10 ml Documented by: Admin: 04/15/21 23:28 Dose: 10 ml Documented by: Admin: 04/15/21 09:33 Dose: 10 ml Documented by: Admin: 04/14/21 21:21 Dose: 10 ml Documented by: DELANEY Thiamine HCl (Thiamine 100 Mg Tablet) 100 mg PO DAILY [facility] Last Admin: 04/15/21 09:14 Dose: 100 mg Documented by: Admin: 04/14/21 15:21 Dose: 100 mg Documented by: INO Vancomycin HCl (Vancomycin Per Pharmacy) 1 request MISC NOW ONE Stop: 04/14/21 12:11 Last Admin: 04/14/21 15:17 Dose: Not Given Documented by: ANDI Vital Signs Vital signs: Vital Signs - 8 hr 04/14/21 04:07 04/14/21 04:10 04/14/21 04:12 Temperature 97.6 F Pulse Rate 96 H 94 H 99 H Respiratory Rate 16 Blood Pressure 108/63 Pulse Oximetry 96 100 93 04/14/21 04:30 04/14/21 05:00 04/14/21 05:52 Temperature Pulse Rate 85 Respiratory Rate Blood Pressure 101/50 L 101/49 L 100/49 L Pulse Oximetry 95 04/14/21 06:00 04/14/21 06:30 04/14/21 06:45 Temperature Pulse Rate 69 87 84 Respiratory Rate Blood Pressure 86/42 L 117/56 L Pulse Oximetry 100 100 04/14/21 07:15 04/14/21 07:18 04/14/21 07:30 Temperature Pulse Rate 82 81 83 Respiratory Rate Blood Pressure 111/53 L 108/53 L Pulse Oximetry 94 99 99 <Cyndie Brannon, DO - Last Filed: 04/14/21 09:47> Orders Ordered: Discontinued Medications Artificial Tears (Polyvinyl Alcohol Drops) 1 drops EYE-BOTH Q2HR PRN PRN Reason: Dry Eye(s) Last Admin: 04/16/21 14:10 Dose: 1 drop Documented by: MELI Artificial Tears (Mineral Oil/Petrol Ophth Oint 3.5 Gm) 1 applic EYE-BOTH BEDTIME PRN PRN Reason: Dry Eye(s) Last Admin: 04/16/21 04:58 Dose: 1 applic Documented by: NEERU Heparin Sodium (Porcine) (Heparin 5,000 Unit/Ml Vial) 5,000 unit SUBCUT BID [facility] Last Admin: 04/15/21 09:17 Dose: 5,000 unit Documented by: Admin: 04/14/21 21:20 Dose: 5,000 unit Documented by: DELANEY Heparin Sodium (Porcine) (Heparin Flush (Cl/Picc/Mid-Line) 50 Unit/5 Ml Syringe) 50 unit IV PRN PRN PRN Reason: Flush Heparin Sodium (Porcine) (Heparin Flush (Cl/Picc/Mid-Line) 50 Unit/5 Ml Syringe) 50 unit IV BID [facility] Last Admin: 04/16/21 08:02 Dose: 50 unit Documented by: Admin: 04/15/21 23:28 Dose: 50 unit Documented by: Admin: 04/15/21 09:15 Dose: 50 unit Documented by: Admin: 04/14/21 21:21 Dose: Not Given Documented by: DELANEY Hydromorphone HCl (Hydromorphone 1 Mg Inj) 1 mg IV NOW ONE Stop: 04/14/21 05:47 Last Admin: 04/14/21 06:10 Dose: 1 mg Documented by: SYLVIE Hydromorphone HCl (Hydromorphone 1 Mg Inj) 1 mg IV NOW ONE Stop: 04/14/21 07:18 Last Admin: 04/14/21 07:53 Dose: 1 mg Documented by: SATINDER Hydromorphone HCl (Hydromorphone 2 Mg Tablet) 2 mg PO Q6HR PRN PRN Reason: Pain, Severe (7-10) Last Admin: 04/14/21 13:16 Dose: 2 mg Documented by: ANDI Hydromorphone HCl (Hydromorphone 4 Mg Tablet) 4 mg PO Q6HR PRN PRN Reason: Pain, Severe (7-10) Last Admin: 04/15/21 05:23 Dose: 4 mg Documented by: Admin: 04/15/21 00:21 Dose: 4 mg Documented by: Admin: 04/14/21 18:50 Dose: 4 mg Documented by: INO Hydromorphone HCl (Hydromorphone 4 Mg Tablet) 4 mg PO Q4HR PRN PRN Reason: Pain, Severe (7-10) Last Admin: 04/16/21 12:36 Dose: 4 mg Documented by: Admin: 04/16/21 08:02 Dose: 4 mg Documented by: Admin: 04/16/21 04:02 Dose: 4 mg Documented by: Admin: 04/15/21 23:19 Dose: 4 mg Documented by: Admin: 04/15/21 14:25 Dose: 4 mg Documented by: Admin: 04/15/21 09:14 Dose: 4 mg Documented by: INO Hydromorphone HCl (Hydromorphone 0.5 Mg Inj) 0.5 mg IV Q4H PRN PRN Reason: Pain, Moderate (4-6) Hydromorphone HCl (Hydromorphone 2 Mg Inj) 2 mg IM Q4H PRN PRN Reason: Pain, Severe (7-10) Last Admin: 04/15/21 10:47 Dose: 2 mg Documented by: INO Hydromorphone HCl (Hydromorphone 0.5 Mg Inj) 1 mg IV Q4H PRN PRN Reason: Pain, Moderate (4-6) Hydromorphone HCl (Hydromorphone 2 Mg Inj) 2 mg IV Q4H PRN PRN Reason: Pain, Severe (7-10) Last Admin: 04/15/21 12:51 Dose: 2 mg Documented by: INO Hydromorphone HCl (Hydromorphone 2 Mg Inj) 2 mg IM Q4H PRN PRN Reason: Pain, Severe (7-10) Hydromorphone HCl (Hydromorphone 0.5 Mg Inj) 1 mg IM Q4H PRN PRN Reason: Pain, Moderate (4-6) Sodium Chloride (Normal Saline 0.9%) 1,000 mls @ 1,000 mls/hr IV BOLUS ONE Stop: 04/14/21 07:03 Last Infusion: 04/14/21 08:55 Dose: 0 mls/hr Documented by: Admin: 04/14/21 06:10 Dose: 1,000 mls/hr Documented by: SYLVIE Levofloxacin (Levaquin) 500 mg in 100 mls @ 100 mls/hr IV NOW ONE Stop: 04/14/21 07:18 Last Infusion: 04/14/21 08:00 Dose: 0 mls/hr Documented by: Admin: 04/14/21 06:38 Dose: 100 mls/hr Documented by: SYLVIE Sodium Chloride (Normal Saline 0.9%) 1,000 mls @ 125 mls/hr IV CONT [facility] Last Admin: 04/14/21 13:59 Dose: 125 mls/hr Documented by: Infusion: 04/14/21 13:59 Dose: 125 mls/hr Documented by: Admin: 04/14/21 08:57 Dose: 125 mls/hr Documented by: SATINDER Aztreonam 1 gm/ Dextrose 50 mls @ 100 mls/hr IV Q8H [facility] Last Admin: 04/15/21 09:57 Dose: 100 mls/hr Documented by: Admin: 04/15/21 04:00 Dose: Not Given Documented by: Infusion: 04/14/21 20:10 Dose: 100 mls/hr Documented by: Admin: 04/14/21 19:40 Dose: 100 mls/hr Documented by: Infusion: 04/14/21 13:12 Dose: 0 mls/hr Documented by: Admin: 04/14/21 11:50 Dose: 100 mls/hr Documented by: LOIDA Metronidazole (Flagyl) 500 mg in 100 mls @ 100 mls/hr IV Q8H [facility] Last Admin: 04/15/21 10:35 Dose: Not Given Documented by: Admin: 04/15/21 03:59 Dose: Not Given Documented by: Admin: 04/14/21 17:59 Dose: 100 mls/hr Documented by: Infusion: 04/14/21 13:58 Dose: 0 mls/hr Documented by: Admin: 04/14/21 11:27 Dose: 100 mls/hr Documented by: ANDI Sodium Chloride (Normal Saline 0.9%) 1,000 mls @ 1,000 mls/hr IV BOLUS ONE Stop: 04/14/21 12:47 Last Infusion: 04/14/21 14:31 Dose: 0 mls/hr Documented by: Admin: 04/14/21 13:16 Dose: 1,000 mls/hr Documented by: ANDI Vancomycin HCl (Vancomycin) 750 mg in 150 mls @ 150 mls/hr IV Q24H [facility] Last Admin: 04/14/21 14:02 Dose: 150 mls/hr Documented by: LOIDA Lactulose (Lactulose 20 Gm/30 Ml Solution) 30 gm PO TID [facility] Last Admin: 04/15/21 15:00 Dose: Not Given Documented by: Admin: 04/15/21 09:16 Dose: 30 gm Documented by: Admin: 04/14/21 21:19 Dose: 30 gm Documented by: Admin: 04/14/21 15:21 Dose: 45 gm Documented by: Admin: 04/14/21 11:27 Dose: 30 gm Documented by: ANDI Levofloxacin (Levofloxacin 250 Mg Tablet) 250 mg PO 0700 [facility] Last Admin: 04/16/21 08:02 Dose: 250 mg Documented by: MELI Lorazepam (Lorazepam 1 Mg Tablet) 1 mg PO Q1HR PRN PRN Reason: Agitation/Anxiety Multivitamins (Multivitamin 1 Tablet) 1 tab PO DAILY [facility] Last Admin: 04/15/21 09:14 Dose: 1 tab Documented by: Admin: 04/14/21 15:21 Dose: 1 tab Documented by: INO Naloxone HCl (Naloxone 0.4 Mg/Ml Vial) 0.2 mg IV Q2MIN PRN PRN Reason: Opiate Reversal Ondansetron HCl (Ondansetron 4 Mg/2 Ml Inj) 4 mg IV Q8HR PRN PRN Reason: Nausea And Vomiting Oxycodone HCl (Oxycodone Ir 5 Mg Tablet) 5 mg PO Q6HR PRN PRN Reason: Pain, Moderate (4-6) Sodium Chloride (Sodium Chloride 0.9% Flush) 10 ml IV PRN PRN PRN Reason: Flush Sodium Chloride (Sodium Chloride 0.9% Flush) 10 ml IV BID [facility] Last Admin: 04/16/21 08:03 Dose: 10 ml Documented by: Admin: 04/15/21 23:28 Dose: 10 ml Documented by: Admin: 04/15/21 09:33 Dose: 10 ml Documented by: Admin: 04/14/21 21:21 Dose: 10 ml Documented by: DELANEY Thiamine HCl (Thiamine 100 Mg Tablet) 100 mg PO DAILY [facility] Last Admin: 04/15/21 09:14 Dose: 100 mg Documented by: Admin: 04/14/21 15:21 Dose: 100 mg Documented by: INO Vancomycin HCl (Vancomycin Per Pharmacy) 1 request MISC NOW ONE Stop: 04/14/21 12:11 Last Admin: 04/14/21 15:17 Dose: Not Given Documented by: ANDI Vital Signs Vital signs: Vital Signs - 8 hr 04/14/21 04:07 04/14/21 04:10 04/14/21 04:12 Temperature 97.6 F Pulse Rate 96 H 94 H 99 H Respiratory Rate 16 Blood Pressure 108/63 Pulse Oximetry 96 100 93 04/14/21 04:30 04/14/21 05:00 04/14/21 05:52 Temperature Pulse Rate 85 Respiratory Rate Blood Pressure 101/50 L 101/49 L 100/49 L Pulse Oximetry 95 04/14/21 06:00 04/14/21 06:30 04/14/21 06:45 Temperature Pulse Rate 69 87 84 Respiratory Rate Blood Pressure 86/42 L 117/56 L Pulse Oximetry 100 100 04/14/21 07:15 04/14/21 07:18 04/14/21 07:30 Temperature Pulse Rate 82 81 83 Respiratory Rate Blood Pressure 111/53 L 108/53 L Pulse Oximetry 94 99 99 Sepsis Guideline Criteria <Yannick Rodriguez DO - Last Filed: 04/16/21 20:09> Treatment Initiated Antibiotics:: IV antimicrobials will be initiated as soon as possible after recognition of s epsis state and within one hour for both sepsis and septic shock. MDM - Sepsis <Yannick Rodriguez DO - Last Filed: 04/16/21 20:09> Lab Data Result diagrams: 04/14/21 05:35 04/14/21 05:35 Labs: Lab Results 04/14/21 04/14/21 04/14/21 Range/Units 04:05 05:35 05:35 WBC 5.5 (4.5-11.0) X10^3/uL RBC 2.54 L (4.0-5.2) X10^6/uL Hgb 9.5 L (12.0-16.0) g/dL Hct 27.8 L (36-46) % MCV 109.4 H (80-100) fL MCH 37.5 H (26-34) PG MCHC 34.3 (30-36) % RDW 13.8 (11.6-14.8) % Plt Count 122 L (150-400) X10^3/uL Neut % (Auto) 57.5 (50-75) % Lymph % (Auto) 30.9 (25-40) % Republic % (Auto) 9.0 (3-14) % Eos % (Auto) 1.2 L (2-4) % Baso % (Auto) 1.4 (0-2) % Neut # (Auto) 3200 (3996-4944) /uL Lymph # (Auto) 1700 (3522-4469) /uL Republic # (Auto) 500 (0-900) /uL Eos # (Auto) 100 (0-450) /uL Baso # (Auto) 100 (0-100) /uL PT 18.9 H (10.1-12.7) SECONDS INR 1.7 H (0.9-1.3) Sodium (137-145) mmol/L Potassium (3.4-5.1) mmol/L Chloride (98-107) mmol/L Carbon Dioxide (22-32) mmol/L BUN (7-17) mg/dL Creatinine (0.52-1.04) mg/dL Estimated GFR (>60) mL/min BUN/Creatinine Ratio (6-22) Glucose (80-110) mg/dL Lactate (0.7-2.1) mmol/L Calcium (8.4-10.2) mg/dL Total Bilirubin (0.2-1.3) mg/dL AST (14-36) IU/L ALT (<35) IU/L Alkaline Phosphatase (38-126) U/L Ammonia (9-30) umol/L Total Creatine Kinase (30-135) U/L CK-MB (CK-2) CK-MB (CK-2) Rel Index Troponin I (0.01-0.034) ng/mL Total Protein (6.3-8.2) g/dL Albumin (3.5-5.0) g/dL Globulin (1.7-4.1) g/dL Albumin/Globulin Ratio (1.0-2.8) Procalcitonin (<0.5) ng/mL Urine Color Urine Appearance Urine pH (4.5-8.0) Ur Specific [place] (1.000-1.035) Urine Protein (Negative) Urine Glucose (UA) (Negative) g/dL Urine Ketones (NEGATIVE) Urine Occult Blood (Negative) Urine Nitrate (Negative) Urine Bilirubin (NEGATIVE) Ur Bilirubin Confirm (Negative) Urine Urobilinogen (0.2) E.U./dL Ur Leukocyte Esterase (NEGATIVE) Urine RBC (0-5/HPF) Urine WBC (0-5/HPF) Ur Squamous Epith Cells (0-5/HPF) Urine Bacteria (None) Ur Culture Indicated? SARS-CoV-2 (PCR) Negative (Negative) 04/14/21 04/14/21 04/14/21 Range/Units 05:35 05:35 05:35 WBC (4.5-11.0) X10^3/uL RBC (4.0-5.2) X10^6/uL Hgb (12.0-16.0) g/dL Hct (36-46) % MCV (80-100) fL MCH (26-34) PG MCHC (30-36) % RDW (11.6-14.8) % Plt Count (150-400) X10^3/uL Neut % (Auto) (50-75) % Lymph % (Auto) (25-40) % Republic % (Auto) (3-14) % Eos % (Auto) (2-4) % Baso % (Auto) (0-2) % Neut # (Auto) (5497-9070) /uL Lymph # (Auto) (9758-4028) /uL Republic # (Auto) (0-900) /uL Eos # (Auto) (0-450) /uL Baso # (Auto) (0-100) /uL PT (10.1-12.7) SECONDS INR (0.9-1.3) Sodium 136 L (137-145) mmol/L Potassium 3.5 (3.4-5.1) mmol/L Chloride 101 (98-107) mmol/L Carbon Dioxide 31 (22-32) mmol/L BUN 22 H (7-17) mg/dL Creatinine 1.60 H (0.52-1.04) mg/dL Estimated GFR 31.8 L (>60) mL/min BUN/Creatinine Ratio 13.8 (6-22) Glucose 100 (80-110) mg/dL Lactate 1.5 (0.7-2.1) mmol/L Calcium 8.3 L (8.4-10.2) mg/dL Total Bilirubin 5.9 H (0.2-1.3) mg/dL AST 125 H (14-36) IU/L ALT 59 H (<35) IU/L Alkaline Phosphatase 293 H (38-126) U/L Ammonia 48 H (9-30) umol/L Total Creatine Kinase 34 (30-135) U/L CK-MB (CK-2) TNP CK-MB (CK-2) Rel Index TNP Troponin I 0.018 (0.01-0.034) ng/mL Total Protein 6.0 L (6.3-8.2) g/dL Albumin 2.6 L (3.5-5.0) g/dL Globulin 3.4 (1.7-4.1) g/dL Albumin/Globulin Ratio 0.8 L (1.0-2.8) Procalcitonin 1.29 H (<0.5) ng/mL Urine Color Urine Appearance Urine pH (4.5-8.0) Ur Specific [place] (1.000-1.035) Urine Protein (Negative) Urine Glucose (UA) (Negative) g/dL Urine Ketones (NEGATIVE) Urine Occult Blood (Negative) Urine Nitrate (Negative) Urine Bilirubin (NEGATIVE) Ur Bilirubin Confirm (Negative) Urine Urobilinogen (0.2) E.U./dL Ur Leukocyte Esterase (NEGATIVE) Urine RBC (0-5/HPF) Urine WBC (0-5/HPF) Ur Squamous Epith Cells (0-5/HPF) Urine Bacteria (None) Ur Culture Indicated? SARS-CoV-2 (PCR) (Negative) 04/14/21 Range/Units 05:50 WBC (4.5-11.0) X10^3/uL RBC (4.0-5.2) X10^6/uL Hgb (12.0-16.0) g/dL Hct (36-46) % MCV (80-100) fL MCH (26-34) PG MCHC (30-36) % RDW (11.6-14.8) % Plt Count (150-400) X10^3/uL Neut % (Auto) (50-75) % Lymph % (Auto) (25-40) % [place] % (Auto) (3-14) % Eos % (Auto) (2-4) % Baso % (Auto) (0-2) % Neut # (Auto) (9794-6349) /uL Lymph # (Auto) (8103-4349) /uL [place] # (Auto) (0-900) /uL Eos # (Auto) (0-450) /uL Baso # (Auto) (0-100) /uL PT (10.1-12.7) SECONDS INR (0.9-1.3) Sodium (137-145) mmol/L Potassium (3.4-5.1) mmol/L Chloride (98-107) mmol/L Carbon Dioxide (22-32) mmol/L BUN (7-17) mg/dL Creatinine (0.52-1.04) mg/dL Estimated GFR (>60) mL/min BUN/Creatinine Ratio (6-22) Glucose (80-110) mg/dL Lactate (0.7-2.1) mmol/L Calcium (8.4-10.2) mg/dL Total Bilirubin (0.2-1.3) mg/dL AST (14-36) IU/L ALT (<35) IU/L Alkaline Phosphatase (38-126) U/L Ammonia (9-30) umol/L Total Creatine Kinase (30-135) U/L CK-MB (CK-2) CK-MB (CK-2) Rel Index Troponin I (0.01-0.034) ng/mL Total Protein (6.3-8.2) g/dL Albumin (3.5-5.0) g/dL Globulin (1.7-4.1) g/dL Albumin/Globulin Ratio (1.0-2.8) Procalcitonin (<0.5) ng/mL Urine Color Yellow Urine Appearance Turbid Urine pH 7.5 (4.5-8.0) Ur Specific [place] 1.010 (1.000-1.035) Urine Protein 1+ H (Negative) Urine Glucose (UA) Negative (Negative) g/dL Urine Ketones Negative (NEGATIVE) Urine Occult Blood 3+ H (Negative) Urine Nitrate Negative (Negative) Urine Bilirubin 2+ H (NEGATIVE) Ur Bilirubin Confirm Positive H (Negative) Urine Urobilinogen 4.0 H (0.2) E.U./dL Ur Leukocyte Esterase 3+ H (NEGATIVE) Urine RBC 1-5/hpf (0-5/HPF) Urine WBC >100/hpf H (0-5/HPF) Ur Squamous Epith Cells 0-1 /hpf (0-5/HPF) Urine Bacteria Many (>30) H (None) Ur Culture Indicated? Specimen cultured SARS-CoV-2 (PCR) (Negative) <Cyndie Brannon, DO - Last Filed: 04/14/21 09:47> Lab Data Labs: Lab Results 04/14/21 04/14/21 04/14/21 Range/Units 04:05 05:35 05:35 WBC 5.5 (4.5-11.0) X10^3/uL RBC 2.54 L (4.0-5.2) X10^6/uL Hgb 9.5 L (12.0-16.0) g/dL Hct 27.8 L (36-46) % MCV 109.4 H (80-100) fL MCH 37.5 H (26-34) PG MCHC 34.3 (30-36) % RDW 13.8 (11.6-14.8) % Plt Count 122 L (150-400) X10^3/uL Neut % (Auto) 57.5 (50-75) % Lymph % (Auto) 30.9 (25-40) % Republic % (Auto) 9.0 (3-14) % Eos % (Auto) 1.2 L (2-4) % Baso % (Auto) 1.4 (0-2) % Neut # (Auto) 3200 (6518-1077) /uL Lymph # (Auto) 1700 (2314-0284) /uL Republic # (Auto) 500 (0-900) /uL Eos # (Auto) 100 (0-450) /uL Baso # (Auto) 100 (0-100) /uL PT 18.9 H (10.1-12.7) SECONDS INR 1.7 H (0.9-1.3) Sodium (137-145) mmol/L Potassium (3.4-5.1) mmol/L Chloride (98-107) mmol/L Carbon Dioxide (22-32) mmol/L BUN (7-17) mg/dL Creatinine (0.52-1.04) mg/dL Estimated GFR (>60) mL/min BUN/Creatinine Ratio (6-22) Glucose (80-110) mg/dL Lactate (0.7-2.1) mmol/L Calcium (8.4-10.2) mg/dL Total Bilirubin (0.2-1.3) mg/dL AST (14-36) IU/L ALT (<35) IU/L Alkaline Phosphatase (38-126) U/L Ammonia (9-30) umol/L Total Creatine Kinase (30-135) U/L CK-MB (CK-2) CK-MB (CK-2) Rel Index Troponin I (0.01-0.034) ng/mL Total Protein (6.3-8.2) g/dL Albumin (3.5-5.0) g/dL Globulin (1.7-4.1) g/dL Albumin/Globulin Ratio (1.0-2.8) Procalcitonin (<0.5) ng/mL Urine Color Urine Appearance Urine pH (4.5-8.0) Ur Specific [place] (1.000-1.035) Urine Protein (Negative) Urine Glucose (UA) (Negative) g/dL Urine Ketones (NEGATIVE) Urine Occult Blood (Negative) Urine Nitrate (Negative) Urine Bilirubin (NEGATIVE) Ur Bilirubin Confirm (Negative) Urine Urobilinogen (0.2) E.U./dL Ur Leukocyte Esterase (NEGATIVE) Urine RBC (0-5/HPF) Urine WBC (0-5/HPF) Ur Squamous Epith Cells (0-5/HPF) Urine Bacteria (None) Ur Culture Indicated? SARS-CoV-2 (PCR) Negative (Negative) 04/14/21 04/14/21 04/14/21 Range/Units 05:35 05:35 05:35 WBC (4.5-11.0) X10^3/uL RBC (4.0-5.2) X10^6/uL Hgb (12.0-16.0) g/dL Hct (36-46) % MCV (80-100) fL MCH (26-34) PG MCHC (30-36) % RDW (11.6-14.8) % Plt Count (150-400) X10^3/uL Neut % (Auto) (50-75) % Lymph % (Auto) (25-40) % Republic % (Auto) (3-14) % Eos % (Auto) (2-4) % Baso % (Auto) (0-2) % Neut # (Auto) (7462-3645) /uL Lymph # (Auto) (6530-4935) /uL Republic # (Auto) (0-900) /uL Eos # (Auto) (0-450) /uL Baso # (Auto) (0-100) /uL PT (10.1-12.7) SECONDS INR (0.9-1.3) Sodium 136 L (137-145) mmol/L Potassium 3.5 (3.4-5.1) mmol/L Chloride 101 (98-107) mmol/L Carbon Dioxide 31 (22-32) mmol/L BUN 22 H (7-17) mg/dL Creatinine 1.60 H (0.52-1.04) mg/dL Estimated GFR 31.8 L (>60) mL/min BUN/Creatinine Ratio 13.8 (6-22) Glucose 100 (80-110) mg/dL Lactate 1.5 (0.7-2.1) mmol/L Calcium 8.3 L (8.4-10.2) mg/dL Total Bilirubin 5.9 H (0.2-1.3) mg/dL AST 125 H (14-36) IU/L ALT 59 H (<35) IU/L Alkaline Phosphatase 293 H (38-126) U/L Ammonia 48 H (9-30) umol/L Total Creatine Kinase 34 (30-135) U/L CK-MB (CK-2) TNP CK-MB (CK-2) Rel Index TNP Troponin I 0.018 (0.01-0.034) ng/mL Total Protein 6.0 L (6.3-8.2) g/dL Albumin 2.6 L (3.5-5.0) g/dL Globulin 3.4 (1.7-4.1) g/dL Albumin/Globulin Ratio 0.8 L (1.0-2.8) Procalcitonin 1.29 H (<0.5) ng/mL Urine Color Urine Appearance Urine pH (4.5-8.0) Ur Specific [place] (1.000-1.035) Urine Protein (Negative) Urine Glucose (UA) (Negative) g/dL Urine Ketones (NEGATIVE) Urine Occult Blood (Negative) Urine Nitrate (Negative) Urine Bilirubin (NEGATIVE) Ur Bilirubin Confirm (Negative) Urine Urobilinogen (0.2) E.U./dL Ur Leukocyte Esterase (NEGATIVE) Urine RBC (0-5/HPF) Urine WBC (0-5/HPF) Ur Squamous Epith Cells (0-5/HPF) Urine Bacteria (None) Ur Culture Indicated? SARS-CoV-2 (PCR) (Negative) 04/14/21 Range/Units 05:50 WBC (4.5-11.0) X10^3/uL RBC (4.0-5.2) X10^6/uL Hgb (12.0-16.0) g/dL Hct (36-46) % MCV (80-100) fL MCH (26-34) PG MCHC (30-36) % RDW (11.6-14.8) % Plt Count (150-400) X10^3/uL Neut % (Auto) (50-75) % Lymph % (Auto) (25-40) % Republic % (Auto) (3-14) % Eos % (Auto) (2-4) % Baso % (Auto) (0-2) % Neut # (Auto) (4928-2442) /uL Lymph # (Auto) (5168-0696) /uL Republic # (Auto) (0-900) /uL Eos # (Auto) (0-450) /uL Baso # (Auto) (0-100) /uL PT (10.1-12.7) SECONDS INR (0.9-1.3) Sodium (137-145) mmol/L Potassium (3.4-5.1) mmol/L Chloride (98-107) mmol/L Carbon Dioxide (22-32) mmol/L BUN (7-17) mg/dL Creatinine (0.52-1.04) mg/dL Estimated GFR (>60) mL/min BUN/Creatinine Ratio (6-22) Glucose (80-110) mg/dL Lactate (0.7-2.1) mmol/L Calcium (8.4-10.2) mg/dL Total Bilirubin (0.2-1.3) mg/dL AST (14-36) IU/L ALT (<35) IU/L Alkaline Phosphatase (38-126) U/L Ammonia (9-30) umol/L Total Creatine Kinase (30-135) U/L CK-MB (CK-2) CK-MB (CK-2) Rel Index Troponin I (0.01-0.034) ng/mL Total Protein (6.3-8.2) g/dL Albumin (3.5-5.0) g/dL Globulin (1.7-4.1) g/dL Albumin/Globulin Ratio (1.0-2.8) Procalcitonin (<0.5) ng/mL Urine Color Yellow Urine Appearance Turbid Urine pH 7.5 (4.5-8.0) Ur Specific [place] 1.010 (1.000-1.035) Urine Protein 1+ H (Negative) Urine Glucose (UA) Negative (Negative) g/dL Urine Ketones Negative (NEGATIVE) Urine Occult Blood 3+ H (Negative) Urine Nitrate Negative (Negative) Urine Bilirubin 2+ H (NEGATIVE) Ur Bilirubin Confirm Positive H (Negative) Urine Urobilinogen 4.0 H (0.2) E.U./dL Ur Leukocyte Esterase 3+ H (NEGATIVE) Urine RBC 1-5/hpf (0-5/HPF) Urine WBC >100/hpf H (0-5/HPF) Ur Squamous Epith Cells 0-1 /hpf (0-5/HPF) Urine Bacteria Many (>30) H (None) Ur Culture Indicated? Specimen cultured SARS-CoV-2 (PCR) (Negative) MDM Narrative Medical decision making narrative: I received sign-out from Dr. Rodriguez. I have seen evaluated patient myself. His she is cachectic with jaundice mildly confused but awake and alert. After discussing with she has had significant decline since the beginning of t he month. Mental status waxes and wanes. It appears that liver enzymes have been elevated since October of 2020 with ago rise in bilirubin over the past few months. Multiple imaging studies do not show any cause. After discussion actually states that she is supposed to have a meeting with hospice tomorrow she has multiple appointments with wound care and her primary care provider this week. At this time he understands that she does need to be admitted. She has UTI confusion failure to thrive. Dr. Freeman, updated patient's symptoms test results and hopefully accepts patient for admission Discharge Plan Departure Patient Disposition: Admitted As Inpatient Clinical Impression: Acute kidney injury, Sepsis, Acute dehydration, Acute UTI, Elevated liver enzymes, Adult failure to thrive Admit Date/Time: 04/14/21 08:44 Admit Provider: Kevin Freeman
[2021-04-14 04:27] LABS: COVID19 -Nasal RAPID Negative (Negative)
--- NOTE | 2021-04-14 04:50 | PC.NURSE ---
Lab was unable to obtain blood. No IV access after multiple attempts by EMS and PATIENT CASE MANAGER.
--- NOTE | 2021-04-14 05:47 | PC.NURSE ---
EJ started per Dr Rodriguez
--- NOTE | 2021-04-14 05:48 | PC.NURSE ---
pt arrives aao x 3 states she did not want to come to the ED but is willing to be examined
[2021-04-14 05:51] LABS: Basophils Absolute Auto 100 /uL (0-100); Eosinophils Absolute Auto 100 /uL (0-450); Hemoglobin 9.5 g/dL (12.0-16.0); Lymphocytes Absolute Auto 1700 /uL (1100-4500); Mean Corpuscular Volume 109.4 fL (80-100); Monocytes Absolute Auto 500 /uL (0-900); White Blood Cell Count 5.5 X10^3/uL (4.5-11.0)
[2021-04-14 05:54] LABS: INR 1.7 (0.9-1.3); Prothrombin Time 18.9 SECONDS (10.1-12.7)
[2021-04-14 05:58] LABS: Ammonia (NH3) 48 umol/L (9-30); Lactate (Lactic Acid) 1.5 mmol/L (0.7-2.1)
[2021-04-14 05:59] LABS: Alanine Aminotransferase 59 IU/L (<35); Albumin 2.6 g/dL (3.5-5.0); Albumin Globulin Ratio 0.8 (1.0-2.8); Alkaline Phosphatase 293 U/L (38-126); Aspartate Aminotransferase 125 IU/L (14-36); BUN Creatinine Ratio 13.8 (6-22); Bilirubin Total 5.9 mg/dL (0.2-1.3); Blood Urea Nitrogen 22 mg/dL (7-17); Calcium 8.3 mg/dL (8.4-10.2); Carbon Dioxide 31 mmol/L (22-32); Chloride 101 mmol/L (98-107); Creatine Kinase 34 U/L (30-135); Estimated Glomerular Filt Rate 31.8 mL/min (>60); Globulin 3.4 g/dL (1.7-4.1); Glucose 100 mg/dL (80-110); HEMOLYSIS < 15 (0-50); Potassium 3.5 mmol/L (3.4-5.1); Sodium 136 mmol/L (137-145)
[2021-04-14 06:00] LABS: Appearance Urine UA TURBID; Bilirubin Urine UA 2+ (NEGATIVE); Color Urine UA YELLOW; Glucose Urine UA NEGATIVE (Negative); Ketones Urine UA NEGATIVE (NEGATIVE); Leukocyte Esterase Urine UA 3+ (NEGATIVE); Nitrite Urine UA NEGATIVE (Negative); Occult Blood Urine UA 3+ (Negative); Protein Urine UA 1+ (Negative)
[2021-04-14 06:03] LABS: Ictotest Urine Positive (Negative); pH Urine UA 7.5 (4.5-8.0)
[2021-04-14 06:03] LABS: Add Manual Diff / Slide Review NO; Basophils Percent Auto 1.4 % (0-2); Eosinophils Percent Auto 1.2 % (2-4); Hematocrit 27.8 % (36-46); Lymphocytes Percent Auto 30.9 % (25-40); Mean Corpuscular HGB Conc 34.3 % (30-36); Mean Corpuscular Hemoglobin 37.5 PG (26-34); Neutrophils Absolute Auto 3200 /uL (1500-7000); Neutrophils Percent Auto 57.5 % (50-75); Platelet Count 122 X10^3/uL (150-400); Red Blood Cell Count 2.54 X10^6/uL (4.0-5.2); Red Cell Distribution Width 13.8 % (11.6-14.8)
[2021-04-14 06:06] LABS: Bacteria Urine Many (>30); Culture Indicated Urine Specimen Cultured; RBC Urine 1-5/HPF (0-5/HPF); Squamous Epithelial Cell Urine 0-1 /HPF (0-5/HPF); WBC Urine >100/HPF (0-5/HPF)
[2021-04-14 06:10] LABS: Troponin I 0.018 ng/mL (0.01-0.034)
[2021-04-14] MEDS: SODIUM CHLORIDE 0.9% 1,000 ML 1000 ML IV ×2 (06:10→13:16)
[2021-04-14] MEDS: HYDROMORPHONE 1 MG INJ IV ×2 (06:10→07:53)
[2021-04-14 06:15] LABS: Procalcitonin 1.29 ng/mL (<0.5)
--- NOTE | 2021-04-14 06:19 | DI.CT.S_ITS ---
PROCEDURE: CT ABDOMEN PELVIS WO CON INDICATIONS: worsening LFTs TECHNIQUE: Axial sections were acquired from the lung bases to the pubic symphysis. Coronal and sagittal reformats were performed. For radiation dose reduction, the following was used: automated exposure control, adjustment of mA and/or kV according to patient size. COMPARISON: [facility], CT, CT ABDOMEN PELVIS WO CON, 02/10/2019, 21:03. [facility], CT, CT ABDOMEN PELVIS W CON, 01/28/2021, 0:21. [facility], CT, CT ABDOMEN PELVIS WO CON, 04/02/2021, 16:59. FINDINGS: Image quality: Suboptimal due to lack of intravenous and oral contrast, as well as strong metallic artifacts from surgical hardware related to lower thoracic and lumbar spine fusion. Lung bases: Small pleural effusions are present, right greater than left. Bibasilar atelectasis. Heart: No significant findings. URINARY: Right Kidney: There are full small stone 1-4 mm stones. No hydronephrosis. Right Ureter: No hydroureter. Left Kidney: There is a 5 mm stone in the inferior pole. No hydronephrosis. Left Ureter: No hydroureter. Bladder: Mild wall thickening. No stones. ABDOMEN: Liver: Mild hepatomegaly. Severe hepatic steatosis. Gallbladder: Surgically absent. Biliary ducts: Unremarkable. Pancreas: Unremarkable. Spleen: Unremarkable. Adrenal Glands: Unremarkable. Stomach and Bowel: Stomach, small bowel loops, and colon are normal in caliber. Postsurgical changes in stomach. Peritoneum: There is a small amount of intraperitoneal fluid. No free air. Ventral Wall: No hernia. Abdominal Nodes: No enlarged retroperitoneal or mesenteric lymph nodes. Vessels: Aorta and inferior vena cava are normal in size. PELVIS: Pelvic Organs: Unremarkable. Pelvic Nodes: Unremarkable. Miscellaneous: No inguinal hernias are seen. Calcific foci in buttocks bilaterally are likely injection granulomas. Bones: Extensive postsurgical changes in the lower thoracic lumbar spine related to laminectomy and spinal fusion are noted in the lower thoracic spine and lumbar spine. IMPRESSION: 1. Mild hepatomegaly and severe hepatic steatosis. 2. Nephrolithiasis bilaterally. No hydronephrosis. 3. A small amount of free fluid is present. 4. Small bilateral pleural effusions, right greater than left. 5. Mild bladder wall thickening suggesting mild cystitis. Recommend clinical correlation. 6. Postsurgical changes in stomach. 7. Extensive postsurgical changes in the lower thoracic spine and lumbar spine. No significant discrepancy with the casino shift manager radiology preliminary report. Dictated by: Marcella Rivers M.D. on 04/14/2021 at 8:27 Approved by: Marcella Rivers M.D. on 04/14/2021 at 8:40
[2021-04-14] MEDS: levoFLOXacin 500 MG/100 ML PIGGYBACK 100 MG IV (06:38)
[2021-04-14] MEDS: SODIUM CHLORIDE 0.9% 1,000 ML 125 ML IV ×2 (08:57→13:59)
--- NOTE | 2021-04-14 10:34 | DI.US.S_ITS ---
PROCEDURE: US ABDOMEN LIMITED INDICATIONS: EVALUATE LIVER AND DOPPLER PORTAL SYSTEM TECHNIQUE: Real-time focused scanning was performed of the abdomen, with image documentation. COMPARISON: None. FINDINGS: Liver has diffusely increased echotexture. No definite intrahepatic mass lesion. Portal vein cannot be evaluated due to hepatic echogenicity. Gallbladder is surgically absent. Extrahepatic biliary tree is not visualized and cannot be evaluated. No intrahepatic biliary tree dilatation. Pancreas is not visualized and cannot be evaluated. IMPRESSION: 1. Severely echogenic liver. Finding typically represents fatty infiltration; however, finding is nonspecific and correlation with clinical and laboratory findings is recommended to exclude other etiologies including hepatic cirrhosis. 2. Portal vein not visualized due to severe hepatic echogenicity. Portal vein cannot be evaluated. Dictated by: Emmanuelle Beaulieu MD, PhD on 04/14/2021 at 16:27 Approved by: Emmanuelle Beaulieu MD, PhD on 04/14/2021 at 16:28
--- NOTE | 2021-04-14 10:37 | DI.RAD.S_ITS ---
PROCEDURE: XR CHEST 1V INDICATIONS: pneumonia?... TECHNIQUE: One view of the chest was acquired. COMPARISON: [facility], CR, XR CHEST FOR PICC 1V, 04/07/2019, 20:30. [facility], CR, XR CHEST 2V, 04/07/2019, 16:44. [facility], CR, XR CHEST 1V, 04/03/2019, 8:58. FINDINGS: Surgical changes and devices: Thoracolumbar spine fusion. Lungs and pleura: Lungs are clear. No pleural effusions or pneumothorax. Mediastinum: Mediastinal contours appear normal. Heart size is normal. Bones and chest wall: No suspicious bony lesions. Overlying soft tissues appear unremarkable. IMPRESSION: No acute cardiopulmonary disease. Dictated by: Marcella Rivers M.D. on 04/14/2021 at 11:08 Approved by: Marcella Rivers M.D. on 04/14/2021 at 11:08
--- NOTE | 2021-04-14 10:38 | DI.CT.S_ITS ---
PROCEDURE: CT HEAD/BRAIN WO CON INDICATIONS: confusion TECHNIQUE: Noncontrast 4.5 mm thick angled axial sections acquired from the foramen magnum to the vertex, with coronal and sagittal reformats. For radiation dose reduction, the following was used: automated exposure control, adjustment of mA and/or kV according to patient size. COMPARISON: [facility], CT, HEAD WITHOUT CONTRAST, 10/22/2015, 0:04. FINDINGS: Image quality: Excellent. CSF spaces: Basal cisterns are patent. No extra-axial fluid collections. The ventricles are symmetric in size and shape. Brain: No intracranial bleeds or masses. There is cerebral volume loss for age, with resultant ventricular and sulcal prominence. There are periventricular and deep white matter chronic small vessel ischemic changes. There is intracranial internal carotid artery atherosclerosis. Skull and face: Calvarium and visualized facial bones appear intact, without suspicious lesions. Sinuses: Visualized sinuses and mastoids are clear. IMPRESSION: 1. No CT evidence of acute intracranial abnormalities. 2. Age related atrophy and [id number] white matter chronic small vessel ischemic changes. Dictated by: Ranjeet Christensen M.D. on 04/14/2021 at 11:24 Approved by: Ranjeet Christensen M.D. on 04/14/2021 at 11:25
[2021-04-14] MEDS: metroNIDAZOLE 500 MG/100 ML PIGGYBACK 100 MG IV ×2 (11:27→17:59)
[2021-04-14] MEDS: LACTULOSE 20 GM/30 ML SOLUTION 30 GM PO ×3 (11:27→21:19)
[2021-04-14] MEDS: AZTREONAM 1 GM in DEXTROSE 5 % IN WATER 50 ML 100 ML IV ×2 (11:50→19:40)
[2021-04-14 12:08] LABS: Gamma Glutamyl Transpeptidase 710 U/L (12-43)
[2021-04-14 12:08] LABS: HEMOLYSIS 21 (0-50); Iron 89 ug/dL (37-170)
[2021-04-14 12:18] LABS: Percent Iron Saturation 70 % (15-50); Total Iron Binding Capacity 127 ug/dL (265-497)
[2021-04-14 12:20] LABS: Transferrin < 80 mg/dL (206-381)
--- NOTE | 2021-04-14 12:48 | PT-IP ANOTE ---
Received PT orders and reviewed the chart. H&P not yet available. Pt has just arrived on the floor from ED. Per RN, is still confused and unable to participate in PT evaluation at this time. ED notes mention possible hospice consult. Will follow up for PT appropriateness next day.
--- NOTE | 2021-04-14 12:49 | OT.IPNOTE ---
Pt just transferred to floor with plans to see hospice tomorrow. Appears confused at this time. Will hold and assess for OT services tomorrow.
[2021-04-14] MEDS: HYDROMORPHONE 2 MG TABLET PO (13:16)
[2021-04-14 13:18] LABS: Folate 18.4 ng/mL (2.76-20.0); Vitamin B12 > 1000 pg/mL (239-931)
[2021-04-14 13:39] LABS: Ferritin 1140 ng/mL (11-264)
--- NOTE | 2021-04-14 13:41 | DIET.PN1 ---
Dietary Progress Note RD attempted bedside interview, per SAMPLE PREP TECHNICIAN pt prefers to sleep at this time, meal tray at nurse station. This RD to try again Wednesday morning. Ht: 147.32 cm Wt: 45.359 kg BMI: 20.9 UBW: Last BM: 04/14/21 (04/14/21 13:07) MNA: 4 Rock Score: 14 Diet: 04/14/21 Lunch General (Regular) Diet Diet Modifications: Labs: RBC 2.54 X10^6/uL (4.0-5.2) L 04/14/21 05:35 Hgb 9.5 g/dL (12.0-16.0) L 04/14/21 05:35 Hct 27.8 % (36-46) L 04/14/21 05:35 Creatinine 1.60 mg/dL (0.52-1.04) H 04/14/21 05:35 Lactate 1.5 mmol/L (0.7-2.1) 04/14/21 05:35 Iron 89 ug/dL (37-170) 04/14/21 11:30 % Saturation 70 % (15-50) H 04/14/21 11:30 Ferritin 1140 ng/mL (11-264) H 04/14/21 11:30 Electronically Signed by: Radha Samson 04/14/21 13:41 Clinical Dietitian [address] [id number]
[2021-04-14] MEDS: VANCOMYCIN 750 MG/150 ML PIGGYBACK 150 MG IV (14:02)
--- NOTE | 2021-04-14 15:06 | P.HP_ITS ---
History of Present Illness History of Present Illness Date Patient Seen: 04/14/21 Time Patient Seen: 12:00 Chief complaint: Mental decline Narrative: Ms. Frias is a 71W with PMH SLE, gastric bypass, decubitus ulcers, wheelchair bound who presents to the hospital with confusion and weakness. She and her describe a long consistent decline since surgery a few years ago. More recently in the last few months she has been noted to have elevated liver function tests. They are not sure why this has occurred. She is unsure what plan for workup there is. Reportedly she has been referred to hospice. She denies cough, chest pain, nausea, vomiting, abdominal pain. She has had dysuria. In the ED workup was done vitals notable for afebrile and low blood pressure in the 80s along with borderline tachycardia in the 90s. Initially she was refusing all interventions. Further workup showed labs with WBC 5.5, hgb 9.5, plts 122. Na 136, BUN 22, creatinine 1.6. INR 1.7. Lactate 1.5. Ammonia 48. Bili 5.9, ast 125, alt 59, alk phos 293, albumin 2.6. Procal 1.29. UA showed 1+ protein, 3+ LE, >100 WBC, many bacteria. She was ordered for IV fluids and antibiotics. Ab dominal CT showed hepatomegaly and severe hepatic steatosis, normal spleen, bilateral kidney stones, small pleural effusion and bladder wall thickening. Chest xray showed no acute process. CT head showed no acute process. She was admitted for further treatment. Patient History Medical History Asthma Bilateral lower extremity edema Colon polyps Degenerative disc disease, cervical Difficult intravenous access Eczema GERD (gastroesophageal reflux disease) Glaucoma HTN (hypertension) Hyperlipidemia Hypothyroidism Lesion of lung Meningioma (~10/2015) Seasonal allergies SLE (systemic lupus erythematosus related syndrome) Superficial thrombophlebitis of left leg (~1985) Vitamin D deficiency Surgical History H/O foot surgery H/O: hysterectomy (~08/1978) History of appendectomy History of section History of cosmetic surgery History of gastric bypass (~01/2017) History of lumbar spinal fusion (~2002) History of lumbar spinal fusion Hx of abdominal surgery Hx of cholecystectomy Hx of eye surgery (~12/2015) S/P foot surgery, right (01/08/17) Family & Social History Family History Father Hypertension Heart disease Diabetes mellitus Mother Heart disease Gallstones Stroke Cancer Adenocarcinoma in situ Sister Breast cancer Family/Other Breast cancer Grandfather No problems noted. Social History: household members spouse Prior Living Arrangements House Safety & Behavioral: Feels Safe in Current Yes Environment Been Physically Hurt or No Threatened By a Person Suicidal Ideation Description None Suicide Plan Description No Plan Tobacco & Substance use: Smoking Status Never smoker alcohol intake frequency 0-2 drinks per day Substance Use Type does not use Meds Home Medications and Allergies Home Medications Medication Instructions Recorded Confirmed Type omeprazole 20 mg tablet,delayed 20 mg PO QDAY #0 02/22/17 04/14/21 History release ciprofloxacin HCl 0.3 % eye 0.5 inch OPHTHALMIC (EYE) QID 04/14/21 04/14/21 History ointment (Ciloxan) furosemide 20 mg tablet 40 mg PO DAILY 04/14/21 04/14/21 History hydromorphone 2 mg tablet 4 mg PO Q6H PRN 04/14/21 04/14/21 History (Dilaudid) lorazepam 0.5 mg tablet 0.5 mg PO Q6H PRN 04/14/21 04/14/21 History methocarbamol 500 mg tablet 500 mg PO TID PRN 04/14/21 04/14/21 History naloxone 4 mg/actuation nasal spray 4 mg INTRANASAL Q2M PRN 04/14/21 04/14/21 History ondansetron HCl 4 mg tablet 4 mg PO Q8H PRN 04/14/21 04/14/21 History potassium chloride 10 mEq 20 meq PO DAILY 04/14/21 04/14/21 History capsule,extended release Allergies Allergy/AdvReac Type Severity Reaction Status Date / Time adhesive [ADHESIVE] Allergy Severe HIVES Verified 04/14/21 07:43 amlodipine [AMLODIPINE] Allergy Severe ANGIOEDEMA Verified 04/14/21 07:43 amoxicillin [AMOXICILLIN] Allergy Severe ANAPHYLAXIS Verified 04/14/21 07:43 cephalexin [CEPHALEXIN] Allergy Severe ANAPHYLAXIS Verified 04/14/21 07:43 Cephalosporins Allergy Severe ANAPHYLAXIS Verified 04/14/21 07:43 [CEPHALOSPORINS] hydrocodone [HYDROCODONE] Allergy Severe HIVES/ITCHI Verified 04/14/21 07:43 NG iodine [IODINE] Allergy Severe ANAPHYLAXIS Verified 04/14/21 07:43 lisinopril [LISINOPRIL] Allergy Severe ANGIOEDEMA Verified 04/14/21 07:43 Penicillins [PENICILLINS] Allergy Severe ANAPHYLAXIS Verified 04/14/21 07:43 Iodinated Contrast Media Allergy Anaphylaxis Verified 04/14/21 07:43 [Iodinated Contrast- Oral and IV Dye] erythromycin base AdvReac Severe Vomiting Verified 04/14/21 07:43 [ERYTHROMYCIN BASE] gabapentin [GABAPENTIN] AdvReac Severe nausea, Verified 04/14/21 07:43 headache sumatriptan [SUMATRIPTAN] AdvReac Unknown nightmares Verified 04/14/21 07:43 codeine AdvReac nausea,itch Verified 04/14/21 07:43 ing oxycodone [From Percocet] AdvReac nausea, Verified 04/14/21 07:43 itching Review of Systems Review of Systems Narrative: 14 systems reviewed and negative aside from what is noted in HPI Exam Vital Signs (past 8 hours): - 04/14/21 07:15 04/14/21 07:18 04/14/21 07:30 Temperature Pulse Rate 82 81 83 Respiratory Rate Blood Pressure 111/53 L 108/53 L Pulse Oximetry 94 99 99 04/14/21 07:45 04/14/21 08:00 04/14/21 08:15 Temperature Pulse Rate 86 82 68 Respiratory Rate Blood Pressure 108/51 L Pulse Oximetry 96 96 92 04/14/21 08:30 04/14/21 08:45 04/14/21 09:00 Temperature Pulse Rate 82 83 78 Respiratory Rate 14 Blood Pressure 102/53 L 118/55 L Pulse Oximetry 95 87 L 98 04/14/21 13:19 04/14/21 13:30 Temperature 98.4 F 98.4 F Pulse Rate 89 83 Respiratory Rate 14 16 Blood Pressure 108/56 L 117/58 L Pulse Oximetry 98 100 Oxygen Delivery Method Room Air Oxygen Flow Rate 0 Narrative Exam Narrative: GEN: chronically ill appearing, cachectic HEENT: dry mucous membranes, jaundiced NECK: trachea midline, no JVD PULM: clear bilaterally, no wheezes, rhonchi, rales ABD: soft, nontender, nondistended, no organomegaly, normal bowel sounds EXT: warm and well perfused with no edema NEURO: awake and alert, intermittenly confused, moving all extremities, repeats self frequently PSYCH: anxious, irritable Objective Labs Result Diagrams: 04/14/21 05:35 04/14/21 05:35 Labs: Laboratory Results - last 24 hr 04/14/21 04/14/21 04/14/21 04:05 05:35 05:35 WBC 5.5 RBC 2.54 L Hgb 9.5 L Hct 27.8 L MCV 109.4 H MCH 37.5 H MCHC 34.3 RDW 13.8 Plt Count 122 L Neut % (Auto) 57.5 Lymph % (Auto) 30.9 [place] % (Auto) 9.0 Eos % (Auto) 1.2 L Baso % (Auto) 1.4 Neut # (Auto) 3200 Lymph # (Auto) 1700 [place] # (Auto) 500 Eos # (Auto) 100 Baso # (Auto) 100 PT 18.9 H INR 1.7 H Sodium Potassium Chloride Carbon Dioxide BUN Creatinine Estimated GFR BUN/Creatinine Ratio Glucose Lactate Calcium Iron TIBC % Saturation Transferrin Ferritin Total Bilirubin GGT AST ALT Alkaline Phosphatase Ammonia Total Creatine Kinase CK-MB (CK-2) CK-MB (CK-2) Rel Index Troponin I Total Protein Albumin Globulin Albumin/Globulin Ratio Vitamin B12 Folate Procalcitonin Urine Color Urine Appearance Urine pH Ur Specific [place] Urine Protein Urine Glucose (UA) Urine Ketones Urine Occult Blood Urine Nitrate Urine Bilirubin Ur Bilirubin Confirm Urine Urobilinogen Ur Leukocyte Esterase Urine RBC Urine WBC Ur Squamous Epith Cells Urine Bacteria Ur Culture Indicated? SARS-CoV-2 (PCR) Negative 04/14/21 04/14/21 04/14/21 05:35 05:35 05:35 WBC RBC Hgb Hct MCV MCH MCHC RDW Plt Count Neut % (Auto) Lymph % (Auto) [place] % (Auto) Eos % (Auto) Baso % (Auto) Neut # (Auto) Lymph # (Auto) [place] # (Auto) Eos # (Auto) Baso # (Auto) PT INR Sodium 136 L Potassium 3.5 Chloride 101 Carbon Dioxide 31 BUN 22 H Creatinine 1.60 H Estimated GFR 31.8 L BUN/Creatinine Ratio 13.8 Glucose 100 Lactate 1.5 Calcium 8.3 L Iron TIBC % Saturation Transferrin Ferritin Total Bilirubin 5.9 H GGT AST 125 H ALT 59 H Alkaline Phosphatase 293 H Ammonia 48 H Total Creatine Kinase 34 CK-MB (CK-2) TNP CK-MB (CK-2) Rel Index TNP Troponin I 0.018 Total Protein 6.0 L Albumin 2.6 L Globulin 3.4 Albumin/Globulin Ratio 0.8 L Vitamin B12 Folate Procalcitonin 1.29 H Urine Color Urine Appearance Urine pH Ur Specific [place] Urine Protein Urine Glucose (UA) Urine Ketones Urine Occult Blood Urine Nitrate Urine Bilirubin Ur Bilirubin Confirm Urine Urobilinogen Ur Leukocyte Esterase Urine RBC Urine WBC Ur Squamous Epith Cells Urine Bacteria Ur Culture Indicated? SARS-CoV-2 (PCR) 04/14/21 04/14/21 04/14/21 05:50 11:30 11:30 WBC RBC Hgb Hct MCV MCH MCHC RDW Plt Count Neut % (Auto) Lymph % (Auto) [place] % (Auto) Eos % (Auto) Baso % (Auto) Neut # (Auto) Lymph # (Auto) [place] # (Auto) Eos # (Auto) Baso # (Auto) PT INR Sodium Potassium Chloride Carbon Dioxide BUN Creatinine Estimated GFR BUN/Creatinine Ratio Glucose Lactate Calcium Iron 89 TIBC 127 L % Saturation 70 H Transferrin < 80 L Ferritin 1140 H Total Bilirubin GGT AST ALT Alkaline Phosphatase Ammonia Total Creatine Kinase CK-MB (CK-2) CK-MB (CK-2) Rel Index Troponin I Total Protein Albumin Globulin Albumin/Globulin Ratio Vitamin B12 Folate Procalcitonin Urine Color Yellow Urine Appearance Turbid Urine pH 7.5 Ur Specific [place] 1.010 Urine Protein 1+ H Urine Glucose (UA) Negative Urine Ketones Negative Urine Occult Blood 3+ H Urine Nitrate Negative Urine Bilirubin 2+ H Ur Bilirubin Confirm Positive H Urine Urobilinogen 4.0 H Ur Leukocyte Esterase 3+ H Urine RBC 1-5/hpf Urine WBC >100/hpf H Ur Squamous Epith Cells 0-1 /hpf Urine Bacteria Many (>30) H Ur Culture Indicated? Specimen cultured SARS-CoV-2 (PCR) 04/14/21 04/14/21 11:30 11:30 WBC RBC Hgb Hct MCV MCH MCHC RDW Plt Count Neut % (Auto) Lymph % (Auto) [place] % (Auto) Eos % (Auto) Baso % (Auto) Neut # (Auto) Lymph # (Auto) [place] # (Auto) Eos # (Auto) Baso # (Auto) PT INR Sodium Potassium Chloride Carbon Dioxide BUN Creatinine Estimated GFR BUN/Creatinine Ratio Glucose Lactate Calcium Iron TIBC % Saturation Transferrin Ferritin Total Bilirubin GGT 710 H AST ALT Alkaline Phosphatase Ammonia Total Creatine Kinase CK-MB (CK-2) CK-MB (CK-2) Rel Index Troponin I Total Protein Albumin Globulin Albumin/Globulin Ratio Vitamin B12 > 1000 H Folate 18.4 Procalcitonin Urine Color Urine Appearance Urine pH Ur Specific [place] Urine Protein Urine Glucose (UA) Urine Ketones Urine Occult Blood Urine Nitrate Urine Bilirubin Ur Bilirubin Confirm Urine Urobilinogen Ur Leukocyte Esterase Urine RBC Urine WBC Ur Squamous Epith Cells Urine Bacteria Ur Culture Indicated? SARS-CoV-2 (PCR) Assessment & Plan Assessment & Plan narrative: Ms. Frias is a 71W with PMH SLE, s/p gastric bypass who has been declining for quite a long time now presenting with sepsis, UTI, QUEENIE, and severe liver dysfunction. 1. Sepsis from UTI -she is noted to have hypotension, elevated procalcitonin, encephalopathy -UA positive, urine culture pending -blood culture pending -received IV fluids and antibiotics in the ED, she has improved with improved mentation and blood pressure -continue antibiotics with IV aztreonam due to pcn allergy, and IV flagyl 2. Presumed cirrhosis with hepatitis -liver on imaging has severe hepatic steatosis, she also has anemia, thrombocytopenia, and coagulopathy concerning for cirrhosis -does drink daily, but states she was never a heavy drinker -AST/ALT ratio of 2:1, concerning for alcohol effects on the liver -CT abdomen/pelvis showed no ductal/obstruction or mass -ultrasound abdomen to eval portal vein and eval for ductal dilation or masses -will consider MRCP pending results -elevated ferritin is poor prognosis, and along with elevated tsat there is c oncern for possible hemochromatosis ----sent for HFE gene for hereditary hemochromatosis, check echo to eval cardiac function due to concern for cardiac effects from iron deposition -sent for viral hepatitis serologies -check ronaldo, anti-smooth ab, anti liver-kidney ab -currently have lower suspicion for hemophagocytic lymphohistiocytosis, but monitor for fever and if they occur consider further workup -have moderate suspicion for SLE, will await results of initial lab testing -plan for outpatient GI referral with likely need for EGD, liver biopsy, and possible phlebotomy vs chelation 3. Acute kidney injury -etiology most likely hypovolemia from sepsis -CT showed no evidnce of obstruction, hydronephrosis -check FeNa for further evaluation, and to see if evidence of ATN -continue IV fluids -monitor urine output 4. Acute metabolic encephalopathy, hepatic encephalopathy -encephalopathy likely mixed from infection and liver dysfunction -treat infection as above with antibiotics -for hepatic encephalopathy will start lactulose 5. Cachexia, severe protein calorie malnutrition -dietary consult -BMI 20.9 -some concern for possible malignancy vs autoimmune vs other, will need to make sure cancer screening is uptodate when sees PCP 6. Macrocytic anemia -folate/b12 checked -possibility of effect from alcohol -trend hemoglobin closely -no need for transfusion at this time 7. Thrombocytopenia -mild no need for transfusion -likely secondary to liver dysfunction vs infection 8. History of lupus -currently untreated -did have rash recently -urinalysis does show proteinuria -check RONALDO, c3/c4, anti dsdna, urine protein creatinine ratio 9. History of gastric bypass -likely nutrient deficient -order MVI, thiamine -consult dietary 10. Wheelchair bound -after trauma and surgery -encourage out of bed as able 11. Hypothyroidism -recent TSH checked and was slightly elevated with normal t4 12. Coagulopathy -INR 1.7 -likely secondary to liver dysfunction Dispo: Patient is quite seriously ill, prognosis is very guarded, she has clearly been chronically ill and declining for a long time, I did discuss the significant morbidity with being Full code and CPR/intubation. And patient re portedly had been visiting with hospice recently. However, patient currently still request full code. CODE: Full Proxy: Owen Frias I have utilized all available resources to reconcile patient's available home medications. Time Spent With Patient Critical Care time: I spent a total of [] minutes of critical care time on this patient's care today; this time is exclusive of procedural time. Quality VTE Deep Vein Thrombosis/Pulmonary Embolism Present on Admission: No MIPS - Admit I confirm the patient?s Advance Care Plan is present, Code status is documented, Surrogate decision maker is in patient?s record [If Yes, STOP here]: Yes
[2021-04-14] MEDS: THIAMINE 100 MG TABLET PO (15:21)
[2021-04-14] MEDS: MULTIVITAMIN 1 TABLET 1 TAB PO (15:21)
--- NOTE | 2021-04-14 15:44 | DI.ECHO.S_ITS ---
:REDUCED CARDIAC FUNCTION : :Ordering Physician: BRENDA, : :LYNETTE ABDULLAHI Performed By: Carly Ordoñez : :Referring: LYNETTE GUTIERREZ MD : + + Interpretation Summary Technically difficult study due to patient body habitus. Normal sinus rhythm. Normal LV size and wall thickness; normal wall motion and LV systolic function. EF is 60-65%. Normal chamber sizes. Aortic valve leaflets are not well seen; they appear to be moderately thickened and mildly calcified, but with good leaflet excursion and no functional abnormalities. Otherwise no valvular abnormalities. No prior study available for comparison. Procedure: A two-dimensional transthoracic echocardiogram with color flow and Doppler was performed. The study quality was technically difficult. There is no prior echocardiogram noted for this patient. EKG artificat throughout exam due to frequent movement due to pain. The heart rate ranged between 72-91 bpm during the study. Left Ventricle: The left ventricle is normal in size and wall thickness. The ejection fraction is estimated to be 60-65%. Right Ventricle: The right ventricle is normal in size and function. Atria: The left atrium grossly appears normal in size. Right atrial size is normal. There is no Doppler evidence for an interatrial shunt. Mitral Valve: The mitral valve is normal in structure and function. There is trace mitral regurgitation. Aortic Valve: The aortic valve is mildly calcified. The aortic valve is not well visualized. There is no aortic valve stenosis. No aortic regurgitation is present. Tricuspid Valve: The tricuspid valve is normal in structure and function. There is mild tricuspid regurgitation. Right ventricular systolic pressure is estimated to be 22 mmHg plus the clinically estimated CVP which cannot be estimated on this exam. Pulmonic Valve: The pulmonic valve is not well visualized. Great Vessels: The aortic root is not well visualized but is probably normal size. The ascending aorta could not be visualized. The inferior vena cava was not well visualized. Pericardium/ Pleura There is no pericardial effusion. MMode/2D Measurements & Calculations LVIDd: 3.6 cm LVOT diam: 2.0 cm LVIDs: 2.4 cm Ao Arch Diam (Prox Trans): 2.1 cm FS: 34.8 % IVSd: 0.56 cm LVPWd: 0.71 cm LV oconnell. diameter/BSA (cm/m^2): 2.7 LV sys. diameter/BSA (cm/m^2): 1.7 LA A4 area: 8.6 cm2 RA long axis: 3.2 cm LA length (vol): 3.3 cm RA area: 8.9 cm2 RA vol: 21.1 ml RA : 15.5 ml/m2 RVD1 (basal): 2.1 cm TAPSE: 1.7 cm Doppler Measurements & Calculations Ao V2 max: 98.3 cm/sec LVOT Max Florentino: 89.9 cm/sec Ao V2 mean: 71.7 cm/sec LV V1 max P.2 mmHg Ao max P.9 mmHg LV V1 VTI: 13.5 cm Ao mean P.3 mmHg JOSY(I,D): 2.3 cm2 Ao V2 VTI: 18.6 cm JOSY(V,D): 2.9 cm2 sev ratio: 0.72 JOSY indexed to BSA (cm^2/m^2): 1.7 MV E max florentino: 50.1 cm/sec TR max florentino: 234.2 cm/sec MV A max florentino: 77.4 cm/sec TR max P.9 mmHg MV E/A: 0.65 PA V2 max: 90.5 cm/sec Med Peak E' Florentino: 7.1 cm/sec PA V2 mean: 69.8 cm/sec E/E' med: 7.1 PA mean P.1 mmHg Lat Peak E' Florentino: 8.6 cm/sec PA pr(Accel): 29.3 mmHg E/E' lat: 5.8 E/e' average: 6.5 MV dec time: 0.24 sec SV(LVOT): 43.1 ml Electronically signed by: Nereyda Baca M.D. on Reading Physician:04/14/2021 05:32 PM
[2021-04-14 16:21] LABS: Hepatitis B Surface Antigen NEGATIVE s/c (NEGATIVE)
[2021-04-14 16:54] LABS: Creatinine Urine Random 40.5 mg/dL; Sodium Urine Random 108 mmol/L (30-90)
[2021-04-14 17:27] LABS: Fibrinogen 118 mg/dL (211-428)
[2021-04-14 17:33] LABS: Lactate Dehydrogenase 748 U/L (313-618); Triglycerides 230 mg/dL (35-150)
[2021-04-14 17:36] LABS: Creatinine Urine Random 41.2 mg/dL; Protein (Total) Urine Random 26 mg/dL (0-12); Protein Creatinine Ratio Urine 0.63 GRAM/24H
[2021-04-14] MEDS: HYDROMORPHONE 4 MG TABLET PO (18:50)
--- NOTE | 2021-04-14 19:37 | PC.NURSE ---
Pt arrived from ED at 1050. Her skin is very jaundiced with +2 edema to B feet, broken capillaries on tops of feet. She has an unstageable pressure ulcer to her coccyx with x3 openings, superficial with a surrounding darker brown color which is non blanchable. Slightly hypotensive, A&Ox1-2. She complains of back pain. Medicated with PRN diluaded after SBP more stable in low 100's. Received orders for midline as patient with difficult IV access and c/o PIV in her neck Blood work drawn, and diagnostic imaging completed today. Pt NPO for most of the afternoon. Pt able to then take small amounts of food, per this is her normal after gastric surgery. She is given lactulose with good effect, having multiple loose stools. She is straight cath'd for urine as she had been incontinent of stool and urine. LS clear and diminished on RA. She continues to cry in pain, and received orders to resume her home dose of po dilauded this evening, with good effect. Continuous monitoring, q2 turning.
[2021-04-14] MEDS: HEPARIN 5,000 UNIT/ML VIAL 5000 UNIT SUBCUT (21:20)
[2021-04-14] MEDS: SODIUM CHLORIDE 0.9% FLUSH 10 ML IV (21:21)
[2021-04-15] VITALS (13 sets, daily range): BP systolic 100–116; BP diastolic 43–54; PULSE 74–84; RESP 12–18; TEMP 36.8–36.9; O2SAT 95–100
[2021-04-15] MEDS: HYDROMORPHONE 4 MG TABLET PO ×5 (00:21→23:19)
--- NOTE | 2021-04-15 02:13 | PC.NURSE ---
Addendum entered by Sydnee Mercado R.N. 04/15/21 05:45: 0430: patient calling out each time when staff walks by room. remains oriented but agitated & requesting hospice clinton. states: my wont want me to. requested increase in frequency of dilauded PO, order received to change to Q 4 hours PRN. incontinent of medium soft stool; bandage to coccyx soiled. this was removed & area cleansed w/ NS & gauze 4x4. new dressing applied to two open areas on R butt & one on the left. timed and dated. repositioned minimum of Q 1 hour for comfort, supported w/ many pillows. call light w/in reach. Original Note: patient is alert/oriented x 2-3. mentation seems slightly improved thru-out the NOC. provided detailed history of her back surgery approx 4 years ago. and how she has been managing at home until hospitalization yesterday. her skin is significantly jaundiced, open area on buttocks/coccyx is covered, dressing is intact. frequent loose stools thru the night due to use of lactulose; wears attends and needs 2pa w/ quinton-care and turning. 2+ non-pitting edema to bilat LE's. frequent turning thru the night, supported w/ pillows. main c/o pain/discomfort is her spine- bony prominences impede her ability to get comfortable. PRN dilauded 4mg PO given x 1 w/ good effect for BTP. staff performed frequent room and safety checks thru the night. LUE single lumen midline difficult to flush, attempted to heparinize w/o success. Spoke to hospitalist- verbal order received to hold on all IV meds, patient verbalizing the desire to . possible hospice consult tomorrow. fluids availalbe at bedside, call light w/in reach. BA is on.
[2021-04-15] MEDS: MULTIVITAMIN 1 TABLET 1 TAB PO (09:14)
[2021-04-15] MEDS: THIAMINE 100 MG TABLET PO (09:14)
[2021-04-15] MEDS: LACTULOSE 20 GM/30 ML SOLUTION 30 GM PO (09:16)
[2021-04-15] MEDS: HEPARIN 5,000 UNIT/ML VIAL 5000 UNIT SUBCUT (09:17)
[2021-04-15] MEDS: SODIUM CHLORIDE 0.9% FLUSH 10 ML IV ×2 (09:33→23:28)
[2021-04-15 09:43] LABS: Hepatitis A Ab IgM Negative (Negative); Hepatitis A Ab Total Positive (Negative)
[2021-04-15] MEDS: AZTREONAM 1 GM in DEXTROSE 5 % IN WATER 50 ML 100 ML IV (09:57)
[2021-04-15] MEDS: HYDROMORPHONE 2 MG INJ IM (10:47)
--- NOTE | 2021-04-15 11:33 | PT-IP ANOTE ---
checked with pt and pt does not want any PT and requested d/c. stated that she wants hospice care. informed counseling case manager and agreed. plan is for pt to go home with hospice care tomorrow.
--- NOTE | 2021-04-15 11:45 | OT.IPNOTE ---
Pt refusing to have therapy and to go to hospice. Able to let pt's needs know of coban on left arm too tight and wanting pain medications.
--- NOTE | 2021-04-15 11:45 | CM.DPNOTE ---
Faxed referral packet to [facility] per [facility]. Received fax conf. Fouzia Lepe CM Asst.
--- NOTE | 2021-04-15 11:48 | OT.IPNOTE ---
Pt refusing therapy and requesting to go on hospice. Pt also requesting pain medications, nursing notified.
[2021-04-15] MEDS: HYDROMORPHONE 2 MG INJ IV (12:51)
--- NOTE | 2021-04-15 13:51 | CM.DANOTE ---
DCP/Assessment: Reviewed chart. Patient is a 71yr old female admitted to [facility] with altered mental status. PCP Is Dr. Coello. Primary payor is 1)Medicare 2)[employer]. Met with patient this AM explained role. Patient with h/o complicated chronic medical condition(s). Patient reports to PIE BOTTOMER that she is in incredible pain patient asking to go home with hospice services. Spoke briefly with provider whom is in agreement. Placed call to [facility] and spoke with Lupe she reports that she has received information about this patient from family. PIE BOTTOMER requested that [facility] fax clinical to [facility]. Spoke with Lupe at hospice and she reports that they can see patient in the residence on 04-17-21 between 10-11:00am. DME to be delivered tomorrow 04-16-21. Notified Dr. Freeman of update. He questions why patient cannot d/c home today? PIE BOTTOMER reports to provider that hospice received referral from [facility] this AM. Patient not in agreement to hospice yesterday. Spouse requesting DME be delivered prior to d/c which is happening in AM tomorrow. Notified provider that it is unrealistic and not in the best interests of the patient and spouse to d/c from [facility] without DME in place and pain medication adjusted for home. Spouse reports concern about caring for patient medically and appreciates that hospice can see her in residence on . Spouse in agreement to take patient home after DME delivered tomorrow. P: Home with hospice on 04-15-21. MISTY Discharge Planning/Care Management CM Discharge Assessment Start: 04/15/21 13:24 Freq: Status: Active Protocol: Document 04/15/21 13:24 MISTY (Rec: 04/15/21 13:51 MISTY [id number]) Discharge Planning Assessment Assigned Pl Sql Developer JAY Bajwa Contact Information Owen Frias (spouse) ph# Advance Directives? Yes Advance Directives on File No History Provided By Patient,Family Member,Medical Record Prior Living Arrangements House Household Members spouse Type of transporation used prior to Relies on Others admit Independent with ADL's No Is patient alert and oriented? Yes Needs Assistance With Bathing,Grooming,Meal Prep, Toileting,Managing Medications ,Home Chores / Shopping Caregiver for Another No DME Already Rented / Owned Wheelchair Barriers to Discharge No Discharge Plan Hospice Transportation Arrangement Family vs. non-urgent BLS transport. Referrals Initiated Other Additional Comment [facility] [place] Updated in Patient Room with Yes name and ext. # of Pl Sql Developer Review Status In Process Next Review Type Continued Stay Review
--- NOTE | 2021-04-15 16:44 | DIET.CONS ---
Dietary Consultation Note Admission Date: 04/14/2021 08:44 Assessment: Severely malnourished pt with chronic pain admitted for mental decline. Pt has not eaten since admitted to hospital and has elected to return home on hospice. Ht: 147.32 cm Wt: 45.359 kg BMI: 20.9 Last BM: 04/14/21 (04/14/21 18:52) MNA: 4 Rock Score: 12 Diet: 04/14/21 Lunch General (Regular) Diet Diet Modifications: Nutrition Percent Meal Consumed 0% 04/15/21 13:00 Percent Meal Consumed 0% 04/15/21 09:33 Percent Meal Consumed 5 04/14/21 17:30 Labs: RBC 2.54 X10^6/uL (4.0-5.2) L 04/14/21 05:35 Hgb 9.5 g/dL (12.0-16.0) L 04/14/21 05:35 Hct 27.8 % (36-46) L 04/14/21 05:35 Creatinine 1.60 mg/dL (0.52-1.04) H 04/14/21 05:35 Lactate 1.5 mmol/L (0.7-2.1) 04/14/21 05:35 Iron 89 ug/dL (37-170) 04/14/21 11:30 % Saturation 70 % (15-50) H 04/14/21 11:30 Ferritin 1140 ng/mL (11-264) H 04/14/21 11:30 Electronically Signed by: Radha Samson 04/15/21 16:44 Clinical Dietitian [address] [address]
--- NOTE | 2021-04-15 17:05 | PC.NURSE ---
Pt received this morning A&Ox2, but continually repeating I cant do this anymore. I don't want to live. She was evaluated by the MD and made it clear that her wishes were to go home and that she did not want to live anymore. She continuously repeated that she couldnt do this anymore and was in too much pain. Pt code status was changed and dilaudid administered IV as well as orally to keep patient comfortable. Interventions were limited. She was informed that SW would be meeting with her this a.m. to discuss hospice schedule, arrived this a.m. and schedule was arranged for home hospice and patient plan to discharge after equipment arrived on Wednesday. Pt frequently expressing pain and anxiety, and medicated with ativan this afternoon as well as PRN dilaudid. Pt spend the afternoon with at bedside and he left in the late afternoon home. Approximately 1700 pt observed to have agonal breathing. RN notified of presumed eminence of her passing. notified. state he would return to the hospital to be at her bedside.
--- NOTE | 2021-04-15 17:23 | PM.PN.1 ---
Subjective Subjective Date Patient Seen: 04/15/21 Time Patient Seen: 08:00 Interval history: Today she was quite anxious and distressed. She says she is tired of going through all her medical issues. She wants to be DNR/DNI. She wants to focus on being comfortable. She wants to go home. She wants her IV out. Exam Vital Signs (past 8 hours): - 04/15/21 10:00 04/15/21 11:00 04/15/21 13:45 Temperature 98.5 F Pulse Rate 74 Respiratory Rate 16 Blood Pressure 107/43 L Pulse Oximetry 96 98 100 04/15/21 14:00 Temperature Pulse Rate Respiratory Rate Blood Pressure Pulse Oximetry 100 Oxygen Delivery Method Room Air Oxygen Flow Rate 0 Narrative Exam Narrative: GEN: chronically ill appearing, cachectic HEENT: dry mucous membranes, jaundiced NECK: trachea midline, no JVD PULM: clear bilaterally, no wheezes, rhonchi, rales ABD: soft, nontender, nondistended, no organomegaly, normal bowel sounds EXT: warm and well perfused with no edema NEURO: awake and alert, no longer confused PSYCH: anxious, irritable Objective Labs Result Diagrams: 04/14/21 05:35 04/14/21 05:35 Labs: Laboratory Results - last 24 hr 04/14/21 04/14/21 04/14/21 11:24 11:24 11:24 Fibrinogen GGT 710 H Lactate Dehydrogenase 748 H Triglycerides 230 H Vitamin B12 > 1000 H Folate 18.4 U Random Total Protein Urine Creatinine Protein/Creatinin Ratio Hepatitis A Total & IgM Hep A IgM Ab Confirm Hep Bs Antibody 04/14/21 04/14/21 04/14/21 11:30 11:30 16:25 Fibrinogen GGT Lactate Dehydrogenase Triglycerides Vitamin B12 Folate U Random Total Protein 26 H Urine Creatinine 41.2 Protein/Creatinin Ratio 0.63 Hepatitis A Total & IgM Positive A Hep A IgM Ab Confirm Negative Hep Bs Antibody Non reactive 04/14/21 17:05 Fibrinogen 118 L GGT Lactate Dehydrogenase Triglycerides Vitamin B12 Folate U Random Total Protein Urine Creatinine Protein/Creatinin Ratio Hepatitis A Total & IgM Hep A IgM Ab Confirm Hep Bs Antibody [facility] Medical History Asthma Bilateral lower extremity edema Colon polyps Degenerative disc disease, cervical Difficult intravenous access Eczema GERD (gastroesophageal reflux disease) Glaucoma HTN (hypertension) Hyperlipidemia Hypothyroidism Lesion of lung Meningioma (~10/2015) Seasonal allergies SLE (systemic lupus erythematosus related syndrome) Superficial thrombophlebitis of left leg (~1985) Vitamin D deficiency Surgical History H/O foot surgery H/O: hysterectomy (~08/1978) History of appendectomy History of section History of cosmetic surgery History of gastric bypass (~01/2017) History of lumbar spinal fusion (~2002) History of lumbar spinal fusion Hx of abdominal surgery Hx of cholecystectomy Hx of eye surgery (~12/2015) S/P foot surgery, right (01/08/17) Family History Father Hypertension Heart disease Diabetes mellitus Mother Heart disease Gallstones Stroke Cancer Adenocarcinoma in situ Sister Breast cancer Family/Other Breast cancer Grandfather No problems noted. Social History household members: spouse Smoking Status: Never smoker Assessment & Plan Assessment & Plan narrative: This morning patient made a clear decision she no longer wanted to be hospitalized. She wanted to be on hospice. She wanted to be on comfort care. She will be continued on oral antibiotics for a UTI. She will be kept as comfortable as possible. She should be discharge home as soon as possible per her wishes. Hospice referral has been placed. Comfort orders have been placed. Time Spent With Patient Critical Care time: I spent a total of [] minutes of critical care time on this patient's care today; this time is exclusive of procedural time. Quality VTE Deep Vein Thrombosis/Pulmonary Embolism Present on Admission: No
[2021-04-16 02:00] VITALS: O2SAT 96
[2021-04-16] MEDS: HYDROMORPHONE 4 MG TABLET PO ×3 (04:02→12:36)
[2021-04-16] MEDS: MINERAL OIL/PETROL OPHTH OINT 3.5 GM 1 APPLIC EYE-BOTH (04:58)
[2021-04-16 06:00] VITALS: O2SAT 94
[2021-04-16 07:20] VITALS: O2SAT 96
[2021-04-16] MEDS: levoFLOXacin 250 MG TABLET PO (08:02)
[2021-04-16] MEDS: SODIUM CHLORIDE 0.9% FLUSH 10 ML IV (08:03)
[2021-04-16 08:08] VITALS: O2SAT 96
--- NOTE | 2021-04-16 12:57 | CM.DPNOTE ---
Called [facility] for 1600 transport to home. We need POL for transport. Fouzia Lepe CM Asst.
[2021-04-16 13:23] LABS: Smooth Muscle Antibody 12 Units (0-19)
--- NOTE | 2021-04-16 13:49 | PC.NURSE ---
pt gets very teary at times. medicated with dilaudid PO, falls asleep after pain meds. midline removed by Delfina.
[2021-04-16 14:00] VITALS: BP 109/52; PULSE 76; RESP 13; TEMP 37.2; O2SAT 96
[2021-04-16] MEDS: POLYVINYL ALCOHOL DROPS 1 DROPS EYE-BOTH (14:10)
--- NOTE | 2021-04-16 16:13 | CM.DANOTE ---
DCP/continued: Reviewed chart. All arrangements made for patient to d/c home today with [facility] opening in AM on 04-17-21. Spouse reports DME has been delivered. Patient requiring non-urgent BLS transport secondary to her current medical condition. BLS medical necessity form completed and signed by provider. Spouse aware that patient will be responsible for payment for non-BLS transport if insurance does not cover. P: Home today with [facility] beginning tomorrow. MISTY
--- NOTE | 2021-04-16 18:21 | P.DS_ITS ---
History of Present Illness History of Present Illness Chief complaint: Mental decline Narrative: Ms. Frias is a 71W with PMH SLE, gastric bypass, decubitus ulcers, wheelchair bound who presents to the hospital with confusion and weakness. She and her describe a long consistent decline since surgery a few years ago. More recently in the last few months she has been noted to have elevated liver function tests. They are not sure why this has occurred. She is unsure what plan for workup there is. Reportedly she has been referred to hospice. She denies cough, chest pain, nausea, vomiting, abdominal pain. She has had dysuria. In the ED workup was done vitals notable for afebrile and low blood pressure in the 80s along with borderline tachycardia in the 90s. Initially she was refusing all interventions. Further workup showed labs with WBC 5.5, hgb 9.5, plts 122. Na 136, BUN 22, creatinine 1.6. INR 1.7. Lactate 1.5. Ammonia 48. Bili 5.9, ast 125, alt 59, alk phos 293, albumin 2.6. Procal 1.29. UA showed 1+ protein, 3+ LE, >100 WBC, many bacteria. She was ordered for IV fluids and antibiotics. Abd ominal CT showed hepatomegaly and severe hepatic steatosis, normal spleen, bilateral kidney stones, small pleural effusion and bladder wall thickening. Chest xray showed no acute process. CT head showed no acute process. She was admitted for further treatment. Discharge Providers Provider Date of admission: 04/14/21 08:44 Discharge Date: 04/16/21 Primary care physician: Eugenio Coello MD Consults: 04/14/21 10:30 Consult to Dietitian, Adult Routine Comment: Reason For Exam: cachectic Consult to Occupational Therapy Evaluate & Treat Comment: Physician Instructions: Evaluate and treat Consult to Physical Therapy Evaluate & Treat Comment: Physician Instructions: Evaluate and Treat 04/14/21 12:20 Consult to Dietitian, Adult Routine Comment: Reason For Exam: failure to thrive Consult to Pastoral Services Routine Comment: pt request 04/14/21 18:59 Consult to Dietitian, Adult Routine Comment: Reason For Exam: poor po intake 04/15/21 02:59 Consult After Hours PICC Line RN Routine Comment: 04/15/21 10:34 Consult to Hospice Referral Routine Comment: Discharge provider: Kevin Freeman MD Summary Hospital Course Discharge Diagnosis: 1. Sepsis from UTI 2. Presumed cirrhosis with acute hepatitis 3. Possible hemochromatosis, with iron overload 4. Acute kidney injury 5. Acute metabolic/hepatic encephalopathy 6. Cachexia, severe protein calorie malnutrition 7. Macrocytic anemia 8. Thrombocytopenia 9. Lupus 10. History of gastric bypass 11. Wheelchair bound 12. Hypothyroidism 13. Coagulopathy Hospital Course: Ms. Frias was admitted to the hospital with encephalopathy. She had previously had a progressive decline over the proceeding few years. She has more recently developed liver injury. Initial workup was started which showed severe hepatic steatosis and concern for iron overload and hemochromatosis. She had QUEENIE, cachexia, and sepsis from a UTI. She was started on antibiotics. She was clearly in pain and anxious and on the day of admission was saying she wanted to go home. The day after admission she became quite clear that she wanted no further interventions in the hospital except to control pain and treat her infection. She wanted to go home, change code status to DNR/DNI and be focused on comfort measures. Hospice was arranged and she was discharged home with pain and anxiety medications. Exam Vital Signs (past 8 hours): - 04/16/21 14:00 Temperature 99.0 F Pulse Rate 76 Respiratory Rate 13 Blood Pressure 109/52 L Pulse Oximetry 96 Oxygen Delivery Method Room Air Oxygen Flow Rate 0 Narrative Exam Narrative: GEN: chronically ill appearing, cachectic HEENT: dry mucous membranes, jaundiced PULM: clear bilaterally, no wheezes, rhonchi, rales ABD: soft, nontender, nondistended, no organomegaly, normal bowel sounds Objective Labs Result Diagrams: 04/14/21 05:35 04/14/21 05:35 Labs: Laboratory Results - last 24 hr 04/14/21 11:30 Anti-Smooth Muscle Ab 12 PFSH Medical History Asthma Bilateral lower extremity edema Colon polyps Degenerative disc disease, cervical Difficult intravenous access Eczema GERD (gastroesophageal reflux disease) Glaucoma HTN (hypertension) Hyperlipidemia Hypothyroidism Lesion of lung Meningioma (~10/2015) Seasonal allergies SLE (systemic lupus erythematosus related syndrome) Superficial thrombophlebitis of left leg (~1985) Vitamin D deficiency Surgical History H/O foot surgery H/O: hysterectomy (~08/1978) History of appendectomy History of section History of cosmetic surgery History of gastric bypass (~01/2017) History of lumbar spinal fusion (~2002) History of lumbar spinal fusion Hx of abdominal surgery Hx of cholecystectomy Hx of eye surgery (~12/2015) S/P foot surgery, right (01/08/17) Family History Father Hypertension Heart disease Diabetes mellitus Mother Heart disease Gallstones Stroke Cancer Adenocarcinoma in situ Sister Breast cancer Family/Other Breast cancer Grandfather No problems noted. Social History household members: spouse Smoking Status: Never smoker Discharge Plan Discharge Plan Patient Disposition: Hospice - Home Provider Discharge Comment: Ms. Frias was admitted to the hospital with a urinary tract infection. Additionally she has kidney injury and liver failure. She decided that she did not want to be in the hospital, and wanted to be home with hospice. She will be given an antibiotic to treat the UTI. Discharge orders & Medications Prescriptions: New levofloxacin 250 mg tablet 250 mg PO DAILY Qty: 3 0RF morphine concentrate 100 mg/5 mL (20 mg/mL) solution 10 mg PO Q4H PRN (Reason: pain) Qty: 15 0RF lorazepam [Ativan] 1 mg tablet 1 mg PO TID PRN (Reason: anxiety) Qty: 14 0RF Continued omeprazole 20 MG tablet,delayed release (DR/EC) 20 mg PO QDAY Qty: 0 0RF methocarbamol 500 mg Tablet 500 mg PO TID PRN (Reason: spasm) 0RF Rx Instructions: to help with stomach/throat spasms ondansetron HCl 4 mg Tablet 4 mg PO Q8H PRN (Reason: Nausea) 0RF lorazepam 0.5 mg Tablet 0.5 mg PO Q6H PRN (Reason: Anxiety) 0RF Ciloxan 0.3 % Ointment 0.5 inch OPHTHALMIC (EYE) QID 0RF Rx Instructions: left eye hydromorphone [Dilaudid] 2 mg tablet 4 mg PO Q6H PRN (Reason: pain) 0RF naloxone 4 mg/actuation spray,non-aerosol 4 mg intranasal Q2M PRN (Reason: Sedation) 0RF Rx Instructions: spray 1 dose into ONE nostril; alternate nostrils w each dose until help arrives topiramate 25 mg Capsule, Sprinkle 25 mg PO DAILY 0RF Discontinued potassium chloride 10 mEq Capsule, Extended Release 20 meq PO DAILY 0RF furosemide 20 mg Tablet 40 mg PO DAILY 0RF losartan-hydrochlorothiazide 50-12.5 mg Tablet 1 tab PO DAILY 0RF Follow up/Referrals: Eugenio Coello MD [Primary Care Provider] - Diet/Activity/Treatments Diet: Regular Visit Report/Discharge Packet Instructions: Acute Kidney Injury, DI for Urinary Tract Infection (UTI), DI for Acute Liver Failure Discharge Data Primary Care Provider: Eugenio Coello V Quality VTE Deep Vein Thrombosis/Pulmonary Embolism Present on Admission: No
[2021-04-21 12:45] LABS: Hepatitis B Surf Ab Qualitativ Non Reactive (.)
== END 2021-04-16 15:37 | disposition hospice, home (50) | DRG 871 ==
LOC: ED 08:44 → AC 08:45
PROVIDERS: Emergency Medicine; Admitting Provider Internal Medicine; Emergency Provider Emergency Medicine; Family Provider Physical Medicine & Rehabilitation Pain Medicine; PCP Internal Medicine; Referring Provider Emergency Medicine; Visit Provider Internal Medicine
DX: A41.9 Sepsis, unspecified organism (principal); G93.41 Metabolic encephalopathy; E43 Unspecified severe protein-calorie malnutrition; N17.9 Acute kidney failure, unspecified; N39.0 Urinary tract infection, site not specified; D68.4 Acquired coagulation factor deficiency; B17.9 Acute viral hepatitis, unspecified; R65.20 Severe sepsis without septic shock; I95.9 Hypotension, unspecified; Z68.20 Body mass index [BMI] 20.0-20.9, adult; M32.9 Systemic lupus erythematosus, unspecified; D69.59 Other secondary thrombocytopenia; K74.5 Biliary cirrhosis, unspecified; E83.119 Hemochromatosis, unspecified; K21.9 Gastro-esophageal reflux disease without esophagitis; F41.9 Anxiety disorder, unspecified; Z98.84 Bariatric surgery status; Z20.822 Contact with and (suspected) exposure to COVID-19; Z66 Do not resuscitate; Z51.5 Encounter for palliative care
CPT/HCPCS: 36415; 70450; 71045; 74176; 76705; 80053; 81001; 81256; 82140; 82550; 82570; 82607; 82728; 82746; 82977; 83516; 83540; 83550; 83605; 83615; 84145; 84156; 84300; 84478; 84484; 85025; 85384; 85610; 86038; 86376; 86706; 86708; 87040; 87077; 87086; 87186; 87340; 87522; 87635; 87797; 93306; 94760; 96361; 96365; 96375; 96376; 99284; C9803; J1170; J1642; J1644; J1956